=== PATIENT | male | born 1995 | race Caucasian/White ===

== ENCOUNTER 2021-07-01 11:48 | Emergency (ER) | payer OTHER, SELFPAY ==
--- NOTE | ~2021-07-01 | XR_ITS ---
EXAMINATION: XR CHEST CLINICAL INFORMATION: Cough COMPARISON: None TECHNIQUE: Frontal view of the chest was obtained. FINDINGS: The cardiac and mediastinal contours are normal. The lungs are clear. There is no pleural effusion or pneumothorax. There is mild curvature of the midthoracic spine to the right. Bony structures are otherwise unremarkable. XR/XR chest 1V IMPRESSION: No evidence for acute disease in the chest.
[2021-07-01 13:28] VITALS: BP 157/80; PULSE 101; RESP 18; TEMP 37.1; O2SAT 98; BMI 28.2
[2021-07-01 14:17] VITALS: BP 124/80; PULSE 94; RESP 18; TEMP 36.6; O2SAT 96
[2021-07-01 14:19] LABS: COVID-19 Test Negative (Negative); IDNOW Serial# 9DD0AD1C
--- NOTE | 2021-07-01 14:22 | ED.URI ---
HPI - URI/Sore Throat General Chief Complaint: Upper Respiratory Symptoms Stated Complaint: flu like symptoms Time Seen by Provider: 07/01/21 13:58 Source: patient Mode of arrival: ambulatory Limitations: no limitations History of Present Illness HPI Narrative: 25-year-old male with hx TBI, seizures presents to the ER with dry hacking cough, body aches, chest tightness and discomfort with coughing and shortness of breath. His symptoms started 2 days ago and worsened today. He is vaccinated for COVID-19 and has had no known sick contacts. He has no abdominal pain, nausea, vomiting, diarrhea. He is able to tolerate p.o.. He took Aleve for his headache and body aches today with improvement. MD elicited complaint: cough, sore throat and nasal congestion Onset (ago): day(s) (2) Consistency: constant Severity: moderate Able to tolerate fluids by mouth: Yes Exacerbating factors: exertion Relieving factors: NSAID and rest Associated symptoms: myalgias, headache, rhinorrhea, nasal congestion, cough, chest pain and shortness of breath Treatments prior to arrival: ibuprofen Related Data Allergies Allergy/AdvReac Type Severity Reaction Status Date / Time Penicillins Allergy Hives Verified 07/01/21 13:28 Review of Systems Review of Systems: Constitutional: No Fever, No Chills ENT/Mouth: No sore throat, + Rhinorrhea, No Swallowing Difficulty Cardiovascular: + Chest Pain, + SOB, No Orthopnea, No Edema Respiratory: + Cough, No Sputum, No Wheezing, + dyspnea Gastrointestinal: No Nausea, No Vomiting, No Diarrhea, No abdominal Pain Musculoskeletal: No joint pain, + Myalgias Skin: No Skin Lesions, No rash Neuro: No Weakness, No Numbness, No Dizziness, + Headache Psych: No Anxiety/Panic, No Depression Heme/Lymph: No Bruising, No Lymphadenopathy Endocrine: No Polyuria, No Polydipsia PMFSH Past Medical History Medical History Seizures SVT (supraventricular tachycardia) TBI (traumatic brain injury) Surgical History (Updated 07/01/21 @ 13:30 by Cherrie Solis RN) History of appendectomy Social History Social History Advance Directives: No Advance Directives Information Provided: No Physical Exam Vital Signs: Vital Signs: Last Vital Signs Temp 97.8 F 07/01/21 14:17 Pulse 94 07/01/21 14:17 Resp 18 07/01/21 14:17 BP 124/80 07/01/21 14:17 Pulse Ox 96 07/01/21 14:17 Body Mass Index 28.2 Appearance: Alert. Oriented X3. No acute distress. Eyes: Pupils equal, round and reactive to light. ENT: Pharynx normal. TM's normal. Clear nasal discharge Neck: Normal inspection. Neck supple. CVS: Normal heart rate and rhythm. Pulses normal. Respiratory: No respiratory distress. Breath sounds normal. Skin: Skin warm and dry. Normal skin color. Normal skin turgor. No rashes. Extremities: No lower extremity edema. Neuro: Oriented X 3. Grossly normal, nonfocal Course Course Course Narrative: 25-year-old male presents to the ER with cough, chest pain, shortness of breath, body aches. He is nontoxic appearing. His symptoms are most likely viral in nature. Will get COVID swab and chest x-ray. Reevaluation(s) Reevaluation #1: Chest x-ray is clear COVID swab is negative. He is stable for discharge home with supportive care and plan to follow-up with his doctor as needed. MDM - URI/Sore Throat Lab Data Labs: Lab Results 07/01/21 Range/Units 13:58 COVID-19 ([facility]) Negative (Negative) COVID-19 Clin Com See Note Critical Care Time Critical Care Time Critical Care Time: No Discharge Plan Discharge Clinical Impression: Viral infection Patient Disposition: Home, Self-Care Instructions: Viral Syndrome (ED) Additional Instructions: You were negative for COVID-19. Your chest x-ray and oxygen levels were normal. Rest. Drink plenty of fluids. Take over the counter cold/flu medications as needed for your symptoms. Take Tylenol and/or Motrin as needed for fevers and body aches. Follow up with your doctor this week. If your symptoms persist, recommend getting another COVID-19 test done. If you shortness of breath worsens, if you develop difficulty breathing or any other concerning symptom come back to the ER for further evaluation. Stand Alone Forms: Work/School Release
== END 2021-07-01 15:09 | disposition home or self-care (01) ==
PROVIDERS: Emergency Provider Emergency Medicine; PCP Internal Medicine
DX: B34.9 Viral infection, unspecified (principal); M79.10 Myalgia, unspecified site; R51.9 Headache, unspecified; R05.9 Cough, unspecified; R07.9 Chest pain, unspecified; R06.02 Shortness of breath; Z20.822 Contact with and (suspected) exposure to COVID-19
CPT/HCPCS: 36415; 71045; 87635; 99283; 99284

== ENCOUNTER 2021-07-08 15:09 | Emergency (ER) | payer OTHER, SELFPAY ==
--- NOTE | ~2021-07-08 | XR_ITS ---
EXAMINATION: XR CHEST CLINICAL INFORMATION: Cough COMPARISON: None TECHNIQUE: Frontal view of the chest was obtained. FINDINGS: No significant abnormality is noted involving the heart, lungs, mediastinum, bony thorax or soft tissues. XR/XR chest 1V IMPRESSION: Unremarkable examination.
[2021-07-08 15:24] VITALS: BP 131/94; PULSE 93; RESP 20; TEMP 36.9; O2SAT 96; BMI 27.6
[2021-07-08 16:09] LABS: COVID-19 Test Negative (Negative)
--- NOTE | 2021-07-08 17:53 | ED.URI ---
HPI - URI/Sore Throat General Chief Complaint: Upper Respiratory Symptoms Stated Complaint: Chest congestion/Difficulty breathing Time Seen by Provider: 07/08/21 17:43 History of Present Illness HPI Narrative: Patient complains of cough congestion for 2 weeks as well as yellowish sputum production no shortness of breath Related Data Previous Rx's Medication Instructions Recorded azithromycin 250 mg tablet See Rx Instructions .ROUTE 07/08/21 (Zithromax) .COMPLEX #6 tab Allergies Allergy/AdvReac Type Severity Reaction Status Date / Time Penicillins Allergy Hives Verified 07/01/21 13:28 sulfamethoxazole Allergy Unknown Verified 07/08/21 17:50 [From Bactrim] trimethoprim [From Bactrim] Allergy Unknown Verified 07/08/21 17:50 Review of Systems Review of Systems: Positive for cough and runny nose Negatives are no fever no chills no dizziness no weakness no fainting no feeling faint no chest pain no shortness of breath no stiff neck no nausea vomiting no abdominal pain no leg swelling no lower leg pain no skin rash Yes all other systems are reviewed and are negative PMFSH Past Medical History Source: nursing notes reviewed Medical History Seizures SVT (supraventricular tachycardia) TBI (traumatic brain injury) Surgical History (Updated 07/01/21 @ 13:30 by Cherrie Solis RN) History of appendectomy Social History Social History Advance Directives: No Advance Directives Information Provided: No Physical Exam Vital Signs: Vital Signs: Last Vital Signs Temp 98.5 F 07/08/21 15:24 Pulse 93 07/08/21 15:24 Resp 20 07/08/21 15:24 BP 131/94 H 07/08/21 15:24 Pulse Ox 96 07/08/21 15:24 BMI result Body Mass Index 27.6 General appearance is no acute distress comfortable The eyes are clear no redness or discharge Neck is supple Chest clear to auscultation bilateral Heart no murmur Abdomen soft nontender Extremities full range of motion x4 Skin no rash Course Course Course Narrative: COVID testing and chest x-ray were negative but as symptoms have been over 10 days and not improving he started antibiotics Otherwise well-appearing patient is discharged MDM - URI/Sore Throat Lab Data Labs: Lab Results 07/08/21 Range/Units 15:31 COVID-19 ([facility]) Negative (Negative) COVID-19 Clin Com See Note Discharge Plan Discharge Clinical Impression: Bronchitis Patient Disposition: Home, Self-Care Additional Instructions: X-ray and COVID test were negative Because symptoms have gone on for over 2 weeks we are treating for bronchitis with antibiotics Zithromax Return any time any worse condition or any concerns Prescriptions: New azithromycin [Zithromax] 250 mg tablet See Rx Instructions .ROUTE .COMPLEX Qty: 6 RF: 0 Stand Alone Forms: Work/School Release Interventions: ED Discharge Assessment Last Done: 07/08/21 19:08 Discharge Date/Time: 07/08/21 19:09
== END 2021-07-08 19:09 | disposition home or self-care (01) ==
PROVIDERS: Emergency Provider Emergency Medicine Emergency Medical Services; PCP Internal Medicine
DX: J40 Bronchitis, not specified as acute or chronic (principal); Z20.822 Contact with and (suspected) exposure to COVID-19
CPT/HCPCS: 36415; 71045; 87635; 99283

== ENCOUNTER 2021-08-28 15:43 | Emergency (ER) | payer OTHER, SELFPAY ==
[2021-08-28 16:32] VITALS: BP 140/83; PULSE 64; RESP 18; TEMP 36.8; O2SAT 97; BMI 25.7
--- NOTE | 2021-08-28 17:28 | ED_ITS ---
HPI - Psych General Chief Complaint: Psychiatric Symptoms Stated Complaint: psych eval. Source: patient Mode of arrival: ambulatory Limitations: no limitations History of Present Illness HPI Narrative: 25-year-old male presents for suicidal ideation and self mutilating. States that he is depressed, has been drinking alcohol but not to excess. Denies illicit drug use. Denies auditory visual hallucinations. MD complaint: suicidal ideation, feels depressed, anxiety and alcohol abuse Onset (ago): month(s) Duration: constant History of same: Yes Relieving factors: none Exacerbating factors: alcohol Context: recent alcohol abuse and significant life stressor Associated psychiatric symptoms: depression, suicidal ideation and other (Self injurous behavior) Associated symptoms: denies other symptoms Treatments prior to arrival: none If self harm: admits thoughts of self harm and self-inflicted trauma Related Data Previous Rx's Medication Instructions Recorded azithromycin 250 mg tablet See Rx Instructions .ROUTE 07/08/21 (Zithromax) .COMPLEX #6 tab Allergies Allergy/AdvReac Type Severity Reaction Status Date / Time Penicillins Allergy Hives Verified 07/01/21 13:28 sulfamethoxazole Allergy Unknown Verified 07/08/21 17:50 [From Bactrim] trimethoprim [From Allergy Unknown Verified 07/08/21 17:50 Bactrim] Review of Systems Verdana 4l Review of Systems: Verdana 4d Verdana 4d Constitutional: No Fever, No Chills ENT/Mouth: No Ear Pain, No Nasal Congestion, No sore throat Eyes: No Eye Pain, No Swelling, No Redness Cardiovascular: No Chest Pain, No SOB Respiratory: No Cough, No Sputum, No Dyspnea GastrointestinalGastrointestinal: No Nausea, No Vomiting, No Diarrhea, No Hematochezia, No Melena Genitourinary: No Dysuria, No Urinary Frequency, No Hematuria Musculoskeletal: No Myalgias Skin: No Skin Lesions, No rash Neuro: No Weakness, No Numbness, No Paresthesias, No Dizziness, No Headache Psych: positive Anxiety, positive Depression, positive SI, positive self-mutilation, positive alcohol abuse Heme/Lymph: No Lymphadenopathy Endocrine: No Polyuria, No Polydipsia Yes all other systems are reviewed and are negative PMFSH Past Medical History Attestation statement: The following information was validated with the patient. Source: old records reviewed Medical History Seizures SVT (supraventricular tachycardia) TBI (traumatic brain injury) Surgical History History of appendectomy Social History Social History Advance Directives: No Advance Directives Information Provided: No Healthcare Proxy: No Guardian: No Physical Exam Verdana 4l Vital Signs: Verdana 4d Verdana 4d Vital Signs: Verdana 4d Verdana 4Bd Last Vital Signs Verdana 4d Shoe Dresser New 4d Shoe Dresser New 4d Temp 98.5 F 08/28/21 18:00 Shoe Dresser New 4d Pulse 89 08/28/21 18:00 Shoe Dresser New 4d Resp 18 08/28/21 18:00 BP 134/84 08/28/21 18:00 Pulse Ox 97 08/28/21 16:32 BMI result Body Mass Index 25.7 Appearance: Alert. Oriented X3. No acute distress. Eyes: Pupils equal, round and reactive to light. EOMI. Sclera nonicteric. ENT: Pharynx normal. Moist mucous membranes. Neck: Normal inspection. Neck supple. Suction bruise to the left neck. CVS: Normal heart rate and rhythm. Pulses normal. Respiratory: No respiratory distress. Breath sounds normal. Abdomen: Soft and nontender. Skin: Superficial abrasion to the dorsal aspect of the right hand. Skin warm and dry. Normal skin color. Normal skin turgor. Extremities: No lower extremity edema. Gait well-balanced well coordinated. Neuro: No motor deficit. No sensory deficit. Cranial nerves 2-12 intact. Course Course Course Narrative: 25-year-old male presents for psychiatric evaluation. States to have suicidal ideation, and self-injurious behaviors. He did cut up his right hand, currently no signs of infection and healing without difficulty. Does have a suction bruise to the left neck. Does not report any other injuries. States to binge drink alcohol, last drink 2 days ago. Denies illicit drug use. Care team consult pending. 7:30 p.m. care team consult complete, plan of care to discharge home and have patient follow-up with outpatient therapy. Patient verbalized understanding of and agrees to plan of care to discharge home. Will refer to Dr. Roque for cyst on his right arm. MDM - Psych Differential Diagnosis Differential diagnosis: Likely suicidal ideation, depression and acute anxiety Medical Records Attestation: I reviewed the patient's medical records. Lab Data Attestation: I reviewed the patient's lab results. Labs: Lab Results 08/28/21 Range/Units 17:31 COVID-19 ([facility]) Negative (Negative) COVID-19 Clin Com See Note Discharge Plan Discharge Clinical Impression: Depression, Suicidal ideation Patient Disposition: Home, Self-Care Instructions: Depression (ED), Suicide Prevention (ED) Additional Instructions: Please follow-up with outpatient psychiatric therapy as directed. Thank you for choosing this emergency department for evaluation. Please follow-up with primary care physician as needed. Return to the emergency department for any new, concerning, or worsening symptoms. Prescriptions: No Action azithromycin [Zithromax] 250 mg tablet See Rx Instructions .ROUTE .COMPLEX Qty: 6 0RF Rx Instructions: For 250 mg dose pack: take 500 mg today (day 1), then 250 mg for 4 days (days 2-5) Referrals: [facility] [Provider Group] - 2 days Ariela Sullivan NP [Emergency Midlevel Provider] - 2 days Jcarlos Roque MD [Physician] - 2 days (Right arm cyst) Interventions: ED Discharge Assessment Last Done: 08/28/21 19:52 Discharge Date/Time: 08/28/21 20:02
[2021-08-28 17:50] LABS: COVID-19 Test Negative (Negative)
[2021-08-28 18:00] VITALS: BP 134/84; PULSE 89; RESP 18; TEMP 36.9
--- NOTE | 2021-08-28 19:29 | PC.NURSE ---
patient a&ox3, no c/o pain or discomfort, pt currently denying si/hi, vitals stable, care team down to speak with patient and stated that they spoke with the provider and patient will be discharged.
== END 2021-08-28 20:02 | disposition home or self-care (01) ==
PROVIDERS: Emergency Provider Internal Medicine
DX: F32.A Depression, unspecified (principal); R45.851 Suicidal ideations; Z20.822 Contact with and (suspected) exposure to COVID-19; F41.9 Anxiety disorder, unspecified; F10.10 Alcohol abuse, uncomplicated; Y90.9 Presence of alcohol in blood, level not specified; Z91.52 Personal history of nonsuicidal self-harm
CPT/HCPCS: 87635; 99284

== ENCOUNTER 2021-11-02 07:50 | Inpatient (IN) | payer OTHER, SELFPAY ==
--- NOTE | 2021-11-02 | ECG_ITS ---
Test Reason : PSYCH MEDS Blood Pressure : / mmHG Vent. Rate : 094 BPM Atrial Rate : 094 BPM P-R Int : 138 ms QRS Dur : 094 ms QT Int : 334 ms P-R-T Axes : 064 075 017 degrees QTc Int : 417 ms Normal sinus rhythm Normal ECG No previous ECGs available Referred By: Patsy Luz Electronically Signed By:MARCO ZAPIEN
[2021-11-02 07:57] VITALS: BP 140/78; PULSE 92; RESP 17; TEMP 37.3; O2SAT 96; BMI 25.7
--- NOTE | 2021-11-02 08:25 | PC.NURSE ---
Addendum entered by Rachele Giang RN 11/02/21 09:06: Aripiprazole - not zyprexa. Original Note: pt awake, alert. brought over to Pod and changed over into [facility]. Belongings were locked up. pt medication rec completed - he takes 75mg Amitriptyline at night and 10 mg Zyprexa in the AM. pt reports he was taking only 5mg but he had a zoom meeting with his dr yesterday where she increased his dose to 10 mg. pt reports thoughts of SI. his eye contact is poor, he reports delusions and unable to tell the difference between if he is hearing voices or if they are his own intrusive thoughts. pt reports hx of cutting self as a way of coping as well as tying nooses. he reports he has been diagnosed with schizophrenia since 17/16 y.o and recently he has been having a more difficult time coping with the sx. pt with new and son at home, reports he has been experiencing a lot of stress attempting to find help on his own.
[2021-11-02 09:14] LABS: MANUAL DIFF FLAG NO
--- NOTE | 2021-11-02 09:18 | ED.PSYCH ---
HPI - Psych General Chief Complaint: Psychiatric Symptoms Stated Complaint: crisis si Time Seen by Provider: 11/02/21 08:09 Source: patient Mode of arrival: ambulatory Limitations: no limitations History of Present Illness HPI Narrative: 26-year-old male with a past medical history of TBI/seizure disorder currently on amitriptyline being followed by Neurology, schizophrenia since he was 15 years old currently on Zyprexa presenting to the ED with complaints of increased anxiety/depression with SI thoughts no plan in place with auditory hallucinations telling him ?to harm himself?. Reports that he lives with his and his 6-year-old at home. He reports that he has been trying to get a prescriber for antidepressant although his PCP is not comfortable prescribing antidepressants therefore she increases his Zyprexa from 5 mg to 10 mg yesterday and told him that he should come to the emergency department for further evaluation treatment to see if we can help him find a therapist/psychiatrist prescribe him antidepressant medications or any other psychiatric medications. He reports that he stopped drinking approximately 5 weeks ago. He denies any drug usage. He reports that he does not smoke. He denies any actual plan in place. He denies any HI or visual hallucination. He denies any fevers, chills, dizziness, headaches, neck pain/stiffness, trouble swallowing or breathing, loss of taste or smell, sore throat, chest pain or shortness of breath, dyspnea on exertion, orthopnea, nausea/vomiting/diarrhea constipation, rashes, black or bloody stools, constipation, recent travel or sick contacts, paresthesias or any other symptoms complaints or concerns at this time. MD complaint: suicidal ideation, feels depressed and anxiety Onset (ago): day(s) Duration: constant and getting worse History of same: Yes Relieving factors: none Exacerbating factors: none Associated psychiatric symptoms: depression, suicidal ideation, racing thoughts and auditory hallucinations Associated symptoms: denies other symptoms Treatments prior to arrival: none Related Data Home Medications Medication Instructions Recorded Confirmed amitriptyline 75 mg tablet 1 tab PO DAILY 11/02/21 11/02/21 aripiprazole 5 mg tablet 1 tab PO DAILY 11/02/21 11/02/21 Previous Rx's Medication Instructions Recorded azithromycin 250 mg tablet See Rx Instructions .ROUTE 07/08/21 (Zithromax) .COMPLEX #6 tab Allergies Allergy/AdvReac Type Severity Reaction Status Date / Time Penicillins Allergy Hives Verified 07/01/21 13:28 sulfamethoxazole Allergy Unknown Verified 07/08/21 17:50 [From Bactrim] trimethoprim [From Bactrim] Allergy Unknown Verified 07/08/21 17:50 Review of Systems Review of Systems: Constitutional : No Fever, No Chills ENT/Mouth : No Ear Pain, No Nasal Congestion, No sore throat Eyes: No Eye Pain, No Swelling, No Redness Cardiovascular : No Chest Pain, No SOB Respiratory : No Cough, No Sputum, No Dyspnea Gastrointestinal : No ingestions, No Nausea, No Vomiting, No Diarrhea, No Hematochezia, No Melena Genitourinary : No Dysuria, No Urinary Frequency, No Hematuria Musculoskeletal : No Myalgias Skin : No Skin Lesions, No rash Neuro : No Weakness, No Numbness, No Paresthesias, No Dizziness, No Headache Psych : + Anxiety, + Depression, + SI, + thoughts of self injury, + auditory hallucinations, no visual hallucinations, No HI Heme/Lymph: No Lymphadenopathy Endocrine : No Polyuria, No Polydipsia Yes all other systems are reviewed and are negative [facility] Past Medical History Attestation statement: The following information was validated with the patient. Medical History Seizures SVT (supraventricular tachycardia) TBI (traumatic brain injury) Surgical History History of appendectomy Social History Social History Advance Directives: No Advance Directives Information Provided: Yes Healthcare Proxy: No Guardian: No Physical Exam Vital Signs: Vital Signs: Last Vital Signs Temp 98.2 F 11/02/21 16:01 Pulse 101 H 11/02/21 16:01 Resp 18 11/02/21 11:22 BP 135/85 11/02/21 16:01 Pulse Ox 98 11/02/21 16:01 BMI result Body Mass Index 25.7 vital signs have been reviewed as normal and appeared to be correct. Blood pressure 140/78. Heart rate normal. Respiration rate normal. Temperature normal. Oxygen saturation normal. Appearance: Alert. Oriented X3. No acute distress. Head: Normal external exam. Normocephalic. Atraumatic. Eyes: PERRLA. EOMI. Conjunctiva and sclera normal. Eyelids normal. ENT: EAC normal. TM's Normal. Pharynx normal. Uvula midline. Moist mucous membranes. No trismus noted. No drooling noted. No muffled voice noted. Neck: Normal inspection. Neck supple. FROM. No adenopathy. Thyroid Normal. No meningeal signs. No neck mass noted. CVS: Normal heart rate and rhythm. Heart sound normal. No murmurs noted. Pulses normal throughout. Respiratory: No respiratory distress. Painless inspiration. Breath sounds normal. No wheezes/rales/rhonchi noted. Chest nontender. No accessory muscle usage noted or decreased air movement noted. Abdomen: Soft and nontender. Bowel sounds normal in all 4 quadrants. No distention noted. No organomegaly noted. No visible injury noted. Back: No CVA tenderness. Full range of motion noted. Skin: Skin warm and dry. Normal skin color. Normal skin turgor. No rashes/lesions/lacerations noted. Extremities: No lower extremity edema. Extremities exhibit normal range of motion. Extremities nontender. Neuro: Oriented X 3. No motor deficit. No sensory deficit. Reflexes normal. CN's II-XII intact bilaterally? Psych: Appearance grossly normal, well-kept, mental status normal, speech and movement normal, speech clear, patient appears very sad and anxious along with depressed. Is cooperative. Normal thought process. Normal thought content. Normal good insight. Judgment good. Vascular: +2 radial pulses bilateral, +2 distal pedal pulses bilateral. No cyanosis noted to upper lower extremities. Normal capillary refill to bilateral upper and lower extremities fingernails and toenails. Course Course Course Narrative: 8:35am - 26-year-old male with a past medical history of TBI/seizure disorder currently on amitriptyline being followed by Neurology, schizophrenia since he was 15 years old currently on Zyprexa presenting to the ED with complaints of increased anxiety/depression with SI thoughts no plan in place with auditory hallucinations telling him ?to harm himself?. Reports that he lives with his and his 6-year-old at home. He reports that he has been trying to get a prescriber for antidepressant although his PCP is not comfortable prescribing antidepressants therefore she increases his Zyprexa from 5 mg to 10 mg yesterday and told him that he should come to the emergency department for further evaluation treatment to see if we can help him find a therapist/psychiatrist prescribe him antidepressant medications or any other psychiatric medications. He reports that he stopped drinking approximately 5 weeks ago. He denies any drug usage. He reports that he does not smoke. He denies any actual plan in place. He denies any HI or visual hallucination. Plan: Labs, EKG, UA, drugs of abuse screen, COVID swab and re-evaluate. Reevaluation(s) Reevaluation #1: - labs reviewed and all within normal limits. UA within normal limits no evidence of UTI. Patient negative for COVID. - therefore at this time patient is placed in Physician observation and is medically cleared because he needs to be evaluated by crisis for possible inpatient versus DC with outpatient therapy/psychiatry referral. Will continue to monitor at this time patient is alert and oriented x3. Not in any acute distress. No focal neuro deficits are noted. Lungs clear to auscultation CV RRR. Abdomen is soft and nontender. Normal steady gait. He denies any additional complaints or concerns at this time. Will continue to monitor. Time: 10:00 Reevaluation #2: - care team evaluated the patient and they are recommending inpatient voluntary bed search although they may place him on a Section 12 will continue to monitor. Patient understands agrees with this plan. Time: 11:26 Reevaluation #3: - patient being admitted to [facility] by Dr. Mendoza for an unspecific psychotic disorder. Patient understands agrees with this plan. Will continue to monitor until he is transferred upstairs Time: 16:37 [facility] - Psych Medical Records Attestation: I reviewed the patient's medical records. Lab Data Attestation: I reviewed the patient's lab results. Result diagrams: 11/02/21 09:09 11/02/21 09:09 Labs: Lab Results 11/02/21 11/02/21 11/02/21 Range/Units 09:09 09:09 09:09 WBC 5.0 (4.8-10.8) X10*3/uL RBC 4.80 (4.60-5.80) X10*6/uL Hgb 15.0 (14.0-18.0) g/dl Hct 43.9 (42.0-52.0) % MCV 91.5 (80.0-98.0) fL MCH 31.3 (27.0-33.0) pg MCHC 34.2 (31.0-36.0) g/dl RDW 11.9 (11.0-16.0) % Plt Count 260 (160-400) X10*3/uL MPV 9.1 L (9.4-12.4) fL Immature Gran % (Auto) 0.2 (0.0-0.4) % Neut % (Auto) 62.5 (45-73) % Lymph % (Auto) 25.0 (20-40) % [place] % (Auto) 8.9 (2-11) % Eos % (Auto) 2.6 (0-4) % Baso % (Auto) 0.8 (0-2) % Lymph # (Auto) 1.3 (1.2-4.9) X10*3/uL [place] # (Auto) 0.5 (0.1-1.2) X10*3/uL Eos # (Auto) 0.1 (0.0-0.4) X10*3/uL Baso # (Auto) 0.0 (0.0-0.2) X10*3/uL Abs Immat Gran (auto) 0.01 (0.00-0.03) X10*3/uL Absolute Neuts (auto) 3.1 (2.0-8.3) x10*3/uL Absolute Nucleated RBC 0.000 (0.0-0.012) X10*3/uL Nucleated RBC % (auto) 0.0 (0.0-0.2) /100WBC Sodium 142 (135-145) mmol/L Potassium 4.5 (3.3-5.1) mmol/L Chloride 105 (96-108) mmol/L Carbon Dioxide 30 H (22-29) mmol/L Anion Gap 12 (12-20) BUN 13 (9-16) mg/dL Creatinine 0.98 (0.5-1.4) mg/dL Estim Creat Clear Calc 130.4 Estimated GFR > 60 Random Glucose 107 (60-115) mg/dL Calcium 9.9 (8.4-10.2) mg/dL Total Bilirubin 0.3 (0.0-1.0) mg/dL Direct Bilirubin < 0.2 (0.0-0.5) mg/dL AST 26 (5-37) U/L ALT 62 H (0-40) U/L Alkaline Phosphatase 64 (39-117) U/L Total Protein 6.8 (6.5-8.0) g/dL Albumin 4.4 (3.5-5.0) g/dL Lipase 19 (8-78) U/L Urine Color Urine Appearance Urine pH (5.0-8.0) Ur Specific [place] (1.005-1.025) Urine Protein (NEG-TRACE) MG/DL Urine Glucose (UA) (NEG) MG/DL Urine Ketones (NEG) MG/DL Urine Blood (NEG) Urine Nitrite (NEG) Ur Leukocyte Esterase (NEG) Urine Opiates Screen (Not Detect) Urine Fentanyl Screen (Not Detect) Ur Barbiturates Screen (Not Detect) Ur Phencyclidine Scrn (Not Detect) Ur Amphetamines Screen (Not Detect) U Benzodiazepines Scrn (Not Detect) Urine Cocaine Screen (Not Detect) U Marijuana (THC) Screen (Not Detect) Ethyl Alcohol < 10 mg/dL COVID-19 (NITA) (Negative) COVID-19 Clin Com 11/02/21 11/02/21 11/02/21 Range/Units 09:15 09:18 09:18 WBC (4.8-10.8) X10*3/uL RBC (4.60-5.80) X10*6/uL Hgb (14.0-18.0) g/dl Hct (42.0-52.0) % MCV (80.0-98.0) fL MCH (27.0-33.0) pg MCHC (31.0-36.0) g/dl RDW (11.0-16.0) % Plt Count (160-400) X10*3/uL MPV (9.4-12.4) fL Immature Gran % (Auto) (0.0-0.4) % Neut % (Auto) (45-73) % Lymph % (Auto) (20-40) % [place] % (Auto) (2-11) % Eos % (Auto) (0-4) % Baso % (Auto) (0-2) % Lymph # (Auto) (1.2-4.9) X10*3/uL [place] # (Auto) (0.1-1.2) X10*3/uL Eos # (Auto) (0.0-0.4) X10*3/uL Baso # (Auto) (0.0-0.2) X10*3/uL Abs Immat Gran (auto) (0.00-0.03) X10*3/uL Absolute Neuts (auto) (2.0-8.3) x10*3/uL Absolute Nucleated RBC (0.0-0.012) X10*3/uL Nucleated RBC % (auto) (0.0-0.2) /100WBC Sodium (135-145) mmol/L Potassium (3.3-5.1) mmol/L Chloride (96-108) mmol/L Carbon Dioxide (22-29) mmol/L Anion Gap (12-20) BUN (9-16) mg/dL Creatinine (0.5-1.4) mg/dL Estim Creat Clear Calc Estimated GFR Random Glucose (60-115) mg/dL Calcium (8.4-10.2) mg/dL Total Bilirubin (0.0-1.0) mg/dL Direct Bilirubin (0.0-0.5) mg/dL AST (5-37) U/L ALT (0-40) U/L Alkaline Phosphatase (39-117) U/L Total Protein (6.5-8.0) g/dL Albumin (3.5-5.0) g/dL Lipase (8-78) U/L Urine Color YELLOW Urine Appearance CLEAR Urine pH 7.5 (5.0-8.0) Ur Specific [place] 1.015 (1.005-1.025) Urine Protein NEG (NEG-TRACE) MG/DL Urine Glucose (UA) NEG (NEG) MG/DL Urine Ketones NEG (NEG) MG/DL Urine Blood NEG (NEG) Urine Nitrite NEG (NEG) Ur Leukocyte Esterase NEG (NEG) Urine Opiates Screen Not Detected (Not Detect) Urine Fentanyl Screen Not Detected (Not Detect) Ur Barbiturates Screen Not Detected (Not Detect) Ur Phencyclidine Scrn Not Detected (Not Detect) Ur Amphetamines Screen Not Detected (Not Detect) U Benzodiazepines Scrn Not Detected (Not Detect) Urine Cocaine Screen Not Detected (Not Detect) U Marijuana (THC) Screen Not Detected (Not Detect) Ethyl Alcohol mg/dL COVID-19 (NITA) Negative (Negative) COVID-19 Clin Com See Note Discharge Plan Discharge Clinical Impression: Psychotic disorder Patient Disposition: Admitted As Inpatient
[2021-11-02 09:19] LABS: Basophils Percent Auto 0.8 % (0-2); Eosinophils Absolute Auto 0.1 X10*3/uL (0.0-0.4); Eosinophils Percent Auto 2.6 % (0-4); Hematocrit 43.9 % (42.0-52.0); Imm Gran Abs Auto 0.01 X10*3/uL (0.00-0.03); Imm Gran Pct Auto 0.2 % (0.0-0.4); Lymphocytes Absolute Auto 1.3 X10*3/uL (1.2-4.9); Mean Corpuscular HGB Conc 34.2 g/dl (31.0-36.0); Mean Corpuscular Hemoglobin 31.3 pg (27.0-33.0); Mean Corpuscular Volume 91.5 fL (80.0-98.0); Mean Platelet Volume 9.1 fL (9.4-12.4); Monocytes Absolute Auto 0.5 X10*3/uL (0.1-1.2); Monocytes Percent Auto 8.9 % (2-11); Neutrophils Absolute Auto 3.1 x10*3/uL (2.0-8.3); Neutrophils Percent Auto 62.5 % (45-73); Platelet Count 260 X10*3/uL (160-400); Red Cell Distribution Width 11.9 % (11.0-16.0)
[2021-11-02 09:30] LABS: Appearance Urine CLEAR; Color Urine YELLOW; Glucose Urine UA NEG (NEG); Leukocyte Esterase Urine NEG (NEG); Nitrite Urine NEG (NEG); PH 7.5 (5.0-8.0); Specific Gravity - Urine 1.015 (1.005-1.025); Urine Blood NEG (NEG); Urine Ketones NEG (NEG); Urine Protein NEG (NEG-TRACE)
[2021-11-02 09:34] LABS: Anion Gap 12 (12-20); Blood Urea Nitrogen 13 mg/dL (9-16); Calcium 9.9 mg/dL (8.4-10.2); Carbon Dioxide 30 mmol/L (22-29); Chloride 105 mmol/L (96-108); Creatinine Clr Calc Pharmacy 130.4; Estimated Glomerular Filt Rate > 60; Glucose Random 107 mg/dL (60-115); Potassium 4.5 mmol/L (3.3-5.1); Sodium 142 mmol/L (135-145)
[2021-11-02 09:43] LABS: COVID-19 Test Negative (Negative); IDNOW Serial# 16C4AD1C
[2021-11-02 10:21] LABS: Alanine Aminotransferase 62 U/L (0-40); Albumin Level 4.4 g/dL (3.5-5.0); Alkaline Phosphatase 64 U/L (39-117); Aspartate Amino Transferase 26 U/L (5-37); Bilirubin Direct < 0.2 mg/dL (0.0-0.5); Bilirubin Total 0.3 mg/dL (0.0-1.0); Lipase 19 U/L (8-78); Total Protein 6.8 g/dL (6.5-8.0)
[2021-11-02 10:35] LABS: Ethanol < 10 mg/dL
[2021-11-02 10:39] LABS: Amphetamine Screen Urine Not Detected (Not Detect); Barbiturates, Urine Not Detected (Not Detect); Benzodiazepines Screen Urine Not Detected (Not Detect); Cannabinoid Screen Urine Not Detected (Not Detect); Cocaine Screen Urine Not Detected (Not Detect); Fentanyl, urine Not Detected (Not Detect); Opiate Screen Urine Not Detected (Not Detect); Phencyclidine Screen Urine Not Detected (Not Detect)
[2021-11-02] MEDS: OLANZapine 5 MG TABLET PO (11:05)
[2021-11-02 11:22] VITALS: BP 145/90; PULSE 106; RESP 18; TEMP 37.1; O2SAT 99
--- NOTE | 2021-11-02 15:45 | PC.NURSE ---
pt to go to [facility]
[2021-11-02 16:01] VITALS: BP 135/85; PULSE 101; TEMP 36.8; O2SAT 98
--- NOTE | 2021-11-02 16:22 | PC.NURSE ---
nurse to nurse given to Rachele on [facility]
[2021-11-02 18:10] VITALS: BP 150/99; PULSE 92; RESP 18; TEMP 36.8; O2SAT 99
[2021-11-02 19:45] VITALS: BMI 26.1
[2021-11-02 20:30] VITALS: BP 162/89; PULSE 87; RESP 18; TEMP 36.7; O2SAT 96
[2021-11-02] MEDS: Simethicone 80 MG TAB.CHEW PO (21:02)
[2021-11-02] MEDS: Amitriptyline HCl 25 MG TABLET 75 MG PO (21:23)
--- NOTE | 2021-11-02 22:06 | PC.ADMIT ---
26y/o cisgender male; referred by the CARE Team, admitted from [facility]. Legal status: Conditional Voluntary. Admitting Diagnosis: Suicidal Ideation. Past Medical History: TBI from childhood that resulted in chronic headaches; SVT. Toxicology Screen negative for all substances. Patient calm and cooperative, engaged in Admission Assessment; dressed in hospital attire, disheveled, poor eye contact; depressed, flat, blunted affect. Patient self-presented at the ER in the morning d/t worsening psychotic symptoms effecting daily functioning. Patient reports one previous psychiatric admission 10 years ago, and most recently has been struggling to find Outpatient Psychiatric Providers as his symptoms worsen. Patient reports having baseline of delusions and paranoia, thinking people are out to get me... or people are poisoning my food ; per patient, the perceptive distortions have worsened and are now impacting ADL as he is missing more work and eating less d/t paranoia, and having thoughts of self-harm... but I wouldn't do that to my family. Patient denies any suicidal plan although endorses passive suicidal thoughts that brought him into the hospital, reports not having these thoughts at time of Admission Assessment. Patient lives with his , 6 y/o son, and 2 roommates; and works fulltime. Patient expresses concern to be able to return to work by Thursday, I have missed too much work...I need to provide for my family. Patient reported he has been using [facility] for psychiatric medication for about a month and met with provider yesterday, But provider doesn't have resources for my condition, they have me diagnosed with schizophrenia. Med Reconciliation completed with pharmacy. Allergy list updated. BOAZ signed. Patient placed on 15 min safety checks.
--- NOTE | 2021-11-02 22:33 | PC.NURSE ---
Med Rec completed with [facility]. Per patient report and verification from [facility], Aripiprazole added to Allergy list and On-call Covering Psychiatrist alerted.
[2021-11-03 07:07] LABS: Alanine Aminotransferase 56 U/L (0-40); Albumin Level 4.5 g/dL (3.5-5.0); Alkaline Phosphatase 62 U/L (39-117); Anion Gap 11 (12-20); Aspartate Amino Transferase 23 U/L (5-37); Bilirubin Total 0.5 mg/dL (0.0-1.0); Blood Urea Nitrogen 12 mg/dL (9-16); Calcium 10.1 mg/dL (8.4-10.2); Carbon Dioxide 32 mmol/L (22-29); Chloride 104 mmol/L (96-108); Cholesterol 206 mg/dL; Creatinine Clr Calc Pharmacy 118.3; Estimated Glomerular Filt Rate > 60; Glucose Fasting 97 mg/dL (60-99); HDL Cholesterol 40 mg/dL; LDL Cholesterol Calculated 137 mg/dl; Potassium 4.7 mmol/L (3.3-5.1); Sodium 142 mmol/L (135-145); Triglycerides 147 mg/dL
[2021-11-03 07:27] LABS: Free T4 (Free Thyroxine) 1.28 ng/dL (0.71-1.85); Thyroid Stimulating Hormone 1.19 uIU/mL (0.32-4.0)
[2021-11-03 07:45] LABS: Estimated Average Glucose 97 mg/dL
[2021-11-03 09:00] VITALS: BP 140/96; PULSE 100; RESP 18; TEMP 36.7; O2SAT 98
[2021-11-03] MEDS: OLANZapine 10 MG TABLET PO (10:07)
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
[2021-11-03] MEDS: Amitriptyline HCl 25 MG TABLET 75 MG PO (20:50)
[2021-11-03 21:00] VITALS: BP 148/87; PULSE 98; RESP 18; TEMP 36.8; O2SAT 97
[2021-11-04 08:00] VITALS: BP 154/82; PULSE 99; RESP 14; TEMP 36.3; O2SAT 96
[2021-11-04] MEDS: OLANZapine 10 MG TABLET PO (09:02)
[2021-11-04] MEDS: hydrOXYzine HCL 50 MG TABLET PO (09:03)
[2021-11-04 10:13] LABS: Folate 13.4 ng/mL (> or = 4.0); Vitamin B12 419 pg/mL (200-900)
--- NOTE | 2021-11-04 14:18 | P.PNPSI_ITS ---
Subjective Subjective Date of Service: 11/04/21 Reason For Visit: SI Interim History: pt playing monopoly with peers in milieu. calm, cooperative. reports hydroxyzine was helpful. denies AH currently. discusses how he misses his , dog, and chid and would like to go home soon. mood pretty decent. feeling better on the unit, having met some people and gotten to know them a lit tle bit. per staff, 3-day matures . missing son and . asking for referrals for outpt care. isolative. poor sleep. anxiety so-so. guarded, med-compliant. asking for early D/C. Mental Status Exam Mental Status Exam Narrative: appropriately dressed and groomed. stevenson, tattoos. no PMA/PMR. cooperative. speech nml in rate, amount, loudness, tone, latency. thoughts linear and logical. affect constricted, normo-intense, non-labile. mood pretty decent. denies AH. no SI/HI/VH reported. Diagnostics Vital Signs (24Hr): Vital Signs - 24 hr 11/03/21 21:00 11/04/21 08:00 Temperature 98.2 F 97.4 F Pulse Rate 98 99 Respiratory Rate 18 14 Blood Pressure 148/87 H 154/82 H Pulse Oximetry 97 96 BMI result Body Mass Index 26.1 Labs Results: 11/02/21 09:09 11/03/21 06:45 Labs: Laboratory Results - last 48 hr 11/03/21 11/03/21 11/03/21 06:45 06:45 06:45 Sodium 142 Potassium 4.7 Chloride 104 Carbon Dioxide 32 H Anion Gap 11 L BUN 12 Creatinine 1.08 Estim Creat Clear Calc 118.3 Estimated GFR > 60 Fasting Glucose 97 Estimat Average Glucose 97 Hemoglobin A1c % 5.0 Calcium 10.1 Total Bilirubin 0.5 AST 23 ALT 56 H Alkaline Phosphatase 62 Total Protein 7.0 Albumin 4.5 Triglycerides 147 Cholesterol 206 LDL Cholesterol, Calc 137 HDL Cholesterol 40 Vitamin B12 419 Folate 13.4 TSH 1.19 Free T4 1.28 Medications Medications Current Medications Acetaminophen (Acetaminophen 325 Mg Tablet) 650 mg PO Q6H PRN PRN Reason: Headache/Pain Mild Scale (1-3) Al Hydroxide/Mg Hydroxide (Magnesium Hydrox/Alum Hydrox 30 Ml Oral.Susp) 30 ml PO Q6H PRN PRN Reason: Heartburn/Nausea Amitriptyline HCl (Amitriptyline Hcl 25 Mg Tablet) 75 mg PO BEDTIME BRITTNY Last Admin: 11/03/21 20:50 Dose: 75 mg Documented by: Hydroxyzine HCl (Hydroxyzine Hcl 25 Mg Tablet) 25 mg PO BEDTIME PRN PRN Reason: Anxiety Hydroxyzine HCl (Hydroxyzine Hcl 50 Mg Tablet) 50 mg PO Q4H PRN PRN Reason: Anxiety Last Admin: 11/04/21 09:03 Dose: 50 mg Documented by: Magnesium Hydroxide (Milk Of Magnesia 30 Ml Oral.Susp) 30 ml PO DAILY PRN PRN Reason: Constipation Olanzapine (Olanzapine 10 Mg Tablet) 10 mg PO DAILY BRITTNY Last Admin: 11/04/21 09:02 Dose: 10 mg Documented by: Simethicone (Simethicone 80 Mg Tab.Chew) 80 mg PO QIDWMHS PRN PRN Reason: flatulence Last Admin: 11/02/21 21:02 Dose: 80 mg Documented by: Trazodone HCl (Trazodone Hcl 50 Mg Tablet) 50 mg PO BEDTIME PRN PRN Reason: Insomnia Allergies Allergies Allergy/AdvReac Type Severity Reaction Status Date / Time aripiprazole Allergy Unknown Verified 11/02/21 19:56 Penicillins Allergy Hives Verified 07/01/21 13:28 sulfamethoxazole Allergy Unknown Verified 07/08/21 17:50 [From Bactrim] trimethoprim [From Bactrim] Allergy Unknown Verified 07/08/21 17:50 Assessment & Plan Assessment & Plan (1) Schizophrenia, paranoid type: Status: Acute Code(s): F20.0 - Paranoid schizophrenia Plan continue zyprexa at recently increased dose of 10 mg daily. continue elavil 75 mg at HS. observe for stable and improved Sx. discharge planning. I spent __20____ minutes with the patient and/or on the patient floor today, greater than?50% of which was spent counseling/coordinating care. Reason for contiued inpatient stay Substantial Risk for: harm to self, inability to function and rapid decompensation
[2021-11-04] MEDS: Acetaminophen 325 MG TABLET 650 MG PO (20:17)
[2021-11-04] MEDS: Amitriptyline HCl 25 MG TABLET 75 MG PO (20:17)
[2021-11-04 20:25] VITALS: BP 156/82; PULSE 101; RESP 18; TEMP 36.7; O2SAT 96
[2021-11-05] MEDS: hydrOXYzine HCL 50 MG TABLET PO (05:43)
[2021-11-05 08:14] VITALS: BP 138/85; PULSE 102; RESP 17; TEMP 36.7; O2SAT 99
[2021-11-05] MEDS: OLANZapine 10 MG TABLET PO (09:17)
--- NOTE | 2021-11-05 13:46 | HO.PSYCHPN ---
Subjective Subjective Date of Service: 11/05/21 Reason For Visit: SI Interim History: pt calm and cooperative. slept 8-5. hydroxyzine helped with sleep. denies AH. denies SI/HI. planning for discharge tomorrow. aftercare being arranged. no complaints or requests. per staff, wants discharge. 3-day up tomorrow. anx/dep 0/10. wants to see his and son. discharge tomorrow. Mental Status Exam Mental Status Exam Narrative: appropriately dressed and groomed. stevenson, tattoos. no PMA/PMR. cooperative. speech nml in rate, amount, loudness, tone, latency. thoughts linear and logical. affect constricted, normo-intense, non-labile. mood euthymic. denies AH/SI/HI. no VH reported. Diagnostics Vital Signs (24Hr): Vital Signs - 24 hr 11/04/21 20:25 11/05/21 08:14 Temperature 98.1 F 98.1 F Pulse Rate 101 H 102 H Respiratory Rate 18 17 Blood Pressure 156/82 H 138/85 Pulse Oximetry 96 99 BMI result Body Mass Index 26.1 Labs Results: 11/02/21 09:09 11/03/21 06:45 Labs: Laboratory Results - last 48 hr 11/03/21 06:45 Vitamin B12 419 Folate 13.4 Medications Medications Current Medications Acetaminophen (Acetaminophen 325 Mg Tablet) 650 mg PO Q6H PRN PRN Reason: Headache/Pain Mild Scale (1-3) Last Admin: 11/04/21 20:17 Dose: 650 mg Documented by: Al Hydroxide/Mg Hydroxide (Magnesium Hydrox/Alum Hydrox 30 Ml Oral.Susp) 30 ml PO Q6H PRN PRN Reason: Heartburn/Nausea Amitriptyline HCl (Amitriptyline Hcl 25 Mg Tablet) 75 mg PO BEDTIME BRITTNY Last Admin: 11/04/21 20:17 Dose: 75 mg Documented by: Hydroxyzine HCl (Hydroxyzine Hcl 25 Mg Tablet) 25 mg PO BEDTIME PRN PRN Reason: Anxiety Hydroxyzine HCl (Hydroxyzine Hcl 50 Mg Tablet) 50 mg PO Q4H PRN PRN Reason: Anxiety Last Admin: 11/05/21 05:43 Dose: 50 mg Documented by: Magnesium Hydroxide (Milk Of Magnesia 30 Ml Oral.Susp) 30 ml PO DAILY PRN PRN Reason: Constipation Olanzapine (Olanzapine 10 Mg Tablet) 10 mg PO DAILY BRITTNY Last Admin: 11/05/21 09:17 Dose: 10 mg Documented by: Simethicone (Simethicone 80 Mg Tab.Chew) 80 mg PO QIDWMHS PRN PRN Reason: flatulence Last Admin: 11/02/21 21:02 Dose: 80 mg Documented by: Trazodone HCl (Trazodone Hcl 50 Mg Tablet) 50 mg PO BEDTIME PRN PRN Reason: Insomnia Allergies Allergies Allergy/AdvReac Type Severity Reaction Status Date / Time aripiprazole Allergy Unknown Verified 11/02/21 19:56 Penicillins Allergy Hives Verified 07/01/21 13:28 sulfamethoxazole Allergy Unknown Verified 07/08/21 17:50 [From Bactrim] trimethoprim [From Bactrim] Allergy Unknown Verified 07/08/21 17:50 Assessment & Plan Assessment & Plan (1) Schizophrenia, paranoid type: Status: Acute Code(s): F20.0 - Paranoid schizophrenia Plan continue zyprexa at recently increased dose of 10 mg daily. continue elavil 75 mg at HS. discharge tomorrow. I spent ___25___ minutes with the patient and/or on the patient floor today, greater than?50% of which was spent counseling/coordinating care. Reason for contiued inpatient stay Substantial Risk for: harm to self, inability to function and rapid decompensation
[2021-11-05] MEDS: Amitriptyline HCl 25 MG TABLET 75 MG PO (20:51)
[2021-11-05] MEDS: Acetaminophen 325 MG TABLET 650 MG PO (21:41)
[2021-11-05 21:45] VITALS: BP 140/92; PULSE 102; RESP 18; TEMP 36.9; O2SAT 97
[2021-11-06] MEDS: hydrOXYzine HCL 50 MG TABLET PO (04:38)
[2021-11-06 06:00] VITALS: BP 146/97; PULSE 115; RESP 16; TEMP 36.6; O2SAT 98
[2021-11-06] MEDS: OLANZapine 10 MG TABLET PO (09:15)
--- NOTE | 2021-11-06 10:38 | PC.NURSE ---
Uli is alert, fully oriented, pleasant and cooperative with discharge process. He denies ideation, plan or intent to harm self or others. He reports good sleep, good appetite and focus is good. Seamus denies current perceptual disturbance. He is future oriented to returning to work and connecting with outpatient providers at scheduled appointments. He deneis physlcal complaint.
--- NOTE | 2021-11-06 10:42 | HO.PSYCHPN ---
Subjective Subjective Date of Service: 11/06/21 Reason For Visit: SI Subjective Notes: Conditional Voluntary and 3 Day Interim History: The patient denies current paranoia or hallucinations. States he is future oriented feels stable feels like he is able to return to work feels safe for discharge feels that higher dose olanzapine has been helpful Mental Status Exam Mental Status Exam Narrative: appropriately dressed and groomed. stevenson, tattoos. no PMA/PMR. cooperative. speech nml in rate, amount, loudness, tone, latency. thoughts linear and logical. affect constricted, normo-intense, non-labile. mood euthymic. denies AH/SI/HI. no VH reported. Diagnostics Vital Signs (24Hr): Vital Signs - 24 hr 11/05/21 21:45 11/06/21 06:00 Temperature 98.4 F 97.8 F Pulse Rate 102 H 115 H Respiratory Rate 18 16 Blood Pressure 140/92 H 146/97 H Pulse Oximetry 97 98 BMI result Body Mass Index 26.1 Labs Results: 11/02/21 09:09 11/03/21 06:45 Medications Medications Current Medications Acetaminophen (Acetaminophen 325 Mg Tablet) 650 mg PO Q6H PRN PRN Reason: Headache/Pain Mild Scale (1-3) Last Admin: 11/05/21 21:41 Dose: 650 mg Documented by: Al Hydroxide/Mg Hydroxide (Magnesium Hydrox/Alum Hydrox 30 Ml Oral.Susp) 30 ml PO Q6H PRN PRN Reason: Heartburn/Nausea Amitriptyline HCl (Amitriptyline Hcl 25 Mg Tablet) 75 mg PO BEDTIME BRITTNY Last Admin: 11/05/21 20:51 Dose: 75 mg Documented by: Hydroxyzine HCl (Hydroxyzine Hcl 25 Mg Tablet) 25 mg PO BEDTIME PRN PRN Reason: Anxiety Hydroxyzine HCl (Hydroxyzine Hcl 50 Mg Tablet) 50 mg PO Q4H PRN PRN Reason: Anxiety Last Admin: 11/06/21 04:38 Dose: 50 mg Documented by: Magnesium Hydroxide (Milk Of Magnesia 30 Ml Oral.Susp) 30 ml PO DAILY PRN PRN Reason: Constipation Olanzapine (Olanzapine 10 Mg Tablet) 10 mg PO DAILY BRITTNY Last Admin: 11/06/21 09:15 Dose: 10 mg Documented by: Simethicone (Simethicone 80 Mg Tab.Chew) 80 mg PO QIDWMHS PRN PRN Reason: flatulence Last Admin: 11/02/21 21:02 Dose: 80 mg Documented by: Trazodone HCl (Trazodone Hcl 50 Mg Tablet) 50 mg PO BEDTIME PRN PRN Reason: Insomnia Allergies Allergies Allergy/AdvReac Type Severity Reaction Status Date / Time aripiprazole Allergy Unknown Verified 11/02/21 19:56 Penicillins Allergy Hives Verified 07/01/21 13:28 sulfamethoxazole Allergy Unknown Verified 07/08/21 17:50 [From Bactrim] trimethoprim [From Bactrim] Allergy Unknown Verified 07/08/21 17:50 Assessment & Plan Assessment & Plan (1) Schizophrenia, paranoid type: Status: Acute Code(s): F20.0 - Paranoid schizophrenia Plan continue zyprexa at recently increased dose of 10 mg daily. continue elavil 75 mg at HS. Patient appears stable no reason for commitment continue discharge per Dr. Mendoza plan for today I spent minutes with the patient and/or on the patient floor today, greater than?50% of which was spent counseling/coordinating care. Reason for contiued inpatient stay Substantial Risk for: stable for discharge
--- NOTE | 2021-11-06 11:01 | PC.NURSE ---
NO boaz for PCP therefore discharge packet not sent. Patient was asked and educated at time of discharge and declined to sign BOAZ.
--- NOTE | 2022-02-04 16:09 | P.DS_ITS ---
DS: Providers Provider Date of Service: 11/06/21 Date of admission: 11/02/21 17:25 Primary care physician: Unknown Physician DS: Diagnosis Discharge Diagnosis (1) Schizophrenia, paranoid type: Status: Acute DS: Medications Discharge Medications Home Medications: Home Medications Medication Instructions Recorded Confirmed amitriptyline 75 mg tablet 1 tab PO DAILY 11/02/21 11/02/21 olanzapine 10 mg tablet 1 tab PO BEDTIME 11/02/21 11/02/21 Mental Status Exam Mental Status Exam Narrative: appropriately dressed and groomed. stevenson, tattoos. no PMA/PMR. cooperative. speech nml in rate, amount, loudness, tone, latency. thoughts linear and logical. affect constricted, normo-intense, non-labile. mood euthymic. denies AH/SI/HI. no VH reported. 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 h/o TBI at 2 yo - cement block fell on his head.? he has AH and paranoia at baseline but they have recently become unmanageable.? his outpt provider increased his dose of olanzapine from 5 mg daily to 10 mg daily about a day prior to admission.? no precipitant for exacerbation identified.? has been having paranoia that people are trying to kill him by poisoning him and that his is having an affair.? experiencing CAH to kill himself.? leaving work early due to paranoia, driving home via numerous different routes to throw anyone who might be following him off.? he has had the higher dose of olanzapine for a couple days now and is feeling better, now no SI and AH have improved.? would like to continue on present regimen. Past Psychiatric History: h/o 1 prior psych hosp, at 15 yo. h/o one SA, at 15 yo, via asphyxiation with rope/cord. h/o cutting as a teen.? for attention. AH started at 17-16 yo. TBI at 2 yo. Medical Evaluation Reviewed: Yes [facility] Medical History? Seizures SVT (supraventricular tachycardia) TBI (traumatic brain injury) Surgical History? History of appendectomy Family History: parents - alcohol Social History: for 7 years, has a 6 yo son. ? he lives with his , son, and two roommates who pay rent.? has one younger brother. Substance History: alcohol - h/o regular use but stopped completely about 1 month ago when starting new medication. denies use of other substances, including tobacco and cannabis. 11/04: pt playing monopoly with peers in milieu.? calm, cooperative.? reports hydroxyzine was helpful.? denies AH currently.? discusses how he misses his , dog, and chid and would like to go home soon.? mood pretty decent. ? feeling better on the unit, having met some people and gotten to know them a little bit.? per staff, 3-day matures .? missing son and .? asking for referrals for outpt care.? isolative.? poor sleep.? anxiety so-so. ? guarded, med-compliant.? asking for early D/C. 11/05: pt calm and cooperative.? slept 8-5.? hydroxyzine helped with sleep.? denies AH.? denies SI/HI.? planning for discharge tomorrow.? aftercare being arranged.? no complaints or requests.? per staff, wants discharge.? 3-day up tomorrow.? anx/dep 0/10.? wants to see his and son.? discharge tomorrow. 11/06: The patient denies current paranoia or hallucinations.? States he is future oriented feels stable feels like he is able to return to work feels safe for discharge feels that higher dose olanzapine has been helpful Precis: continued zyprexa at recently increased dose of 10 mg daily. continued elavil 75 mg at HS. Patient appeared stable no reason for commitment discharged to self care 11/06. Time Spent with Patient Time attestation: Total time spent providing and/or coordinating discharge services: Discharge Plan Discharge Patient Disposition: Home, Self-Care Discharge Diagnosis: chronic paranoid schizophrenia acute exacerbation migraine Referrals: Romi Smith (Therapy) [Other] - 11/12/21 11:00 am (IN OFFICE APPOINTMENT) Coni Shaw (Psychiatry) [Other] - 12/06/21 10:00 am (TELEHEALTH APPOINTMENT -Please check your email the day of the appointment for the zoom link. If you do not receive it, please call the number listed above. ) Coni Shaw (Psychiatry) [Other] - 01/03/22 10:00 am (TELEHEALTH APPOINTMENT -Please check your email the day of the appointment for the zoom link. If you do not receive it, please call the number listed above. ) [facility] [Physician] - 1 Week Discharge Medications: Continued amitriptyline 75 mg tablet 1 tab PO DAILY olanzapine 10 mg tablet 1 tab PO BEDTIME Discharge Orders: Discharge Order (Routine); Ordered 11/06/21 Ordered By: Eris Flaherty Activity on Discharge: As tolerated Stand Alone Forms: Patient Portal Discharge page, Community Support Activity Restrictions/Additional Instructions: may return to work Care Plan Goals: reduce paranoid thinking no si take meds as prescibed Health Concerns: pyschotic disorder migraines TBI Plan of Treatment: therapy medication Assessment: pt states back to baseline feels ok to RTW Discharge Date/Time: 11/06/21 10:52
== END 2021-11-06 10:52 | disposition home or self-care (01) | DRG 885 ==
LOC: HO.ED 16:36 → HO.PADLT16 17:34
PROVIDERS: Physician Assistant Medical; Admitting Provider Psychiatry & Neurology Psychiatry; Emergency Provider Emergency Medicine; Visit Provider Psychiatry & Neurology Psychiatry
DX: F20.0 Paranoid schizophrenia (principal); R45.851 Suicidal ideations; Z20.822 Contact with and (suspected) exposure to COVID-19; Z87.820 Personal history of traumatic brain injury; Z87.891 Personal history of nicotine dependence; Z79.899 Other long term (current) drug therapy
CPT/HCPCS: 36415; 80048; 80053; 80061; 80076; 80307; 81003; 82077; 82607; 82746; 83036; 83690; 84439; 84443; 85025; 87635; 93005; 99285

== ENCOUNTER 2023-08-02 15:47 | Emergency (ER) | payer OTHER, SELFPAY ==
[2023-08-02 17:33] VITALS: BP 136/77; PULSE 111; RESP 16; TEMP 37.1; O2SAT 96; BMI 1030.0
--- NOTE | 2023-08-02 17:34 | ED.GENADULT ---
HPI - General Adult General Chief complaint: Upper Respiratory Symptoms Stated complaint: sob,fever x5 days states o2 sat low Related Data Home Medications Medication Instructions Recorded Confirmed amitriptyline 75 mg tablet 1 tab PO DAILY 11/02/21 11/02/21 olanzapine 10 mg tablet 1 tab PO BEDTIME 11/02/21 11/02/21 Previous Rx's Medication Instructions Recorded ondansetron 4 mg disintegrating 4 mg PO Q8H 3 days #9 tabs 08/02/23 tablet Allergies Allergy/AdvReac Type Severity Reaction Status Date / Time aripiprazole Allergy Unknown Verified 08/02/23 17:32 Penicillins Allergy Hives Verified 08/02/23 17:32 sulfamethoxazole Allergy Unknown Verified 08/02/23 17:32 [From Bactrim] trimethoprim [From Bactrim] Allergy Unknown Verified 08/02/23 17:32 [facility] Past Medical History Medical History TBI (traumatic brain injury) Seizures SVT (supraventricular tachycardia) Surgical History History of appendectomy Social History Social History Household Members: Spouse, Children and Other Household Members Other:: 2 roommates Housing: House Do you presently have visiting nurse or other home services: No Alcohol intake: current Alcohol intake frequency: holidays/special occasions only Patient Tobacco Use Status: Former Tobacco user Tobacco use type: Cigarette Years Smoked: 8 Smoked in Last 30 Days: No e-Cigarette/Vaping Use: Former Use Second Hand Smoke Exposure: No Use of substances other than those prescribed or required for medical reasons: No Advance Directives: No Advance Directives Information Provided: No service: No Sexual orientation: Straight/Heterosexual Physical Exam ED Vital Signs: Vital Signs - 24 hr 08/02/23 17:33 Temperature 98.8 F Pulse Rate 111 H Respiratory Rate 16 Blood Pressure 136/77 Pulse Oximetry 96 Oxygen Delivery Method Room Air BMI result Body Mass Index 1030.0 Course Course Course Narrative: This is a rapid medical exam: Additional HPI, ROS, PE not included below will be deferred to primary provider. Patient is a 27-year-old male with history of schizophrenia presenting to the ED with complaint of fever since Thursday, fatigue. Also reports feeling confused, but is unable to elaborate as to how. Reports cough, body aches. and son sick with similar symptoms. Not hypoxic in triage, mildly tachycardic. Plan: VIRAL AND STREP SWABS Discharge Plan Discharge Clinical Impression: Diagnosis unknown Patient Disposition: Left W/O Completing Treatment Prescriptions: No Action amitriptyline 75 mg tablet 1 tab PO DAILY olanzapine 10 mg tablet 1 tab PO BEDTIME ondansetron 4 mg tablet,disintegrating 4 mg PO Q8H 3 Days Qty: 9 0RF Discharge Date/Time: 08/02/23 20:00
== END 2023-08-02 20:00 | disposition left against medical advice (07) ==
PROVIDERS: Emergency Provider Emergency Medicine
DX: R50.9 Fever, unspecified (principal); R06.02 Shortness of breath
CPT/HCPCS: 99281

== ENCOUNTER 2023-08-02 20:36 | Emergency (ER) | payer OTHER, SELFPAY ==
--- NOTE | ~2023-08-02 | XR_ITS ---
EXAMINATION: XR CHEST CLINICAL INFORMATION: Cough. COMPARISON: Chest radiograph 07/08/2021. TECHNIQUE: 2 views of the chest were obtained. FINDINGS: Normal appearance of the cardiomediastinal silhouette. No focal airspace opacities, pleural effusion or pneumothorax. No acute osseous findings. Visualized upper abdomen is within normal limits. XR/XR chest 2V IMPRESSION: No acute cardiopulmonary findings.
[2023-08-02 20:50] VITALS: BP 90/50; PULSE 90; O2SAT 94
--- NOTE | 2023-08-02 20:57 | ED_ITS ---
HPI - General Adult General Chief complaint: Fever Stated complaint: Flu like symptoms Time Seen by Provider: 08/02/23 20:56 Source: patient and EMS Mode of arrival: EMS Limitations: no limitations History of Present Illness HPI narrative: Patient is a 27 year old assigned male at with a history of schizophrenia presenting to the emergency department today with a cough. Patient states that he has had these symptoms for 3 days, after finishing his antibiotics for strep pharyngitis. Patient denies any dizziness, lightheadedness, abdominal pain, nausea, vomiting, fever, chills, blurry vision, double vision, loss of vision, chest pain, difficulty breathing, shortness of breath, back pain, night sweats, pain with urination, increased urinary frequency, increased urinary urgency, blood in his urine or stool, syncope or a near syncopal episode, recent trauma or falls, bowel incontinence, bladder incontinence, bowel retention, bladder retention, or any other complaints at this time. Onset (ago): day(s) (3) Severity: mild Relieving factors: none Exacerbating factors: none Associated symptoms: cough Treatments prior to arrival: none Related Data Home Medications Medication Instructions Recorded Confirmed amitriptyline 75 mg tablet 1 tab PO DAILY 11/02/21 11/02/21 olanzapine 10 mg tablet 1 tab PO BEDTIME 11/02/21 11/02/21 Previous Rx's Medication Instructions Recorded ondansetron 4 mg disintegrating 4 mg PO Q8H 3 days #9 tabs 08/02/23 tablet Allergies Allergy/AdvReac Type Severity Reaction Status Date / Time aripiprazole Allergy Unknown Verified 08/02/23 17:32 Penicillins Allergy Hives Verified 08/02/23 17:32 sulfamethoxazole Allergy Unknown Verified 08/02/23 17:32 [From Bactrim] trimethoprim [From Bactrim] Allergy Unknown Verified 08/02/23 17:32 Review of Systems Constitutional: Constitutional: Reports no additional constitutional complaints, Denies chills, Denies fever(s) and Denies night sweats Eyes: Eyes: Reports no additional eye complaints, Denies blurry vision, Denies change in vision, Denies diplopia, Denies eye discharge, Denies loss of vision and Denies eye pain ENT: Denies dizziness Cardiovascular: Cardiovascular: Reports no additional cardiovascular complaints, Denies chest pain, Denies lightheadedness, Denies Loss of Consciousness and Denies dyspnea Respiratory: Respiratory: Reports no additional respiratory complaints, Reports cough and Denies dyspnea Gastrointestinal: Gastrointestinal: Reports no additional gastrointestinal complaints, Denies abdominal pain, Denies melena, Denies hematochezia, Denies change in bowel habits and Denies change in stool character Genitourinary: Genitourinary: Reports no additional male genitourinary complaints, Denies hematuria, Denies oliguria, Denies difficulty urinating, Denies dysuria, Denies urinary frequency, Denies urinary hesitancy, Denies urinary incontinence and Denies urinary urgency Musculoskeletal: Musculoskeletal: Reports no additional musculoskeletal complaints, Denies numbness and Denies tingling Neurologic: Denies dizziness, Denies loss of vision, Denies numbness and Denies tingling Psychiatric: Psychiatric: Reports no additional psychiatric complaints Endocrine: Endocrine: Reports no additional endocrine complaints Hematologic/Lymphatic: Hematologic/Lymphatic: Reports no additional hematologic/lymphatic complaints Allergic/Immunologic: Allergic/Immunologic: Reports no additional allergic/immunologic complaints [facility] Past Medical History Attestation statement: The following information was validated with the patient. Source: old records reviewed and nursing notes reviewed Medical History TBI (traumatic brain injury) Seizures SVT (supraventricular tachycardia) Surgical History History of appendectomy Social History Social History Household Members: Spouse, Children and Other Household Members Other:: 2 roommates Housing: House Do you presently have visiting nurse or other home services: No Alcohol intake: current Alcohol intake frequency: holidays/special occasions only Patient Tobacco Use Status: Former Tobacco user Tobacco use type: Cigarette Years Smoked: 8 Smoked in Last 30 Days: No e-Cigarette/Vaping Use: Former Use Second Hand Smoke Exposure: No Use of substances other than those prescribed or required for medical reasons: No Advance Directives: No Advance Directives Information Provided: No service: No Sexual orientation: Straight/Heterosexual Physical Exam ED Vital Signs: Vital Signs - 24 hr 08/02/23 21:00 08/03/23 00:30 Temperature 98.5 F 98.7 F Pulse Rate 98 87 Respiratory Rate 16 16 Blood Pressure 140/68 H 127/73 Pulse Oximetry 93 95 Oxygen Delivery Method Room Air Room Air BMI result Body Mass Index 27.7 Const General: cooperative, no acute distress, alert and awake Nutritional Appearance: well nourished Orientation/consciousness: patient oriented x3 Limitations: no limitations HENMT Head: Yes normal to inspection and Yes atraumatic Ears: hearing grossly normal bilaterally and external ears normal General nose exam: Normal external nose present, no nasal discharge noted and no epistaxis Face and sinus: Yes normal facial exam, No abrasion and No laceration Mouth: Normal oral and palatal mucosa present, no drooling and no muffled voice Eyes General: appearance normal, both eyes and all related structures Periorbital: periorbital findings normal Eyelids: Yes eyelids normal Conjunctivae: conjunctivae normal Pupils: Equal, round and reactive pupils present EOM: EOMs intact bilaterally Neck Neck: Yes normal visual inspection, Yes full ROM and Yes no lymphadenopathy Chest Chest palpation & inspection: normal inspection of the chest Resp Effort & Inspection: normal respiratory effort and able to speak in complete sentences GI Inspection: Yes normal to inspection Neuro General: patient oriented x3 and moves all extremities Cranial nerves: Yes Equal, round and reactive pupils present Cognition (Neuro): normal cognition Motor exam (neuro): 5/5 motor strength present throughout Sensory Exam: Normal double simultaneous stimulation for sensation Coordination: [id number] test normal Extrem General: Yes normal to inspection, Yes full ROM and Yes capillary refill normal Psych Appearance: grossly normal Mental Status: mental status grossly normal Affect: normal affect Attitude: cooperative Thought process: Normal thought process present Thought content: Normal thought content present Insight: Good insight present (Psych) Medical Decision Making Medical Decision Making MDM Narrative: Patient is a 27 year old assigned male at with a history of schizophrenia presenting to the emergency department today with a cough and feeling generally unwell. Patient's physical exam was unremarkable. Patient's chest x-ray showed no acute process. Patient's influenza test was positive. Patient's COVID-19 and RSV tests were negative. I explained my physical exam findings as well as all test results to the patient. I answered all questions asked by the patient. I stressed the importance of the patient taking his medication as prescribed. I stressed the importance of the patient following up with his primary care provider. I stressed the importance of the patient returning to the emergency department immediately if his symptoms were to worsen or if he were to develop any dizziness, shortness of breath, difficulty breathing, chest pain, blurry vision, loss of vision, nausea, vomiting, abdominal pain, fever, chills, back pain, or any other complaints. Patient verbalized agreement and understanding with this treatment plan and discharge. Differential Diagnosis Differential Diagnoses: The differential diagnosis associated with the presentation includes Influenza RSV COVID-19 Admission/Observation Consideration of admission/observation: Escalation of care including admission/observation considered Patient would have been admitted to the hospital had his work up had any findings where hospital admission was appropriate and his clinical presentation warranted hospital admission. Lab Data [facility] Lab Attestation statement: I reviewed the patient's lab results. My interpretation of these results are in the [facility] Rationale portion of this note. Labs: Lab Results 08/02/23 08/02/23 Range/Units 21:48 22:10 Influenza Type A (PCR) POSITIVE A (Negative) Influenza Type B (PCR) NEGATIVE (Negative) RSV RNA Qual (PCR) NEGATIVE (Negative) SARS-CoV-2 RNA (RT-PCR) NEGATIVE (Negative) S. pyogenes GrpA SAMY Negative (Negative) Independent Interpretation I performed an independent interpretation of an: Plain X-Ray Interpretation: My interpretation is in agreement with the radiologist's impression of this imaging study. EXAMINATION: XR CHEST CLINICAL INFORMATION: Cough. COMPARISON: Chest radiograph 07/08/2021. TECHNIQUE: 2 views of the chest were obtained. FINDINGS: Normal appearance of the cardiomediastinal silhouette. No focal airspace opacities, pleural effusion or pneumothorax. No acute osseous findings. Visualized upper abdomen is within normal limits. XR/XR chest 2V IMPRESSION: No acute cardiopulmonary findings. Dictated By: Erica Hernandez Signed By: Electronically signed by Erica Hernandez 08/02/23 [id number] Radiology Impression Discussion of test interpretation with radiology: I have reviewed the radiologist's reading. Independent Historian Clinical information obtained from an independent historian. History obtained from or confirmed by: EMS (EMS provided additional history and confirmed the history provided by the patient.) Prescription Management I considered prescription management with: Antiviral (tamiflu was considered however, the patient is not a candidate at this time.) Discharge Plan Discharge Clinical Impression: Influenza Patient Disposition: Home, Self-Care Instructions: Influenza (DC) Additional Instructions: Follow up with your primary care provider. Return to the emergency department immediately if your symptoms worsen or if you develop any dizziness, shortness of breath, difficulty breathing, chest pain, blurry vision, loss of vision, nausea, vomiting, abdominal pain, fever, chills, back pain, or any other complaints. Prescriptions: New ondansetron 4 mg tablet,disintegrating 4 mg PO Q8H 3 Days Qty: 9 0RF No Action amitriptyline 75 mg tablet 1 tab PO DAILY olanzapine 10 mg tablet 1 tab PO BEDTIME Referrals: [facility] [Provider Group] (Call to establish and follow up with a primary care provider. If you already have a primary care provider, please follow up with them.) [facility], Martha [Provider Group] (Call to establish and follow up with a primary care provider. If you already have a primary care provider, please follow up with them.) [facility],Jose [Provider Group] (Call to establish and follow up with a primary care provider. If you already have a primary care provider, please follow up with them.) Interventions: ED Discharge Assessment Last Done: 08/03/23 00:31 Discharge Date/Time: 08/03/23 00:32 Print Language: Belarusian
[2023-08-02 21:00] VITALS: BP 140/68; PULSE 98; RESP 16; TEMP 36.9; O2SAT 93; BMI 27.7
[2023-08-02 22:30] LABS: Influenza A PCR POSITIVE (Negative); Influenza B PCR NEGATIVE (Negative); Resp Syncy Virus RNA Qual PCR NEGATIVE (Negative); SARS COV2 PCR INHOUSE NEGATIVE (Negative)
[2023-08-02 22:34] LABS: IDNOW Serial# 08D9AD1C; Strep A Nucleic Acid Negative (Negative)
[2023-08-03 00:30] VITALS: BP 127/73; PULSE 87; RESP 16; TEMP 37.1; O2SAT 95
== END 2023-08-03 00:32 | disposition home or self-care (01) ==
PROVIDERS: Physician Assistant Medical; Emergency Provider Emergency Medicine
DX: J11.1 Influenza due to unidentified influenza virus with other respiratory manifestations (principal); Z20.822 Contact with and (suspected) exposure to COVID-19; Z20.828 Contact with and (suspected) exposure to other viral communicable diseases
CPT/HCPCS: 0241U; 71046; 87651; 99283; 99284

== ENCOUNTER 2023-10-03 14:46 | Inpatient (IN) | payer OTHER, MEDICAID, SELFPAY ==
[2023-10-03 15:12] VITALS: BP 145/107; PULSE 111; RESP 18; TEMP 35.6; O2SAT 97
[2023-10-03 15:13] VITALS: BMI 28.4
--- NOTE | 2023-10-03 16:18 | P.CONHOSP_ITS ---
History of Present Illness Data of Consult Service Date: 10/03/23 Requesting physician: Martin Mendoza Primary Care Provider: Unknown Physician HPI Reason for consult: medical H&P 27-year-old male with history of SVT not currently on medication admitted to Psychiatry from [facility] ED with consult placed to hospitalist service for medical H and P. He has no complaints at this time, except for decreased appetite but is able to tolerate p.o.. No nausea or vomiting. While at [facility], EKG showed NSR, rate [address]/T-wave abnormality. Hematology studies unremarkable. Renal function and electrolyte levels normal. Ethyl alcohol level 75. Noted to have seizures in chart but patient denies history and not on seizure medications. Review of Systems Review of Systems: General: No fevers, malaise, unintentional weight loss HEENT: No blurred vision, diplopia. No sore throat, nasal congestion, rhinorrhea, sinus pain, ear pain Cardiovascular: No chest pain, palpitations, or leg edema Respiratory: No shortness of breath, wheezing, cough GI: +anorexia. No abdominal pain, nausea, vomiting, diarrhea, constipation, melena, hematochezia : No dysuria, hematuria, increased urinary frequency, decreased urinary output MSK: No myalgia, back pain Neuro: No headaches, weakness, paresthesias Skin: No rashes or lesions PMFSH Medical History TBI (traumatic brain injury) Seizures SVT (supraventricular tachycardia) Surgical History History of appendectomy Social History Household Members: Spouse, Children and Other Household Members Other:: 3 other roommates Housing: House Do you presently have visiting nurse or other home services: No Alcohol intake: current Alcohol intake frequency: holidays/special occasions only Patient Tobacco Use Status: Former Tobacco user Tobacco use type: Cigarette Years Smoked: 8 Smoked in Last 30 Days: No e-Cigarette/Vaping Use: Never Used Second Hand Smoke Exposure: No Use of substances other than those prescribed or required for medical reasons: Yes Substance Use Type: Marijuana Substance Use Frequency: Weekly Last Used Substance: Days (ago) Currently Displaying Signs/Symptoms of Drug Intoxication Withdrawal: No Any prior treatment program specific to substance use: No Have you been hit, kicked, punched, or otherwise hurt by someone within the past year? If so, by whom?: No Do you feel safe in your current relationship?: Yes Is there a partner from a previous relationship who is making you feel unsafe now?: No Are you made to feel afraid or neglected: No Advance Directives: No Advance Directives Information Provided: No Do you have thoughts of harming others: None Do you have a plan to hurt others: No Plan Recently lost weight without trying: No How much weight loss: Not applicable Eating poorly because of decreased appetite: Yes Nutrition screen score: 1 Nutrition Risks: No Nutritional Risk Poor oral hygiene: No service: No Sexual orientation: Straight/Heterosexual Meds Allergies Allergy/AdvReac Type Severity Reaction Status Date / Time aripiprazole Allergy Unknown Verified 08/02/23 17:32 Penicillins Allergy Hives Verified 08/02/23 17:32 sulfamethoxazole Allergy Unknown Verified 08/02/23 17:32 [From Bactrim] trimethoprim [From Bactrim] Allergy Unknown Verified 08/02/23 17:32 Active Medications: Current Medications Acetaminophen (Acetaminophen 325 Mg Tablet) 650 mg PO Q6H PRN PRN Reason: Headache/Pain Mild Scale (1-3) Al Hydroxide/Mg Hydroxide (Magnesium Hydrox/Alum Hydrox 30 Ml Oral.Susp) 30 ml PO Q6H PRN PRN Reason: Heartburn/Nausea Hydroxyzine HCl (Hydroxyzine Hcl 25 Mg Tablet) 25 mg PO Q6H PRN PRN Reason: Anxiety Magnesium Hydroxide (Milk Of Magnesia 30 Ml Oral.Susp) 30 ml PO DAILY PRN PRN Reason: Constipation Nicotine Polacrilex (Nicotine Polacrilex 2 Mg Gum) 4 mg BUCCAL Q2H PRN PRN Reason: Nicotine Cravings Trazodone HCl (Trazodone Hcl 50 Mg Tablet) 50 mg PO BEDTIME MRX1 PRN PRN Reason: Insomnia Home Medications Medication Instructions Recorded Confirmed Last Taken Type amitriptyline 75 mg tablet 1 tab PO DAILY 11/02/21 11/02/21 11/01/21 20:00 History olanzapine 10 mg tablet 1 tab PO BEDTIME 11/02/21 11/02/21 Unknown History Physical Exam Vital Signs and Narrative: Vital Signs: Last Vital Signs Temp 96.1 F L 03/02/24 15:12 Pulse 111 H 10/03/23 15:12 Resp 18 10/03/23 15:12 BP 145/107 H 10/03/23 15:12 Pulse Ox 97 10/03/23 15:12 O2 Del Method Room Air 10/03/23 15:12 BMI result Body Mass Index 28.4 Constitutional - Awake and Alert, No apparent distress Eyes - PERRLA, EOMI Cardiovascular - S1S2, RRR, No edema Respiratory - Normal lung expansion, Normal respiratory effort, No respiratory distress, CTA bilaterally Gastrointestinal - NT / ND; +BS; No rebound or guarding Extremities - no calf tenderness bilaterally, no swelling Musculoskeletal - Normal inspection, normal ROM Skin - Warm/Dry Neurological - Alert & oriented x3, CN II-XII in tact, 5/5 strength BUE and BLE Psychological - Appropriate affect Assessment and Plan (1) Routine medical exam: Status: Acute Plan 27-year-old male with history of SVT not currently on medication admitted to Psychiatry from [facility] ED with consult placed to hospitalist service for medical H and P. #MOod disorder -plan per psychiatry #Hx SVT -remote, 3 years ago without recurrence #Hx seizures -pt denies, not on medication -monitor Thank you for allowing me to participate in this consult. Signing off at this time. Please do not hesitate to call for further questions.
--- NOTE | 2023-10-03 16:31 | PC.ADMIT ---
Pt is a 27 year-old male admitted from [facility] ED after presenting with SI with plan to shoot himself, and has access to firearms. Is also having +CAH, worsening depression, and poor sleep. Pt reports drinking about a shot of vodka every other day, BAL in ED was 75, addiction consult entered per policy due to AUDIT-C score. Pt was cooperative with admission process, skin check completed, negative for contraband. Pt presents as depressed, flat, and guarded. Denies SI and CAH at this time, but says he will seek out staff if he is feeling unsafe. Pt denies any current medical problems, except for SVT about 3 years ago, which is now resolved. Pt signed CV, which has not been signed/accepted as of yet, and signed a 3 day notice. Is on 15 minute checks.
[2023-10-03 19:50] VITALS: BP 137/87; PULSE 108; RESP 14; TEMP 36.2; O2SAT 94
[2023-10-03] MEDS: risperiDONE 1 MG TABLET PO (20:30)
[2023-10-03] MEDS: Amitriptyline HCl 25 MG TABLET 75 MG PO (20:30)
[2023-10-03] MEDS: OLANZapine 7.5 MG TABLET 15 MG PO (20:30)
--- NOTE | 2023-10-04 02:22 | PC.NURSE ---
Uli is noted to have been visible in the day room throughout the evening. Minimal interactions with peers and staff. guarded, one word answers, depression and anxiety are 6/10. denies auditory/visual hallucinations suicidal/homicidal ideation
[2023-10-04 07:23] LABS: Estimated Average Glucose 100 mg/dL; Hemoglobin A1c % 5.1 % (<6.0)
[2023-10-04 07:39] LABS: Alanine Aminotransferase 64 U/L (0-40); Albumin Level 4.5 g/dL (3.5-5.0); Alkaline Phosphatase 66 U/L (39-117); Anion Gap 15 (12-20); Aspartate Amino Transferase 29 U/L (5-37); Bilirubin Total 0.6 mg/dL (0.0-1.0); Blood Urea Nitrogen 12 mg/dL (9-16); Calcium 9.7 mg/dL (8.4-10.2); Carbon Dioxide 30 mmol/L (22-29); Chloride 103 mmol/L (96-108); Cholesterol 214 mg/dL (<200); Creatinine Clr Calc Pharmacy 117.5; Estimated Glomerular Filt Rate > 60; Glucose Fasting 103 mg/dL (60-99); HDL Cholesterol 41 mg/dL (>40); LDL Cholesterol Calculated 142 mg/dL (<100); Potassium 4.6 mmol/L (3.3-5.1); Sodium 143 mmol/L (135-145); Total Protein 7.2 g/dL (6.5-8.0); Triglycerides 159 mg/dL (<150)
[2023-10-04 07:53] LABS: Free T4 (Free Thyroxine) 1.01 ng/dL (0.71-1.85); Thyroid Stimulating Hormone 1.84 uIU/mL (0.32-4.0)
[2023-10-04 08:05] LABS: Folate 8.8 ng/mL (> or = 4.0); Vitamin B12 342 pg/mL (200-900)
[2023-10-04 08:52] VITALS: BP 141/89; PULSE 98; RESP 16; TEMP 36.6; O2SAT 95
[2023-10-04] MEDS: Venlafaxine HCl ER 75 MG CAP.ER.24H PO (08:52)
[2023-10-04] MEDS: risperiDONE 1 MG TABLET PO ×2 (08:54→20:22)
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
[2023-10-04 20:05] VITALS: BP 134/91; PULSE 108; RESP 16; TEMP 36.8; O2SAT 97
[2023-10-04] MEDS: Amitriptyline HCl 25 MG TABLET 75 MG PO (20:20)
[2023-10-04] MEDS: OLANZapine 7.5 MG TABLET 15 MG PO (20:21)
[2023-10-05 07:45] VITALS: BP 132/86; PULSE 108; RESP 16; TEMP 36.4; O2SAT 96
[2023-10-05] MEDS: Venlafaxine HCl ER 37.5 MG CAP.ER.24H 112.5 MG PO (09:02)
[2023-10-05] MEDS: risperiDONE 1 MG TABLET PO ×2 (09:03→20:40)
[2023-10-05] MEDS: hydrOXYzine HCL 25 MG TABLET PO (10:46)
--- NOTE | 2023-10-05 14:28 | P.PNPSI_ITS ---
Subjective Subjective Date of Service: 10/05/23 Reason For Visit: Schizoaffective disorder Interim History: calm, cooperative. reports feeling a tad more anxious today than usual. not sure if it is the effexor dosing increase or something else. still planning to leave on 3-day notice on . per staff, 12/10 dep/anx. taking meds. not social. c/o roommate snoring. slept 8 hours. Mental Status Exam Mental Status Exam Narrative: appropriately dressed and groomed. stevenson, tattoos. no PMA/PMR. cooperative. speech nml in rate, amount, loudness, latency. decr tone. thoughts linear and logical. affect constricted, normo-intense, non-labile. mood pretty good. denies SI/HI/AVH. Diagnostics Vital Signs (24Hr): Vital Signs - 24 hr 10/04/23 20:05 10/05/23 07:45 Temperature 98.2 F 97.5 F Pulse Rate 108 H 108 H Respiratory Rate 16 16 Blood Pressure 134/91 H 132/86 Pulse Oximetry 97 96 Oxygen Delivery Method Room Air Room Air BMI result Body Mass Index 28.4 Labs 10/04/23 07:02 Labs: Laboratory Results - last 48 hr 10/04/23 07:02 Sodium 143 Potassium 4.6 Chloride 103 Carbon Dioxide 30 H Anion Gap 15 BUN 12 Creatinine 1.14 Estim Creat Clear Calc 117.5 Estimated GFR > 60 Fasting Glucose 103 H Estimat Average Glucose 100 Hemoglobin A1c % 5.1 Calcium 9.7 Total Bilirubin 0.6 AST 29 ALT 64 H Alkaline Phosphatase 66 Total Protein 7.2 Albumin 4.5 Triglycerides 159 H Cholesterol 214 H LDL Cholesterol, Calc 142 H HDL Cholesterol 41 Vitamin B12 342 Folate 8.8 TSH 1.84 Free T4 1.01 Medications Medications Current Medications Acetaminophen (Acetaminophen 325 Mg Tablet) 650 mg PO Q6H PRN PRN Reason: Headache/Pain Mild Scale (1-3) Al Hydroxide/Mg Hydroxide (Magnesium Hydrox/Alum Hydrox 30 Ml Oral.Susp) 30 ml PO Q6H PRN PRN Reason: Heartburn/Nausea Amitriptyline HCl (Amitriptyline Hcl 25 Mg Tablet) 75 mg PO BEDTIME BRITTNY Last Admin: 10/04/23 20:20 Dose: 75 mg Hydroxyzine HCl (Hydroxyzine Hcl 25 Mg Tablet) 25 mg PO Q6H PRN PRN Reason: Anxiety Last Admin: 10/05/23 10:46 Dose: 25 mg Magnesium Hydroxide (Milk Of Magnesia 30 Ml Oral.Susp) 30 ml PO DAILY PRN PRN Reason: Constipation Nicotine Polacrilex (Nicotine Polacrilex 2 Mg Gum) 4 mg BUCCAL Q2H PRN PRN Reason: Nicotine Cravings Olanzapine (Olanzapine 7.5 Mg Tablet) 15 mg PO BEDTIME [facility] Last Admin: 10/04/23 20:21 Dose: 15 mg Ondansetron HCl (Ondansetron Odt 4 Mg Tab.Rapdis) 4 mg TRANSLINGU Q8H PRN PRN Reason: Nausea and Vomiting Risperidone (Risperidone 1 Mg Tablet) 1 mg PO BID [facility] Last Admin: 10/05/23 09:03 Dose: 1 mg Trazodone HCl (Trazodone Hcl 50 Mg Tablet) 50 mg PO BEDTIME MRX1 PRN PRN Reason: Insomnia Venlafaxine HCl (Venlafaxine Hcl Er 37.5 Mg Cap.Er.24h) 112.5 mg PO DAILY [facility] Last Admin: 10/05/23 09:02 Dose: 112.5 mg Allergies Allergies Allergy/AdvReac Type Severity Reaction Status Date / Time aripiprazole Allergy Unknown Verified 08/02/23 17:32 Penicillins Allergy Hives Verified 08/02/23 17:32 sulfamethoxazole Allergy Unknown Verified 08/02/23 17:32 [From Bactrim] trimethoprim [From Bactrim] Allergy Unknown Verified 08/02/23 17:32 Assessment & Plan Assessment & Plan (1) Schizophrenia, paranoid type: Status: Acute Code(s): F20.0 - Paranoid schizophrenia Plan 3/3: continue zyprexa 15, risperidone 1 BID, elavil 75. increase effexor XR from 75 mg daily to 112.5 mg daily. 3/4: more anxious today. 3-day up weds. continue current mgmt. Reason for continued inpatient stay Substantial Risk for: harm to self, inability to function and rapid decompensation Time Spent With Patient Time: Total time managing care of this patient today __25__ minutes.
[2023-10-05 20:20] VITALS: BP 127/80; PULSE 105; RESP 18; TEMP 36.6; O2SAT 96
[2023-10-05] MEDS: Amitriptyline HCl 25 MG TABLET 75 MG PO (20:39)
[2023-10-05] MEDS: OLANZapine 7.5 MG TABLET 15 MG PO (20:41)
[2023-10-06 08:17] VITALS: BP 141/94; PULSE 113; RESP 16; TEMP 35.3; O2SAT 98
[2023-10-06] MEDS: risperiDONE 1 MG TABLET PO ×2 (08:26→21:02)
[2023-10-06] MEDS: Venlafaxine HCl ER 37.5 MG CAP.ER.24H 112.5 MG PO (08:27)
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
--- NOTE | 2023-10-06 12:32 | MHC.RECOVRN ---
AUDIT-C Brief Intervention Pt had positive screen for unhealthy alcohol use on admission, subsequently met with t/w to discuss alcohol use and recovery supports/options. Pt denies concern regarding alcohol use, however, is aware that drinking at unhealthy levels is known to increase risk of alcohol related health problems. Pt reports alcohol use, 1 or 2 drinks (beer or bourbon) every other night. Pt does not feel alcohol has impacted physical or mental health. Pt reports he can go significant periods of time without drinking, has never had difficulty reducing or abstaining. Denies experiencing withdrawal symptoms. Discussed risk reduction strategies including drinking below the recommended limit. Provided pt with written resources including information on inpatient and outpatient treatment, DIYA, harm reduction, and recovery coaching if pt feels he needs support with reducing or abstaining. Pt plans to review resources and reach out if needed. Pt provided with t/w contact information if questions or concerns arise. Denies other questions or concerns at this time.
[2023-10-06 20:16] VITALS: BP 125/84; PULSE 102; RESP 16; TEMP 35.8; O2SAT 95
[2023-10-06] MEDS: OLANZapine 7.5 MG TABLET 15 MG PO (21:01)
[2023-10-06] MEDS: Amitriptyline HCl 25 MG TABLET 75 MG PO (21:01)
[2023-10-07 07:39] VITALS: BP 134/81; PULSE 96; RESP 16; TEMP 36.6; O2SAT 97
[2023-10-07] MEDS: risperiDONE 1 MG TABLET PO (08:37)
[2023-10-07] MEDS: Venlafaxine HCl ER 37.5 MG CAP.ER.24H 112.5 MG PO (08:37)
== END 2023-10-07 10:27 | disposition home or self-care (01) | DRG 885 ==
PROVIDERS: Admitting Provider Psychiatry & Neurology Psychiatry; Visit Provider Psychiatry & Neurology Psychiatry
DX: F20.0 Paranoid schizophrenia (principal); R45.851 Suicidal ideations; F32.A Depression, unspecified; Z87.891 Personal history of nicotine dependence; Z79.899 Other long term (current) drug therapy
CPT/HCPCS: 36415; 80053; 80061; 82607; 82746; 83036; 84439; 84443

== ENCOUNTER → 2023-10-03 14:46 | Outpatient (BNV) | payer OTHER, MEDICAID, SELFPAY | PROVIDERS: Admitting Provider Psychiatry & Neurology Psychiatry; Visit Provider Physician Assistant | DX: Z02.2 Encounter for examination for admission to residential institution (principal) | CPT/HCPCS: 99429 ==

== ENCOUNTER → 2023-10-03 14:46 | Outpatient (BNV) | payer OTHER, MEDICAID, SELFPAY | PROVIDERS: Admitting Provider Psychiatry & Neurology Psychiatry; Visit Provider Psychiatry & Neurology Psychiatry | DX: F20.0 Paranoid schizophrenia (principal) | CPT/HCPCS: 90792; 99231; 99239 ==

== ENCOUNTER 2024-01-25 14:38 | Emergency (ER) | payer OTHER, SELFPAY ==
--- NOTE | ~2024-01-25 | CT_ITS ---
EXAMINATION: CT CERVICAL SPINE WITHOUT CONTRAST CLINICAL INFORMATION: Neck pain radiating to bilateral upper extremities. COMPARISON: None available. TECHNIQUE: Axial images obtained through the cervical spine. Coronal and sagittal reformatted images are performed at CT is This CT examination was performed using dose optimization techniques as appropriate, variously including the following: *Automated exposure control *Adjustment of mA and/or kV according to patient size (this includes techniques or standardized protocols for targeted exams where dose is matched to indication/reason for exam; i.e. extremities or head) *Use of iterative reconstruction technique DLP: 418 mGy-cm FINDINGS: Cervical vertebrae have normal height and alignment. No fracture or bone destruction. No prevertebral soft tissue swelling. Mild degenerative spondylosis of the cervical spine. Small vertebral endplate spurs present at C2-C3 through C6-C7. Facet joints are normal. Cervical disc heights are maintained. No focal disc protrusion or central canal stenosis. Neural foramina are open bilaterally. CT/CT cervical spine wo IV con IMPRESSION: No acute abnormality. Mild degenerative spondylosis of cervical spine. No focal disc protrusion or central canal stenosis. Neural foramina are open bilaterally. Fleischner guidelines were followed.
[2024-01-25 14:58] VITALS: BP 126/98; PULSE 93; RESP 18; TEMP 36.8; O2SAT 95; BMI 28.1
--- NOTE | 2024-01-25 14:58 | ED_ITS ---
HPI - Neck Pain/Injury General Chief Complaint: Neck Pain/Injury Stated Complaint: Neck inj pain rad down arms Time Seen by Provider: 01/25/24 17:03 Source: patient Mode of arrival: ambulatory Limitations: no limitations History of Present Illness ED Provider: Jazz Rivero PA-C HPI Narrative: Patient is a 28 year old assigned male at with a history of schizophrenia presenting to the emergency department today with left sided neck pain that is radiating into both of his upper arms. Patient states that since yesterday he has been having neck pain that radiates into his upper extremities. Patient denies any dizziness, lightheadedness, abdominal pain, nausea, vomiting, fever, chills, blurry vision, double vision, loss of vision, chest pain, difficulty breathing, shortness of breath, back pain, night sweats, pain with urination, increased urinary frequency, increased urinary urgency, blood in his urine or stool, syncope or a near syncopal episode, recent trauma or falls, bowel incontinence, bladder incontinence, or any other complaints at this time. MD complaint: neck pain Onset (ago): day(s) (1) Severity: mild Severity scale (1-10): 3 Relieving factors: none Exacerbating factors: none Associated symptoms: none Treatments prior to arrival: none Related Data Home Medications ?Medication ?Instructions ?Recorded ?Confirmed amitriptyline 75 mg tablet 75 mg PO QPM 10/03/23 10/03/23 olanzapine 15 mg tablet 15 mg PO BEDTIME hallucinations 10/03/23 10/03/23 ondansetron 4 mg disintegrating 4 mg PO Q8H 10/03/23 10/03/23 tablet risperidone 1 mg tablet 1 mg PO BID 10/03/23 10/03/23 Previous Rx's ?Medication ?Instructions ?Recorded hydroxyzine HCl 25 mg tablet 25 mg PO BID PRN Anxiety 30 days 10/06/23 #60 tabs venlafaxine 37.5 mg 37.5 mg PO DAILY 30 days #30 caps 10/06/23 capsule,extended release 24 hr venlafaxine 75 mg capsule,extended 75 mg PO DAILY 30 days #30 caps 10/06/23 release 24 hr cyclobenzaprine 5 mg tablet 5 mg PO TID PRN neck pain 7 days 01/25/24 #21 tabs naproxen 500 mg tablet 500 mg PO BID 7 days #14 tabs 01/25/24 prednisone 20 mg tablet 20 mg PO DAILY 7 days #7 tabs 01/25/24 Allergies Allergy/AdvReac Type Severity Reaction Status Date / Time aripiprazole Allergy Unknown Verified 01/25/24 15:00 Penicillins Allergy Hives Verified 01/25/24 15:00 sulfamethoxazole Allergy Unknown Verified 01/25/24 15:00 [From Bactrim] trimethoprim [From Bactrim] Allergy Unknown Verified 01/25/24 15:00 Review of Systems Constitutional: Constitutional: Reports no additional constitutional compl aints, Denies chills, Denies fever(s) and Denies night sweats Eyes: Eyes: Reports no additional eye complaints, Denies blurry vision, Denies change in vision, Denies diplopia, Denies eye discharge, Denies loss of vision and Denies eye pain ENT: Denies dizziness and Reports neck pain Cardiovascular: Cardiovascular: Reports no additional cardiovascular complaints, Denies chest pain, Denies lightheadedness, Denies Loss of Consciousness and Denies dyspnea Respiratory: Respiratory: Reports no additional respiratory complaints and Denies dyspnea Gastrointestinal: Gastrointestinal: Reports no additional gastrointestinal complaints, Denies abdominal pain, Denies melena, Denies hematochezia, Denies change in bowel habits and Denies change in stool character Genitourinary: Genitourinary: Reports no additional male genitourinary complaints, Denies hematuria, Denies oliguria, Denies difficulty urinating, Denies dysuria, Denies urinary frequency, Denies urinary hesitancy, Denies urinary incontinence and Denies urinary urgency Musculoskeletal: Musculoskeletal: Reports no additional musculoskeletal complaints, Reports neck pain, Denies numbness and Denies tingling Neurologic: Denies dizziness, Denies loss of vision, Denies numbness and Denies tingling Psychiatric: Psychiatric: Reports no additional psychiatric complaints Endocrine: Endocrine: Reports no additional endocrine complaints Hematologic/Lymphatic: Hematologic/Lymphatic: Reports no additional hematologic/lymphatic complaints Allergic/Immunologic: Allergic/Immunologic: Reports no additional allergic/immunologic complaints PMFSH Past Medical History Attestation statement: The following information was validated with the patient. Source: old records reviewed and nursing notes reviewed Medical History TBI (traumatic brain injury) Seizures SVT (supraventricular tachycardia) Surgical History History of appendectomy Social History Social History Household Members: Spouse, Children and Other Household Members Other:: 3 other roommates Housing: House Do you presently have visiting nurse or other home services: No Alcohol intake: current Alcohol intake frequency: holidays/special occasions only Patient Tobacco Use Status: Former Tobacco user Tobacco use type: Cigarette Years Smoked: 8 e-Cigarette/Vaping Use: Never Used Second Hand Smoke Exposure: No Substance Use Type: Marijuana Advance Directives: No Advance Directives Information Provided: No Do you have a plan to hurt others: No Plan service: No Sexual orientation: Straight/Heterosexual Physical Exam Vital Signs: Vital Signs: Last Vital Signs Temp 98.2 F 01/25/24 17:08 Pulse 93 01/25/24 17:08 Resp 18 01/25/24 17:08 BP 126/98 H 01/25/24 17:08 Pulse Ox 95 01/25/24 17:08 O2 Del Method Room Air 01/25/24 17:08 BMI result Body Mass Index 28.1 Const: General: cooperative, no acute distress, alert and awake Nutritional Appearance: well nourished Orientation/consciousness: patient oriented x3 Limitations: no limitations HEENT: Head: Yes normal to inspection and Yes atraumatic Ears: hearing grossly normal bilaterally and external ears normal General nose exam: Normal external nose present, no nasal discharge noted and no epistaxis Face and sinus: Yes normal facial exam, No abrasion and No laceration Mouth: Normal oral and palatal mucosa present, no drooling and no muffled voice Eyes: General: appearance normal, both eyes and all related structures Periorbital: periorbital findings normal Eyelids: Yes eyelids normal Conjunctivae: conjunctivae normal Pupils: Equal, round and reactive pupils present EOM: EOMs intact bilaterally Neck: Neck: Yes normal visual inspection, Yes full ROM and Yes no lymphadenopathy Chest: Chest palpation & inspection: normal inspection of the chest Resp: Effort & Inspection: normal respiratory effort and able to speak in complete sentences GI: Inspection: Yes normal to inspection Neuro: General: patient oriented x3 and moves all extremities Cranial nerves: Yes Equal, round and reactive pupils present Cognition (Neuro): normal cognition Motor exam (neuro): 5/5 motor strength present throughout Sensory Exam: Normal double simultaneous stimulation for sensation Coordination: [id number] test normal Extrem: General: Yes normal to inspection, Yes full ROM and Yes capillary refill normal Psych: Appearance: grossly normal Mental Status: mental status grossly normal Affect: normal affect Attitude: cooperative Thought process: Normal thought process present Thought content: Normal thought content present Insight: Good insight present (Psych) Course Course Course Narrative: This is a Rapid Medical Exam performed in triage by Jaida Montalvo PA-C. Full HPI, ROS and PE to be performed by primary ED provider. 28 year-old M w/no sig PMHx presenting to the ED c/o L sided neck pain w/radiating down b/l UE w/numbness. pain worse w/movement. denies trauma/injury PE: neck stiffness, no midline ttp. UE strength intact Plan: Cervical CT, pain control Medical Decision Making Medical Decision Making MDM Narrative: Patient is a 28 year old assigned male at with a history of schizophrenia presenting to the emergency department today with neck pain. Patient's physical exam was unremarkable. Patient's CT c-spine showed no acute process. I explained my physical exam findings as well as all test results to the patient. I answered all questions asked by the patient. I stressed the importance of the patient taking his medication as prescribed. I stressed the importance of the patient following up with his primary care provider. I stressed the importance of the patient returning to the emergency department immediately if his symptoms were to worsen or if he were to develop any dizziness, shortness of breath, difficulty breathing, chest pain, blurry vision, loss of vision, nausea, vomit ing, abdominal pain, fever, chills, back pain, or any other complaints. Patient verbalized agreement and understanding with this treatment plan and discharge. Differential Diagnosis Differential Diagnoses: The differential diagnosis associated with the presentation includes Neck pain Neck strain Neck sprain Cervical radiculopathy Admission/Observation Consideration of admission/observation: Escalation of care including admission/observation considered Patient would have been admitted to the hospital had his work up had any findings where hospital admission was appropriate and his clinical presentation warranted hospital admission. Independent Interpretation I performed an independent interpretation of an: CT Scan Interpretation: My interpretation is in agreement with the radiologist's impression of this imaging study. EXAMINATION: CT CERVICAL SPINE WITHOUT CONTRAST CLINICAL INFORMATION: Neck pain radiating to bilateral upper extremities. COMPARISON: None available. TECHNIQUE: Axial images obtained through the cervical spine. Coronal and sagittal reformatted images are performed at CT is This CT examination was performed using dose optimization techniques as appropriate, variously including the following: *Automated exposure control *Adjustment of mA and/or kV according to patient size (this includes techniques or standardized protocols for targeted exams where dose is matched to indication/reason for exam; i.e. extremities or head) *Use of iterative reconstruction technique DLP: 418 mGy-cm FINDINGS: Cervical vertebrae have normal height and alignment. No fracture or bone destruction. No prevertebral soft tissue swelling. Mild degenerative spondylosis of the cervical spine. Small vertebral endplate spurs present at C2-C3 through C6-C7. Facet joints are normal. Cervical disc heights are maintained. No focal disc protrusion or central canal stenosis. Neural foramina are open bilaterally. CT/CT cervical spine wo IV con IMPRESSION: No acute abnormality. Mild degenerative spondylosis of cervical spine. No focal disc protrusion or central canal stenosis. Neural foramina are open bilaterally. Fleischner guidelines were followed. Dictated By: Henry Miles MD Signed By: Electronically signed by Henry Miles MD 01/25/24 8150 Radiology Impression Discussion of test interpretation with radiology: I have reviewed the radiologist's reading. Prescription Management I considered prescription management with: Pain Medication (patient prescribed pain medication) Discharge Plan Discharge Clinical Impression: Cervical radiculopathy Patient Disposition: Home, Self-Care Instructions: Cervical Radiculopathy (ED) Additional Instructions: Follow up with your primary care provider. Return to the emergency department immediately if your symptoms worsen or if you develop any dizziness, shortness of breath, difficulty breathing, chest pain, blurry vision, loss of vision, nausea, vomiting, abdominal pain, fever, chills, back pain, or any other complaints. Prescriptions: New cyclobenzaprine 5 mg tablet 5 mg PO TID PRN (Reason: neck pain) 7 Days Qty: 21 0RF prednisone 20 mg tablet 20 mg PO DAILY 7 Days Qty: 7 0RF naproxen 500 mg tablet 500 mg PO BID 7 Days Qty: 14 0RF No Action amitriptyline 75 mg tablet 75 mg PO QPM olanzapine 15 mg tablet 15 mg PO BEDTIME ondansetron 4 mg tablet,disintegrating 4 mg PO Q8H risperidone 1 mg tablet 1 mg PO BID venlafaxine 37.5 mg Capsule,Extended Release 24hr 37.5 mg PO DAILY 30 Days Qty: 30 0RF Rx Instructions: take with 75 mg cap for a total daily dose of 112.5 mg hydroxyzine HCl 25 mg Tablet 25 mg PO BID PRN (Reason: Anxiety) 30 Days Qty: 60 0RF venlafaxine 75 mg capsule,extended release 24hr 75 mg PO DAILY 30 Days Qty: 30 0RF Referrals: [facility] Family Medicine [Provider Group] (Call to establish and follow up with a primary care provider. If you already have a primary care provider, please follow up with them.) [facility] Primary CareMartha [Provider Group] [facility] Primary CareJose [Provider Group] Stand Alone Forms: Work/School Release Interventions: ED Discharge Assessment Last Done: 01/25/24 17:08 Discharge Date/Time: 01/25/24 17:09 Print Language: Malay
[2024-01-25 17:08] VITALS: BP 126/98; PULSE 93; RESP 18; TEMP 36.8; O2SAT 95
== END 2024-01-25 17:09 | disposition home or self-care (01) ==
PROVIDERS: Emergency Provider Internal Medicine
DX: M54.12 Radiculopathy, cervical region (principal); Z79.899 Other long term (current) drug therapy; Z87.891 Personal history of nicotine dependence
CPT/HCPCS: 72125; 99282; 99284

== ENCOUNTER 2024-04-01 22:29 | Emergency (ER) | payer OTHER, SELFPAY | END 2024-04-01 22:30 | disposition left against medical advice (07) | PROVIDERS: Emergency Provider Emergency Medicine | DX: F20.0 Paranoid schizophrenia (principal); R45.851 Suicidal ideations; Z87.820 Personal history of traumatic brain injury; Z87.891 Personal history of nicotine dependence ==

== ENCOUNTER 2024-04-13 22:04 | Emergency (ER) | payer OTHER, SELFPAY ==
[2024-04-13 22:06] VITALS: BP 135/88; PULSE 123; RESP 20; TEMP 37.1; O2SAT 94; BMI 28.4
--- NOTE | 2024-04-13 22:21 | MHC.EDTECH ---
Patient brought into triage area,labs/urine obtained and sent to lab.
[2024-04-13 22:31] LABS: MANUAL DIFF FLAG NO
[2024-04-13 22:32] LABS: Basophils Absolute Auto 0.1 X10*3/uL (0.0-0.2); Basophils Percent Auto 0.8 % (0-2); Eosinophils Absolute Auto 0.2 X10*3/uL (0.0-0.4); Eosinophils Percent Auto 1.7 % (0-4); Hematocrit 42.2 % (42.0-52.0); Hemoglobin 15.2 g/dl (14.0-18.0); Imm Gran Abs Auto 0.03 X10*3/uL (0.00-0.03); Imm Gran Pct Auto 0.3 % (0.0-0.4); Lymphocytes Percent Auto 34.1 % (20-40); Mean Corpuscular Hemoglobin 31.6 pg (27.0-33.0); Mean Corpuscular Volume 87.7 fL (80.0-98.0); Mean Platelet Volume 9.1 fL (9.4-12.4); Monocytes Absolute Auto 0.9 X10*3/uL (0.1-1.2); Monocytes Percent Auto 10.4 % (2-11); Neutrophils Absolute Auto 4.6 x10*3/uL (2.0-8.3); Neutrophils Percent Auto 52.7 % (45-73); Platelet Count 351 X10*3/uL (160-400); Red Blood Count 4.81 X10*6/uL (4.60-5.80); Red Cell Distribution Width 12.2 % (11.0-16.0); White Blood Count 8.7 X10*3/uL (4.8-10.8)
[2024-04-13 22:33] LABS: Appearance Urine Clear; Color Urine Yellow; Glucose Urine UA Negative (Negative); Leukocyte Esterase Urine Negative (Negative); Nitrite Urine Negative (Negative); Urine Blood Negative (Negative); Urine Ketones Trace mg/dL (Negative); Urine Protein Negative (Neg-Trace)
--- NOTE | 2024-04-13 22:33 | MHC.EDTECH ---
patient changed over on arrival to pod with security. patient belongings locked in LOCKER 3. Patient came in with home meds. Meds placed behind desk for RN to review. patient belongings list complete.
[2024-04-13 23:02] LABS: Amphetamine Screen Urine Not Detected (Not Detect); Barbiturates, Urine Not Detected (Not Detect); Benzodiazepines Screen Urine Not Detected (Not Detect); Buprenorphine Scr Not Detected (Not Detect); Cannabinoid Screen Urine Not Detected (Not Detect); Cocaine Screen Urine Not Detected (Not Detect); Fentanyl, urine Not Detected (Not Detect); Methadone Screen, Urine Not Detected (Not Detect); Opiate Screen Urine Not Detected (Not Detect); Oxycodone Screen Urine Not Detected (Not Detect); Phencyclidine Screen Urine Not Detected (Not Detect)
[2024-04-13 23:05] LABS: Alanine Aminotransferase 116 U/L (0-40); Albumin Level 4.6 g/dL (3.5-5.0); Alkaline Phosphatase 75 U/L (39-117); Anion Gap 17 (12-20); Aspartate Amino Transferase 50 U/L (5-37); Bilirubin Total 0.2 mg/dL (0.0-1.0); Blood Urea Nitrogen 13 mg/dL (9-16); Calcium 9.3 mg/dL (8.4-10.2); Carbon Dioxide 23 mmol/L (22-29); Chloride 108 mmol/L (96-108); Creatinine Clr Calc Pharmacy 130.2; Estimated Glomerular Filt Rate > 60; Ethanol 91 mg/dL; Glucose Random 116 mg/dL (60-115); Potassium 3.5 mmol/L (3.3-5.1); Sodium 144 mmol/L (135-145); Total Protein 7.3 g/dL (6.5-8.0)
--- NOTE | 2024-04-14 00:07 | ED_ITS ---
HPI - Psych General Chief Complaint: Psychiatric Symptoms Stated Complaint: SI Time Seen by Provider: 04/13/24 22:30 Source: patient Mode of arrival: ambulatory Limitations: no limitations History of Present Illness ED Provider: Dr. Charlene Mccullough HPI Narrative: Patient comes to the emergency room complaining of suicidal ideation, auditory hallucinations telling him to kill himself. Patient states that he has considered sledding his wrist or hanging himself. Patient known to have history of schizophrenia. According to the patient he is compliant with his medications. Patient states that his depression worsened about a week ago, patient states that he has difficulties at work and financial stressors. Related Data Home Medications ?Medication ?Instructions ?Recorded ?Confirmed amitriptyline 75 mg tablet 75 mg PO QPM 10/03/23 04/13/24 olanzapine 15 mg tablet 15 mg PO BEDTIME hallucinations 10/03/23 04/13/24 risperidone 1 mg tablet 1 mg PO BID 10/03/23 04/13/24 lamotrigine 150 mg tablet 150 mg PO DAILY depressive disorder 04/13/24 04/13/24 lorazepam 1 mg tablet 1 mg PO BID PRN anxiety 04/13/24 04/13/24 perphenazine 8 mg tablet 8 mg PO BID PRN anxiety 04/13/24 04/13/24 Previous Rx's ?Medication ?Instructions ?Recorded hydroxyzine HCl 25 mg tablet 25 mg PO BID PRN Anxiety 30 days 10/06/23 #60 tabs venlafaxine 75 mg capsule,extended 75 mg PO DAILY 30 days #30 caps 10/06/23 release 24 hr cyclobenzaprine 5 mg tablet 5 mg PO TID PRN neck pain 7 days 01/25/24 #21 tabs Allergies Allergy/AdvReac Type Severity Reaction Status Date / Time aripiprazole Allergy Unknown Verified 04/13/24 22:08 Penicillins Allergy Hives Verified 04/13/24 22:08 sulfamethoxazole Allergy Unknown Verified 04/13/24 22:08 [From Bactrim] trimethoprim [From Bactrim] Allergy Unknown Verified 04/13/24 22:08 Review of Systems 2 Review of Systems: Constitutional : No Weight loss, No Fever, No Chills, No Night Sweats, No Fatigue, No Malaise ENT/Mouth : No Hearing loss, No Ear Pain, No Nasal Congestion, No Sinus Pain, No Hoarseness, No sore throat, No Rhinorrhea, No Swallowing Difficulty Eyes: No Eye Pain, No Swelling, No Redness, No Foreign Body, No Discharge, No Vision Changes Cardiovascular : No Chest Pain, No SOB, No Dyspnea on Exertion, No Orthopnea, No Edema, No Palpitations Respiratory : No Cough, No Sputum, No Wheezing, No Smoke Exposure, No Dyspnea Gastrointestinal : No Nausea, No Vomiting, No Diarrhea, No Constipation, No abdominal Pain, No Hematochezia, No Melena Genitourinary : no irregular bleeding, No Dysuria, No Urinary Frequency, No Hematuria, No Urinary Incontinence, No Urgency, No Flank Pain, No Urinary Flow Changes, No Hesitancy Musculoskeletal : No joint pain, No Myalgias, No Joint Swelling Skin : No Skin Lesions, No rash Neuro : No Weakness, No Numbness, No Paresthesias, No Loss of Consciousness, No Dizziness, No Headache Psych : Complaining of anxiety, depression, hallucinations, no HI Heme/Lymph: No Bruising, No Bleeding,No Lymphadenopathy Endocrine : No Polyuria, No Polydipsia, No Temperature Intolerance [facility] Past Medical History Medical History Routine medical exam TBI (traumatic brain injury) Seizures SVT (supraventricular tachycardia) Surgical History History of appendectomy Social History Social History Household Members: Spouse, Children and Other Household Members Other:: 3 other roommates Housing: House Do you presently have visiting nurse or other home services: No Alcohol intake: current Alcohol intake frequency: 0-2 drinks per day Alcohol type: beer Patient Tobacco Use Status: Former Tobacco user Tobacco use type: Cigarette Years Smoked: 8 Smoked in Last 30 Days: No e-Cigarette/Vaping Use: Never Used Second Hand Smoke Exposure: No Use of substances other than those prescribed or required for medical reasons: No Substance Use Type: Marijuana Advance Directives: No Advance Directives Information Provided: No service: No Sexual orientation: Straight/Heterosexual Physical Exam 2 Vital Signs: Vital Signs: Last Vital Signs Temp 97.9 F 04/14/24 07:21 Pulse 99 04/14/24 07:21 Resp 16 04/14/24 07:21 BP 142/89 H 04/14/24 07:21 Pulse Ox 99 04/14/24 07:21 O2 Del Method Room Air 04/14/24 07:21 BMI result Body Mass Index 28.4 Const: Other: Appearance: Alert. Oriented X3. No acute distress. Eyes: Pupils equal, round and reactive to light. ENT: Pharynx normal. Neck: Normal inspection. Neck supple. No lymph nodes noted. No crepitus CVS: Normal heart rate and rhythm. Pulses normal. Normal S1 and S2 Respiratory: No respiratory distress. Breath sounds normal. No Wheezing. No rales Abdomen: Soft and nontender. No rigidity. No distention. Skin: Skin warm and dry. Normal skin color. Normal skin turgor. Extremities: No lower extremity edema. No Lacerations. No Rash Neuro: Oriented X 3. No motor deficit. No sensory deficit. Moving all extremities. No slurred speech. CN 2 through 12 grossly intact Psych: calm, cooperative, normal affect Course Course Course Narrative: Physician observation continued. VS stable, no acute events overnight, pending CARE team dispo, will continue to monitor. 04/14/24 740am Reevaluation(s) Reevaluation #1: observation care revealed that the patient does NOT meet psychiatric necessity for hospitalization. final disposition discussed with the patient. The patient completed observation care at 945am. Cleared by CARE and addiction medicine team 04/14/24 JOSE Medications Administered Generic Name Dose Route Start Last Admin Trade Name Freq PRN Reason Stop Dose Admin Lamotrigine 150 mg 04/14/24 09:00 04/14/24 07:59 Lamotrigine 100 Mg Tablet PO 150 mg DAILY BRITTNY Administration Olanzapine 15 mg 04/13/24 23:45 04/14/24 00:46 Olanzapine 7.5 Mg Tablet PO Not Given BEDTIME BRITTNY Risperidone 1 mg 04/13/24 23:45 04/14/24 08:03 Risperidone 1 Mg Tablet PO Not Given BID BRITTNY Venlafaxine HCl 75 mg 04/14/24 09:00 04/14/24 07:59 Venlafaxine Hcl Er 75 Mg Cap.Er.24h PO 75 mg DAILY BRITTNY Administration Medical Decision Making Medical Decision Making [facility] Narrative: My interpretation of labs: Normal hematology no specific abnormalities in chemistry, chronically elevated LFTs, urine negative for UTI, toxicology negative for drugs or abuse, alcohol 91 -patient is on a Section 12 -care team consult pending -physician observation started 00:01 a.m. Differential Diagnosis Differential Diagnoses: The differential diagnosis associated with the presentation includes (Anxiety, depression, schizophrenia) Admission/Observation Consideration of admission/observation: Escalation of care including admission/observation considered Lab Data 04/13/24 22:22 04/13/24 22:22 Labs: Lab Results 04/13/24 Range/Units 22:22 WBC 8.7 (4.8-10.8) X10*3/uL RBC 4.81 (4.60-5.80) X10*6/uL Hgb 15.2 (14.0-18.0) g/dl Hct 42.2 (42.0-52.0) % MCV 87.7 (80.0-98.0) fL MCH 31.6 (27.0-33.0) pg MCHC 36.0 (31.0-36.0) g/dl RDW 12.2 (11.0-16.0) % Plt Count 351 D (160-400) X10*3/uL MPV 9.1 L (9.4-12.4) fL Immature Gran % (Auto) 0.3 (0.0-0.4) % Neut % (Auto) 52.7 (45-73) % Lymph % (Auto) 34.1 (20-40) % [place] % (Auto) 10.4 (2-11) % Eos % (Auto) 1.7 (0-4) % Baso % (Auto) 0.8 (0-2) % Lymph # (Auto) 3.0 (1.2-4.9) X10*3/uL [place] # (Auto) 0.9 (0.1-1.2) X10*3/uL Eos # (Auto) 0.2 (0.0-0.4) X10*3/uL Baso # (Auto) 0.1 (0.0-0.2) X10*3/uL Abs Immat Gran (auto) 0.03 (0.00-0.03) X10*3/uL Absolute Neuts (auto) 4.6 (2.0-8.3) x10*3/uL Absolute Nucleated RBC 0.000 (0.0-0.012) X10*3/uL Nucleated RBC % (auto) 0.0 (0.0-0.2) /100WBC Sodium 144 (135-145) mmol/L Potassium 3.5 D (3.3-5.1) mmol/L Chloride 108 (96-108) mmol/L Carbon Dioxide 23 (22-29) mmol/L Anion Gap 17 (12-20) BUN 13 (9-16) mg/dL Creatinine 1.02 (0.5-1.4) mg/dL Estim Creat Clear Calc 130.2 Estimated GFR > 60 Random Glucose 116 H (60-115) mg/dL Calcium 9.3 (8.4-10.2) mg/dL Total Bilirubin 0.2 (0.0-1.0) mg/dL AST 50 H (5-37) U/L ALT 116 H (0-40) U/L Alkaline Phosphatase 75 (39-117) U/L Total Protein 7.3 (6.5-8.0) g/dL Albumin 4.6 (3.5-5.0) g/dL Urine Color Yellow Urine Appearance Clear Urine pH 6.0 (5.0-9.0) Ur Specific [place] 1.010 (1.005-1.025) Urine Protein Negative (Neg-Trace) mg/dL Urine Glucose (UA) Negative (Negative) mg/dL Urine Ketones Trace (Negative) mg/dL Urine Blood Negative (Negative) Urine Nitrite Negative (Negative) Ur Leukocyte Esterase Negative (Negative) Urine Opiates Screen Not Detected (Not Detect) Ur Buprenorphine Scrn Not Detected (Not Detect) ng/mL Ur Oxycodone Screen Not Detected (Not Detect) ng/mL Urine Methadone Screen Not Detected (Not Detect) ng/mL Urine Fentanyl Screen Not Detected (Not Detect) Ur Barbiturates Screen Not Detected (Not Detect) Ur Phencyclidine Scrn Not Detected (Not Detect) Ur Amphetamines Screen Not Detected (Not Detect) U Benzodiazepines Scrn Not Detected (Not Detect) Urine Cocaine Screen Not Detected (Not Detect) U Marijuana (THC) Screen Not Detected (Not Detect) Ethyl Alcohol 91 mg/dL Discharge Plan Discharge Clinical Impression: Chronic schizophrenia, Depression, Alcohol use disorder Patient Disposition: Home, Self-Care Instructions: Depression (ED), Abuse of Alcohol (ED) Additional Instructions: return for any worsening thoughts of harm to yourself or others follow up with resources from addiction medicine team Prescriptions: No Action amitriptyline 75 mg tablet 75 mg PO QPM olanzapine 15 mg tablet 15 mg PO BEDTIME risperidone 1 mg tablet 1 mg PO BID hydroxyzine HCl 25 mg Tablet 25 mg PO BID PRN (Reason: Anxiety) 30 Days Qty: 60 0RF venlafaxine 75 mg capsule,extended release 24hr 75 mg PO DAILY 30 Days Qty: 30 0RF cyclobenzaprine 5 mg tablet 5 mg PO TID PRN (Reason: neck pain) 7 Days Qty: 21 0RF lamotrigine 150 mg tablet 150 mg PO DAILY lorazepam 1 mg tablet 1 mg PO BID PRN (Reason: anxiety) perphenazine 8 mg tablet 8 mg PO BID PRN (Reason: anxiety) Interventions: Ware-Suicide Risk Severity Scale Last Done: 04/13/24 23:54 Print Language: Azeri
--- NOTE | 2024-04-14 07:10 | PC.NURSE ---
Assumed care of patient at 0645, patient appears to be in no apparent distress this am, talking on phone. Offers no complaints to this RN at this time. Continue plan of care for CARE team eval this am
[2024-04-14 07:21] VITALS: BP 142/89; PULSE 99; RESP 16; TEMP 36.6; O2SAT 99
[2024-04-14] MEDS: lamoTRIgine 100 MG TABLET 150 MG PO (07:59)
[2024-04-14] MEDS: Venlafaxine HCl ER 75 MG CAP.ER.24H PO (07:59)
--- NOTE | 2024-04-14 09:44 | MHC.RECOVRN ---
Met with pt in [facility] after cleared by CARE Team to discuss resources for alcohol use. Pt laying down, eyes closed, wakes to voice. Pt reports alcohol use, 2 24 ounce beers every other day x 1.5 weeks. Pt reports prior to that he had been drinking every day. Pt reports he has been trying to reduce the amount of alcohol because he feels like it is worsening his depression. Pt reports he has also switched from hard alcohol to beer. Pt reports he plans on continuing to reduce the amount he drinks, goal is once per week. Pt reports he does not have cravings for alcohol. Pt reports family hx AUD--father. Pt reports alcohol has not caused issues in his life in the past. Pt reports he lives with his and son, drinks occaisonally. Pt reports believes alcohol use is worsening depression as well. Discussed outpatient recovery resources and supports including [facility], IOP, recovery coaching, AA, harm reduction. Pt is not interested in referrals at this time, plans to reach out if support is needed. Pt provided with written resources as well as t/w contact information. Pt denies questions or concerns at this time.
[2024-04-14 10:24] VITALS: BP 139/88; PULSE 94; RESP 14; TEMP 36.6; O2SAT 99
== END 2024-04-14 10:28 | disposition home or self-care (01) ==
PROVIDERS: Emergency Provider Emergency Medicine
DX: F25.1 Schizoaffective disorder, depressive type (principal); R45.851 Suicidal ideations; F10.10 Alcohol abuse, uncomplicated; Y90.4 Blood alcohol level of 80-99 mg/100 ml; Z79.899 Other long term (current) drug therapy; Z87.891 Personal history of nicotine dependence; Z51.81 Encounter for therapeutic drug level monitoring
CPT/HCPCS: 36415; 80053; 80307; 81003; 85025; 99285; S9485

== ENCOUNTER 2024-08-24 18:09 | Inpatient (IN) | payer OTHER, SELFPAY ==
--- NOTE | ~2024-08-24 | XR_ITS ---
CLINICAL HISTORY: hypoxic, cough 2 weeks 2 view chest x-ray Comparison: CR/NM/SR - XR CHEST 2V - 08/02/23 22:37 EST Findings: Right lower lobe consolidation. Clear left lung. Cardiac and mediastinal contours are normal. Impression: Right lower lobe pneumonia suggested. Follow-up recommended to ensure resolution. This document has been electronically signed by: Juan Luis Leroy MD on 08/24/2024 19:48:48
--- NOTE | 2024-08-24 18:33 | ED_ITS ---
HPI - General Adult General Chief complaint: Upper Respiratory Symptoms Stated complaint: Chest Congestion Time Seen by Provider: 08/24/24 18:46 Related Data Home Medications ?Medication ?Instructions ?Recorded ?Confirmed amitriptyline 75 mg tablet 75 mg PO BEDTIME 10/03/23 08/24/24 olanzapine 15 mg tablet 15 mg PO BEDTIME hallucinations 10/03/23 08/24/24 lamotrigine 150 mg tablet 150 mg PO DAILY depressive disorder 04/13/24 08/24/24 perphenazine 8 mg tablet 8 mg PO BID PRN anxiety 04/13/24 08/24/24 hydroxyzine pamoate 50 mg capsule 50 mg PO TID PRN anxiety 08/24/24 08/24/24 Previous Rx's ?Medication ?Instructions ?Recorded venlafaxine 75 mg capsule,extended 75 mg PO DAILY 30 days #30 caps 10/06/23 release 24 hr azithromycin 500 mg tablet 500 mg PO DAILY 2 days #2 tabs 08/27/24 metoprolol tartrate 25 mg tablet 12.5 mg (1/2 x 25 mg) PO BID #30 08/27/24 tabs Allergies Allergy/AdvReac Type Severity Reaction Status Date / Time aripiprazole Allergy Unknown Verified 08/24/24 18:41 Penicillins Allergy Hives Verified 08/24/24 18:41 sulfamethoxazole Allergy Unknown Verified 08/24/24 18:41 [From Bactrim] trimethoprim [From Bactrim] Allergy Unknown Verified 08/24/24 18:41 [facility] Past Medical History Medical History (Updated 08/27/24 @ 13:37 by Bryce Ramos MD) Routine medical exam TBI (traumatic brain injury) Seizures SVT (supraventricular tachycardia) Surgical History History of appendectomy Social History Social History Household Members: Spouse, Family and Friend(s) Household Members Other:: 3 other roommates Housing: House Do you presently have visiting nurse or other home services: Yes Alcohol intake: current Alcohol intake frequency: 0-2 drinks per day Alcohol type: beer Patient Tobacco Use Status: Former Tobacco user Tobacco use type: Cigarette Years Smoked: 8 e-Cigarette/Vaping Use: Former Use Second Hand Smoke Exposure: No Substance Use Type: Marijuana service: No Sexual orientation: Straight/Heterosexual Physical Exam ED Vital Signs: BMI result Body Mass Index 27.5 Course Course Course Narrative: This is a rapid medical exam performed by Malinda Faust NP: Additional HPI, ROS, PE not included below will be deferred to primary provider. Patient is a 28-year-old male with history of paranoid schizophrenia presenting to the emergency department with complaint of cough and crackling in chest with chest pain for the past 2 weeks. Night sweats. check O2 at home and sats were in the lower 80's. O2 in triage 89%, HR 120s. Plan: viral serology, labs, CXR Medications Administered Discontinued Medications Generic Name Dose Route Start Last Admin Trade Name Freq PRN Reason Stop Dose Admin Amitriptyline HCl 75 mg 08/24/24 21:00 08/26/24 19:47 Amitriptyline Hcl 25 Mg Tablet PO 75 mg BEDTIME BRITTNY Administration Benzonatate 100 mg 08/24/24 20:55 08/25/24 20:52 Benzonatate 100 Mg Capsule PO 100 mg TID PRN Administration Cough Ceftriaxone Sodium 1 gm 08/24/24 18:54 08/24/24 19:20 Ceftriaxone Sodium 1 Gm Vial IVPUSH 08/24/24 18:55 1 gm ONCE ONE Administration Ceftriaxone Sodium 1 gm 08/25/24 19:00 08/26/24 19:41 Ceftriaxone Sodium 1 Gm Vial IVPUSH 1 gm Q24H BRITTNY Administration Enoxaparin Sodium 40 mg 08/24/24 21:00 08/26/24 21:36 Enoxaparin Sodium 40 Mg/0.4 Ml Syringe SUBCUT 40 mg Q24H BRITTNY Administration Guaifenesin/Codeine Phosphate 10 ml 08/26/24 09:19 08/27/24 04:05 Guaifen/Codeine Sf 200/20/10ml 10 Ml Liquid PO 10 ml Q4H PRN Administration Cough Azithromycin 500 mg/ Sodium 250 mls @ 125 mls/hr 08/24/24 18:54 08/24/24 21:45 Chloride IV 08/24/24 20:53 Infused ONCE ONE Infusion Sodium Chloride 2,916 mls @ 2,916 mls/hr 08/24/24 18:54 08/25/24 00:27 Ns 30 ml/kg infuse over 1 hr (2916 ml) 08/24/24 19:53 Infused IV Infusion .Q1H STA Azithromycin 500 mg/ Sodium 250 mls @ 125 mls/hr 08/25/24 19:00 08/26/24 21:56 Chloride IV Infused Q24H BRITTNY Infusion Lamotrigine 150 mg 08/25/24 09:00 08/27/24 08:24 Lamotrigine 25 Mg Tablet PO 150 mg DAILY BRITTNY Administration Metoprolol Tartrate 12.5 mg 08/26/24 14:30 08/27/24 08:25 Metoprolol Tartrate 12.5 Mg Halftab PO 12.5 mg BID BRITTNY Administration Protocol Olanzapine 15 mg 08/24/24 21:00 08/26/24 19:47 Olanzapine 7.5 Mg Tablet PO 15 mg BEDTIME BRITTNY Administration Perphenazine 8 mg 08/24/24 21:33 08/25/24 20:51 Perphenazine 8 Mg Tablet PO 8 mg BID PRN Administration anxiety Potassium Chloride 20 meq 08/25/24 17:17 08/25/24 18:35 Potassium Chloride Er 20 Meq Tab.Er.Prt PO 08/25/24 17:18 20 meq ONCE ONE Administration Sodium Chloride 3 ml 08/25/24 00:00 08/27/24 08:25 0.9 % Sodium Chloride Flush 3 Ml Syringe IVFLUSH 3 ml QSHIFT BRITTNY Administration Venlafaxine HCl 75 mg 08/25/24 09:00 08/27/24 08:24 Venlafaxine Hcl Er 75 Mg Cap.Er.24h PO 75 mg DAILY BRITTNY Administration Medical Decision Making Lab Data 08/27/24 06:24 08/27/24 06:24 Labs: Lab Results 08/24/24 08/24/24 08/24/24 Range/Units 18:54 19:05 19:19 WBC 10.1 (4.8-10.8) X10*3/uL RBC 4.63 (4.60-5.80) X10*6/uL Hgb 14.7 (14.0-18.0) g/dl Hct 41.1 L (42.0-52.0) % MCV 88.8 (80.0-98.0) fL MCH 31.7 (27.0-33.0) pg MCHC 35.8 (31.0-36.0) g/dl RDW 11.7 (11.0-16.0) % Plt Count 261 D (160-400) X10*3/uL MPV 9.3 L (9.4-12.4) fL Immature Gran % (Auto) 0.4 (0.0-0.4) % Neut % (Auto) 78.1 H (45-73) % Lymph % (Auto) 10.2 L (20-40) % [place] % (Auto) 10.4 (2-11) % Eos % (Auto) 0.5 (0-4) % Baso % (Auto) 0.4 (0-2) % Lymph # (Auto) 1.0 L (1.2-4.9) X10*3/uL [place] # (Auto) 1.1 (0.1-1.2) X10*3/uL Eos # (Auto) 0.1 (0.0-0.4) X10*3/uL Baso # (Auto) 0.0 (0.0-0.2) X10*3/uL Abs Immat Gran (auto) 0.04 H (0.00-0.03) X10*3/uL Absolute Neuts (auto) 7.8 (2.0-8.3) x10*3/uL Absolute Nucleated RBC 0.000 (0.0-0.012) X10*3/uL Nucleated RBC % (auto) 0.0 (0.0-0.2) /100WBC PT 11.9 (10.9-12.4) SEC INR 1.0 (0.9-1.1) APTT 31.2 (26.0-36.8) SEC Sodium 134 L (135-145) mmol/L Potassium 4.1 (3.3-5.1) mmol/L Chloride 104 (96-108) mmol/L Carbon Dioxide 19 L (22-29) mmol/L Anion Gap 15 (12-20) BUN 14 (9-16) mg/dL Creatinine 1.00 (0.5-1.4) mg/dL Estim Creat Clear Calc 125.5 Estimated GFR > 60 Random Glucose 116 H (60-115) mg/dL Lactic Acid 1.5 (0.5-2.0) mmol/L Calcium 9.1 (8.4-10.2) mg/dL Magnesium 2.2 (1.6-2.6) mg/dL Total Bilirubin 0.3 (0.0-1.0) mg/dL AST 46 H (5-37) U/L ALT 55 H (0-40) U/L Alkaline Phosphatase 73 (39-117) U/L Troponin I High Sens < 2.7 (<3.5-35.0) ng/L B-Natriuretic Peptide < 10 (<100) pg/mL Total Protein 7.8 (6.5-8.0) g/dL Albumin 4.1 (3.5-5.0) g/dL Influenza Type A (PCR) NEGATIVE (Negative) Influenza Type B (PCR) NEGATIVE (Negative) RSV RNA Qual (PCR) NEGATIVE (Negative) SARS-CoV-2 RNA (RT-PCR) NEGATIVE (Negative) Discharge Plan Discharge Clinical Impression: Pneumonia Patient Disposition: Admitted As Inpatient Interventions: Admission Worksheet (ED) Last Done: 08/25/24 12:03 Discharge Date/Time: 08/25/24 17:05
[2024-08-24 18:34] VITALS: BP 136/79; PULSE 119; RESP 18; TEMP 37.1; O2SAT 88; BMI 27.5
--- NOTE | 2024-08-24 18:47 | ECG_ITS ---
Test Reason : SOB Blood Pressure : */* mmHG Vent. Rate : 119 BPM Atrial Rate : * BPM P-R Int : * ms QRS Dur : 96 ms QT Int : 288 ms P-R-T Axes : * 67 4 degrees QTcB Int : 405 ms Accelerated Junctional rhythm Abnormal ECG When compared with ECG of 02-Nov-2021 08:45, Junctional rhythm has replaced Sinus rhythm Referred By: Alton Bella Electronically Signed By: CHELO HOGAN MD
[2024-08-24 18:58] VITALS: BP 135/85; PULSE 126; RESP 26; TEMP 38.2; O2SAT 94
[2024-08-24 19:00] LABS: MANUAL DIFF FLAG NO
[2024-08-24] MEDS: SODIUM CHLORIDE 2916 ML IV (19:02)
--- NOTE | 2024-08-24 19:02 | PC.NURSE ---
patient presented to the ED thru triage, patient satting 88% on room air, presented into ED 9 sob/tripoding. IV access obtained in the left wrist, #20, labs and cultures obtained. patient breath sounds clear bilat, has non productive cough. patient temp 100.7, in sinus tach 120s. patient desat on 2l to 88%, placed on 4lNC.
[2024-08-24 19:10] LABS: Basophils Percent Auto 0.4 % (0-2); Eosinophils Absolute Auto 0.1 X10*3/uL (0.0-0.4); Eosinophils Percent Auto 0.5 % (0-4); Hematocrit 41.1 % (42.0-52.0); Hemoglobin 14.7 g/dl (14.0-18.0); Imm Gran Abs Auto 0.04 X10*3/uL (0.00-0.03); Imm Gran Pct Auto 0.4 % (0.0-0.4); Lymphocytes Percent Auto 10.2 % (20-40); Mean Corpuscular HGB Conc 35.8 g/dl (31.0-36.0); Mean Corpuscular Hemoglobin 31.7 pg (27.0-33.0); Mean Corpuscular Volume 88.8 fL (80.0-98.0); Mean Platelet Volume 9.3 fL (9.4-12.4); Monocytes Absolute Auto 1.1 X10*3/uL (0.1-1.2); Monocytes Percent Auto 10.4 % (2-11); Neutrophils Absolute Auto 7.8 x10*3/uL (2.0-8.3); Neutrophils Percent Auto 78.1 % (45-73); Platelet Count 261 X10*3/uL (160-400); Red Blood Count 4.63 X10*6/uL (4.60-5.80); Red Cell Distribution Width 11.7 % (11.0-16.0); White Blood Count 10.1 X10*3/uL (4.8-10.8)
--- NOTE | 2024-08-24 19:10 | ED_ITS ---
HPI - General Adult General Chief complaint: Upper Respiratory Symptoms Stated complaint: Chest Congestion Time Seen by Provider: 08/24/24 18:46 Source: patient Mode of arrival: ambulatory Limitations: no limitations History of Present Illness ED Provider: Alton Bella HPI narrative: 28-year-old male with past medical history of pneumonia as a child presents to ED for chest discomfort, coughing, and shortness of breath for a week. Patient states his roommate was sick possible noravirus or pneumonia, but now he is having symptoms. Related Data Home Medications ?Medication ?Instructions ?Recorded ?Confirmed amitriptyline 75 mg tablet 75 mg PO BEDTIME 10/03/23 08/24/24 olanzapine 15 mg tablet 15 mg PO BEDTIME hallucinations 10/03/23 08/24/24 lamotrigine 150 mg tablet 150 mg PO DAILY depressive disorder 04/13/24 08/24/24 perphenazine 8 mg tablet 8 mg PO BID PRN anxiety 04/13/24 08/24/24 hydroxyzine pamoate 50 mg capsule 50 mg PO TID PRN anxiety 08/24/24 08/24/24 Previous Rx's ?Medication ?Instructions ?Recorded venlafaxine 75 mg capsule,extended 75 mg PO DAILY 30 days #30 caps 10/06/23 release 24 hr Allergies Allergy/AdvReac Type Severity Reaction Status Date / Time aripiprazole Allergy Unknown Verified 08/24/24 18:41 Penicillins Allergy Hives Verified 08/24/24 18:41 sulfamethoxazole Allergy Unknown Verified 08/24/24 18:41 [From Bactrim] trimethoprim [From Bactrim] Allergy Unknown Verified 08/24/24 18:41 Review of Systems 2 Review of Systems: Coughing, shortness of breath, Yes all other systems are reviewed and are negative PMFSH Past Medical History Medical History Routine medical exam TBI (traumatic brain injury) Seizures SVT (supraventricular tachycardia) Surgical History History of appendectomy Social History Social History Household Members: Spouse, Children and Other Household Members Other:: 3 other roommates Housing: House Do you presently have visiting nurse or other home services: No Alcohol intake: current Alcohol intake frequency: 0-2 drinks per day Alcohol type: beer Patient Tobacco Use Status: Former Tobacco user Tobacco use type: Cigarette Years Smoked: 8 Smoked in Last 30 Days: No e-Cigarette/Vaping Use: Never Used Second Hand Smoke Exposure: No Use of substances other than those prescribed or required for medical reasons: No Substance Use Type: Marijuana Advance Directives: No Advance Directives Information Provided: No Do you have a plan to hurt others: No Plan service: No Sexual orientation: Straight/Heterosexual Physical Exam ED Vital Signs: Vital Signs - 24 hr 08/24/24 18:34 08/24/24 18:58 08/24/24 19:38 Temperature 98.7 F 100.7 F H Pulse Rate 119 H 126 H Respiratory Rate 18 26 H Blood Pressure 136/79 135/85 Pulse Oximetry 88 L 94 94 Oxygen Delivery Method Room Air Nasal Cannula Nasal Cannula Oxygen Flow Rate 4 08/24/24 20:12 08/24/24 20:42 Temperature Pulse Rate 106 H 103 H Respiratory Rate 24 H 24 H Blood Pressure 133/80 136/78 Pulse Oximetry 95 95 Oxygen Delivery Method Nasal Cannula Nasal Cannula Oxygen Flow Rate 5 5 BMI result Body Mass Index 27.5 Const General: cooperative, healthy appearing, comfortable, no acute distress, well developed, alert, awake and Physically active Orientation/consciousness: patient oriented x3 [facility] Head: Yes normal to inspection, Yes No palpable skull fracture present, Yes normocephalic and Yes atraumatic Eyes General: appearance normal, both eyes and all related structures Neck Neck: Yes normal visual inspection, Yes full ROM, Yes no lymphadenopathy, Yes no meningeal signs, Yes trachea midline, Yes supple, No anterior neck swelling and No tender Chest Chest palpation & inspection: normal inspection of the chest and normal palpation of entire chest wall Resp Effort & Inspection: normal respiratory effort and able to speak in complete sentences Auscultation: clear to auscultation bilaterally Cardio Jugular venous distension: no JVD Heart sounds: S1 normal heart sound present and S2 normal heart sound present GI Inspection: Yes normal to inspection Palpation (GI): Soft to palpation, not firm, nontender, no guarding and not rigid General: Yes no CVA tenderness Back/Spine/Pelvis Back: no CVA tenderness and No back tenderness Skin General skin exam: no rashes or lesions noted, elasticity normal and turgor normal Neuro General: patient oriented x3, gait normal, tone normal, moves all extremities, Normal light touch and pain sensation, no meningeal signs, no focal motor deficits, CN's II-XI intact bilaterally and normal sensation to monofilament Extrem Other: Bilateral lower extremity negative for swelling, pitting edema, or calf tenderness. General: Yes normal to inspection, Yes full ROM and Yes capillary refill normal Psych Appearance: grossly normal, well kempt and not disheveled Medications Administered Generic Name Dose Route Start Last Admin Trade Name Freq PRN Reason Stop Dose Admin Amitriptyline HCl 75 mg 08/24/24 21:00 08/24/24 23:10 Amitriptyline Hcl 25 Mg Tablet PO 75 mg BEDTIME BRITTNY Administration Enoxaparin Sodium 40 mg 08/24/24 21:00 08/24/24 23:10 Enoxaparin Sodium 40 Mg/0.4 Ml Syringe SUBCUT 40 mg Q24H BRITTNY Administration Olanzapine 15 mg 08/24/24 21:00 08/24/24 23:09 Olanzapine 7.5 Mg Tablet PO 15 mg BEDTIME BRITTNY Administration Sodium Chloride 3 ml 08/25/24 00:00 08/25/24 00:00 0.9 % Sodium Chloride Flush 3 Ml Syringe IVFLUSH Not Given QSHIFT BRITTNY Discontinued Medications Generic Name Dose Route Start Last Admin Trade Name Freq PRN Reason Stop Dose Admin Ceftriaxone Sodium 1 gm 08/24/24 18:54 08/24/24 19:20 Ceftriaxone Sodium 1 Gm Vial IVPUSH 08/24/24 18:55 1 gm ONCE ONE Administration Azithromycin 500 mg/ Sodium 250 mls @ 125 mls/hr 08/24/24 18:54 08/24/24 21:45 Chloride IV 08/24/24 20:53 Infused ONCE ONE Infusion Sodium Chloride 2,916 mls @ 2,916 mls/hr 08/24/24 18:54 08/25/24 00:27 Ns 30 ml/kg infuse over 1 hr (2916 ml) 08/24/24 19:53 Infused IV Infusion .Q1H STA Medical Decision Making Medical Decision Making [facility] Narrative: 28-year-old male presents to ED for coughing shortness of breath. Patient is febrile tachy mild tachypneic. Patient on 4 L 94%. Sepsis called. Antibiotics given. Fluids given. Chest x-ray SARs strep labs pending. 2:11am: Patient admitted for pneumonia hypoxia. Hospitalist made aware of case. Differential Diagnosis Differential Diagnoses: The differential diagnosis associated with the presentation includes (Pneumonia, COVID a, influenza,) Admission/Observation Consideration of admission/observation: Escalation of care including admission/observation considered Consult Healthcare Provider Management of the patient was discussed with: Hospitalist (Dr. Forde) Lab Data MDM Lab Attestation statement: I reviewed the patient's lab results. 08/24/24 18:54 08/24/24 18:54 Labs: Lab Results 08/24/24 08/24/24 08/24/24 Range/Units 18:54 19:05 19:19 WBC 10.1 (4.8-10.8) X10*3/uL RBC 4.63 (4.60-5.80) X10*6/uL Hgb 14.7 (14.0-18.0) g/dl Hct 41.1 L (42.0-52.0) % MCV 88.8 (80.0-98.0) fL MCH 31.7 (27.0-33.0) pg MCHC 35.8 (31.0-36.0) g/dl RDW 11.7 (11.0-16.0) % Plt Count 261 D (160-400) X10*3/uL MPV 9.3 L (9.4-12.4) fL Immature Gran % (Auto) 0.4 (0.0-0.4) % Neut % (Auto) 78.1 H (45-73) % Lymph % (Auto) 10.2 L (20-40) % [place] % (Auto) 10.4 (2-11) % Eos % (Auto) 0.5 (0-4) % Baso % (Auto) 0.4 (0-2) % Lymph # (Auto) 1.0 L (1.2-4.9) X10*3/uL [place] # (Auto) 1.1 (0.1-1.2) X10*3/uL Eos # (Auto) 0.1 (0.0-0.4) X10*3/uL Baso # (Auto) 0.0 (0.0-0.2) X10*3/uL Abs Immat Gran (auto) 0.04 H (0.00-0.03) X10*3/uL Absolute Neuts (auto) 7.8 (2.0-8.3) x10*3/uL Absolute Nucleated RBC 0.000 (0.0-0.012) X10*3/uL Nucleated RBC % (auto) 0.0 (0.0-0.2) /100WBC PT 11.9 (10.9-12.4) SEC INR 1.0 (0.9-1.1) APTT 31.2 (26.0-36.8) SEC Sodium 134 L (135-145) mmol/L Potassium 4.1 (3.3-5.1) mmol/L Chloride 104 (96-108) mmol/L Carbon Dioxide 19 L (22-29) mmol/L Anion Gap 15 (12-20) BUN 14 (9-16) mg/dL Creatinine 1.00 (0.5-1.4) mg/dL Estim Creat Clear Calc 125.5 Estimated GFR > 60 Random Glucose 116 H (60-115) mg/dL Lactic Acid 1.5 (0.5-2.0) mmol/L Calcium 9.1 (8.4-10.2) mg/dL Magnesium 2.2 (1.6-2.6) mg/dL Total Bilirubin 0.3 (0.0-1.0) mg/dL AST 46 H (5-37) U/L ALT 55 H (0-40) U/L Alkaline Phosphatase 73 (39-117) U/L Troponin I High Sens < 2.7 (<3.5-35.0) ng/L B-Natriuretic Peptide < 10 (<100) pg/mL Total Protein 7.8 (6.5-8.0) g/dL Albumin 4.1 (3.5-5.0) g/dL Influenza Type A (PCR) NEGATIVE (Negative) Influenza Type B (PCR) NEGATIVE (Negative) RSV RNA Qual (PCR) NEGATIVE (Negative) SARS-CoV-2 RNA (RT-PCR) NEGATIVE (Negative) Independent Interpretation I performed an independent interpretation of an: EKG (Negative STEmI) Radiology Impression Discussion of test interpretation with radiology: I have reviewed the radiologist's reading. Independent Historian Clinical information obtained from an independent historian. History obtained from or confirmed by: Other (patient) Critical Care Time Critical Care Time Critical Care Time: Yes Total Critical Care Time: 60 Attestation: Pneumonia hypoxia. Patient is placed on 4 L oxygen. Antibiotics ordered. Sepsis called. Patient received fluids Discharge Plan Discharge Clinical Impression: Pneumonia Patient Disposition: Admitted As Inpatient
[2024-08-24 19:18] LABS: Lactic Acid 1.5 mmol/L (0.5-2.0)
[2024-08-24 19:20] LABS: Alanine Aminotransferase 55 U/L (0-40); Albumin Level 4.1 g/dL (3.5-5.0); Alkaline Phosphatase 73 U/L (39-117); Anion Gap 15 (12-20); Aspartate Amino Transferase 46 U/L (5-37); Bilirubin Total 0.3 mg/dL (0.0-1.0); Blood Urea Nitrogen 14 mg/dL (9-16); Calcium 9.1 mg/dL (8.4-10.2); Carbon Dioxide 19 mmol/L (22-29); Chloride 104 mmol/L (96-108); Creatinine Clr Calc Pharmacy 125.5; Estimated Glomerular Filt Rate > 60; Glucose Random 116 mg/dL (60-115); Potassium 4.1 mmol/L (3.3-5.1); Sodium 134 mmol/L (135-145); Total Protein 7.8 g/dL (6.5-8.0)
[2024-08-24] MEDS: cefTRIAXone sodium 1 GM VIAL IVPUSH (19:20)
[2024-08-24 19:21] LABS: B Type Natriuretic Peptide < 10 pg/mL (<100)
[2024-08-24] MEDS: Azithromycin 500 MG in 0.9 % Sodium Chloride 250 ML 125 MG IV (19:35)
[2024-08-24 19:37] LABS: Troponin-I High Sensitivity < 2.7 ng/L (<3.5-35.0)
[2024-08-24 19:38] VITALS: O2SAT 94
[2024-08-24 19:46] LABS: Prothrombin Time 11.9 SEC (10.9-12.4)
[2024-08-24 19:48] LABS: Partial Thromboplastin Time 31.2 SEC (26.0-36.8)
[2024-08-24 19:57] LABS: Influenza A PCR NEGATIVE (Negative); Influenza B PCR NEGATIVE (Negative); Resp Syncy Virus RNA Qual PCR NEGATIVE (Negative); SARS COV2 PCR INHOUSE NEGATIVE (Negative)
[2024-08-24 20:12] VITALS: BP 133/80; PULSE 106; RESP 24; O2SAT 95
[2024-08-24 20:42] VITALS: BP 136/78; PULSE 103; RESP 24; O2SAT 95
--- NOTE | 2024-08-24 21:01 | P.HPHOSP_ITS ---
History of Present Illness Date of Service: 08/24/24 Attending physician on admission: Ramos Fields Chief Complaint: cough, MCCONNELL Patient is a 28-year-old male with a past medical history significant for SVT, TBI, seizure disorder as a teenager (had not had a seiure in many years), schizophrenia and alcohol abuse, who presented to the ED due to chest discomfort, dyspnea on exertion and cough for the past few days. He reports malaise, nausea and decreased appetite. His cough is not productive and he does not have any other symptoms including headache, runny nose, congestion, fever or chills. No abdominal pain, urinary symptoms including dysuria, frequency or urgency. He reports being around many sick roommates recently. Review of Systems 2 Constitutional: Constitutional: Denies body ache(s), Denies chills, Reports fatigue, Denies fever(s) and Reports headache(s) (mild with cough) Eyes: Eyes: Denies change in vision and Denies photophobia ENT: Reports headache(s) (mild with cough), Denies nasal congestion, Denies nasal discharge and Denies sore throat Cardiovascular: Cardiovascular: Reports chest pain (discomfort, worse with cough), Denies rapid heart rate, Denies lightheadedness, Reports dyspnea and Reports dyspnea on exertion Respiratory: Respiratory: Reports chest congestion, Reports cough, Reports pain with cough, Reports dyspnea, Reports dyspnea on exertion and Denies wheezing Gastrointestinal: Gastrointestinal: Denies diarrhea, Reports nausea and Denies vomiting Genitourinary: Genitourinary: Denies dysuria, Denies urinary frequency and Denies urinary urgency Musculoskeletal: Musculoskeletal: Denies myalgias and Denies muscle cramps Integumentary/Breasts: Skin/Breast: Denies rash Neurologic: Denies confusion and Reports headache(s) (mild with cough) Psychiatric: Psychiatric: Denies confusion Endocrine: Endocrine: Reports fatigue Hematologic/Lymphatic: Hematologic/Lymphatic: Denies easy bleeding and Denies easy bruising Allergic/Immunologic: Allergic/Immunologic: Denies wheezing PMFSH Medical History Routine medical exam TBI (traumatic brain injury) Seizures SVT (supraventricular tachycardia) Functional capacity: independent ambulation Surgical History History of appendectomy Social History Household Members: Spouse, Children and Other Household Members Other:: 3 other roommates Housing: House Do you presently have visiting nurse or other home services: No Alcohol intake: current Alcohol intake frequency: 0-2 drinks per day Alcohol type: beer Patient Tobacco Use Status: Former Tobacco user Tobacco use type: Cigarette Years Smoked: 8 Smoked in Last 30 Days: No e-Cigarette/Vaping Use: Never Used Second Hand Smoke Exposure: No Use of substances other than those prescribed or required for medical reasons: No Substance Use Type: Marijuana Advance Directives: No Advance Directives Information Provided: No Do you have a plan to hurt others: No Plan service: No Sexual orientation: Straight/Heterosexual Narrative: No smoking or drug use. History of heavy alcohol, reports no alcohol in the past 2 weeks. Meds Allergies Allergy/AdvReac Type Severity Reaction Status Date / Time aripiprazole Allergy Unknown Verified 08/24/24 18:41 Penicillins Allergy Hives Verified 08/24/24 18:41 sulfamethoxazole Allergy Unknown Verified 08/24/24 18:41 [From Bactrim] trimethoprim [From Bactrim] Allergy Unknown Verified 08/24/24 18:41 Active Medications: Current Medications Acetaminophen (Acetaminophen 325 Mg Tablet) 650 mg PO Q6H PRN PRN Reason: Pain, Mild 1-3,fever,headache Amitriptyline HCl (Amitriptyline Hcl 25 Mg Tablet) 75 mg PO BEDTIME BRITTNY Benzonatate (Benzonatate 100 Mg Capsule) 100 mg PO TID PRN PRN Reason: Cough Calcium Carbonate (Calcium Carbonate 750 Mg Tab.Chew) 750 mg PO Q4H PRN PRN Reason: Heartburn Enoxaparin Sodium (Enoxaparin Sodium 40 Mg/0.4 Ml Syringe) 40 mg SUBCUT Q24H BRITTNY Magnesium Hydroxide (Milk Of Magnesia 30 Ml Oral.Susp) 30 ml PO DAILY PRN PRN Reason: Constipation Melatonin (Melatonin 3 Mg Tablet) 6 mg PO BEDTIME PRN PRN Reason: Insomnia Olanzapine (Olanzapine 7.5 Mg Tablet) 15 mg PO BEDTIME BRITTNY Ondansetron HCl (Ondansetron Hcl 4 Mg/2 Ml Vial) 4 mg IVPUSH Q8H PRN PRN Reason: Nausea and Vomiting Sodium Chloride (0.9 % Sodium Chloride Flush 3 Ml Syringe) 3 ml IVFLUSH QSHIFT [facility] Home Medications ?Medication ?Instructions ?Recorded ?Confirmed ?Last Taken ?Type amitriptyline 75 mg tablet 75 mg PO QPM 10/03/23 04/13/24 Unknown History olanzapine 15 mg tablet 15 mg PO BEDTIME hallucinations 10/03/23 04/13/24 Unknown History lamotrigine 150 mg tablet 150 mg PO DAILY depressive disorder 04/13/24 04/13/24 Unknown History perphenazine 8 mg tablet 8 mg PO BID PRN anxiety 04/13/24 04/13/24 Unknown History Physical Exam 2 Vital Signs and Narrative: Vital Signs: Last Vital Signs Temp 100.7 F H 08/24/24 18:58 Pulse 103 H 08/24/24 20:42 Resp 24 H 08/24/24 20:42 BP 136/78 08/24/24 20:42 Pulse Ox 95 08/24/24 20:42 O2 Del Method Nasal Cannula 08/24/24 20:42 O2 Flow Rate 5 08/24/24 20:42 Oxygen Flow Rate 4 08/24/24 19:38 BMI result Body Mass Index 27.5 General: AOx3, no acute distress Resp: CTA bilaterally. no wheezing or rhonchi CVS: Tachy, regular rhythm, no murmur GI: +BS, NT, no distention Skin: Warm, dry Neuro: Cranial nerves II-XII grossly intact bilaterally. Motor grossly intact bilaterally Extremities: No lower extremity edema Psych: Appropriate affect Const: General: No confusion Orientation/consciousness: No confusion Eyes: Direct Ophthalmoscopy: No photophobia Neuro: General: No confusion Results Labs 08/24/24 18:54 08/24/24 18:54 Labs: Laboratory Results - last 24 hr 08/24/24 08/24/24 08/24/24 18:54 19:05 19:19 MCV 88.8 MCH 31.7 MCHC 35.8 RDW 11.7 Plt Count 261 D MPV 9.3 L Immature Gran % (Auto) 0.4 Neut % (Auto) 78.1 H Lymph % (Auto) 10.2 L [place] % (Auto) 10.4 Eos % (Auto) 0.5 Baso % (Auto) 0.4 Lymph # (Auto) 1.0 L [place] # (Auto) 1.1 Eos # (Auto) 0.1 Baso # (Auto) 0.0 Abs Immat Gran (auto) 0.04 H Absolute Neuts (auto) 7.8 Absolute Nucleated RBC 0.000 Nucleated RBC % (auto) 0.0 PT 11.9 INR 1.0 APTT 31.2 Anion Gap 15 Estim Creat Clear Calc 125.5 Estimated GFR > 60 Random Glucose 116 H Lactic Acid 1.5 Calcium 9.1 Total Bilirubin 0.3 AST 46 H ALT 55 H Alkaline Phosphatase 73 Troponin I High Sens < 2.7 B-Natriuretic Peptide < 10 Total Protein 7.8 Albumin 4.1 Influenza Type A (PCR) NEGATIVE Influenza Type B (PCR) NEGATIVE RSV RNA Qual (PCR) NEGATIVE SARS-CoV-2 RNA (RT-PCR) NEGATIVE Assessment and Plan (1) Sepsis: Status: Acute (2) Acute respiratory failure: Status: Acute (3) Pneumonia: Status: Acute (4) Elevated LFTs: Status: Acute Plan Patient is a 28-year-old male with a past medical history significant for SVT, TBI, seizure disorder as a teenager (had not had a seiure in many years), schizophrenia and alcohol abuse, who presented to the ED due to chest discomfort, dyspnea on exertion and cough for the past few days. Sepsis with acute respiratory failure secondary to pneumonia - WBC 10.1, tachycardic and tachypneic, low-grade fever of 100.7, lactic acid normal, blood cultures x2 pending, not severe sepsis - chest x-ray with right lower lobe pneumonia - new oxygen requirement, 88% on room air, improved to 95% with 5 L via NC - COVID/flu/RSV negative - check D-dimer - started on azithromycin and ceftriaxone in ED, continue - given fluid bolus secondary to sepsis - Tessalon as needed for cough - monitor CBC and BMP Elevated LFTs, chronically elevated - history of heavy alcohol use - follow-up outpatient hx SVT - no home medication - tachycardic (pulse up to 126) but could be worse with sepsis - EKG with accelerated junctional rhythm - check Mag level - monitor with tele History seizure disorder - no home meds, no seizure in many years Schizophrenia - continue home meds History alcohol abuse - patient reports no alcohol in the past 2 weeks - due to hx of seizure d/o monitor CIWA scores while here Full code VTE prophylaxis: Lovenox Patient with sepsis with acute respiratory failure secondary to pneumonia, requiring admission for at least 2 midnights stay for IV antibiotics. Quality Stroke Does the patient have a stroke diagnosis?: No VTE Prior VTE?: No VTE Risk Level:: Medical - moderate - high VTE Device Contraindication: Treatment Not Indicated VTE Drug Contraindication: N/A - Med Ordered
--- NOTE | 2024-08-24 21:10 | PHA.MEDREC ---
Addendum entered by Roseline Monsivais RPh 08/24/24 21:31: Med rec was reviewed by [facility]. Original Note: Pharmacy Consult ? Medication Reconciliation Pharmacy has completed the medication reconciliation. Spoke to patient to confirm med list. Patient states he no longer takes Beztropine 1 mg, Cyclobenzaprine 5 mg, Diclofenac sodium 75 mg, Lorazapam 1 mg, and Risperidone 1 mg. Patient states he last took his medication today in the morning.
[2024-08-24 21:15] LABS: Magnesium 2.2 mg/dL (1.6-2.6)
[2024-08-24 21:42] LABS: D Dimer High Sensitivity < 150 NG/ML
--- NOTE | 2024-08-24 22:18 | PC.NURSE ---
fluids still running at this time
[2024-08-24 22:58] VITALS: BP 135/80; PULSE 102; RESP 24; TEMP 37; O2SAT 95
--- NOTE | 2024-08-24 23:00 | PC.NURSE ---
second bag infused, final 916mls infusing at this time.
[2024-08-24] MEDS: OLANZapine 7.5 MG TABLET 15 MG PO (23:09)
[2024-08-24] MEDS: Enoxaparin Sodium 40 MG/0.4 ML SYRINGE SUBCUT (23:10)
[2024-08-24] MEDS: Amitriptyline HCl 25 MG TABLET 75 MG PO (23:10)
[2024-08-25] VITALS (9 sets, daily range): BP systolic 119–142; BP diastolic 75–91; PULSE 87–100; RESP 16–24; TEMP 36.5–37.1; O2SAT 92–96
--- NOTE | 2024-08-25 | ECG_ITS ---
Test Reason : ABNORMAL EKG Blood Pressure : */* mmHG Vent. Rate : 86 BPM Atrial Rate : 86 BPM P-R Int : 136 ms QRS Dur : 96 ms QT Int : 354 ms P-R-T Axes : 46 61 8 degrees QTcB Int : 423 ms Normal sinus rhythm Normal ECG When compared with ECG of 24-Aug-2024 18:57, Sinus rhythm has replaced Junctional rhythm Referred By: Yoni Martin Electronically Signed By: CHELO HOGAN MD
[2024-08-25 05:37] LABS: MANUAL DIFF FLAG NO
[2024-08-25 05:39] LABS: Basophils Percent Auto 0.4 % (0-2); Eosinophils Percent Auto 0.4 % (0-4); Hematocrit 37.2 % (42.0-52.0); Imm Gran Abs Auto 0.02 X10*3/uL (0.00-0.03); Imm Gran Pct Auto 0.3 % (0.0-0.4); Lymphocytes Absolute Auto 1.2 X10*3/uL (1.2-4.9); Lymphocytes Percent Auto 17.5 % (20-40); Mean Corpuscular HGB Conc 34.9 g/dl (31.0-36.0); Mean Corpuscular Hemoglobin 31.7 pg (27.0-33.0); Mean Corpuscular Volume 90.7 fL (80.0-98.0); Mean Platelet Volume 9.4 fL (9.4-12.4); Monocytes Absolute Auto 0.6 X10*3/uL (0.1-1.2); Monocytes Percent Auto 9.6 % (2-11); Neutrophils Absolute Auto 4.8 x10*3/uL (2.0-8.3); Neutrophils Percent Auto 71.8 % (45-73); Platelet Count 233 X10*3/uL (160-400); Red Cell Distribution Width 11.9 % (11.0-16.0); White Blood Count 6.7 X10*3/uL (4.8-10.8)
[2024-08-25 05:54] LABS: Anion Gap 11 (12-20); Blood Urea Nitrogen 8 mg/dL (9-16); Calcium 7.9 mg/dL (8.4-10.2); Carbon Dioxide 24 mmol/L (22-29); Chloride 109 mmol/L (96-108); Creatinine Clr Calc Pharmacy 144.3; Estimated Glomerular Filt Rate > 60; Glucose Random 99 mg/dL (60-115); Potassium 3.6 mmol/L (3.3-5.1); Sodium 140 mmol/L (135-145)
[2024-08-25] MEDS: lamoTRIgine 25 MG TABLET 150 MG PO (09:20)
[2024-08-25] MEDS: 0.9 % Sodium Chloride Flush 3 ML SYRINGE IVFLUSH ×3 (09:20→20:52)
[2024-08-25] MEDS: Venlafaxine HCl ER 75 MG CAP.ER.24H PO (09:20)
--- NOTE | 2024-08-25 09:28 | PC.NURSE ---
hackig coarse cough. reports fatigue. has been sleeping most of the am. NSR on monitor/ unlabored resp in bed.
--- NOTE | 2024-08-25 14:58 | MHC.CM.PN ---
DISEASE CASE MANAGER MET WITH PT AT BEDSIDE PT STATES HE LIVES AT HOME WITH FAMILY PT STATES HE RECEIVES NO SERVICS PT DOES NOT USE DME PT WILL FILL OUT HCP NAMING , WALTER PRECIADO [phone] PROXY PCP- [facility] DCP- HOME NO SERVICES VIA PRIVATE TRANSPORT
[2024-08-25 15:49] LABS: Adenovirus PCR Not Detected (Not Detect.); Bordetella parapertussis PCR Not Detected (Not Detect.); Bordetella pertussis PCR Not Detected (Not Detect.); Chlamydia pneumoniae PCR Not Detected (Not Detect.); Coronavirus 229E PCR Not Detected (Not Detect.); Coronavirus HKU1 PCR Not Detected (Not Detect.); Coronavirus NL63 PCR Not Detected (Not Detect.); Coronavirus OC43 PCR Not Detected (Not Detect.); Human metapneumovirus PCR Not Detected (Not Detect.); Influenza A PCR Not Detected (Not Detect.); Influenza B PCR Not Detected (Not Detect.); Mycoplasma pneumoniae PCR Detected (Not Detect.); Parainfluenza 1 PCR Not Detected (Not Detect.); Parainfluenza 2 PCR Not Detected (Not Detect.); Parainfluenza 3 PCR Not Detected (Not Detect.); Parainfluenza 4 PCR Not Detected (Not Detect.); RSV PCR Not Detected (Not Detect.); Rhino/Enterovirus PCR Not Detected (Not Detect.)
[2024-08-25 16:14] LABS: SARS-CoV-2 PCR Not Detected (Not Detect.)
--- NOTE | 2024-08-25 17:11 | HO.PM.IMPN ---
Subjective Subjective Date of Service: 08/25/24 Interval History: acute respiratory failure secondary to pneumonia Review of Systems sob seems improving but still has shortness of breath with minimal exertion. No fever Physical Exam Vital Signs: Vital Signs: Last Vital Signs Temp 98.7 F 08/25/24 16:36 Pulse 90 08/25/24 16:36 Resp 16 08/25/24 16:36 BP 136/80 08/25/24 16:36 Pulse Ox 94 08/25/24 16:36 O2 Del Method Room Air 08/25/24 16:36 O2 Flow Rate 2 08/25/24 13:58 Oxygen Flow Rate 4 08/24/24 19:38 BMI result Body Mass Index 27.5 Appearance: Alert.? Oriented X3.? cvs: [id number], [id number] , no murmur res: air entry diminshed right>left abd: no rebound or guarding ,nt, bs present. ext pulses present , no cyanosis . neuro: axo3 , nonfocal. Objective Data Active Medications Acetaminophen (Acetaminophen 325 Mg Tablet) 650 mg PO Q6H PRN PRN Reason: Pain, Mild 1-3,fever,headache Amitriptyline HCl (Amitriptyline Hcl 25 Mg Tablet) 75 mg PO BEDTIME [facility] Last Admin: 08/24/24 23:10 Dose: 75 mg Documented By: DANNY Benzonatate (Benzonatate 100 Mg Capsule) 100 mg PO TID PRN PRN Reason: Cough Calcium Carbonate (Calcium Carbonate 750 Mg Tab.Chew) 750 mg PO Q4H PRN PRN Reason: Heartburn Ceftriaxone Sodium (Ceftriaxone Sodium 1 Gm Vial) 1 gm IVPUSH Q24H [facility] Enoxaparin Sodium (Enoxaparin Sodium 40 Mg/0.4 Ml Syringe) 40 mg SUBCUT Q24H [facility] Last Admin: 08/24/24 23:10 Dose: 40 mg Documented By: MONTEIR Hydroxyzine HCl (Hydroxyzine Hcl 50 Mg Tablet) 50 mg PO TID PRN PRN Reason: anxiety Azithromycin 500 mg/ Sodium (Chloride) 250 mls @ 125 mls/hr IV Q24H [facility] Lamotrigine (Lamotrigine 25 Mg Tablet) 150 mg PO DAILY [facility] Last Admin: 08/25/24 09:20 Dose: 150 mg Documented By: DORM Magnesium Hydroxide (Milk Of Magnesia 30 Ml Oral.Susp) 30 ml PO DAILY PRN PRN Reason: Constipation Melatonin (Melatonin 3 Mg Tablet) 6 mg PO BEDTIME PRN PRN Reason: Insomnia Olanzapine (Olanzapine 7.5 Mg Tablet) 15 mg PO BEDTIME [facility] Last Admin: 08/24/24 23:09 Dose: 15 mg Documented By: DANNY Ondansetron HCl (Ondansetron Hcl 4 Mg/2 Ml Vial) 4 mg IVPUSH Q8H PRN PRN Reason: Nausea and Vomiting Perphenazine (Perphenazine 8 Mg Tablet) 8 mg PO BID PRN PRN Reason: anxiety Sodium Chloride (0.9 % Sodium Chloride Flush 3 Ml Syringe) 3 ml IVFLUSH QSHIFT [facility] Last Admin: 08/25/24 09:20 Dose: 3 ml Documented By: CASSANDRA Venlafaxine HCl (Venlafaxine Hcl Er 75 Mg Cap.Er.24h) 75 mg PO DAILY [facility] Last Admin: 08/25/24 09:20 Dose: 75 mg Documented By: CASSANDRA Labs 08/25/24 04:57 08/25/24 04:57 Labs: Laboratory Results - last 24 hr 08/24/24 08/24/24 08/24/24 18:54 19:05 19:19 MCV 88.8 MCH 31.7 MCHC 35.8 RDW 11.7 Plt Count 261 D MPV 9.3 L Immature Gran % (Auto) 0.4 Neut % (Auto) 78.1 H Lymph % (Auto) 10.2 L [place] % (Auto) 10.4 Eos % (Auto) 0.5 Baso % (Auto) 0.4 Lymph # (Auto) 1.0 L [place] # (Auto) 1.1 Eos # (Auto) 0.1 Baso # (Auto) 0.0 Abs Immat Gran (auto) 0.04 H Absolute Neuts (auto) 7.8 Absolute Nucleated RBC 0.000 Nucleated RBC % (auto) 0.0 PT 11.9 INR 1.0 APTT 31.2 D-Dimer High Sensitivty Anion Gap 15 Estim Creat Clear Calc 125.5 Estimated GFR > 60 Random Glucose 116 H Lactic Acid 1.5 Calcium 9.1 Magnesium 2.2 Total Bilirubin 0.3 AST 46 H ALT 55 H Alkaline Phosphatase 73 Troponin I High Sens < 2.7 B-Natriuretic Peptide < 10 Total Protein 7.8 Albumin 4.1 Respiratory Panel Pool Adenovirus (Rapid PCR) B.pert (TEM-PCR) B.parapertussis DNA PCR C. pneumoniae DNA (PCR) Coronavirus OC43 (PCR) Coronavirus HKU1 (PCR) Coronavirus 229E (PCR) Coronavirus NL63 (PCR) Human Metapneumovir PCR Influenza A (RT-PCR) Influenza Type A (PCR) NEGATIVE Influenza B (RT-PCR) Influenza Type B (PCR) NEGATIVE M. pneumoniae (PCR) Parainfluenza 1 (PCR) Parainfluenza 2 (PCR) Parainfluenza 3 (PCR) Parainfluenza 4 (PCR) RSV (PCR) RSV RNA Qual (PCR) NEGATIVE Entero/Rhino (PCR) SARS-CoV-2 RNA (RT-PCR) NEGATIVE 08/24/24 08/25/24 08/25/24 21:17 04:57 08:43 MCV 90.7 MCH 31.7 MCHC 34.9 RDW 11.9 Plt Count 233 MPV 9.4 Immature Gran % (Auto) 0.3 Neut % (Auto) 71.8 Lymph % (Auto) 17.5 L [place] % (Auto) 9.6 Eos % (Auto) 0.4 Baso % (Auto) 0.4 Lymph # (Auto) 1.2 [place] # (Auto) 0.6 Eos # (Auto) 0.0 Baso # (Auto) 0.0 Abs Immat Gran (auto) 0.02 Absolute Neuts (auto) 4.8 Absolute Nucleated RBC 0.000 Nucleated RBC % (auto) 0.0 PT INR APTT D-Dimer High Sensitivty < 150 Anion Gap 11 L Estim Creat Clear Calc 144.3 Estimated GFR > 60 Random Glucose 99 Lactic Acid Calcium 7.9 L D Magnesium Total Bilirubin AST ALT Alkaline Phosphatase Troponin I High Sens B-Natriuretic Peptide Total Protein Albumin Respiratory Panel Pool See Note Adenovirus (Rapid PCR) Not Detected B.pert (TEM-PCR) Not Detected B.parapertussis DNA PCR Not Detected C. pneumoniae DNA (PCR) Not Detected Coronavirus OC43 (PCR) Not Detected Coronavirus HKU1 (PCR) Not Detected Coronavirus 229E (PCR) Not Detected Coronavirus NL63 (PCR) Not Detected Human Metapneumovir PCR Not Detected Influenza A (RT-PCR) Not Detected Influenza Type A (PCR) Influenza B (RT-PCR) Not Detected Influenza Type B (PCR) M. pneumoniae (PCR) Detected A Parainfluenza 1 (PCR) Not Detected Parainfluenza 2 (PCR) Not Detected Parainfluenza 3 (PCR) Not Detected Parainfluenza 4 (PCR) Not Detected RSV (PCR) Not Detected RSV RNA Qual (PCR) Entero/Rhino (PCR) Not Detected SARS-CoV-2 RNA (RT-PCR) Not Detected Assessment and Plan (1) Pneumonia: Status: Acute (2) Elevated LFTs: Status: Acute Assessment and Plan: 28-year-old male with a past medical history significant for SVT, TBI, seizure disorder as a teenager (had not had a seiure in many years), schizophrenia and alcohol abuse, who presented to the ED due to chest discomfort, dyspnea on exertion and cough for the past few days. Sepsis with acute respiratory failure secondary to pneumonia tachycardic and tachypneic and low-grade fever improving lactic acid normal, blood cultures x2 pending, not severe sepsis chest x-ray with right lower lobe pneumonia - COVID/flu/RSV negative and D-dimer negative Continue antibiotics ceftriaxone/azithromycin, cough medication, oxygen wean Elevated LFTs, chronically elevated - history of heavy alcohol use - follow-up outpatient hx SVT - no home medication - tachycardic (pulse up to 126) but could be worse with sepsis - EKG with accelerated junctional rhythm Potassium and magnesium seems to be fine, repeated EKG-patient is back in NSR. Continue to monitor. History seizure disorder - no home meds, no seizure in many years Schizophrenia - continue home meds History alcohol abuse - patient reports no alcohol in the past 2 weeks - due to hx of seizure d/o monitor CIWA scores while here Full code VTE prophylaxis: Lovenox Patient with sepsis with acute respiratory failure secondary to pneumonia: for IV antibiotic,oxygen weaning ,repiratory status is not optimal yet. Quality Stroke Does the patient have a stroke diagnosis?: No VTE Prior VTE?: No VTE Risk Level:: Medical - moderate - high VTE Device Contraindication: Treatment Not Indicated VTE Drug Contraindication: N/A - Med Ordered
[2024-08-25] MEDS: Potassium Chloride ER 20 MEQ TAB.ER.PRT PO (18:35)
[2024-08-25] MEDS: Azithromycin 500 MG in 0.9 % Sodium Chloride 250 ML 125 MG IV (20:46)
[2024-08-25] MEDS: cefTRIAXone sodium 1 GM VIAL IVPUSH (20:46)
[2024-08-25] MEDS: Amitriptyline HCl 25 MG TABLET 75 MG PO (20:50)
[2024-08-25] MEDS: OLANZapine 7.5 MG TABLET 15 MG PO (20:50)
[2024-08-25] MEDS: Perphenazine 8 MG TABLET PO (20:51)
[2024-08-25] MEDS: Benzonatate 100 MG CAPSULE PO (20:52)
[2024-08-25] MEDS: Enoxaparin Sodium 40 MG/0.4 ML SYRINGE SUBCUT (20:52)
[2024-08-26 04:00] VITALS: BP 145/82; PULSE 88; RESP 18; TEMP 36.2; O2SAT 95
[2024-08-26 06:34] LABS: MANUAL DIFF FLAG NO
[2024-08-26 06:47] LABS: Basophils Percent Auto 0.6 % (0-2); Eosinophils Absolute Auto 0.2 X10*3/uL (0.0-0.4); Eosinophils Percent Auto 3.2 % (0-4); Hematocrit 39.3 % (42.0-52.0); Hemoglobin 13.5 g/dl (14.0-18.0); Imm Gran Abs Auto 0.02 X10*3/uL (0.00-0.03); Imm Gran Pct Auto 0.4 % (0.0-0.4); Lymphocytes Absolute Auto 1.2 X10*3/uL (1.2-4.9); Lymphocytes Percent Auto 24.3 % (20-40); Mean Corpuscular HGB Conc 34.4 g/dl (31.0-36.0); Mean Corpuscular Hemoglobin 31.5 pg (27.0-33.0); Mean Corpuscular Volume 91.8 fL (80.0-98.0); Mean Platelet Volume 9.4 fL (9.4-12.4); Monocytes Absolute Auto 0.6 X10*3/uL (0.1-1.2); Monocytes Percent Auto 12.1 % (2-11); Neutrophils Percent Auto 59.4 % (45-73); Platelet Count 269 X10*3/uL (160-400); Red Blood Count 4.28 X10*6/uL (4.60-5.80)
[2024-08-26 07:09] LABS: Anion Gap 13 (12-20); Blood Urea Nitrogen 8 mg/dL (9-16); Calcium 8.9 mg/dL (8.4-10.2); Carbon Dioxide 27 mmol/L (22-29); Chloride 106 mmol/L (96-108); Creatinine Clr Calc Pharmacy 149.5; Estimated Glomerular Filt Rate > 60; Glucose Random 93 mg/dL (60-115); Magnesium 2.5 mg/dL (1.6-2.6); Potassium 4.1 mmol/L (3.3-5.1); Sodium 142 mmol/L (135-145)
[2024-08-26 07:22] LABS: Thyroid Stimulating Hormone 0.71 uIU/mL (0.32-4.0)
[2024-08-26 08:09] VITALS: BP 135/84; PULSE 78; RESP 18; TEMP 36.4; O2SAT 95
[2024-08-26] MEDS: Venlafaxine HCl ER 75 MG CAP.ER.24H PO (09:13)
[2024-08-26] MEDS: lamoTRIgine 25 MG TABLET 150 MG PO (09:13)
[2024-08-26] MEDS: 0.9 % Sodium Chloride Flush 3 ML SYRINGE IVFLUSH ×2 (09:13→19:41)
--- NOTE | 2024-08-26 10:44 | MHC.CM.PN ---
PT NOT YET MEDICALLY CLEARED FOR DC. DCP: HOME NO SERVICES VIA PRIVATE TRANSPORT
[2024-08-26] MEDS: guaiFEN/Codeine SF 200/20/10ML 10 ML LIQUID PO (11:35)
[2024-08-26 12:25] VITALS: BP 129/75; PULSE 80; RESP 18; TEMP 36.1; O2SAT 93
--- NOTE | 2024-08-26 14:36 | HO.PM.IMPN ---
Subjective Subjective Date of Service: 08/26/24 Interval History: pneumonia ,hypoxia Review of Systems sob/hypoxia with ambulation( desats in 86% range) aggressive cough Physical Exam Vital Signs: Vital Signs: Last Vital Signs Temp 97.0 F 08/26/24 12:25 Pulse 80 08/26/24 12:25 Resp 18 08/26/24 12:25 BP 129/75 08/26/24 12:25 Pulse Ox 93 08/26/24 12:25 O2 Del Method Nasal Cannula 08/26/24 12:25 O2 Flow Rate 1 08/26/24 12:25 Oxygen Flow Rate 4 08/24/24 19:38 BMI result Body Mass Index 27.5 Appearance: Alert.? Oriented X3.?sob with minimum excersion cvs: [id number], [id number] , no murmur res: air entry diminshe d abd: no rebound or guarding ,nt, bs present. ext pulses present , no cyanosis. neuro: axo3 , nonfocal. Objective Data Active Medications Acetaminophen (Acetaminophen 325 Mg Tablet) 650 mg PO Q6H PRN PRN Reason: Pain, Mild 1-3,fever,headache Amitriptyline HCl (Amitriptyline Hcl 25 Mg Tablet) 75 mg PO BEDTIME COUNTS INCLUDE 234 BEDS AT THE [facility] Last Admin: 08/25/24 20:50 Dose: 75 mg Documented By: DESMOND Benzonatate (Benzonatate 100 Mg Capsule) 100 mg PO TID PRN PRN Reason: Cough Last Admin: 08/25/24 20:52 Dose: 100 mg Documented By: DESMOND Calcium Carbonate (Calcium Carbonate 750 Mg Tab.Chew) 750 mg PO Q4H PRN PRN Reason: Heartburn Ceftriaxone Sodium (Ceftriaxone Sodium 1 Gm Vial) 1 gm IVPUSH Q24H [facility]S [facility]CLUDE 234 BEDS AT THE [facility] Last Admin: 08/25/24 20:46 Dose: 1 gm Documented By: DESMOND Enoxaparin Sodium (Enoxaparin Sodium 40 Mg/0.4 Ml Syringe) 40 mg SUBCUT Q24H COUNTS INCLUDE 234 BEDS AT THE [facility] Last Admin: 08/25/24 20:52 Dose: 40 mg Documented By: DESMOND Guaifenesin/Codeine Phosphate (Guaifen/Codeine Sf 200/20/10ml 10 Ml Liquid) 10 ml PO Q4H PRN PRN Reason: Cough Last Admin: 08/26/24 11:35 Dose: 10 ml Documented By: TERENCE Hydroxyzine HCl (Hydroxyzine Hcl 50 Mg Tablet) 50 mg PO TID PRN PRN Reason: anxiety Azithromycin 500 mg/ Sodium (Chloride) 250 mls @ 125 mls/hr IV Q24H COUNTS INCLUDE 234 BEDS AT THE [facility] Last Infusion: 08/25/24 22:50 Dose: Infused Documented By: DESMOND Lamotrigine (Lamotrigine 25 Mg Tablet) 150 mg PO DAILY [facility]S INCLUDE 234 BEDS AT THE [facility] Last Admin: 08/26/24 09:13 Dose: 150 mg Documented By: TERENCE Magnesium Hydroxide (Milk Of Magnesia 30 Ml Oral.Susp) 30 ml PO DAILY PRN PRN Reason: Constipation Melatonin (Melatonin 3 Mg Tablet) 6 mg PO BEDTIME PRN PRN Reason: Insomnia Metoprolol Tartrate (Metoprolol Tartrate 12.5 Mg Halftab) 12.5 mg PO BID COUNTS INCLUDE 234 BEDS AT THE [facility]; Protocol Olanzapine (Olanzapine 7.5 Mg Tablet) 15 mg PO BEDTIME COUNTS INCLUDE 234 BEDS AT THE [facility] Last Admin: 08/25/24 20:50 Dose: 15 mg Documented By: DESMOND Ondansetron HCl (Ondansetron Hcl 4 Mg/2 Ml Vial) 4 mg IVPUSH Q8H PRN PRN Reason: Nausea and Vomiting Perphenazine (Perphenazine 8 Mg Tablet) 8 mg PO BID PRN PRN Reason: anxiety Last Admin: 08/25/24 20:51 Dose: 8 mg Documented By: DESMOND Sodium Chloride (0.9 % Sodium Chloride Flush 3 Ml Syringe) 3 ml IVFLUSH QSHIFT COUNTS INCLUDE 234 BEDS AT THE [facility] Last Admin: 08/26/24 09:13 Dose: 3 ml Documented By: TERENCE Venlafaxine HCl (Venlafaxine Hcl Er 75 Mg Cap.Er.24h) 75 mg PO DAILY COUNTS INCLUDE 234 BEDS AT THE [facility] Last Admin: 08/26/24 09:13 Dose: 75 mg Documented By: TERENCE Labs 08/26/24 05:58 08/26/24 05:58 Labs: Laboratory Results - last 24 hr 08/25/24 08/26/24 08/26/24 08:43 05:58 05:58 MCV 91.8 MCH 31.5 MCHC 34.4 RDW 12.0 Plt Count 269 MPV 9.4 Immature Gran % (Auto) 0.4 Neut % (Auto) 59.4 Lymph % (Auto) 24.3 [place] % (Auto) 12.1 H Eos % (Auto) 3.2 Baso % (Auto) 0.6 Lymph # (Auto) 1.2 [place] # (Auto) 0.6 Eos # (Auto) 0.2 Baso # (Auto) 0.0 Abs Immat Gran (auto) 0.02 Absolute Neuts (auto) 3.0 Absolute Nucleated RBC 0.000 Nucleated RBC % (auto) 0.0 Anion Gap Cancelled 13 Estim Creat Clear Calc Cancelled Estimated GFR Random Glucose Calcium Magnesium TSH Respiratory Panel Pool See Note Adenovirus (Rapid PCR) Not Detected B.pert (TEM-PCR) Not Detected B.parapertussis DNA PCR Not Detected C. pneumoniae DNA (PCR) Not Detected Coronavirus OC43 (PCR) Not Detected Coronavirus HKU1 (PCR) Not Detected Coronavirus 229E (PCR) Not Detected Coronavirus NL63 (PCR) Not Detected Human Metapneumovir PCR Not Detected Influenza A (RT-PCR) Not Detected Influenza B (RT-PCR) Not Detected M. pneumoniae (PCR) Detected A Parainfluenza 1 (PCR) Not Detected Parainfluenza 2 (PCR) Not Detected Parainfluenza 3 (PCR) Not Detected Parainfluenza 4 (PCR) Not Detected RSV (PCR) Not Detected Entero/Rhino (PCR) Not Detected SARS-CoV-2 RNA (RT-PCR) Not Detected 08/26/24 08/26/24 08/26/24 05:58 05:58 05:58 MCV MCH MCHC RDW Plt Count MPV Immature Gran % (Auto) Neut % (Auto) Lymph % (Auto) [place] % (Auto) Eos % (Auto) Baso % (Auto) Lymph # (Auto) [place] # (Auto) Eos # (Auto) Baso # (Auto) Abs Immat Gran (auto) Absolute Neuts (auto) Absolute Nucleated RBC Nucleated RBC % (auto) Anion Gap Estim Creat Clear Calc 149.5 Estimated GFR Cancelled > 60 Random Glucose Cancelled 93 Calcium Cancelled Magnesium TSH Respiratory Panel Pool Adenovirus (Rapid PCR) B.pert (TEM-PCR) B.parapertussis DNA PCR C. pneumoniae DNA (PCR) Coronavirus OC43 (PCR) Coronavirus HKU1 (PCR) Coronavirus 229E (PCR) Coronavirus NL63 (PCR) Human Metapneumovir PCR Influenza A (RT-PCR) Influenza B (RT-PCR) M. pneumoniae (PCR) Parainfluenza 1 (PCR) Parainfluenza 2 (PCR) Parainfluenza 3 (PCR) Parainfluenza 4 (PCR) RSV (PCR) Entero/Rhino (PCR) SARS-CoV-2 RNA (RT-PCR) 08/26/24 05:58 MCV MCH MCHC RDW Plt Count MPV Immature Gran % (Auto) Neut % (Auto) Lymph % (Auto) [place] % (Auto) Eos % (Auto) Baso % (Auto) Lymph # (Auto) [place] # (Auto) Eos # (Auto) Baso # (Auto) Abs Immat Gran (auto) Absolute Neuts (auto) Absolute Nucleated RBC Nucleated RBC % (auto) Anion Gap Estim Creat Clear Calc Estimated GFR Random Glucose Calcium 8.9 D Magnesium 2.5 TSH 0.71 Respiratory Panel Pool Adenovirus (Rapid PCR) B.pert (TEM-PCR) B.parapertussis DNA PCR C. pneumoniae DNA (PCR) Coronavirus OC43 (PCR) Coronavirus HKU1 (PCR) Coronavirus 229E (PCR) Coronavirus NL63 (PCR) Human Metapneumovir PCR Influenza A (RT-PCR) Influenza B (RT-PCR) M. pneumoniae (PCR) Parainfluenza 1 (PCR) Parainfluenza 2 (PCR) Parainfluenza 3 (PCR) Parainfluenza 4 (PCR) RSV (PCR) Entero/Rhino (PCR) SARS-CoV-2 RNA (RT-PCR) Microbiology Microbiology Results: Microbiology 08/24/24 18:54 Blood Culture - Preliminary Blood - Venous No growth after 24 hours. 08/24/24 18:54 Blood Culture - Preliminary Blood - Venous No growth after 24 hours. Assessment and Plan (1) Pneumonia: Status: Acute (2) Elevated LFTs: Status: Acute Assessment and Plan: 28-year-old male with a past medical history significant for SVT, TBI, seizure disorder as a teenager (had not had a seiure in many years), schizophrenia and alcohol abuse, who presented to the ED due to chest discomfort, dyspnea on exertion and cough for the past few days. Sepsis with acute respiratory failure secondary to pneumonia tachycardic and tachypneic and low-grade fever improving lactic acid normal, blood cultures x2 pending, not severe sepsis chest x-ray with right lower lobe pneumonia - COVID/flu/RSV negative and D-dimer negative Continue antibiotics ceftriaxone/azithromycin, cough medication, oxygen wean Elevated LFTs, chronically elevated - history of heavy alcohol use - follow-up outpatient hx SVT - no home medication - tachycardic (pulse up to 126) but could be worse with sepsis - EKG with accelerated junctional rhythm Potassium and magnesium seems to be fine, repeated EKG-patient is back in NSR. tele seems fine d/w cardiology dr sood -will add small dose metoprolol. History seizure disorder - no home meds, no seizure in many years Schizophrenia - continue home meds History alcohol abuse - patient reports no alcohol in the past 2 weeks - due to hx of seizure d/o monitor CIWA scores while here Full code VTE prophylaxis: Lovenox Patient with sepsis with acute respiratory failure secondary to pneumonia: for IV antibiotic,oxygen weaning ,repiratory status is not optimal yet. Quality Stroke Does the patient have a stroke diagnosis?: No VTE Prior VTE?: No VTE Risk Level:: Medical - moderate - high VTE Device Contraindication: Treatment Not Indicated VTE Drug Contraindication: N/A - Med Ordered
[2024-08-26 15:24] VITALS: BP 132/78; PULSE 81; RESP 21; TEMP 37.1; O2SAT 93
[2024-08-26] MEDS: Metoprolol Tartrate 12.5 MG HALFTAB PO ×2 (15:47→19:47)
[2024-08-26 19:20] VITALS: BP 130/75; PULSE 86; RESP 21; TEMP 37.1; O2SAT 91
[2024-08-26 19:39] VITALS: BP 130/81; PULSE 86; RESP 21; TEMP 37.1; O2SAT 91
[2024-08-26] MEDS: cefTRIAXone sodium 1 GM VIAL IVPUSH (19:41)
[2024-08-26] MEDS: Azithromycin 500 MG in 0.9 % Sodium Chloride 250 ML 125 MG IV (19:46)
[2024-08-26] MEDS: OLANZapine 7.5 MG TABLET 15 MG PO (19:47)
[2024-08-26] MEDS: Amitriptyline HCl 25 MG TABLET 75 MG PO (19:47)
[2024-08-26] MEDS: Enoxaparin Sodium 40 MG/0.4 ML SYRINGE SUBCUT (21:36)
[2024-08-27] VITALS: BP 144/87; PULSE 68; RESP 16; TEMP 36; O2SAT 96
[2024-08-27 03:56] VITALS: BP 138/87; PULSE 95; RESP 16; TEMP 36; O2SAT 94
[2024-08-27] MEDS: guaiFEN/Codeine SF 200/20/10ML 10 ML LIQUID PO (04:05)
[2024-08-27 06:38] LABS: MANUAL DIFF FLAG NO
[2024-08-27 06:56] LABS: Basophils Percent Auto 0.7 % (0-2); Eosinophils Absolute Auto 0.2 X10*3/uL (0.0-0.4); Eosinophils Percent Auto 4.7 % (0-4); Hematocrit 42.1 % (42.0-52.0); Hemoglobin 14.2 g/dl (14.0-18.0); Imm Gran Abs Auto 0.03 X10*3/uL (0.00-0.03); Imm Gran Pct Auto 0.7 % (0.0-0.4); Lymphocytes Absolute Auto 1.2 X10*3/uL (1.2-4.9); Lymphocytes Percent Auto 27.2 % (20-40); Mean Corpuscular HGB Conc 33.7 g/dl (31.0-36.0); Mean Corpuscular Hemoglobin 30.5 pg (27.0-33.0); Mean Corpuscular Volume 90.5 fL (80.0-98.0); Mean Platelet Volume 9.6 fL (9.4-12.4); Monocytes Absolute Auto 0.5 X10*3/uL (0.1-1.2); Monocytes Percent Auto 10.9 % (2-11); Neutrophils Absolute Auto 2.5 x10*3/uL (2.0-8.3); Neutrophils Percent Auto 55.8 % (45-73); Platelet Count 256 X10*3/uL (160-400); Red Blood Count 4.65 X10*6/uL (4.60-5.80); Red Cell Distribution Width 11.9 % (11.0-16.0); White Blood Count 4.5 X10*3/uL (4.8-10.8)
[2024-08-27 07:04] LABS: Anion Gap 11 (12-20); Blood Urea Nitrogen 12 mg/dL (9-16); Calcium 8.7 mg/dL (8.4-10.2); Carbon Dioxide 26 mmol/L (22-29); Chloride 108 mmol/L (96-108); Creatinine Clr Calc Pharmacy 151.3; Estimated Glomerular Filt Rate > 60; Glucose Random 95 mg/dL (60-115); Potassium 4.4 mmol/L (3.3-5.1); Sodium 141 mmol/L (135-145)
[2024-08-27 08:18] VITALS: BP 140/87; PULSE 88; RESP 18; TEMP 36.6; O2SAT 94
[2024-08-27] MEDS: Venlafaxine HCl ER 75 MG CAP.ER.24H PO (08:24)
[2024-08-27] MEDS: lamoTRIgine 25 MG TABLET 150 MG PO (08:24)
[2024-08-27] MEDS: 0.9 % Sodium Chloride Flush 3 ML SYRINGE IVFLUSH (08:25)
[2024-08-27] MEDS: Metoprolol Tartrate 12.5 MG HALFTAB PO (08:25)
[2024-08-27 09:34] LABS: Procalcitonin 0.06 ng/mL
[2024-08-27 11:45] VITALS: BP 145/76; PULSE 82; RESP 18; TEMP 36.7; O2SAT 94
--- NOTE | 2024-08-27 13:32 | PM.DS ---
DS: Providers Provider Date of Service: 08/27/24 Date of admission: 08/24/24 20:55 Date of discharge: 08/27/24 Primary care physician: Unknown Physician DS: Diagnosis Discharge Diagnosis (1) Sepsis: Status: Acute (2) Pneumonia: Status: Acute (3) Acute respiratory failure with hypoxia: Status: Acute (4) SVT (supraventricular tachycardia): Status: Acute (5) Mycoplasma pneumonia: Status: Acute DS: Summary Hospital Course Hospital Course: From the history and physical by the admitting hospitalist, BRANDON Bonilla, 08/24/24: Patient is a 28-year-old male with a past medical history significant for SVT, TBI, seizure disorder as a teenager (had not had a seiure in many years), schizophrenia and alcohol abuse, who presented to the ED due to chest discomfort, dyspnea on exertion and cough for the past few days. He reports malaise, nausea and decreased appetite. His cough is not productive and he does not have any other symptoms including headache, runny nose, congestion, fever or chills. No abdominal pain, urinary symptoms including dysuria, frequency or urgency. He reports being around many sick roommates recently. He was admitted to the medical-surgical unit and treated with ceftriaxone and azithromycin. Lactic acid was normal and SIRS physiology resolved. He was weaned off of oxygen. Blood cultures negative. Respiratory pathogen panel positive for Mycoplasma pneumoniae by PCR. He was discharged on azithomycin. Given tachycardia and history of SVT, he was started on low-dose metoprolol tartrate after discussion with Cardiology. He should follow up with his primary care provider in 1-2 weeks and repeat CXR in 4-6 weeks. Time Attestation Discharge Coordination Time (in mins): 35 Quality: Safe Use of Opioids Does Pt have an Active Cancer Diagnosis on the Problem List?: No Quality: Stroke Does the patient have a stroke diagnosis?: No Physical Exam Vital Signs: Vital Signs: Last Vital Signs Temp 98.0 F 08/27/24 11:45 Pulse 82 08/27/24 11:45 Resp 18 08/27/24 11:45 BP 145/76 H 08/27/24 11:45 Pulse Ox 94 08/27/24 11:45 O2 Del Method Room Air 08/27/24 11:45 O2 Flow Rate 1 08/27/24 08:18 Oxygen Flow Rate 4 08/24/24 19:38 BMI result Body Mass Index 27.5 Gen: in no acute distress HEENT: sclera anicteric, moist mucus membranes Neck: supple Lungs: wet crackles at R base on inspiration Heart: regular rate and rhythm, no murmurs Abd: soft, non-tender, non-distended Ext: no edema Skin: warm/well-perfused Neuro: alert and oriented x3, no focal findings Psych: appropriate affect DS: Data Data Completed and Pending Completed studies during hospitalization [Text1]: Laboratory Results WBC 4.5 X10*3/uL (4.8-10.8) L 08/27/24 06:24 RBC 4.65 X10*6/uL (4.60-5.80) 08/27/24 06:24 Hgb 14.2 g/dl (14.0-18.0) 08/27/24 06:24 Hct 42.1 % (42.0-52.0) 08/27/24 06:24 MCV 90.5 fL (80.0-98.0) 08/27/24 06:24 MCH 30.5 pg (27.0-33.0) 08/27/24 06:24 MCHC 33.7 g/dl (31.0-36.0) 08/27/24 06:24 RDW 11.9 % (11.0-16.0) 08/27/24 06:24 Plt Count 256 X10*3/uL (160-400) 08/27/24 06:24 MPV 9.6 fL (9.4-12.4) 08/27/24 06:24 Immature Gran % (Auto) 0.7 % (0.0-0.4) H 08/27/24 06:24 Neut % (Auto) 55.8 % (45-73) 08/27/24 06:24 Lymph % (Auto) 27.2 % (20-40) 08/27/24 06:24 [place] % (Auto) 10.9 % (2-11) 08/27/24 06:24 Eos % (Auto) 4.7 % (0-4) H 08/27/24 06:24 Baso % (Auto) 0.7 % (0-2) 08/27/24 06:24 Lymph # (Auto) 1.2 X10*3/uL (1.2-4.9) 08/27/24 06:24 [place] # (Auto) 0.5 X10*3/uL (0.1-1.2) 08/27/24 06:24 Eos # (Auto) 0.2 X10*3/uL (0.0-0.4) 08/27/24 06:24 Baso # (Auto) 0.0 X10*3/uL (0.0-0.2) 08/27/24 06:24 Abs Immat Gran (auto) 0.03 X10*3/uL (0.00-0.03) 08/27/24 06:24 Absolute Neuts (auto) 2.5 x10*3/uL (2.0-8.3) 08/27/24 06:24 Absolute Nucleated RBC 0.000 X10*3/uL (0.0-0.012) 08/27/24 06:24 Nucleated RBC % (auto) 0.0 /100WBC (0.0-0.2) 08/27/24 06:24 PT 11.9 SEC (10.9-12.4) 08/24/24 19:19 INR 1.0 (0.9-1.1) 08/24/24 19:19 APTT 31.2 SEC (26.0-36.8) 08/24/24 19:19 D-Dimer High Sensitivty < 150 NG/ML 08/24/24 21:17 Sodium 141 mmol/L (135-145) 08/27/24 06:24 Potassium 4.4 mmol/L (3.3-5.1) 08/27/24 06:24 Chloride 108 mmol/L (96-108) 08/27/24 06:24 Carbon Dioxide 26 mmol/L (22-29) 08/27/24 06:24 Anion Gap 11 (12-20) L 08/27/24 06:24 BUN 12 mg/dL (9-16) 08/27/24 06:24 Creatinine 0.83 mg/dL (0.5-1.4) 08/27/24 06:24 Estim Creat Clear Calc 151.3 08/27/24 06:24 Estimated GFR > 60 08/27/24 06:24 Random Glucose 95 mg/dL (60-115) 08/27/24 06:24 Lactic Acid 1.5 mmol/L (0.5-2.0) 08/24/24 18:54 Calcium 8.7 mg/dL (8.4-10.2) 08/27/24 06:24 Magnesium 2.5 mg/dL (1.6-2.6) 08/26/24 05:58 Total Bilirubin 0.3 mg/dL (0.0-1.0) 08/24/24 18:54 AST 46 U/L (5-37) H 08/24/24 18:54 ALT 55 U/L (0-40) H 08/24/24 18:54 Alkaline Phosphatase 73 U/L (39-117) 08/24/24 18:54 Troponin I High Sens < 2.7 ng/L (<3.5-35.0) 08/24/24 18:54 B-Natriuretic Peptide < 10 pg/mL (<100) 08/24/24 18:54 Total Protein 7.8 g/dL (6.5-8.0) 08/24/24 18:54 Albumin 4.1 g/dL (3.5-5.0) 08/24/24 18:54 Procalcitonin 0.06 ng/mL 08/27/24 06:24 TSH 0.71 uIU/mL (0.32-4.0) 08/26/24 05:58 Respiratory Panel Pool See Note 08/25/24 08:43 Adenovirus (Rapid PCR) Not Detected (Not Detect.) 08/25/24 08:43 B.pert (TEM-PCR) Not Detected (Not Detect.) 08/25/24 08:43 B.parapertussis DNA PCR Not Detected (Not Detect.) 08/25/24 08:43 C. pneumoniae DNA (PCR) Not Detected (Not Detect.) 08/25/24 08:43 Coronavirus OC43 (PCR) Not Detected (Not Detect.) 08/25/24 08:43 Coronavirus HKU1 (PCR) Not Detected (Not Detect.) 08/25/24 08:43 Coronavirus 229E (PCR) Not Detected (Not Detect.) 08/25/24 08:43 Coronavirus NL63 (PCR) Not Detected (Not Detect.) 08/25/24 08:43 Human Metapneumovir PCR Not Detected (Not Detect.) 08/25/24 08:43 Influenza A (RT-PCR) Not Detected (Not Detect.) 08/25/24 08:43 Influenza Type A (PCR) NEGATIVE (Negative) 08/24/24 19:05 Influenza B (RT-PCR) Not Detected (Not Detect.) 08/25/24 08:43 Influenza Type B (PCR) NEGATIVE (Negative) 08/24/24 19:05 M. pneumoniae (PCR) Detected (Not Detect.) A 08/25/24 08:43 Parainfluenza 1 (PCR) Not Detected (Not Detect.) 08/25/24 08:43 Parainfluenza 2 (PCR) Not Detected (Not Detect.) 08/25/24 08:43 Parainfluenza 3 (PCR) Not Detected (Not Detect.) 08/25/24 08:43 Parainfluenza 4 (PCR) Not Detected (Not Detect.) 08/25/24 08:43 RSV (PCR) Not Detected (Not Detect.) 08/25/24 08:43 RSV RNA Qual (PCR) NEGATIVE (Negative) 08/24/24 19:05 Entero/Rhino (PCR) Not Detected (Not Detect.) 08/25/24 08:43 SARS-CoV-2 RNA (RT-PCR) Not Detected (Not Detect.) 08/25/24 08:43 CXR 08/24/24: Right lower lobe pneumonia suggested. Follow-up recommended to ensure resolution. Discharge Plan Discharge Anticipated Discharge Date/Time: 08/27/24 13:27 Patient Disposition: Home, Self-Care Discharge Diagnosis: sepsis and hypoxia due to pneumonia [mycoplasma] SVT Referrals: [facility] Martha Najera [Provider Group] - 1 Week Physician,Cori Kelly [Primary Care Provider] - 1 Week Discharge Medications: New metoprolol tartrate 25 mg tablet 12.5 mg PO BID Qty: 30 0RF azithromycin 500 mg tablet 500 mg PO DAILY 2 Days Qty: 2 0RF Continued hydroxyzine pamoate 50 mg capsule 50 mg PO TID PRN (Reason: anxiety) amitriptyline 75 mg tablet 75 mg PO BEDTIME olanzapine 15 mg tablet 15 mg PO BEDTIME venlafaxine 75 mg capsule,extended release 24hr 75 mg PO DAILY 30 Days Qty: 30 0RF lamotrigine 150 mg tablet 150 mg PO DAILY perphenazine 8 mg tablet 8 mg PO BID PRN (Reason: anxiety) Discharge Orders: Discharge Order (Routine); Ordered 08/27/24 Ordered By: Bryce Ramos Diet: Advance to usual diet Activity on Discharge: As tolerated Stand Alone Forms: Patient Portal Discharge page Print Language: Sammarinese Care Plan Goals: recovery from pneumonia Health Concerns: sepsis and hypoxia due to pneumonia [mycoplasma] SVT Plan of Treatment: take azithromycin 500 mg once daily for 2 more days take metoprolol succinate 12.5 mg twice daily Please follow up with your primary care doctor within 1 week. Return to the hospital if you experience recurrent or worsening symptoms. Ask for repeat chest X-ray in 4-6 weeks Assessment: See Discharge Summary.
--- NOTE | 2024-08-27 13:52 | MHC.CM.PN ---
PT TO DC HOME TODAY WITH NO SERVICES VIA PRIVATE TRANSPORT
== END 2024-08-27 14:01 | disposition home or self-care (01) | DRG 871 ==
LOC: HO.ED 19:08 → HO.EDOVER 21:01 → HO.S3 08-25 16:21
PROVIDERS: Internal Medicine; Physician Assistant; Registered Nurse Emergency; Admitting Provider Physician Assistant; Emergency Provider Emergency Medicine Emergency Medical Services; Visit Provider Family Medicine
DX: A41.9 Sepsis, unspecified organism (principal); J18.9 Pneumonia, unspecified organism; J96.01 Acute respiratory failure with hypoxia; B96.0 Mycoplasma pneumoniae [M. pneumoniae] as the cause of diseases classified elsewhere; R00.0 Tachycardia, unspecified; F20.9 Schizophrenia, unspecified; F10.10 Alcohol abuse, uncomplicated; Z87.891 Personal history of nicotine dependence; Z79.899 Other long term (current) drug therapy
CPT/HCPCS: 0241U; 36415; 71046; 80048; 80053; 83605; 83735; 83880; 84145; 84443; 84484; 85025; 85379; 85610; 85730; 87040; 87633; 93005; 99285; J0456; J0696; J1650

== ENCOUNTER → 2024-08-24 18:35 | Outpatient (BNV) | payer OTHER, SELFPAY | PROVIDERS: Emergency Provider Emergency Medicine Emergency Medical Services; Visit Provider Radiology Vascular & Interventional Radiology | DX: R05.9 Cough, unspecified (principal) | CPT/HCPCS: 71046 ==

== ENCOUNTER → 2024-08-24 18:47 | Outpatient (BNV) | payer OTHER, SELFPAY | PROVIDERS: Admitting Provider Physician Assistant; Emergency Provider Emergency Medicine Emergency Medical Services; Visit Provider Internal Medicine Cardiovascular Disease | DX: R94.31 Abnormal electrocardiogram [ECG] [EKG] (principal) | CPT/HCPCS: 93010 ==

== ENCOUNTER 2024-08-24 20:55 | Outpatient (BNV) | payer OTHER, SELFPAY | END 2024-08-25 08:26 | PROVIDERS: Admitting Provider Physician Assistant; Emergency Provider Emergency Medicine Emergency Medical Services; Visit Provider Internal Medicine Cardiovascular Disease | DX: R94.31 Abnormal electrocardiogram [ECG] [EKG] (principal) | CPT/HCPCS: 93010 ==

== ENCOUNTER → 2024-08-24 20:55 | Outpatient (BNV) | payer OTHER, SELFPAY | PROVIDERS: Admitting Provider Physician Assistant; Emergency Provider Emergency Medicine Emergency Medical Services; Visit Provider Internal Medicine | DX: A41.9 Sepsis, unspecified organism (principal); J96.00 Acute respiratory failure, unspecified whether with hypoxia or hypercapnia; J18.9 Pneumonia, unspecified organism; R79.89 Other specified abnormal findings of blood chemistry | CPT/HCPCS: 99223; 99231; 99232; 99239 ==

== ENCOUNTER 2024-09-05 17:34 | Inpatient (IN) | payer OTHER, SELFPAY ==
[2024-09-05 17:37] VITALS: BP 141/89; PULSE 107; RESP 16; TEMP 36.7; O2SAT 95; BMI 27.6
--- NOTE | 2024-09-05 17:37 | ED.GENADULT ---
HPI - General Adult General Chief complaint: Psychiatric Symptoms Stated complaint: SI/hallucinations Time Seen by Provider: 09/05/24 17:46 Source: patient Mode of arrival: ambulatory Limitations: no limitations History of Present Illness ED Provider: Camila Gilbert NP HPI narrative: Patient is a 28-year-old male with past medical history of paranoid schizophrenia, SVT, TBI, seizure disorder as a teenager (without seizure for many years), alcohol use disorder, recent mycoplasma pneumonia in August of 2024 admitted here for 3 days complicated by acute hypoxic respiratory failure/sepsis/SVT presents emergency department for evaluation of suicidal ideations endorsing a plan to drive his car off of the road. He denies homicidal ideations. Admits to having visual hallucinations but denies auditory hallucinations. Offers no physical complaints at this time Related Data Home Medications ?Medication ?Instructions ?Recorded ?Confirmed amitriptyline 75 mg tablet 75 mg PO BEDTIME 10/03/23 09/05/24 olanzapine 15 mg tablet 15 mg PO BEDTIME hallucinations 10/03/23 09/05/24 lamotrigine 150 mg tablet 150 mg PO DAILY depressive disorder 04/13/24 09/05/24 perphenazine 8 mg tablet 8 mg PO BID PRN anxiety 04/13/24 09/05/24 lorazepam 1 mg tablet 1 mg PO BID PRN anxiety 09/05/24 09/05/24 Previous Rx's ?Medication ?Instructions ?Recorded venlafaxine 75 mg capsule,extended 75 mg PO DAILY 30 days #30 caps 10/06/23 release 24 hr Allergies Allergy/AdvReac Type Severity Reaction Status Date / Time aripiprazole Allergy Unknown Verified 09/05/24 17:38 Penicillins Allergy Hives Verified 09/05/24 17:38 sulfamethoxazole Allergy Unknown Verified 09/05/24 17:38 [From Bactrim] trimethoprim [From Bactrim] Allergy Unknown Verified 09/05/24 17:38 Review of Systems Review of Systems: Yes all other systems are reviewed and are negative PMFSH Past Medical History Attestation statement: The following information was validated with the patient. Source: old records reviewed Medical History Elevated LFTs Routine medical exam TBI (traumatic brain injury) Seizures SVT (supraventricular tachycardia) Surgical History History of appendectomy Social History Social History Household Members: Spouse, Family and Friend(s) Household Members Other:: 3 other roommates Housing: House Do you presently have visiting nurse or other home services: Yes Alcohol intake: current Alcohol intake frequency: holidays/special occasions only Alcohol type: beer Patient Tobacco Use Status: Former Tobacco user Tobacco use type: Cigarette Years Smoked: 8 Smoked in Last 30 Days: No e-Cigarette/Vaping Use: Former Use Second Hand Smoke Exposure: No Use of substances other than those prescribed or required for medical reasons: No Substance Use Type: Marijuana Advance Directives: No Advance Directives Information Provided: No Do you have a plan to hurt others: No Plan service: No Sexual orientation: Straight/Heterosexual Physical Exam ED Vital Signs: Vital Signs - 24 hr 09/05/24 17:37 09/05/24 18:10 09/06/24 06:30 Temperature 98.1 F 98.1 F Pulse Rate 107 H 88 Respiratory Rate 16 14 16 Blood Pressure 141/89 H 126/88 Pulse Oximetry 95 95 Oxygen Delivery Method Room Air Room Air BMI result Body Mass Index 27.6 Appearance: Alert.?Oriented to person, place and time. No acute distress.?Normal affect. Eyes: Pupils equal, round and reactive to light.? ENT: Pharynx normal.?? Neck: Normal inspection.? Neck supple.?? CVS: Heart sounds normal. Tachycardia.? Pulses normal.?? Respiratory: No respiratory distress.? Lung sounds clear to auscultation bilaterally?? Abdomen: Soft and non-tender. Normoactive bowel sounds.? Skin: Skin warm and dry.? Normal skin color.? Extremities: No lower extremity edema.? No calf ttp? Neuro: Moves all extremities spontaneously. Sensation intact bilaterally. CN II-XII intact. No focal neuro deficits. Ambulates with normal steady gait. Course Course Course Narrative: RME performed by Jazz Rivero PA-C. Patient is a 28 year old assigned male at presenting to the emergency department with visual hallucinations and SI with a plan to drive his car off the road. Detailed physical exam and review of systems are deferred to the fuels engineer. Labs ordered. sheetmetal trades worker aware. Medications Administered Generic Name Dose Route Start Last Admin Trade Name Juanq PRN Reason Stop Dose Admin Amitriptyline HCl 75 mg 09/05/24 22:00 09/05/24 22:53 Amitriptyline Hcl 25 Mg Tablet PO 75 mg BEDTIME BRITTNY Administration Lamotrigine 150 mg 09/06/24 09:00 09/06/24 08:31 Lamotrigine 25 Mg Tablet PO 150 mg DAILY BRITTNY Administration Olanzapine 15 mg 09/05/24 22:00 09/05/24 22:54 Olanzapine 7.5 Mg Tablet PO 15 mg BEDTIME BRITTNY Administration Venlafaxine HCl 75 mg 09/06/24 09:00 09/06/24 08:32 Venlafaxine Hcl Er 75 Mg Cap.Er.24h PO 75 mg DAILY BRITTNY Administration Medical Decision Making Medical Decision Making [facility] Narrative: Patient is a 28-year-old male with past medical history of paranoid schizophrenia, SVT, TBI, seizure disorder as a teenager (without seizure for many years), alcohol use disorder, recent mycoplasma pneumonia in August of 2024 admitted here for 3 days complicated by acute hypoxic respiratory failure/sepsis/SVT presents emergency department for evaluation of suicidal ideations as per HPI. He is calm and cooperative at the time my evaluation. Offers no physical complaints, physical examination is overall benign, he is mildly tachycardic though this appears chronic baseline for him, despite recent initiation of metoprolol during his hospitalization. Plan to obtain serum labs for medical clearance and refer to care team for safe disposition planning Differential Diagnosis Differential Diagnoses: The differential diagnosis associated with the presentation includes (See narrative above and below for further detail) Admission/Observation Consideration of admission/observation: Escalation of care including admission/observation considered Patient is being observed in the Emergency Department for depression and suicidal ideation Observation time was started at 19:09 on 09/05/2024.?The patient is currently stable and non-toxic appearing. Observation is being initiated in the Emergency Department to allow time to help differentiate if the patient's depression and suicidal ideation is due to Substance Induced Mood Disorder and Anxiety versus Major Depressive Disorder, Bipolar Meg, Bipolar Depression, and Schizophrenia. The patient will receive frequent psychiatric assessments from the provider as well as from nursing staff. The patient will also be monitored for the need of PRN agitation medications such as Haldol, Ativan, and Benadryl. Consult Healthcare Provider Management of the patient was discussed with: Behavioral Health Provider (CARE team) Lab Data [facility] Lab Attestation statement: I reviewed the patient's lab results. CBC is without leukocytosis anemia thrombocytopenia. No significant electrolyte derangement. No CODEY. Mildly elevated AST/ALT 47/116 respectively and chronic in nature. Urinalysis without evidence of infection. Toxicology negative. Alcohol level nondetectable. 09/05/24 18:16 09/05/24 18:16 Labs: Lab Results 09/05/24 09/05/24 Range/Units 18:01 18:16 WBC 7.8 (4.8-10.8) X10*3/uL RBC 4.54 L (4.60-5.80) X10*6/uL Hgb 14.2 (14.0-18.0) g/dl Hct 40.1 L (42.0-52.0) % MCV 88.3 (80.0-98.0) fL MCH 31.3 (27.0-33.0) pg MCHC 35.4 (31.0-36.0) g/dl RDW 12.4 (11.0-16.0) % Plt Count 350 D (160-400) X10*3/uL MPV 8.8 L (9.4-12.4) fL Immature Gran % (Auto) 0.8 H (0.0-0.4) % Neut % (Auto) 67.9 (45-73) % Lymph % (Auto) 20.9 (20-40) % [place] % (Auto) 8.5 (2-11) % Eos % (Auto) 1.4 (0-4) % Baso % (Auto) 0.5 (0-2) % Lymph # (Auto) 1.6 (1.2-4.9) X10*3/uL [place] # (Auto) 0.7 (0.1-1.2) X10*3/uL Eos # (Auto) 0.1 (0.0-0.4) X10*3/uL Baso # (Auto) 0.0 (0.0-0.2) X10*3/uL Abs Immat Gran (auto) 0.06 H (0.00-0.03) X10*3/uL Absolute Neuts (auto) 5.3 (2.0-8.3) x10*3/uL Absolute Nucleated RBC 0.000 (0.0-0.012) X10*3/uL Nucleated RBC % (auto) 0.0 (0.0-0.2) /100WBC Sodium 141 (135-145) mmol/L Potassium 3.8 (3.3-5.1) mmol/L Chloride 110 H (96-108) mmol/L Carbon Dioxide 25 (22-29) mmol/L Anion Gap 10 L (12-20) BUN 10 (9-16) mg/dL Creatinine 0.88 (0.5-1.4) mg/dL Estim Creat Clear Calc 142.7 Estimated GFR > 60 Random Glucose 105 (60-115) mg/dL Calcium 9.0 (8.4-10.2) mg/dL Total Bilirubin 0.2 (0.0-1.0) mg/dL AST 47 H (5-37) U/L ALT 116 H (0-40) U/L Alkaline Phosphatase 65 (39-117) U/L Total Protein 6.8 (6.5-8.0) g/dL Albumin 4.1 (3.5-5.0) g/dL Urine Color Yellow Urine Appearance Clear Urine pH 7.0 (5.0-9.0) Ur Specific [place] 1.020 (1.005-1.025) Urine Protein Negative (Neg-Trace) mg/dL Urine Glucose (UA) Negative (Negative) mg/dL Urine Ketones Trace (Negative) mg/dL Urine Blood Negative (Negative) Urine Nitrite Negative (Negative) Ur Leukocyte Esterase Negative (Negative) Salicylates < 5.0 L (15-30) mg/dL Urine Opiates Screen Not Detected (Not Detect) Ur Buprenorphine Scrn Not Detected (Not Detect) ng/mL Ur Oxycodone Screen Not Detected (Not Detect) ng/mL Urine Methadone Screen Not Detected (Not Detect) ng/mL Urine Fentanyl Screen Not Detected (Not Detect) Acetaminophen < 3 (<30) mcg/mL Ur Barbiturates Screen Not Detected (Not Detect) Ur Phencyclidine Scrn Not Detected (Not Detect) Ur Amphetamines Screen Not Detected (Not Detect) U Benzodiazepines Scrn Not Detected (Not Detect) Urine Cocaine Screen Not Detected (Not Detect) U Marijuana (THC) Screen Not Detected (Not Detect) Ethyl Alcohol < 10 mg/dL External Record Review External record reviewed: Inpatient record and Outpatient record Chronic Conditions Patient?s care impacted by: Other (See narrative above) Discharge Plan Discharge Clinical Impression: Feeling suicidal Patient Disposition: Still a Patient Prescriptions: No Action lorazepam 1 mg tablet 1 mg PO BID PRN (Reason: anxiety) amitriptyline 75 mg tablet 75 mg PO BEDTIME olanzapine 15 mg tablet 15 mg PO BEDTIME venlafaxine 75 mg capsule,extended release 24hr 75 mg PO DAILY 30 Days Qty: 30 0RF lamotrigine 150 mg tablet 150 mg PO DAILY perphenazine 8 mg tablet 8 mg PO BID PRN (Reason: anxiety) Interventions: [place]-Suicide Risk Severity Scale Last Done: 09/05/24 18:10 Print Language: Danish
--- NOTE | 2024-09-05 18:03 | PC.NURSE ---
Patient comes in today from home reporting SI with a plan to either hang himself or drive his car off a bridge. Pt endorses past hx of an attempt to hang himself when he was a teenager. Patient reports that he has had a few life stressors recently including talking about past traumas with friends. Patient reports that he is starting to have auditory and visual hallucinations that have been going on for about 2 weeks. Pt requesting help and reports he wants to find new coping skills
[2024-09-05 18:07] LABS: Appearance Urine Clear; Color Urine Yellow; Glucose Urine UA Negative (Negative); Leukocyte Esterase Urine Negative (Negative); Nitrite Urine Negative (Negative); Urine Blood Negative (Negative); Urine Ketones Trace mg/dL (Negative); Urine Protein Negative (Neg-Trace)
[2024-09-05 18:10] VITALS: RESP 14
[2024-09-05 18:20] LABS: MANUAL DIFF FLAG NO
[2024-09-05 18:21] LABS: Basophils Percent Auto 0.5 % (0-2); Eosinophils Absolute Auto 0.1 X10*3/uL (0.0-0.4); Eosinophils Percent Auto 1.4 % (0-4); Hematocrit 40.1 % (42.0-52.0); Hemoglobin 14.2 g/dl (14.0-18.0); Imm Gran Abs Auto 0.06 X10*3/uL (0.00-0.03); Imm Gran Pct Auto 0.8 % (0.0-0.4); Lymphocytes Absolute Auto 1.6 X10*3/uL (1.2-4.9); Lymphocytes Percent Auto 20.9 % (20-40); Mean Corpuscular HGB Conc 35.4 g/dl (31.0-36.0); Mean Corpuscular Hemoglobin 31.3 pg (27.0-33.0); Mean Corpuscular Volume 88.3 fL (80.0-98.0); Mean Platelet Volume 8.8 fL (9.4-12.4); Monocytes Absolute Auto 0.7 X10*3/uL (0.1-1.2); Monocytes Percent Auto 8.5 % (2-11); Neutrophils Absolute Auto 5.3 x10*3/uL (2.0-8.3); Neutrophils Percent Auto 67.9 % (45-73); Platelet Count 350 X10*3/uL (160-400); Red Blood Count 4.54 X10*6/uL (4.60-5.80); Red Cell Distribution Width 12.4 % (11.0-16.0); White Blood Count 7.8 X10*3/uL (4.8-10.8)
--- OUTSIDE RECORDS SUMMARY | 2024-09-05 18:24 | XMS_ITS | Data Portability ---
Author Organization [facility] [place], [facility] Address [address] [place] [address] Care Team Providers Care Dynamite Cartridge Crimper Name Role Phone KODI CARLSON Referring Provider Unavailable KODI CARLSON Referring Provider [phone] PIERRE QUINTERO Primary Care Provider [facility] Primary Care Provider [facility] OTHER Assessment Encounter Date Assessment Date Assessment LastModified by Organization Details LastModified Time 06/24/2021 06/24/2021 IMPRESSION migraine, with headache historically modulated by stress. --Resolution of sleep problem, previously with melatonin 10 mg, now with working dayshift as opposed to second shift. --Anxiety and anxiety attacks a bit better with venlafaxine XR 37.5 mg, with historical paradoxical reaction to Klonopin, previously working with psychiatry. 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 Sumatriptan has scared him. He has now not tried naratriptan, the gentlest of triptans. He does not say he was scared, he says he forgot all about it. He does not disagree when I suggest he might be philosophically disinclined to take this type of medication. He is more clear that he is philosophically disinclined to take venlafaxine XR every day for anxiety. He says it helps sometimes when he takes 1 time doses when he is especially anxious. We discussed that the data on the medication suggests that it works better when it is taken every day. He says that he will think about taking it every day if his anxiety gets worse. More generally, he is happy with his current medication regimen and desires no changes. Previous issues suggesting caution with SSRI or even SNRI: I have previously written history that I obtained from him that he had hallucination to Klonopin and SSRI. When we went over this history, he remembers hallucination only to Klonopin as I was taking it too often he thinks, 3 times a day. He does not remember ever trying and SSRI and he does not recognize the names of any common SSRIs such as Prozac/fluoxetine, pyridoxine/Paxil or Zoloft/sertraline. We will watch venlafaxine XR very carefully, especially reconsider increase, for emergence of hallucination or other maladaptive symptoms. In reserve: New CGRP inhibitors. Lamotrigine has been recommended to him from the psychiatric context in the past but he has not tried it. Lamotrigine has data associated with benefit for headaches, although not as clear data as venlafaxine or amitriptyline. However, this might be a good next direction should venlafaxine XR be insufficient. Inderal/verapamil could be considered as well. could also be considered. 2017: We discussed yoga and greta chi. He said he will think about these things and is interested in these non-medication roots. He is also intrigued by acupuncture which helped a friends anxiety. PLAN Uli Rowan June 24, 2021 CONTINUE, for migraine prevention: Amitriptyline 75 mg nightly CONTINUE, For anxiety: Effexor XR (venlafaxine XR), 37.5 mg capsules, 1 capsule every morning For muscular part of headache: CONTINUE home exercises learned from physical therapy for the muscular part of your headaches Please continue to consider, as needed, using our [employer] website and/or signing up for [facility] [employer] e-mail portal. Followup in 11 months, or sooner as needed for neurological issues lucille Not available 06/24/2021 13:26:10 09/25/2021 09/25/2021 IMPRESSION migraine, with headache historically modulated by stress. --Resolution of sleep problem, previously with melatonin 10 mg, now with working dayshift as opposed to second shift. --Anxiety and anxiety attacks a bit better with venlafaxine XR 37.5 mg, with historical paradoxical reaction to Klonopin, previously working with psychiatry. 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 His mental health issues have worsened and he is trying to obtain inpatient help from psychiatry. He is trying to get referral for neuropsychology as he has not contacted Dr. Briceño for a long time. He wonders if I could help. I tell him that I will defer on this to primary care. He wonders whether head injury with frontal lobe fracture that his mother had mentioned could be a reason for his psychiatric issues. I tell him that I cannot say. The question would not be a pertinent one for the psychiatric healthcare providers that he is trying to work with. Whether or not his psychiatric diagnosis was triggered by this, the treatment would be the same. HEADACHE BREAKTHROUGH MIGRAINE TREATMENT Sumatriptan has scared him. He has continued to not try naratriptan, the gentlest of triptans. He does not say he was scared, he says he forgot all about it. He has not disagreed when I suggest he might be philosophically disinclined to take this type of medication. MIGRAINE PREVENTION He now has stated that he has reluctance because of possible side effects from venlafaxine XR? rapid heart rate. Previously he had been clear that he is philosophically disinclined to take venlafaxine XR every day for anxiety. He is clear today that he wishes no further change to his regimen for treatment for migraine. One reason is that he is anticipating treatment changes in the near future from psychiatry and he does not want changes from two different directions. I agree with this. Previous issues suggesting caution with SSRI or even SNRI: I have previously written history that I obtained from him that he had hallucination to Klonopin and SSRI. When we went over this history, he remembers hallucination only to Klonopin as I was taking it too often he thinks, 3 times a day. He does not remember ever trying and SSRI and he does not recognize the names of any common SSRIs such as Prozac/fluoxetine, pyridoxine/Paxil or Zoloft/sertraline. We will watch venlafaxine XR very carefully, especially reconsider increase, for emergence of hallucination or other maladaptive symptoms. In reserve: New CGRP inhibitors. Lamotrigine has been recommended to him from the psychiatric context in the past but he has not tried it. Lamotrigine has data associated with benefit for headaches, although not as clear data as venlafaxine or amitriptyline. However, this might be a good next direction should venlafaxine XR be insufficient. Inderal/verapamil could be considered as well. could also be considered. 2017: We discussed yoga and greta chi. He said he will think about these things and is interested in these non-medication roots. He is also intrigued by acupuncture which helped a friends anxiety. PLAN Uli Rowan September 25, 2021 CONTINUE, for migraine prevention: Amitriptyline 75 mg nightly For muscular part of headache: CONTINUE home exercises learned from physical therapy for the muscular part of your headaches Followup in 11 months, or sooner as needed for neurological issues lucille Not available 09/25/2021 12:54:04 09/08/2022 09/08/2022 IMPRESSION migraine, with headache historically modulated by stress. -propensity for headaches that likely are in large part posttraumatic status post childhood brain injury. --2018 resolution of sleep problem, previously with melatonin 10 mg, subsequently working dayshift as opposed to second shift. --Psychiatric comorbidity including depression and anxiety of longstanding, 2021 worsening leading to psychiatric hospitalization, mid 2021 working with a new psychiatrist at [facility] with additional diagnosis of schizoaffective disorder context symptoms of hearing voices,; -- September 08, 2022 only one mild headache per week over the last several months, with no change of migraine preventative amitriptyline 75 mg daily, with medication changes including settling on Zyprexa/fluoxetine combination for schizoaffective disorder, anxiety and depression. His mental health issues are under control and his headaches are only mild and once a week. He has no side effects to amitriptyline 75 mg nightly. We agreed to continue this as a migraine preventative. September 2021: He wonders whether head injury with frontal lobe fracture that his mother had mentioned could be a reason for his psychiatric issues. I tell him that I cannot say. The question would not be a pertinent one for the psychiatric healthcare providers that he is trying to work with. Whether or not his psychiatric diagnosis was triggered by this, the treatment would be the same. PLAN Uli Rowan September 08, 2022 CONTINUE, for migraine prevention: Amitriptyline 75 mg nightly For muscular part of headache: CONTINUE home exercises learned from physical therapy for the muscular part of your headaches Followup in 11 months, or sooner as needed for neurological issues mrossen Not available 09/08/2022 14:50:10 08/12/2023 08/12/2023 IMPRESSION migraine, with headache historically modulated by stress. -propensity for headaches that likely are in large part posttraumatic status post childhood brain injury. --2018 resolution of sleep problem, previously with melatonin 10 mg, subsequently working dayshift as opposed to second shift. --Psychiatric comorbidity initially including depression and anxiety of longstanding, 2021 worsening leading to mid 2021 psychiatric hospitalization with symptoms of hearing voices, and additional diagnosis of schizoaffective disorder, working with a new psychiatrist at [facility]. -- September 08, 2022 only one mild headache per week over the last several months, with no change of migraine preventative amitriptyline 75 mg daily, with medication changes including settling on Zyprexa/fluoxetine combination for schizoaffective disorder, anxiety and depression. His headaches are only mild and once a week. His mental health issues remain under control He has no side effects to amitriptyline 75 mg nightly. We agreed to continue this as a migraine preventative. He is satisfied with [id number] Advil 400 mg or naproxen 440 mg for the headache breakthrough once a week. We decide to stay away from prescription migraine breakthrough medication. September 2021: He wonders whether head injury with frontal lobe fracture that his mother had mentioned could be a reason for his psychiatric issues. I tell him that I cannot say. The question would not be a pertinent one for the psychiatric healthcare providers that he is trying to work with. Whether or not his psychiatric diagnosis was triggered by this, the treatment would be the same. PLAN Uli Rowan August 12, 2023 CONTINUE, for migraine prevention: Amitriptyline 75 mg nightly For muscular part of headache: CONTINUE home exercises learned from physical therapy for the muscular part of your headaches Followup in 11 months, or sooner as needed for neurological issues mrossen Not available 08/12/2023 15:59:05 Plan of Treatment Reminders Order Date Submit Date Provider Last Modified By Organization Details Last Modified Time Details Appointments FOLLOW UP EXT 2024 12:30P Jazmín Bertrand MD PhD Not available Not available Not available Lab None recorded. Referral None recorded. Procedures None recorded. Surgeries None recorded. Imaging None recorded. Medication Orders [facility]y [facility] 75 mg tablet [id number], [address], [place], [place], [id number], 09/25/2021 12:38:35 amitripty line 75 mg tablet [address] [facility] #[id number], [address], [place], [address], 09/08/2022 14:32:38 amitripty line 75 mg tablet 2023 024 lucille [facility] #[id number], [address], [place], [address], 08/12/2023 15:55:27 Patient TargetsNo targets recorded. Patient Instructions Encounter Date Encounter Id Patient Instructions Last Modified By Organization Details Last Modified Time 06/24/2021 [id number] PREVIOUS MEDICAT ION Melatonin helped sleep when he was on second shift, stopped when he went to May 2018 Klonopin 3 times a day associated with hallucinations with pediatric neurology in remote past. lucille Not available 06/24/2021 13:07:46 09/25/2021 [id number] PREVIOUS MEDICAT ION Melatonin helped sleep when he was on second shift, stopped when he went to May 2018 Klonopin 3 times a day associated with hallucinations with pediatric neurology in remote past. lucille Not available 09/25/2021 12:25:52 09/08/2022 [id number] PREVIOUS MEDICAT ION -- early 2021 Anxiety and anxiety attacks a bit better with venlafaxine XR 37.5 mg, Then discontinued December 2021 with eventual Zyprexa/fluoxetine for schizoaffective disorder depression and anxiety discussed September 2022 follow-up Melatonin helped sleep when he was on second shift, stopped when he went to May 2018 Klonopin 3 times a day associated with hallucinations with pediatric neurology in remote past. September 2021 discussions: HEADACHE BREAKTHROUGH MIGRAINE TREATMENT Sumatriptan has scared him. He has continued to not try naratriptan, the gentlest of triptans. He does not say he was scared of naratriptan, he says he forgot all about it. He has not disagreed when I suggest he might be philosophically disinclined to take this type of medication. MIGRAINE PREVENTION He now has stated that he has reluctance because of possible side effects from venlafaxine XR? rapid heart rate. Previously he had been clear that he is philosophically disinclined to take venlafaxine XR every day for anxiety. He is clear today that he wishes no further change to his regimen for treatment for migraine. One reason is that he is anticipating treatment changes in the near future from psychiatry and he does not want changes from two different directions. I agree with this. Previous issues suggesting caution with SSRI or even SNRI: I have previously written history that I obtained from him that he had hallucination to Klonopin and SSRI. When we went over this history, he remembers hallucination only to Klonopin as I was taking it too often he thinks, 3 times a day. He does not remember ever trying and SSRI and he does not recognize the names of any common SSRIs such as Prozac/fluoxetine, pyridoxine/Paxil or Zoloft/sertraline. We will watch venlafaxine XR very carefully, especially reconsider increase, for emergence of hallucination or other maladaptive symptoms. In reserve: New CGRP inhibitors. Lamotrigine has been recommended to him from the psychiatric context in the past but he has not tried it. Lamotrigine has data associated with benefit for headaches, although not as clear data as venlafaxine or amitriptyline. However, this might be a good next direction should venlafaxine XR be insufficient. Inderal/verapamil could be considered as well. could also be considered. 2017: We discussed yoga and greta chi. He said he will think about these things and is interested in these non-medication roots. He is also intrigued by acupuncture which helped a friends anxiety. Chronic condition with exacerbation; prescription medication management lucille Not available 09/08/2022 14:50:29 08/12/2023 [id number] PREVIOUS MEDICAT ION -- early 2021 Anxiety and anxiety attacks a bit better with venlafaxine XR 37.5 mg, Then discontinued December 2021 with eventual Zyprexa/fluoxetine for schizoaffective disorder depression and anxiety discussed September 2022 follow-up Melatonin helped sleep when he was on second shift, stopped when he went to [facility], May 2018 Klonopin 3 times a day associated with hallucinations with pediatric neurology in remote past. September 2021 discussions: HEADACHE BREAKTHROUGH MIGRAINE TREATMENT Sumatriptan has scared him. He has continued to not try naratriptan, the gentlest of triptans. He does not say he was scared of naratriptan, he says he forgot all about it. He has not disagreed when I suggest he might be philosophically disinclined to take this type of medication. MIGRAINE PREVENTION He now has stated that he has reluctance because of possible side effects from venlafaxine XR? rapid heart rate. Previously he had been clear that he is philosophically disinclined to take venlafaxine XR every day for anxiety. He is clear today that he wishes no further change to his regimen for treatment for migraine. One reason is that he is anticipating treatment changes in the near future from psychiatry and he does not want changes from two different directions. I agree with this. Previous issues suggesting caution with SSRI or even SNRI: I have previously written history that I obtained from him that he had hallucination to Klonopin and SSRI. When we went over this history, he remembers hallucination only to Klonopin as I was taking it too often he thinks, 3 times a day. He does not remember ever trying and SSRI and he does not recognize the names of any common SSRIs such as Prozac/fluoxetine, pyridoxine/Paxil or Zoloft/sertraline. We will watch venlafaxine XR very carefully, especially reconsider increase, for emergence of hallucination or other maladaptive symptoms. In reserve: New CGRP inhibitors. Lamotrigine has been recommended to him from the psychiatric context in the past but he has not tried it. Lamotrigine has data associated with benefit for headaches, although not as clear data as venlafaxine or amitriptyline. However, this might be a good next direction should venlafaxine XR be insufficient. Inderal/verapamil could be considered as well. could also be considered. 2017: We discussed yoga and greta chi. He said he will think about these things and is interested in these non-medication roots. He is also intrigued by acupuncture which helped a friends anxiety. Chronic condition with exacerbation; prescription medication management lucille Not available 08/12/2023 15:23:01 Reason for Referral None Reported. Procedures Surgical History Date Name Laterality Status Provider Name and Address Organization Details Recorded Time 08/12/2023 DATA REVIEW completed Jarrod Bertrand MD [address] [place], [place] [address], [phone], Formerly [facility] 08/12/2023 15:23:01 09/08/2022 DATA REVIEW completed Jarrod Bertrand MD [address] [place], [place] [address], [phone], Formerly [facility] 09/08/2022 14:19:34 09/25/2021 DATA REVIEW completed Jarrdo Bertrand MD [address] [place], [place] [address], [phone], [facility] 09/25/2021 12:25:51 06/24/2021 DATA REVIEW completed Jarrod Bertrand MD [address] [place], [place] [address], [phone], [facility]ly [facility] 06/24/2021 13:07:55 Imaging Results None recorded. Procedure Notes None recorded. Medical Equipment None Reported. Medications Name Sig Start Date Stop Date Status Note LastModified by Organization Details LastModified Time cyclobenzapr ine 10 mg tablet TAKE 1 TABLET BY MOUTH THREE TIMES DAILY FOR UP TO 5 DAYS NEEDED FOR MUSCLE SPASMS active Not Available Not Available No t Available venlafaxine ER 37.5 mg capsule,exte nded release 24 hr TAKE 1 CAPSULE BY MOUTH EVERY MORNING WITH 75MG TAB FOR TOTAL 112.5MG EVERY MORING active Not Available Not Available No t Available clonidine HCl 0.1 mg tablet TAKE 1 TABLET BY MOUTH TWICE A DAY NEEDED ANXIETY, ANGER [REPLACES GUANFACINE] active Not Available Not Available Not Available venlafaxine ER 75 mg capsule,exte nded release 24 hr TAKE 1 CAPSULE BY MOUTH EVERY MORNING FOR DEPRESSION active Not Available Not Available N ot Available azithromycin 250 mg tablet active Not Available Not Available Not Available amitriptylin e 75 mg tablet Take 1 tablet every day by oral route in the evening for 90 days. 2024 active Not Available Not Available Not Avai lable olanzapine 5 mg tablet TAKE 1 TABLET BY MOUTH ONCE A DAY DIRECTED TAKE ONE TABLET FOR BREAKTHROUG H EPISODES OF PSYCHOSIS active Not Available Not Available No t Available hydroxyzine pamoate 50 mg capsule TAKE 1 TO 2 CAPSULES BY MOUTH TWICE DAILY NEEDED active Not Available Not Available No t Available olanzapine 10 mg tablet TAKE 1 TABLET BY MOUTH EVERYDAY AT BEDTIME active Not Available Not Available No t Available olanzapine 2.5 mg tablet PLEASE SEE ATTACHED FOR DETAILED DIRECTIONS active Not Available Not Available N ot Available olanzapine 7.5 mg tablet TAKE 1 TABLET BY MOUTH AT BEDTIME active Not Available Not Available No t Available amoxicillin 500 mg tablet TAKE 1 TABLET BY MOUTH TWICE A DAY FOR 10 DAYS active Not Available Not Available No t Available lamotrigine 25 mg tablet TAKE 1 TABLET DAILY FOR 14 DAYS THEN INCREASE TO 2 TABS EVERY MORNING\ active Not Available Not Available No t Available benztropine 1 mg tablet TAKE 1 TABLET BY MOUTH EVERY DAY AT BEDTIME DIRECTED active Not Available Not Available No t Available guanfacine 1 mg tablet TAKE 1 TABLET BY MOUTH ONCE A DAY NEEDED FOR ANXIETY/ALEXANDER IC active Not Available Not Available No t Available sertraline 25 mg tablet TAKE 1 TABLET BY MOUTH EVERY DAY IN THE MORNING active Not Available Not Available No t Available olanzapine 15 mg tablet TAKE 1 TABLET BY MOUTH EVERY NIGHT FOR HALLUCINATI ONS, RACING THOUGHTS, INSOMNIA active Not Available Not Available No t Available levofloxacin 500 mg tablet TAKE 1 TABLET BY MOUTH EVERY DAY FOR 10 DAYS FOR INFECTION active Not Available Not Available No t Available ondansetron 4 mg disintegrati ng tablet DISSOLVE 1 TAB (4 MG) ORALLY EVERY 8 HOURS FOR 3 DAYS active Not Available Not Available No t Available fluoxetine 20 mg capsule TAKE 1 CAPSULE BY MOUTH EVERYN MORNING active Not Available Not Available No t Available sertraline 50 mg tablet TAKE 1 TABLET BY MOUTH EVERY DAY IN THE MORNING active Not Available Not Available No t Available risperidone 1 mg tablet TAKE 1 TAB BY MOUTH TWICE A DAY DIRECTED OR TAKE 1 & 1/2 TO 2 TABS EVERY MORNING INSTEAD FOR AVH active Not Available Not Available No t Available risperidone 0.5 mg tablet TAKE 1 TO 2 TABLETS BY MOUTH EVERY MORNING FOR ANGER, BAD THOUGHTS active Not Available Not Available No t Available aripiprazole 5 mg tablet TAKE 1 TABLET BY MOUTH DAILY active Not Available Not Available Not Available COVID-19 test specimen collection TEST DIRECTED TODAY active Not Available Not Available No t Available Vitals None Recorded Social History None recorded. Functional Status None recorded. Mental Status None recorded. Family History Nothing Reported. Medical History No medical history recorded. Past Encounters Encounter ID Performer Location Encounter Start Date Encounter Closed Date Diagnosis/Indication Diagnosis SNOMED-CT Code Diagnosis ICD10 Code Diagnosis Note [id number] Jarrod Bertrand MD [facility] [address] [place] [address] [place] [phone] 06/24/2021 12:48:13 06/24/2021 13:35:20 [id number] Jarrod Bertrand MD [facility] [address] [place] [address] [place] [id number] 09/25/2021 11:51:12 09/25/2021 19:44:29 Migraine without aura [id number] G43.009 [id number] Jarrod Bertrand MD [facility] [address] [place] [address] [place] [id number] 09/08/2022 14:08:28 09/08/2022 17:09:23 Migraine without aura [id number] G43.009 [id number] Jarrod Bertrand MD [facility] [address] [place] [address] [place] [id number] 08/12/2023 15:16:35 08/12/2023 16:11:58 Migraine without aura [id number] G43.009 Health Concerns Section Related Observation LastModified by Organization Detai ls LastModified Time None Recorded Concern Status LastModified by Organization Details LastModified Time None Recorded Advance Directives Directive None Recorded Payers Encounter Date Sequence Insurance Name Policy Number Policy Whitmore Covered Member ID Whitmore Member ID Guarantor Name 06/24/2021 1 [facility] [id number] Uli R Rowan [id number] Uli R Rowan 09/25/2021 1 [facility] [id number] Uli R Rowan [id number] Uli R Rowan 09/08/2022 1 [facility] [facility] [id number] Uli R Rowan [id number] Uli R Rowan 08/12/2023 1 [facility] [id number] Uli R Rowan [id number] Lui R Rowan Notes Date Note Type Note Provider Name and Address Organization Details Recorded Time 06/24/2021 text/html Follow up of pineda lucero. There has also been whole body shaking and shutdown that has been diagnosed as pseudoseizure by [facility] neurology in approximately 5404-2913. 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 He has previously been under the care of neuropsychologist Dr. Kate Briceño. He is not accompanied by his mother. Since July 24, 2020 neurology follow-up encounter, At some point, daily for about a week. It did nothing so he stopped the medication. He continues on amitriptyline 75 mg nightly for migraine prevention. Meanwhile, and headache has worsened from perhaps once a week to 2-3 times [address] headaches continue to last about 2 hours going away with ibuprofen or Excedrin if they are stronger. Longer headaches can last up to 2 days? this was every 2 or 3 weeks. He does not say how often that is happening now. .Presenting symptomatology was reviewed from initial consultation May 20, 2013: He has had headaches ever since he can remember in his childhood--his mother says since soon after his head injury with frontal lobe fracture at age 4-5 years of age. His headaches worsened significantly in high school and have been daily or at least every other day since. Headaches, on days that he is having headaches, last from seconds to hours. They involve dull, burning, sometimes cold pain, most prominent on the top and back of his head. There is sensitivity to light, sound, frequent dizziness and blurry vision, and occasional nausea with his headaches. He has been on amitriptyline for many years under the care of the pediatric neurology, Dr. Nunes. This has helped his headaches partially but significantly-they still occur daily, but headache is sometimes more mild and shorter. He reduced the dose from 75 mg nightly to 50 mg nightly at the advice of a psychiatrist recently. Headaches worsened. He also began experiencing cramping/spasm in his muscles and intermittent burning in his hands and feet when he reduced the amitriptyline dose. He has been on Fioricet for his headaches. This has not helped sufficiently. He has not taken it recently. Klonopin was tried for his anxiety. This gave him hallucination and unpleasant dreams and he stopped that medication. He is not currently on any medication for his anxiety.He has intermittent episodes of my mind shutting down and his arms and legs shaking. These tend to occur with intense headache, and/or with anxiety, and/or after he eats. 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 He thinks these happen maybe twice a month. His mother thinks that they might happen more frequently. His mother notes that when events starts, he gets pale, his eyes dilated, and he falls to the ground--at which point he is still alert and able to speak and communicate. He then starts thrashing (she shows a windmill movement of her arms and movements of the legs). He does not speak or respond during this portion. He remembers this portion, however. Jarrod Bertrand MD [address] [place] [address] [place], [id number], Formerly [facility] 09/25/2021 12:27:03 09/25/2021 text/html Follow up of pineda lucero. There has also been whole body shaking and shutdown that has been diagnosed as pseudoseizure by [facility] neurology in approximately 3265-1487. 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 He has previously been under the care of neuropsychologist Dr. Kate Briceño. He is not accompanied by his mother.Since June 24, 2021 neurology follow-up encounter, his headaches are occurring about three times a week.. He continues on amitriptyline 75 mg every evening. He explains one of the reasons why he stopped venlafaxine XR leading up to July 24, 2020: He has history of SVT and there is a side effect of rapid heart rate and he does not want to take this risk. He again has not tried the naratriptan. He continues using [id number] analgesics for some of his headaches. Interim history is reviewed from the 2020 when he finally stopped venlafaxine XRSince July 24, 2020 neurology follow-up encounter, he tried taking venlafaxine XR every day again, daily for about a week. It did nothing so he stopped the medication. He continues on amitriptyline 75 mg nightly for migraine prevention. Meanwhile, and headache has worsened from perhaps once a week to 2-3 times [address] week[address] headaches continue to last about 2 hours going away with ibuprofen or Excedrin if they are stronger. Longer headaches can last up to 2 days? this was every 2 or 3 weeks. He does not say how often that is happening now.He has had occasional jerking in his neck and also some jerking of one of the other arm. 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 His mother has had a stroke. She cannot do much of anything. He, his brother and his father keep trying to help out. He also does not have a PCP and is in the process of looking for 1. He is also trying to get a psychiatrist.No one else has changed any medications. Interim history is reviewed from July 22, 2020 when he had at first continued venlafaxine XR but then stopped taking it every day:Since April 26, 2019 most recent neurology follow-up encounter, one year and 3 months ago, his headaches have been ? about the same, about once a week, generally lasting 2 hours if it goes away with Aleve or if it is stronger with Excedrin. Sometimes it doesn? t go away and then it? s there for the rest of the day. This happens every 2-3 weeks. He has never tried the naratriptan prescribed April 2019, similar to what happened with the sumatriptan the year before that. He continues taking the venlafaxine X 37.5 mg although again he has stopped taking it every day. He continues to have anxiety but he tries to control it with means other than medication. Now he takes it about once a week when he is especially anxious. Whenever he takes it he takes it in the morning. He reports no new or changed medications. He reports no new medical diagnoses. Interim history is reviewed from April 26, 2019 when he first started venlafaxine XR:Since October 06, 2018 neurology office visit, he has tried venlafaxine XR 37.5 mg every morning. He has no side effects. It helps anxiety ? a bit.? He has stayed on it for a while, then gone off when his mood is better, then more recently gone back on it for anxiety reasons. He has noticed no change in his headache pattern with venlafaxine XR. Headaches , however, have been ? pretty good.? He has been getting about 1 headache a week. It generally last 2 hours if it goes away with Aleve or if it is stronger, a migraine, with Excedrin. Sometimes it doesn? t go away and then it stays around all day. He thought about trying sumatriptan but decided against it when he read all the side effects. 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 We did not talk about sleep which became good when he switched to dayshift allowing normal sleep pattern (he generally sleeps 10 PM-7 AM). Presenting symptomatology was reviewed from initial consultation May 20, 2013: He has had headaches ever since he can remember in his childhood--his mother says since soon after his head injury with frontal lobe fracture at age 4-5 years of age. His headaches worsened significantly in high school and have been daily or at least every other day since. Headaches, on days that he is having headaches, last from seconds to hours. They involve dull, burning, sometimes cold pain, most prominent on the top and back of his head. There is sensitivity to light, sound, frequent dizziness and blurry vision, and occasional nausea with his headaches. He has been on amitriptyline for many years under the care of the pediatric neurology, Dr. Nunes. This has helped his headaches partially but significantly-they still occur daily, but headache is sometimes more mild and shorter. He reduced the dose from 75 mg nightly to 50 mg nightly at the advice of a psychiatrist recently. Headaches worsened. He also began experiencing cramping/spasm in his muscles and intermittent burning in his hands and feet when he reduced the amitriptyline dose. He has been on Fioricet for his headaches. This has not helped sufficiently. He has not taken it recently. Klonopin was tried for his anxiety. This gave him hallucination and unpleasant dreams and he stopped that medication. He is not currently on any medication for his anxiety.He has intermittent episodes of my mind shutting down and his arms and legs shaking. These tend to occur with intense headache, and/or with anxiety, and/or after he eats. 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 He thinks these happen maybe twice a month. His mother thinks that they might happen more frequently. His mother notes that when events starts, he gets pale, his eyes dilated, and he falls to the ground--at which point he is still alert and able to speak and communicate. He then starts thrashing (she shows a windmill movement of her arms and movements of the legs). He does not speak or respond during this portion. He remembers this portion, however. Jarrod Bertrand MD [address] [place] [address] [place], [id number], [facility] 09/25/2021 12:54:32 09/08/2022 text/html Follow up of pineda lucero. There has also been whole body shaking and shutdown that has been diagnosed as pseudoseizure by [facility] neurology in approximately 4113-5181. 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 He has previously been under the care of neuropsychologist Dr. Kate Briceño. He is not accompanied by his mother. Since September 25, 2021 neurology follow-up encounter, just under 1 year ago, his headaches have improved from three headaches per week to just one mild headache every week. This has been the situation for many months. Early in 2021 his psychiatric symptoms worsened and he was admitted to [facility] inpatient psychiatric unit. He was very anxious there and so was referred to [facility] where psychiatry made a diagnosis of schizoaffective disorder. He reports symptoms of hearing voices associated with that disorder as well as anxiety and depression. His psychiatric symptoms have been much better with Zyprexa and Prozac. Zyprexa has helped so that his hearing voices is much better and his anxiety is much better. Zoloft was tried for his depression but was not working so that fluoxetine was started in early August 2022 which helps much more.I wondered to him whether his improvement with headaches occurred with any time correlation to his improvement of his psychiatric symptoms. Although he cannot say for sure, his best guess is that this is true. ? September 25, 2021 follow-up history: Since June 24, 2021 neurology follow-up encounter, his headaches are occurring about three times a week.. He continues on amitriptyline 75 mg every evening. He explains one of the reasons why he stopped venlafaxine XR leading up to July 24, 2020: He has history of SVT and there is a side effect of rapid heart rate and he does not want to take this risk. He again has not tried the naratriptan. He continues using hajp-pcg-yhmjnsb analgesics for some of his headaches. ? history is reviewed from the 2020 when he finally stopped venlafaxine XRSince July 24, 2020 neurology follow-up encounter, he tried taking venlafaxine XR every day again, daily for about a week. It did nothing so he stopped the medication. He continues on amitriptyline 75 mg nightly for migraine prevention. Meanwhile, and headache has worsened from perhaps once a week to 2-3 times per week[address] headaches continue to last about 2 hours going away with ibuprofen or Excedrin if they are stronger. Longer headaches can last up to 2 days? this was every 2 or 3 weeks. He does not say how often that is happening now.He has had occasional jerking in his neck and also some jerking of one of the other arm. 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 His mother has had a stroke. She cannot do much of anything. He, his brother and his father keep trying to help out. He also does not have a PCP and is in the process of looking for 1. He is also trying to get a psychiatrist.No one else has changed any medications. ? Interim history is reviewed from July 22, 2020 when he had at first continued venlafaxine XR but then stopped taking it every day:Since April 26, 2019 most recent neurology follow-up encounter, one year and 3 months ago, his headaches have been ? about the same, about once a week, generally lasting 2 hours if it goes away with Aleve or if it is stronger with Excedrin. Sometimes it doesn? t go away and then it? s there for the rest of the day. This happens every 2-3 weeks. He has never tried the naratriptan prescribed April 2019, similar to what happened with the sumatriptan the year before that. He continues taking the venlafaxine X 37.5 mg although again he has stopped taking it every day. He continues to have anxiety but he tries to control it with means other than medication. Now he takes it about once a week when he is especially anxious. Whenever he takes it he takes it in the morning. He reports no new or changed medications. He reports no new medical diagnoses. ? Interim history is reviewed from April 26, 2019 when he first started venlafaxine XR:Since October 06, 2018 neurology office visit, he has tried venlafaxine XR 37.5 mg every morning. He has no side effects. It helps anxiety ? a bit.? He has stayed on it for a while, then gone off when his mood is better, then more recently gone back on it for anxiety reasons. He has noticed no change in his headache pattern with venlafaxine XR. Headaches , however, have been ? pretty good.? He has been getting about 1 headache a week. It generally last 2 hours if it goes away with Aleve or if it is stronger, a migraine, with Excedrin. Sometimes it doesn? t go away and then it stays around all day. He thought about trying sumatriptan but decided against it when he read all the side effects. 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 We did not talk about sleep which became good when he switched to dayshift allowing normal sleep pattern (he generally sleeps 10 PM-7 AM). Presenting symptomatology was reviewed from initial consultation May 20, 2013: He has had headaches ever since he can remember in his childhood--his mother says since soon after his head injury with frontal lobe fracture at age 4-5 years of age. His headaches worsened significantly in high school and have been daily or at least every other day since. Headaches, on days that he is having headaches, last from seconds to hours. They involve dull, burning, sometimes cold pain, most prominent on the top and back of his head. There is sensitivity to light, sound, frequent dizziness and blurry vision, and occasional nausea with his headaches. He has been on amitriptyline for many years under the care of the pediatric neurology, Dr. Nunes. This has helped his headaches partially but significantly-they still occur daily, but headache is sometimes more mild and shorter. He reduced the dose from 75 mg nightly to 50 mg nightly at the advice of a psychiatrist recently. Headaches worsened. He also began experiencing cramping/spasm in his muscles and intermittent burning in his hands and feet when he reduced the amitriptyline dose. He has been on Fioricet for his headaches. This has not helped sufficiently. He has not taken it recently. Klonopin was tried for his anxiety. This gave him hallucination and unpleasant dreams and he stopped that medication. He is not currently on any medication for his anxiety.He has intermittent episodes of my mind shutting down and his arms and legs shaking. These tend to occur with intense headache, and/or with anxiety, and/or after he eats. 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 He thinks these happen maybe twice a month. His mother thinks that they might happen more frequently. His mother notes that when events starts, he gets pale, his eyes dilated, and he falls to the ground--at which point he is still alert and able to speak and communicate. He then starts thrashing (she shows a windmill movement of her arms and movements of the legs). He does not speak or respond during this portion. He remembers this portion, however. Jarrod Bertrand MD [address] [place] [address], [id number], [facility] 09/08/2022 14:50:43 08/12/2023 text/html Follow up of pineda lucero. There has also been whole body shaking and shutdown that has been diagnosed as pseudoseizure by [facility] neurology in approximately [id number]. 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 He has previously been under the care of neuropsychologist Dr. Kate Briceño. He is not accompanied by his mother. ? August 12, 2023Since September 08, 2022 neurology follow-up encounter, his headaches have remained at just one mild headache every week. The headaches improved from three headaches per week and 2021, roughly in correlation? per his memory? with worsening psychiatric symptoms, hospitalization and diagnosis of schizoaffective disorder. Over the past 11 months, his psychiatric medications have changed. He is now on olanzapine 15 mg daily, Risperdal 1 mg daily and venlafaxine ER 75 mg daily. His psychiatric symptoms have been well-controlled in recent times and he has not had a subsequent psychiatric hospitalization. He continues to take his amitriptyline 75 mg nightly for his migraine prevention treatment, without side effects. His psychiatrist is aware of the amitriptyline. We discussed that this is important: If psychiatry should want to increase the venlafaxine ER, there could be interaction between the two medications. He understands. He takes naproxen 440 mg [id number] or ibuprofen 4 mg [id number] for his weekly mild headache breakthrough and this works sufficiently for him. Other than psychiatry medication changes, there have been no other medication changes over the past 11 months. There have been no new or changing medical issues. ? September 08, 2022Since September 25, 2021 neurology follow-up encounter, just under 1 year ago, his headaches have improved from three headaches per week to just one mild headache every week. This has been the situation for many months. Early in 2021 his psychiatric symptoms worsened and he was admitted to [facility] inpatient psychiatric unit. He was very anxious there and so was referred to [facility] where psychiatry made a diagnosis of schizoaffective disorder. He reports symptoms of hearing voices associated with that disorder as well as anxiety and depression. His psychiatric symptoms have been much better with Zyprexa and Prozac. Zyprexa has helped so that his hearing voices is much better and his anxiety is much better. Zoloft was tried for his depression but was not working so that fluoxetine was started in early August 2022 which helps much more.I wondered to him whether his improvement with headaches occurred with any time correlation to his improvement of his psychiatric symptoms. Although he cannot say for sure, his best guess is that this is true. ? September 25, 2021 follow-up history: Since June 24, 2021 neurology follow-up encounter, his headaches are occurring about three times a week.. He continues on amitriptyline 75 mg every evening. He explains one of the reasons why he stopped venlafaxine XR leading up to July 24, 2020: He has history of SVT and there is a side effect of rapid heart rate and he does not want to take this risk. He again has not tried the naratriptan. He continues using [id number] analgesics for some of his headaches. ? history is reviewed from the 2020 when he finally stopped venlafaxine XRSince July 24, 2020 neurology follow-up encounter, he tried taking venlafaxine XR every day again, daily for about a week. It did nothing so he stopped the medication. He continues on amitriptyline 75 mg nightly for migraine prevention. Meanwhile, and headache has worsened from perhaps once a week to 2-3 times [address] week[address] headaches continue to last about 2 hours going away with ibuprofen or Excedrin if they are stronger. Longer headaches can last up to 2 days? this was every 2 or 3 weeks. He does not say how often that is happening now.He has had occasional jerking in his neck and also some jerking of one of the other arm. 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 His mother has had a stroke. She cannot do much of anything. He, his brother and his father keep trying to help out. He also does not have a PCP and is in the process of looking for 1. He is also trying to get a psychiatrist.No one else has changed any medications. ? Interim history is reviewed from July 22, 2020 when he had at first continued venlafaxine XR but then stopped taking it every day:Since April 26, 2019 most recent neurology follow-up encounter, one year and 3 months ago, his headaches have been ? about the same, about once a week, generally lasting 2 hours if it goes away with Aleve or if it is stronger with Excedrin. Sometimes it doesn? t go away and then it? s there for the rest of the day. This happens every 2-3 weeks. He has never tried the naratriptan prescribed April 2019, similar to what happened with the sumatriptan the year before that. He continues taking the venlafaxine X 37.5 mg although again he has stopped taking it every day. He continues to have anxiety but he tries to control it with means other than medication. Now he takes it about once a week when he is especially anxious. Whenever he takes it he takes it in the morning. He reports no new or changed medications. He reports no new medical diagnoses. ? Interim history is reviewed from April 26, 2019 when he first started venlafaxine XR:Since October 06, 2018 neurology office visit, he has tried venlafaxine XR 37.5 mg every morning. He has no side effects. It helps anxiety ? a bit.? He has stayed on it for a while, then gone off when his mood is better, then more recently gone back on it for anxiety reasons. He has noticed no change in his headache pattern with venlafaxine XR. Headaches , however, have been ? pretty good.? He has been getting about 1 headache a week. It generally last 2 hours if it goes away with Aleve or if it is stronger, a migraine, with Excedrin. Sometimes it doesn? t go away and then it stays around all day. He thought about trying sumatriptan but decided against it when he read all the side effects. 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 We did not talk about sleep which became good when he switched to dayshift allowing normal sleep pattern (he generally sleeps 10 PM-7 AM). Presenting symptomatology was reviewed from initial consultation May 20, 2013: He has had headaches ever since he can remember in his childhood--his mother says since soon after his head injury with frontal lobe fracture at age 4-5 years of age. His headaches worsened significantly in high school and have been daily or at least every other day since. Headaches, on days that he is having headaches, last from seconds to hours. They involve dull, burning, sometimes cold pain, most prominent on the top and back of his head. There is sensitivity to light, sound, frequent dizziness and blurry vision, and occasional nausea with his headaches. He has been on amitriptyline for many years under the care of the pediatric neurology, Dr. Nunes. This has helped his headaches partially but significantly-they still occur daily, but headache is sometimes more mild and shorter. He reduced the dose from 75 mg nightly to 50 mg nightly at the advice of a psychiatrist recently. Headaches worsened. He also began experiencing cramping/spasm in his muscles and intermittent burning in his hands and feet when he reduced the amitriptyline dose. He has been on Fioricet for his headaches. This has not helped sufficiently. He has not taken it recently. Klonopin was tried for his anxiety. This gave him hallucination and unpleasant dreams and he stopped that medication. He is not currently on any medication for his anxiety.He has intermittent episodes of my mind shutting down and his arms and legs shaking. These tend to occur with intense headache, and/or with anxiety, and/or after he eats. 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 He thinks these happen maybe twice a month. His mother thinks that they might happen more frequently. His mother notes that when events starts, he gets pale, his eyes dilated, and he falls to the ground--at which point he is still alert and able to speak and communicate. He then starts thrashing (she shows a windmill movement of her arms and movements of the legs). He does not speak or respond during this portion. He remembers this portion, however. Jarrod Bertrand MD [address] [place] [address] [place], [phone], Formerly [facility] 08/12/2023 15:59:31
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
[2024-09-05 18:25] LABS: Amphetamine Screen Urine Not Detected (Not Detect); Barbiturates, Urine Not Detected (Not Detect); Benzodiazepines Screen Urine Not Detected (Not Detect); Buprenorphine Scr Not Detected (Not Detect); Cannabinoid Screen Urine Not Detected (Not Detect); Cocaine Screen Urine Not Detected (Not Detect); Fentanyl, urine Not Detected (Not Detect); Methadone Screen, Urine Not Detected (Not Detect); Opiate Screen Urine Not Detected (Not Detect); Oxycodone Screen Urine Not Detected (Not Detect); Phencyclidine Screen Urine Not Detected (Not Detect)
[2024-09-05 18:40] LABS: Acetaminophen LAB < 3 mcg/mL (<30); Salicylate < 5.0 mg/dL (15-30)
[2024-09-05 18:41] LABS: Alanine Aminotransferase 116 U/L (0-40); Albumin Level 4.1 g/dL (3.5-5.0); Alkaline Phosphatase 65 U/L (39-117); Anion Gap 10 (12-20); Aspartate Amino Transferase 47 U/L (5-37); Bilirubin Total 0.2 mg/dL (0.0-1.0); Blood Urea Nitrogen 10 mg/dL (9-16); Carbon Dioxide 25 mmol/L (22-29); Chloride 110 mmol/L (96-108); Creatinine Clr Calc Pharmacy 142.7; Estimated Glomerular Filt Rate > 60; Ethanol < 10 mg/dL; Glucose Random 105 mg/dL (60-115); Potassium 3.8 mmol/L (3.3-5.1); Sodium 141 mmol/L (135-145); Total Protein 6.8 g/dL (6.5-8.0)
[2024-09-05] MEDS: Amitriptyline HCl 25 MG TABLET 75 MG PO (22:53)
[2024-09-05] MEDS: OLANZapine 7.5 MG TABLET 15 MG PO (22:54)
--- NOTE | 2024-09-06 | ECG_ITS ---
Test Reason : CHECK PROLONGED QTC Blood Pressure : */* mmHG Vent. Rate : 93 BPM Atrial Rate : 93 BPM P-R Int : 138 ms QRS Dur : 92 ms QT Int : 334 ms P-R-T Axes : 61 76 27 degrees QTcB Int : 415 ms Normal sinus rhythm Incomplete right bundle branch block Borderline ECG When compared with ECG of 25-Aug-2024 08:26, No significant change was found Referred By: Yesika Barber Electronically Signed By: Kumar Brenner
[2024-09-06 06:30] VITALS: BP 126/88; PULSE 88; RESP 16; TEMP 36.7; O2SAT 95
--- NOTE | 2024-09-06 07:53 | PC.NURSE ---
Assumed care of patient at 0645, patient appears to be in no apparent distress this am, calm and cooperative, laying in bed, offers no complaints to this RN. Continue plan of care for inpatient bedsearch
[2024-09-06] MEDS: lamoTRIgine 25 MG TABLET 150 MG PO (08:31)
[2024-09-06] MEDS: Venlafaxine HCl ER 75 MG CAP.ER.24H PO (08:32)
[2024-09-06 12:45] VITALS: BP 128/88; PULSE 109; RESP 18; O2SAT 94
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
[2024-09-06 13:24] LABS: Alanine Aminotransferase 131 U/L (0-40); Albumin Level 4.5 g/dL (3.5-5.0); Alkaline Phosphatase 73 U/L (39-117); Anion Gap 15 (12-20); Aspartate Amino Transferase 49 U/L (5-37); Bilirubin Total 0.3 mg/dL (0.0-1.0); Blood Urea Nitrogen 9 mg/dL (9-16); Calcium 9.5 mg/dL (8.4-10.2); Carbon Dioxide 28 mmol/L (22-29); Chloride 105 mmol/L (96-108); Creatinine Clr Calc Pharmacy 111.1; Estimated Glomerular Filt Rate > 60; Glucose Random 98 mg/dL (60-115); Potassium 4.4 mmol/L (3.3-5.1); Sodium 144 mmol/L (135-145); Total Protein 7.9 g/dL (6.5-8.0)
[2024-09-06 16:04] VITALS: BMI 26.8
--- NOTE | 2024-09-06 17:26 | PC.ADMIT ---
Nursing Admission note: 28 year old male DX: Unspecified Depressive disorder. Referred for treatment by CARE team. Signed conditional voluntary for admission. Patient's brought him to ED secondary to reported suicidal ideation to drive car off a bridge. Patient also reported CAH that are telling him he is no good and useless, tell him to harm himself. Patient signed conditional voluntary for admission. Patient engaged easily, presented with good eye contact. Blunted affect. Dressed in hospital attire, attending to ADL's. Patient reports depressed mood with on going suicidal ideation. Reports thoughts to hang himself, or cut self. Denies intent at this time, feels safe on unit. States he will be able to notify staff if feeling he will act on ideations. Feels hopeless. Speech is soft, normal rate. States he has multiple stressors currently, loss of job, loss of cat, relational issues. Thoughts are linear and organized, continues to report +AH, +VH. States voices tell me to hurt myself, useless, no good . Reports VH are of faces, tobar moving. Patient reports poor sleep, difficulty falling and maintaining sleep. Nightmares. Denies appetite disturbances. Medical history includes SVT, History of TBI (1 y/o). Seizure disorder as teen, no recent seizures reported. Recent hospitalization for mycoplasma pneumonia, complicated by acute hypoxic respiratory failure/sepsis. TOX screen negative. Reports last use of alcohol 2 weeks ago. Non smoker. Declined flu shot. Oriented to unit, placed on unit safety checks. See nursing assessment for furtehr details/crisis evaluation for complete details.
--- NOTE | 2024-09-06 19:37 | PC.NURSE ---
Patient submitted 3 day notice up 09/09/24.
[2024-09-06 20:00] VITALS: BP 139/75; PULSE 90; TEMP 37.2; O2SAT 94
[2024-09-06] MEDS: Amitriptyline HCl 25 MG TABLET 75 MG PO (20:52)
[2024-09-06 20:53] VITALS: BP 139/75
[2024-09-06] MEDS: Prazosin HCL 1 MG CAPSULE PO (20:53)
[2024-09-06] MEDS: OLANZapine 7.5 MG TABLET 15 MG PO (20:54)
[2024-09-07 07:39] VITALS: BP 123/84; PULSE 93; RESP 16; TEMP 36.5; O2SAT 96
[2024-09-07 09:14] LABS: Cholesterol 229 mg/dL (<200); HDL Cholesterol 34 mg/dL (>40); LDL Cholesterol Calculated 150 mg/dL (<100); Triglycerides 229 mg/dL (<150)
[2024-09-07] MEDS: lamoTRIgine 25 MG TABLET 150 MG PO ×2 (09:21→09:22)
[2024-09-07] MEDS: Venlafaxine HCl ER 75 MG CAP.ER.24H PO (09:22)
--- NOTE | 2024-09-07 12:59 | P.PNPSI_ITS ---
Subjective Subjective Date of Service: 09/07/24 Reason For Visit: crisis Subjective Notes: Conditional Voluntary Interim History: Pt reports difficulty sleeping. However, per nursing, pt slept about 8 hrs. Pt reports he did not let nursing know he had difficulty sleeping. He reports he is not hearing voices today, that he hears mostly mumbling. He reports he had a new arrangement with his to try polyamorous relationship but he feels his went to far with it, I felt I was in the back seat. He reports he is working with his on new agreement. He denies SI/HI. He reports he has been working with therapist for over a year. He reports his understanding of his dx is schizoaffective disorder bipolar type- however, he does not seem to have classic signs of negative symptoms (socially withdrawn, constricted affect, abulia, poverty of thought or speech disturbances). He also does not appear internally preoccupied. There no signs of delusional content. Interestingly, his last admission was also in response to problems with interpersonal dynamic with his . No behavioral concerns. He denies side effects with current medications- including constipation, dry mouth, difficulty urinating (given that he is on amitriptyline and olanzapine). Review of Systems Review of Systems Yes all other systems are reviewed and are negative Mental Status Exam Mental Status Exam Narrative: Appearance: wearing casual clothing, good hygiene, in NAD Behavior: cooperative Psychomotor: no agitation or retardation noted Speech: clear, normal rate/rhythm/volume, spontaneous TP: linear TC: feeling better, working on relationship with . Mood: better Affect: congruent, bright, non labile, full range SI: none HI: none Perceptual disturbances: he does not appear internally preoccupied, despite report of CAH. He does report today is only whispers. Delusions: none Insight/judgment: poor x 2 Memory/cog: alert, oriented x 4. grossly intact to conversational testing. Diagnostics Vital Signs (24Hr): Vital Signs - 24 hr 09/06/24 20:00 09/06/24 20:53 09/07/24 07:39 Temperature 98.9 F 97.7 F Pulse Rate 90 93 Respiratory Rate 16 Blood Pressure 139/75 139/75 123/84 Pulse Oximetry 94 96 Oxygen Delivery Method Room Air Room Air BMI result Body Mass Index 26.8 Labs 09/05/24 18:16 09/06/24 13:04 Labs: Laboratory Results - last 48 hr 09/05/24 09/05/24 09/06/24 18:01 18:16 13:04 WBC 7.8 RBC 4.54 L Hgb 14.2 Hct 40.1 L MCV 88.3 MCH 31.3 MCHC 35.4 RDW 12.4 Plt Count 350 D MPV 8.8 L Immature Gran % (Auto) 0.8 H Neut % (Auto) 67.9 Lymph % (Auto) 20.9 [place] % (Auto) 8.5 Eos % (Auto) 1.4 Baso % (Auto) 0.5 Lymph # (Auto) 1.6 [place] # (Auto) 0.7 Eos # (Auto) 0.1 Baso # (Auto) 0.0 Abs Immat Gran (auto) 0.06 H Absolute Neuts (auto) 5.3 Absolute Nucleated RBC 0.000 Nucleated RBC % (auto) 0.0 Sodium 141 144 Potassium 3.8 4.4 Chloride 110 H 105 Carbon Dioxide 25 28 Anion Gap 10 L 15 BUN 10 9 Creatinine 0.88 1.13 Estim Creat Clear Calc 142.7 111.1 Estimated GFR > 60 > 60 Random Glucose 105 98 Calcium 9.0 9.5 Total Bilirubin 0.2 0.3 AST 47 H 49 H ALT 116 H 131 H Alkaline Phosphatase 65 73 Total Protein 6.8 7.9 Albumin 4.1 4.5 Triglycerides Cholesterol LDL Cholesterol, Calc HDL Cholesterol Urine Color Yellow Urine Appearance Clear Urine pH 7.0 Ur Specific [place] 1.020 Urine Protein Negative Urine Glucose (UA) Negative Urine Ketones Trace Urine Blood Negative Urine Nitrite Negative Ur Leukocyte Esterase Negative Salicylates < 5.0 L Urine Opiates Screen Not Detected Ur Buprenorphine Scrn Not Detected Ur Oxycodone Screen Not Detected Urine Methadone Screen Not Detected Urine Fentanyl Screen Not Detected Acetaminophen < 3 Ur Barbiturates Screen Not Detected Ur Phencyclidine Scrn Not Detected Ur Amphetamines Screen Not Detected U Benzodiazepines Scrn Not Detected Urine Cocaine Screen Not Detected U Marijuana (THC) Screen Not Detected Ethyl Alcohol < 10 09/07/24 08:52 WBC RBC Hgb Hct MCV MCH MCHC RDW Plt Count MPV Immature Gran % (Auto) Neut % (Auto) Lymph % (Auto) [place] % (Auto) Eos % (Auto) Baso % (Auto) Lymph # (Auto) [place] # (Auto) Eos # (Auto) Baso # (Auto) Abs Immat Gran (auto) Absolute Neuts (auto) Absolute Nucleated RBC Nucleated RBC % (auto) Sodium Potassium Chloride Carbon Dioxide Anion Gap BUN Creatinine Estim Creat Clear Calc Estimated GFR Random Glucose Calcium Total Bilirubin AST ALT Alkaline Phosphatase Total Protein Albumin Triglycerides 229 H Cholesterol 229 H LDL Cholesterol, Calc 150 H HDL Cholesterol 34 L Urine Color Urine Appearance Urine pH Ur Specific [place] Urine Protein Urine Glucose (UA) Urine Ketones Urine Blood Urine Nitrite Ur Leukocyte Esterase Salicylates Urine Opiates Screen Ur Buprenorphine Scrn Ur Oxycodone Screen Urine Methadone Screen Urine Fentanyl Screen Acetaminophen Ur Barbiturates Screen Ur Phencyclidine Scrn Ur Amphetamines Screen U Benzodiazepines Scrn Urine Cocaine Screen U Marijuana (THC) Screen Ethyl Alcohol Medications Medications Current Medications Acetaminophen (Acetaminophen 325 Mg Tablet) 650 mg PO Q6H PRN PRN Reason: Headache/Pain Mild Scale (1-3) Al Hydroxide/Mg Hydroxide (Magnesium Hydrox/Alum Hydrox 30 Ml Oral.Susp) 30 ml PO Q6H PRN PRN Reason: Heartburn/Nausea Amitriptyline HCl (Amitriptyline Hcl 25 Mg Tablet) 75 mg PO BEDTIME [facility] Last Admin: 09/06/24 20:52 Dose: 75 mg Hydroxyzine HCl (Hydroxyzine Hcl 25 Mg Tablet) 25 mg PO Q6H PRN PRN Reason: Anxiety Lamotrigine (Lamotrigine 25 Mg Tablet) 150 mg PO DAILY [facility] Last Admin: 09/07/24 09:22 Dose: 150 mg Lorazepam (Lorazepam 1 Mg Tablet) 1 mg PO BID PRN PRN Reason: anxiety Magnesium Hydroxide (Milk Of Magnesia 30 Ml Oral.Susp) 30 ml PO DAILY PRN PRN Reason: Constipation Nicotine (Nicotine 21 Mg Patch.Td24) 21 mg TRANSDERMA DAILY [facility] Last Admin: 09/07/24 09:25 Dose: Not Given Nicotine Polacrilex (Nicotine Polacrilex 2 Mg Gum) 4 mg BUCCAL Q2H PRN PRN Reason: Nicotine Cravings Olanzapine (Olanzapine 5 Mg Tablet) 5 mg PO Q4H PRN PRN Reason: psychosis/agitation Olanzapine (Olanzapine 10 Mg Tablet) 20 mg PO BEDTIME [facility] Perphenazine (Perphenazine 8 Mg Tablet) 8 mg PO BID PRN PRN Reason: anxiety Prazosin HCl (Prazosin Hcl 1 Mg Capsule) 1 mg PO BEDTIME [facility]; Protocol Last Admin: 09/06/24 20:53 Dose: 1 mg Trazodone HCl (Trazodone Hcl 50 Mg Tablet) 50 mg PO BEDTIME MRX1 PRN PRN Reason: Insomnia Venlafaxine HCl (Venlafaxine Hcl Er 75 Mg Cap.Er.24h) 75 mg PO DAILY [facility] Last Admin: 09/07/24 09:22 Dose: 75 mg Allergies Allergies Allergy/AdvReac Type Severity Reaction Status Date / Time aripiprazole Allergy Unknown Verified 09/05/24 17:38 Penicillins Allergy Hives Verified 09/05/24 17:38 sulfamethoxazole Allergy Unknown Verified 09/05/24 17:38 [From Bactrim] trimethoprim [From Bactrim] Allergy Unknown Verified 09/05/24 17:38 Assessment & Plan Assessment & Plan (1) Schizophrenia, paranoid type: Status: Acute Code(s): F20.0 - Paranoid schizophrenia Assessment and Plan: no noticeable negative symptoms, no acute signs of psychosis, ? if dx is accurate (2) PTSD (post-traumatic stress disorder): Status: Acute Code(s): F43.10 - Post-traumatic stress disorder, unspecified Plan Patient is a 28-year-old male with history of schizophrenia, PTSD and alcohol use disorder who self presented to [facility] due to suicidal ideation with a plan to drive his car off a bridge or to hang himself secondary to command hallucinations and increased depression. Plan: 09/07/2024-->he does not seem to have classic signs of negative symptoms (socially withdrawn, constricted affect, abulia, poverty of thought or speech disturbances). He also does not appear internally preoccupied. There no signs of delusional content. I question accuracy of dx of schizoaffective or schizophrenia spectrum disorder. Interestingly, his last admission was also in response to problems with interpersonal dynamic with his . Consider exploring axis 2 traits as part of clinical presentation. We did discuss increasing olanzapine to 20mg po qhs- mostly as pt reports may help better for sleep and mood. Reason for continued inpatient stay Substantial Risk for: inability to function Time Spent With Patient Time: Total time managing care of this patient today ____ minutes.
[2024-09-07] MEDS: hydrOXYzine HCL 25 MG TABLET PO (19:27)
[2024-09-07 20:00] VITALS: BP 136/89; PULSE 95; RESP 16; TEMP 36.8; O2SAT 96
[2024-09-07] MEDS: Prazosin HCL 1 MG CAPSULE PO (20:26)
[2024-09-07] MEDS: OLANZapine 10 MG TABLET 20 MG PO (20:26)
[2024-09-07] MEDS: Amitriptyline HCl 25 MG TABLET 75 MG PO (20:26)
[2024-09-07] MEDS: traZODone HCL 50 MG TABLET PO (21:35)
[2024-09-08 07:00] VITALS: BMI 26.8
[2024-09-08 08:00] VITALS: BP 131/81; PULSE 89; RESP 14; TEMP 36.6; O2SAT 95
[2024-09-08] MEDS: lamoTRIgine 25 MG TABLET 150 MG PO (08:45)
[2024-09-08] MEDS: Venlafaxine HCl ER 75 MG CAP.ER.24H PO (08:47)
--- NOTE | 2024-09-08 09:35 | P.PNPSI_ITS ---
Subjective Subjective Date of Service: 09/08/24 Reason For Visit: crisis Subjective Notes: 3 Day Interim History: 3 day notice up on 09/09/24. Pt reports feeling better than when I came in ; pt stated, the voices went away . denies SI/HI/VH/AH. Pt plans on following up with his outpatient providers. Medication Compliance: Yes Side effects from medications: No Attending Groups: No Mental Status Exam Mental Status Exam Narrative: Pt is alert and oriented; behavior is cooperative and calm; dressed in casual attire; mood is described as good ; eye contact appropriate; Speech is normal rate, volume and not pressured; thought process is organized; Thought content is on tx; denies SI/HI/VH/AH. Diagnostics Vital Signs (24Hr): Vital Signs - 24 hr 09/07/24 20:00 09/08/24 08:00 Temperature 98.3 F 97.8 F Pulse Rate 95 89 Respiratory Rate 16 14 Blood Pressure 136/89 131/81 Pulse Oximetry 96 95 Oxygen Delivery Method Room Air Room Air BMI result Body Mass Index 26.8 Labs 09/05/24 18:16 09/06/24 13:04 Labs: Laboratory Results - last 48 hr 09/06/24 09/07/24 13:04 08:52 Sodium 144 Potassium 4.4 Chloride 105 Carbon Dioxide 28 Anion Gap 15 BUN 9 Creatinine 1.13 Estim Creat Clear Calc 111.1 Estimated GFR > 60 Random Glucose 98 Calcium 9.5 Total Bilirubin 0.3 AST 49 H ALT 131 H Alkaline Phosphatase 73 Total Protein 7.9 Albumin 4.5 Triglycerides 229 H Cholesterol 229 H LDL Cholesterol, Calc 150 H HDL Cholesterol 34 L Medications Medications Current Medications Acetaminophen (Acetaminophen 325 Mg Tablet) 650 mg PO Q6H PRN PRN Reason: Headache/Pain Mild Scale (1-3) Al Hydroxide/Mg Hydroxide (Magnesium Hydrox/Alum Hydrox 30 Ml Oral.Susp) 30 ml PO Q6H PRN PRN Reason: Heartburn/Nausea Amitriptyline HCl (Amitriptyline Hcl 25 Mg Tablet) 75 mg PO BEDTIME [facility] Last Admin: 09/07/24 20:26 Dose: 75 mg Hydroxyzine HCl (Hydroxyzine Hcl 25 Mg Tablet) 25 mg PO Q6H PRN PRN Reason: Anxiety Last Admin: 09/07/24 19:27 Dose: 25 mg Lamotrigine (Lamotrigine 25 Mg Tablet) 150 mg PO DAILY [facility] Last Admin: 09/08/24 08:45 Dose: 150 mg Lorazepam (Lorazepam 1 Mg Tablet) 1 mg PO BID PRN PRN Reason: anxiety Magnesium Hydroxide (Milk Of Magnesia 30 Ml Oral.Susp) 30 ml PO DAILY PRN PRN Reason: Constipation Nicotine (Nicotine 21 Mg Patch.Td24) 21 mg TRANSDERMA DAILY [facility] Last Admin: 09/08/24 08:48 Dose: Not Given Nicotine Polacrilex (Nicotine Polacrilex 2 Mg Gum) 4 mg BUCCAL Q2H PRN PRN Reason: Nicotine Cravings Olanzapine (Olanzapine 5 Mg Tablet) 5 mg PO Q4H PRN PRN Reason: psychosis/agitation Olanzapine (Olanzapine 10 Mg Tablet) 20 mg PO BEDTIME [facility] Last Admin: 09/07/24 20:26 Dose: 20 mg Perphenazine (Perphenazine 8 Mg Tablet) 8 mg PO BID PRN PRN Reason: anxiety Prazosin HCl (Prazosin Hcl 1 Mg Capsule) 1 mg PO BEDTIME [facility]; Protocol Last Admin: 09/07/24 20:26 Dose: 1 mg Trazodone HCl (Trazodone Hcl 50 Mg Tablet) 50 mg PO BEDTIME MRX1 PRN PRN Reason: Insomnia Last Admin: 09/07/24 21:35 Dose: 50 mg Venlafaxine HCl (Venlafaxine Hcl Er 75 Mg Cap.Er.24h) 75 mg PO DAILY [facility] Last Admin: 09/08/24 08:47 Dose: 75 mg Allergies Allergies Allergy/AdvReac Type Severity Reaction Status Date / Time aripiprazole Allergy Unknown Verified 09/05/24 17:38 Penicillins Allergy Hives Verified 09/05/24 17:38 sulfamethoxazole Allergy Unknown Verified 09/05/24 17:38 [From Bactrim] trimethoprim [From Bactrim] Allergy Unknown Verified 09/05/24 17:38 Assessment & Plan Assessment & Plan (1) Schizophrenia, paranoid type: Status: Acute Code(s): F20.0 - Paranoid schizophrenia Assessment and Plan: no noticeable negative symptoms, no acute signs of psychosis, ? if dx is accurate (2) PTSD (post-traumatic stress disorder): Status: Acute Code(s): F43.10 - Post-traumatic stress disorder, unspecified Plan Patient is a 28-year-old male with history of schizophrenia, PTSD and alcohol use disorder who self presented to [facility] due to suicidal ideation with a plan to drive his car off a bridge or to hang himself secondary to command hallucinations and increased depression. Plan: 09/07/2024-->he does not seem to have classic signs of negative symptoms (socially withdrawn, constricted affect, abulia, poverty of thought or speech disturbances). He also does not appear internally preoccupied. There no signs of delusional content. I question accuracy of dx of schizoaffective or schizophrenia spectrum disorder. Interestingly, his last admission was also in response to problems with interpersonal dynamic with his . Consider exploring axis 2 traits as part of clinical presentation. We did discuss increasing olanzapine to 20mg po qhs- mostly as pt reports may help better for sleep and mood. 09/08: 3 day notice up on 09/09/24. Pt reports feeling better than when I came in ; pt stated, the voices went away . denies SI/HI/VH/AH. Pt plans on following up with his outpatient providers. plan to discharge home tomorrow. Patient educated on: diagnosis and medication risk/benefits Reason for continued inpatient stay Substantial Risk for: stable for discharge Time Spent With Patient Time: Total time managing care of this patient today _20___ minutes.
[2024-09-08 20:00] VITALS: BP 120/82; PULSE 93; RESP 16; TEMP 36.6; O2SAT 96
[2024-09-08] MEDS: Amitriptyline HCl 25 MG TABLET 75 MG PO (20:18)
[2024-09-08] MEDS: Prazosin HCL 1 MG CAPSULE PO (20:19)
[2024-09-08] MEDS: OLANZapine 10 MG TABLET 20 MG PO (20:19)
[2024-09-08] MEDS: hydrOXYzine HCL 25 MG TABLET PO (20:24)
[2024-09-09 07:55] VITALS: BP 132/83; PULSE 85; RESP 14; TEMP 36.8; O2SAT 94
[2024-09-09] MEDS: lamoTRIgine 100 MG TABLET PO (09:15)
[2024-09-09] MEDS: Venlafaxine HCl ER 75 MG CAP.ER.24H PO (09:15)
[2024-09-09] MEDS: lamoTRIgine 25 MG TABLET 50 MG PO (09:16)
== END 2024-09-09 11:05 | disposition home or self-care (01) | DRG 750 ==
LOC: HO.ED 09-06 10:28 → HO.PADLT16 09-06 12:04
PROVIDERS: Physician Assistant Medical; Admitting Provider Registered Nurse; Emergency Provider Emergency Medicine Emergency Medical Services; Responsible Provider Registered Nurse; Visit Provider Psychiatry & Neurology Psychiatry
DX: F20.0 Paranoid schizophrenia (principal); R45.851 Suicidal ideations; F43.10 Post-traumatic stress disorder, unspecified; Z79.899 Other long term (current) drug therapy; Z87.891 Personal history of nicotine dependence
CPT/HCPCS: 36415; 80053; 80061; 80143; 80179; 80307; 81003; 85025; 93005; 99285; S9485

== ENCOUNTER → 2024-09-06 10:35 | Outpatient (BNV) | payer OTHER, SELFPAY | PROVIDERS: Admitting Provider Registered Nurse; Emergency Provider Emergency Medicine Emergency Medical Services; Visit Provider Internal Medicine Cardiovascular Disease | DX: I45.81 Long QT syndrome (principal) | CPT/HCPCS: 93010 ==

== ENCOUNTER → 2024-09-06 11:59 | Outpatient (BNV) | payer OTHER, SELFPAY | PROVIDERS: Admitting Provider Registered Nurse; Emergency Provider Emergency Medicine Emergency Medical Services; Responsible Provider Registered Nurse; Visit Provider Registered Nurse | DX: F20.0 Paranoid schizophrenia (principal); F43.11 Post-traumatic stress disorder, acute | CPT/HCPCS: 90792; 99231; 99232 ==

== ENCOUNTER → 2024-09-06 11:59 | Outpatient (BNV) | payer OTHER, SELFPAY | PROVIDERS: Admitting Provider Registered Nurse; Emergency Provider Emergency Medicine Emergency Medical Services; Responsible Provider Registered Nurse; Visit Provider Psychiatry & Neurology Psychiatry | DX: F20.0 Paranoid schizophrenia (principal); F43.11 Post-traumatic stress disorder, acute | CPT/HCPCS: 99238 ==

== ENCOUNTER 2024-09-13 13:09 | Inpatient (IN) | payer OTHER, SELFPAY ==
--- NOTE | 2024-09-13 | ECG_ITS ---
Test Reason : R/O PROLONGED QTC Blood Pressure : */* mmHG Vent. Rate : 87 BPM Atrial Rate : 87 BPM P-R Int : 142 ms QRS Dur : 100 ms QT Int : 352 ms P-R-T Axes : 61 82 11 degrees QTcB Int : 423 ms Normal sinus rhythm with Fusion complexes Incomplete right bundle branch block Borderline ECG When compared with ECG of 06-Sep-2024 10:35, No significant change was found Referred By: Syed Mead Electronically Signed By: CHELO HGOAN MD
--- NOTE | ~2024-09-13 | XR_ITS ---
EXAMINATION: XR ANKLE, RIGHT CLINICAL INFORMATION: pain COMPARISON: None available. TECHNIQUE: AP, lateral, and mortise views of the right ankle. FINDINGS: Suspect a tiny avulsion fracture arising from the lateral process of the talus, seen on the AP view only. Otherwise, no additional fractures identified. No dislocation or malalignment. Mortise is preserved. Talar dome is normal. Midfoot and hindfoot appear normal. Subtalar joints appear normal. There is lateral soft tissue swelling. XR/XR ankle RT min 3V IMPRESSION: Suspect a tiny avulsion fracture arising from the lateral process of the talus, seen on the AP view only. Electronically signed by: Luis Antonio Sesay MD 09/13/2024 04:17 PM ABDON
[2024-09-13 13:26] VITALS: BP 141/87; PULSE 102; RESP 18; TEMP 36.4; O2SAT 97; BMI 27.0
--- NOTE | 2024-09-13 13:27 | ED.GENADULT ---
HPI - General Adult General Chief complaint: Psychiatric Symptoms Stated complaint: SI Crisis Time Seen by Provider: 09/13/24 13:37 Source: patient Mode of arrival: ambulatory Limitations: no limitations History of Present Illness HPI narrative: This is a 28-year-old man with a past medical history of SVT, TBI, seizure disorder, schizophrenia, alcohol abuse, recent admission in August 22, 2024 acute respiratory failure with hypoxia secondary to mycoplasma pneumonia treated with azithromycin who presents for evaluation of suicidal ideation. Patient states that he was recently hospitalized and was doing well. He states that he finishes antibiotics as prescribed. He states that she got into an argument with his who told him that she wants to divorce. He states increasing depression as a result of this. He states also hearing voices that are telling him to hurt himself. He states having suicidal ideations with thoughts of cutting himself or jumping off a bridge. He states that he has never attempted suicide in the past. He states that he has previously self, but states nothing recently. He states no fevers, cough, chest pain or dyspnea. He states no headache, neck pain, back pain, abdominal pain, nausea or vomiting. He states no urinary symptoms or changes in bowel habits. He states that he did twist his right ankle going down a few steps few days prior to presentation. He states that he is having some pain in his right ankle is resolved. Related Data Home Medications ?Medication ?Instructions ?Recorded ?Confirmed amitriptyline 75 mg tablet 75 mg PO BEDTIME 10/03/23 09/13/24 lamotrigine 150 mg tablet 150 mg PO DAILY depressive disorder 04/13/24 09/13/24 lorazepam 1 mg tablet 1 mg PO BID PRN anxiety 09/05/24 09/13/24 hydroxyzine pamoate 50 mg capsule 50 mg PO TID PRN anxiety 09/13/24 09/13/24 metoprolol tartrate 25 mg tablet 25 mg PO BID 09/13/24 09/13/24 Previous Rx's ?Medication ?Instructions ?Recorded venlafaxine 75 mg capsule,extended 75 mg PO DAILY 30 days #30 caps 10/06/23 release 24 hr olanzapine 20 mg tablet 20 mg PO BEDTIME 30 days #30 tabs 09/08/24 Allergies Allergy/AdvReac Type Severity Reaction Status Date / Time aripiprazole Allergy Unknown Verified 09/13/24 13:26 Penicillins Allergy Hives Verified 09/13/24 13:26 sulfamethoxazole Allergy Unknown Verified 09/13/24 13:26 [From Bactrim] trimethoprim [From Bactrim] Allergy Unknown Verified 09/13/24 13:26 Review of Systems Review of Systems: ROS as per HPI [facility] Past Medical History Medical History (Updated 09/13/24 @ 16:30 by Syed Mead MD) Alcohol use disorder Elevated LFTs Routine medical exam TBI (traumatic brain injury) Seizures SVT (supraventricular tachycardia) Surgical History History of appendectomy Social History Social History Household Members: Family Household Members Other:: 2 Housing: House Do you presently have visiting nurse or other home services: No Alcohol intake: current Alcohol intake frequency: holidays/special occasions only Alcohol type: beer Patient Tobacco Use Status: Former Tobacco user Tobacco use type: Cigarette Cigarette Packs Per Day: 0 Cigarettes Per Day: 0 Years Smoked: 8 Smoked in Last 30 Days: No e-Cigarette/Vaping Use: Never Used Patient Interested in Nicotine Replacement: No Patient Given Instructions on How to Stop Smoking: No Second Hand Smoke Exposure: No Use of substances other than those prescribed or required for medical reasons: No Substance Use Type: Marijuana Currently Displaying Signs/Symptoms of Drug Intoxication Withdrawal: No Any prior treatment program specific to substance use: No Have you been hit, kicked, punched, or otherwise hurt by someone within the past year? If so, by whom?: No Do you feel safe in your current relationship?: Yes Is there a partner from a previous relationship who is making you feel unsafe now?: No Are you made to feel afraid or neglected: No Advance Directives: No Advance Directives Information Provided: Yes Do you have thoughts of harming others: None Do you have a plan to hurt others: No Plan Recently lost weight without trying: No Eating poorly because of decreased appetite: No Nutrition Risks: No Nutritional Risk Poor oral hygiene: No service: No Sexual orientation: Bisexual Physical Exam ED Vital Signs: Vital Signs - 24 hr 09/13/24 18:35 Respiratory Rate 14 BMI result Body Mass Index 27.0 Gen: NAD, AOx3 HEENT: NCAT, EOMI, normal conjunctiva CV: RRR 2+ bilateral radial and DP/PT pulses Pulm: CTAB, no increased work of breathing GI: Soft, NTND, no rebound, guarding or rigidity Neuro: Grossly non focal, sensation intact to light touch in bilateral lower extremities MSK: Bilateral upper and lower extremity compartments are soft with intact overlying skin, tenderness to palpation to the right lateral ankle with associated edema/ecchymosis Skin: Warm, dry, no abrasions or lacerations Course Course Course Narrative: RME: 28-year-old male presents to ED for suicidal statement and suicide or thoughts. Patient states his suicidal, about 2 to voice some. Labs care team consult placed. Patient brought back to [facility] Medications Administered Generic Name Dose Route Start Last Admin Trade Name Freq PRN Reason Stop Dose Admin Hydroxyzine HCl 50 mg 09/13/24 23:34 09/14/24 00:15 Hydroxyzine Hcl 50 Mg Tablet PO 50 mg TID PRN Administration anxiety Lamotrigine 150 mg 09/14/24 09:30 09/14/24 09:38 Lamotrigine 100 Mg Tablet PO 150 mg DAILY BRITT[facility] Administration Metoprolol Tartrate 25 mg 09/14/24 09:00 09/14/24 08:34 Metoprolol Tartrate 25 Mg Tablet PO 25 mg BID BRITTNY Administration Protocol Trazodone HCl 50 mg 09/13/24 23:34 09/14/24 00:15 Trazodone Hcl 50 Mg Tablet PO 50 mg BEDTIME MRX1 PRN Administration Insomnia Venlafaxine HCl 75 mg 09/14/24 09:00 09/14/24 08:34 Venlafaxine Hcl Er 75 Mg Cap.Er.24h PO 75 mg DAILY BRITTNY Administration Discontinued Medications Generic Name Dose Route Start Last Admin Trade Name Freq PRN Reason Stop Dose Admin Ibuprofen 600 mg 09/13/24 14:46 09/13/24 16:41 Ibuprofen 600 Mg Tablet PO 09/13/24 14:47 600 mg ONCE ONE Administration Nicotine 21 mg 09/14/24 09:00 09/14/24 08:36 Nicotine 21 Mg Patch.Td24 TRANSDERMA Not Given DAILY BRITTNY Medical Decision Making Medical Decision Making MDM Narrative: Differential diagnosis includes, but is not limited to anxiety, depression, suicide ideation. Care is transitioned to Dr. Kent at the end of my shift at 2100 with disposition pend psych eval. Admission/Observation Consideration of admission/observation: Escalation of care including admission/observation considered Consult Healthcare Provider Management of the patient was discussed with: Oncology Transplant Network Manager I discussed the patient's case and management with foreign law consultant Orthopedic surgery, Ariadne Givens, who recommends walking boot and weight-bearing as tolerated. Walking boot provided Lab Data MDM Lab Attestation statement: I reviewed the patient's lab results. Labs as below are benign and reassuring. 09/13/24 13:57 09/14/24 08:21 Labs: Lab Results 09/13/24 09/13/24 Range/Units 13:57 20:04 WBC 9.9 (4.8-10.8) X10*3/uL RBC 4.69 (4.60-5.80) X10*6/uL Hgb 14.7 (14.0-18.0) g/dl Hct 42.2 (42.0-52.0) % MCV 90.0 (80.0-98.0) fL MCH 31.3 (27.0-33.0) pg MCHC 34.8 (31.0-36.0) g/dl RDW 12.4 (11.0-16.0) % Plt Count 353 (160-400) X10*3/uL MPV 9.2 L (9.4-12.4) fL Immature Gran % (Auto) 0.3 (0.0-0.4) % Neut % (Auto) 83.6 H (45-73) % Lymph % (Auto) 8.4 L (20-40) % [place] % (Auto) 7.1 (2-11) % Eos % (Auto) 0.3 (0-4) % Baso % (Auto) 0.3 (0-2) % Lymph # (Auto) 0.8 L (1.2-4.9) X10*3/uL [place] # (Auto) 0.7 (0.1-1.2) X10*3/uL Eos # (Auto) 0.0 (0.0-0.4) X10*3/uL Baso # (Auto) 0.0 (0.0-0.2) X10*3/uL Abs Immat Gran (auto) 0.03 (0.00-0.03) X10*3/uL Absolute Neuts (auto) 8.3 (2.0-8.3) x10*3/uL Absolute Nucleated RBC 0.000 (0.0-0.012) X10*3/uL Nucleated RBC % (auto) 0.0 (0.0-0.2) /100WBC Sodium 142 (135-145) mmol/L Potassium 4.0 (3.3-5.1) mmol/L Chloride 109 H (96-108) mmol/L Carbon Dioxide 26 (22-29) mmol/L Anion Gap 11 L (12-20) BUN 10 (9-16) mg/dL Creatinine 0.93 (0.5-1.4) mg/dL Estim Creat Clear Calc 135.0 Estimated GFR > 60 Random Glucose 105 (60-115) mg/dL Calcium 9.2 (8.4-10.2) mg/dL Total Bilirubin 0.5 (0.0-1.0) mg/dL AST 42 H (5-37) U/L ALT 95 H (0-40) U/L Alkaline Phosphatase 78 (39-117) U/L Total Protein 7.4 (6.5-8.0) g/dL Albumin 4.5 (3.5-5.0) g/dL Urine Opiates Screen Not Detected (Not Detect) Ur Buprenorphine Scrn Not Detected (Not Detect) ng/mL Ur Oxycodone Screen Not Detected (Not Detect) ng/mL Urine Methadone Screen Not Detected (Not Detect) ng/mL Urine Fentanyl Screen Not Detected (Not Detect) Ur Barbiturates Screen Not Detected (Not Detect) Ur Phencyclidine Scrn Not Detected (Not Detect) Ur Amphetamines Screen Not Detected (Not Detect) U Benzodiazepines Scrn Not Detected (Not Detect) Urine Cocaine Screen Not Detected (Not Detect) U Marijuana (THC) Screen Not Detected (Not Detect) Ethyl Alcohol < 10 mg/dL Radiology Impression Discussion of test interpretation with radiology: I have reviewed the radiologist's reading. Radiologist Impression: XR/XR ankle RT min 3V IMPRESSION: Suspect a tiny avulsion fracture arising from the lateral process of the talus, seen on the AP view only. Electronically signed by: Luis Antonio Sesay MD 09/13/2024 04:17 PM [facility] Dictated By: Luis Antonio Sesay MD Signed By: <Electronically signed by Luis Antonio Sesay MD in OV> 09/13/24 [id number] Discharge Plan Discharge Clinical Impression: Suicidal ideation, Avulsion fracture of right talus Patient Disposition: Admitted As Inpatient Interventions: Admission Worksheet (ED) Last Done: 09/13/24 22:01 Discharge Date/Time: 09/13/24 23:51
[2024-09-13 14:03] LABS: MANUAL DIFF FLAG NO
[2024-09-13 14:04] LABS: Basophils Percent Auto 0.3 % (0-2); Eosinophils Percent Auto 0.3 % (0-4); Hematocrit 42.2 % (42.0-52.0); Hemoglobin 14.7 g/dl (14.0-18.0); Imm Gran Abs Auto 0.03 X10*3/uL (0.00-0.03); Imm Gran Pct Auto 0.3 % (0.0-0.4); Lymphocytes Absolute Auto 0.8 X10*3/uL (1.2-4.9); Lymphocytes Percent Auto 8.4 % (20-40); Mean Corpuscular HGB Conc 34.8 g/dl (31.0-36.0); Mean Corpuscular Hemoglobin 31.3 pg (27.0-33.0); Mean Platelet Volume 9.2 fL (9.4-12.4); Monocytes Absolute Auto 0.7 X10*3/uL (0.1-1.2); Monocytes Percent Auto 7.1 % (2-11); Neutrophils Absolute Auto 8.3 x10*3/uL (2.0-8.3); Neutrophils Percent Auto 83.6 % (45-73); Platelet Count 353 X10*3/uL (160-400); Red Blood Count 4.69 X10*6/uL (4.60-5.80); Red Cell Distribution Width 12.4 % (11.0-16.0); White Blood Count 9.9 X10*3/uL (4.8-10.8)
[2024-09-13 14:21] LABS: Alanine Aminotransferase 95 U/L (0-40); Albumin Level 4.5 g/dL (3.5-5.0); Alkaline Phosphatase 78 U/L (39-117); Anion Gap 11 (12-20); Aspartate Amino Transferase 42 U/L (5-37); Bilirubin Total 0.5 mg/dL (0.0-1.0); Blood Urea Nitrogen 10 mg/dL (9-16); Calcium 9.2 mg/dL (8.4-10.2); Carbon Dioxide 26 mmol/L (22-29); Chloride 109 mmol/L (96-108); Estimated Glomerular Filt Rate > 60; Ethanol < 10 mg/dL; Glucose Random 105 mg/dL (60-115); Sodium 142 mmol/L (135-145); Total Protein 7.4 g/dL (6.5-8.0)
--- OUTSIDE RECORDS SUMMARY | 2024-09-13 14:47 | XMS_ITS | Clinical Summary ---
Author Organization [facility] Address [address] [place] [address] Care Team Providers Care Reliability Technician Name Role Phone Joy Gracia MD Primary Care Provide r Allergies Active Allergy Reactions Criticality Noted Date Comments Sulfamethoxazole-Trimethoprim 2018 Clarithromycin Nausea And Vomiting 05/20/2019 GI upset Other 05/03/2019 Penicillins 03/28/2019 Medications Medication Sig Dispensed Refills Start Date End Date Status amitriptyline (ELAVIL) 75 MG tablet 2 03/15/2019 Act stevie lidocaine (LIDODERM) 5 % apply 1 patch topically once daily 0 02/04/2019 Active venlafaxine (EFFEXOR-XR) 37.5 MG 24 hr capsule TK 1 C PO QAM WF 11 04/18/2019 Activ e Active Problems Problem Noted Date Diagnosed Date Chronic midline low back pain without sciatica 1 09/11/2018 Lumbosacral pain 04/18/2019 Work related injury 04/18/2019 Family History Medical History Relation Name Comments Hyperlipidemia Father Relation Name Status Comments Father Social History Tobacco Use Types Packs/Day Years Used Date Smoking Tobacco: Unknown Smokeless Tobacco: Never Alcohol Use Standard Drinks/Week Comments Yes 0 (1 standard drink = 0.6 oz pur e alcohol) Sex and Gender Information Value Date Recorded Sex Assigned at Not on file Gender Identity Not on file Sexual Orientation Not on file Last Filed Vital Signs Vital Sign Reading Time Taken Comments Blood Pressure - - Pulse 88 07/11/2019 4:36 PM EST Temperature - - Respiratory Rate - - Oxygen Saturation 97% 07/11/2019 4:36 PM EST Inhaled Oxygen Concentration - - Weight 91.6 kg (202 lb) 07/11/2019 4:36 PM EST Height 182.9 cm (6') 07/11/2019 4:36 PM EST Body Mass Index 27.4 07/11/2019 4:36 PM EST Plan of Treatment Health Maintenance Due Date Last Done Comments Hepatitis B Vaccines (1 of 3 - 3-dose series) 1993 Hepatitis C Screening 1993 COVID-19 Vaccine (#1) 04/20/1994 Depression Screening 2005 BMI Counseling 10/19/2011 Preventative Health Evaluation 10/19/2011 DTap / Tdap / Td (1 - Tdap) 2012 Influenza Vaccine (#1) 2024 Pneumococcal Vaccine Aged Out No long er eligible based on patient's age to complete this topic RSV Ped < 20 months Aged Out No longe r eligible based on patient's age to complete this topic Care Teams Reliability Technician Relationship Specialty Start Date End Date Joy Gracia MD [address] [place] [phone] PCP - General Internal Medicine 03/30/19
--- OUTSIDE RECORDS SUMMARY | 2024-09-13 14:47 | XMS_ITS | Encounter Summary ---
Author Organization [facility] Address [address] [place] [address] Care Team Providers Care Advertising Designer Name Role Phone Michelle Gamez MD Primary Care Prov ider Reason for Visit * Reason Onset Date Comments Hospital Follow-up 09/07/2024 Encounter Details Date Type Department Care Team (Late st Contact Info) Description 09/07/2024 Telephone Adult Medicine [address] [phone] Michelle Gamez MD [address] [place] [phone] Hospital Follow-up Social History Tobacco Use Types Packs/Day Years Used Date Smoking Tobacco: Former Smokeless Tobacco: Never Comments:2 yrs Alcohol Use Standard Drinks/Week Comments Yes 0 (1 standard drink = 0.6 oz pur e alcohol) once weekly 2 -3 drinks Sex and Gender Information Value Date Recorded Sex Assigned at Not on file Legal Sex Male 7:00 AM EST Gender Identity Not on file Sexual Orientation Not on file documented as of this encounter Progress Notes * Marie Cruz RN - 09/07/2024 10:59 AM EST Scheduled follow up for 09/14 at 10:15 * Rhona Leonardo - 09/07/2024 10:44 AM EST Hospital/ER follow up appointment needed Hospital patient was treated at: [facility] Was this only an ER visit or was the patient admitted to the hospital? Admitted to the hospital/kept overnight Date of visit if ER visit only: n/a If patient was admitted what was the date of discharge? 09/06/24 - discharge on 09/09/24 Reason/diagnosis for visit or stay: ptsd and paranoid schizophrenia When was the patient told to follow up? 7-10 days Was visit or stay related to an injury? If yes, what was the date of injury (DOI)? No If yes, was the injury due to: Not 3rd green party related documented in this encounter Plan of Treatment Upcoming Encounters Date Type Department Care Team (Late st Contact Info) Description 09/14/2024 10:30 AM EST Office Visit Adult Medicine [address] [phone] Michelle Gamez MD [address] [place] [phone] documented as of this encounter Visit Diagnoses Not on filedocumented in this encounter Care Teams Advertising Designer Relationship Specialty Start Date End Date Michelle Gamez MD PCP - General Internal Medicine 03/03/22 documented as of this encounter
--- OUTSIDE RECORDS SUMMARY | 2024-09-13 14:47 | XMS_ITS | Clinical Summary ---
Author Organization [address] Address [address] [place] [phone] Phone Care Team Providers Care Canoe Inspector Final Name Role Phone Michelle Gamez MD Primary Care Prov ider Allergies Active Allergy Reactions Criticality Noted Date Comments Aripiprazole 10/16/2021 Clarithromycin Nausea And Vomiting 05/20/2019 GI upset Penicillins 05/03/2019 Sulfamethoxazole-Trimethoprim 2018 Trimethoprim 01/07/2023 Medications amitriptyline (ELAVIL) 75 mg tablet Take by mouth at bedtime. Active cyclobenzaprine (FLEXERIL) 5 mg tablet Take 1 tablet (5 mg total) by mouth 2 (two) times a day if needed for muscle spasms. 4 Active OLANZapine (ZyPREXA) 15 mg tablet Take 1 tablet (15 mg total) by mouth at bedtime. FOR MOOD, SLEEP Active venlafaxine (EFFEXOR) 75 mg tablet Take 1 tablet (75 mg total) by mouth 1 (one) time each day. Active lamoTRIgine (LaMICtal) 150 mg tablet TAKE 1 TABLET BY MOUTH ONCE A DAY MOOD STABILITY 4 Active LORazepam (ATIVAN) 1 mg tablet TAKE 1 TABLET BY MOUTH TWICE A DAY NEEDED ANXIETY, AGITATION 4 Active naproxen (NAPROSYN) 500 mg tablet Take 1 tablet (500 mg total) by mouth 2 (two) times a day. for 7 days 4 Active perphenazine 8 mg tablet TAKE 1 TABLET BY MOUTH TWICE A DAY NEEDED FOR INTRUSIVE THOUGHTS ANXIETY 4 Active hydrOXYzine pamoate (VISTARIL) 50 mg capsule TAKE 1 CAPSULE BY MOUTH THREE TIMES A DAY NEEDED FOR ANXIETY/ANGER 4 Active Active Problems Problem Noted Date Diagnosed [...] Encounters Date Type Department Care Team Description 09/07/2024 Telephone Adult Medicine [address] [phone] Michelle Hurtado MD Hospital Follow-up 06/24/2024 8:00 AM EST Office Visit Adult Medicine [address] [phone] Manuela Allred PA Adult general medical examination [...] TONSILLECTOMY ADENOIDECTOMY, BILATERAL MYRINGOTOMY AND TUBES PROCEDURE: NM TONSILLECTOMY & ADENOIDECTOMY <AGE 10 OTHER SURGICAL HISTORY Left PROCEDURE: NM ORCHIECTOMY PARTIAL; COMMENT: as a child for [...] on file Sexual Orientation Not on file Obstetrics History Last Filed [...] 06/24/2024 8:15 AM EST Plan of Treatment Upcoming Encounters Date Type Department Care Team (Late st Contact Info) Description 09/14/2024 10:30 AM EST Office Visit Adult Medicine [facility] [address] [place] [phone] Michelle Gamez MD [address] [place] [phone] Health Maintenance Due Date Last Done Comments Hepatitis A Vaccines (1 of 2 - Risk 2-dose series) 2012 Social Influencers of Health Screening 07/12/2022 DTaP,Tdap,and Td Vaccines (3 - Td or Tdap) 07/09/2023 01/07/2023, 09/16/2019 COVID-19 Vaccine (3 - 2023-2 5 season) 2024 04/13/2021, 03/23/2021 Depression Screening 10/19/2024 10/20/2023 Cholesterol Screening (Lipid Panel) 01/08/2028 01/07/2023 HIB Vaccines Aged Out No longer eligi [...] patient's age to complete this topic Meningococcal B Vacine Aged Out No lo nger eligible based on patient's age to complete [...] Screening (10/20/2023) Depression Screening Abstracted Historical Provider HEALTH MAINTENANCE Final Result * (ABNORMAL) Lipid panel (01/07/2023) LDL/HDL Ratio 6(A) 0 - 4 Triglycerides 195(A) 0 - 150 mg/dL Cholesterol 238(A) 0 - 200 mg/dL HDL 42 >=40 mg/dL LDL Cholesterol 157(A) 0 - 100 mg/dL Blood Venous blood specimen / Unknown Historical Provider LAB BLOOD ORDERABLES Svetlana l Result from Last 3 Months or Most Recently Relevant to Health Maintenance Insurance [facility] [id number] Care Teams Canoe Inspector Final Relationship Specialty Start Date End Date Michelle Gamez MD PCP - General Internal Medicine 03/03/22
--- OUTSIDE RECORDS SUMMARY | 2024-09-13 14:47 | XMS_ITS | Data Portability ---
Author Organization [facility], [facility] [facility] Address [address] [facility] [place] [address] Care Team Providers Care Hop Farm Worker Name Role Phone KODI CARLSON Referring Provider Unavailable KODI CARLSON Referring Provider PIERRE QUINTERO Primary Care Provider [facility] Primary Care Provider [facility] OTHER Assessment Encounter Date Assessment Date Assessment [...] continue to consider, as needed, using our [employer] website and/or signing up for [facility] e-mail portal. Followup in 11 months, or [...] of possible side effects from venlafaxine XR? r apid heart rate. Previously he had been clear [...] 2021 working with a new psychiatrist at [facility] with additional diagnosis of schizoaffective disorder context [...] disorder, working with a new psychiatrist at [facility]. -- September 08, 2022 only one mild [...] a migraine preventative. He is satisfied with [id number]-[id number] Advil 400 mg or naproxen 440 mg [...] or sooner as needed for neurological issues [email or web address] Not available 08/12/2023 15:59:05 Plan of Treatment Reminders Order Date Submit Date Provider Last Modified By Organization Details Last Modified Time Details Appointments FOLLOW UP EXT 2024 12:30P Jazmín Bertrand MD PhD Not available Not available Not available Lab None recorded. Referral None recorded. Procedures None recorded. Surgeries None recorded. Imaging None recorded. Medication Orders amitripty line 75 mg tablet 2021 022 [id number], [address] [facility], [place], [place], [id number], 09/25/2021 12:38:35 amitripty line 75 mg tablet 2022 023 [facility][id number], [address], [place], [address], 09/08/2022 14:32:38 amitripty line 75 mg tablet 2023 024 [facility] #[id number], [address], [place], [address], 08/12/2023 15:55:27 Patient TargetsNo targets recorded. Patient Instructions Encounter Date Encounter Id Patient Instructions Last Modified By Organization Details Last Modified Time 06/24/2021 [id number] PREVIOUS MEDICAT ION Melatonin helped sleep when he was on second shift, stopped when he went to May 2018 Klonopin 3 times a day associated with hallucinations with pediatric neurology in remote past. [email or web address] Not available 06/24/2021 13:07:46 09/25/2021 [id number] PREVIOUS MEDICAT ION Melatonin helped sleep when he was on second shift, stopped when he went to May 2018 Klonopin 3 times a day associated with hallucinations with pediatric neurology in remote past. [email or web address] Not available 09/25/2021 12:25:52 09/08/2022 [id number] PREVIOUS [...] of possible side effects from venlafaxine XR? r apid heart rate. Previously he had been clear [...] management lucille Not available 09/08/2022 14:50:29 08/12/2023 [id number] PREVIOUS MEDICAT ION -- early 2021 Anxiety and anxiety attacks a bit better with venlafaxine XR 37.5 mg, Then discontinued December 2021 with eventual Zyprexa/fluoxetine for schizoaffective disorder depression and anxiety discussed September 2022 follow-up Melatonin helped sleep when he was on second shift, stopped when he went to [facility], May 2018 Klonopin 3 times a day [...] of possible side effects from venlafaxine XR? r apid heart rate. Previously he had been clear [...] 08/12/2023 DATA REVIEW completed Jarrod Bertrand MD [address] [place] [address] [place], [phone], [facility] 08/12/2023 15:23:01 09/08/2022 DATA REVIEW completed Jarrod Bertrand MD [address] [place] [address], [place], [phone], [facility] 09/08/2022 14:19:34 09/25/2021 DATA REVIEW completed Jarrod Bertrand MD [address] [place] [address], Abdiaziz [place]O, [phone], [facility] 09/25/2021 12:25:51 06/24/2021 DATA REVIEW completed Jarrod Bertrand MD [address] [place] [address] [place], [phone], [facility] 06/24/2021 13:07:55 Imaging Results None recorded. Procedure [...] Code Diagnosis Note [id number] Jarrod Bertrand MD [facility] [address] [place] [address] [place] [phone] 06/24/2021 12:48:13 06/24/2021 13:35:20 [id number] Jarrod Bertrand MD [facility] [address] [place] [address] [place] [phone] 09/25/2021 11:51:12 09/25/2021 19:44:29 Migraine without aura [id number] G43.009 [id number] Jarrod Bertrand MD [facility] [address] [place] [address] [place] [phone] 09/08/2022 14:08:28 09/08/2022 17:09:23 Migraine without aura [id number] G43.009 [id number] Jarrod Bertrand MD [address] [place] [address] 08/12/2023 15:16:35 08/12/2023 16:11:58 Migraine without aura [id number] G43.009 Health Concerns Section Related Observation LastModified by Organization Detai ls LastModified Time None Recorded Concern Status LastModified by Organization Details LastModified Time None Recorded Advance Directives Directive None Recorded Payers Encounter Date Sequence Insurance Name Policy Number Policy Whitmore Covered Member ID Whitmore Member ID Guarantor Name 06/24/2021 1 [facility] [id number] Uli R Rowan [id number] Uli R Rowan 09/25/2021 1 [facility] [id number] Uli R Rowan [id number] Uli R Rowan 09/08/2022 1 [facility] [id number] Uli R Rowan [id number] Uli R Rowan 08/12/2023 1 [facility] [id number] Uli R Rowan [id number] Uli R Rowan Notes Date Note Type Note Provider Name and Address Organization Details Recorded Time 06/24/2021 text/html Follow up of pineda lucero. There has also been whole body shaking and shutdown that has been diagnosed as pseudoseizure by [facility] neurology in approximately [phone]. Past history includes head injury including skull [...] a week to 2-3 times per week. [place] headaches continue to last about 2 hours going away with ibuprofen or Excedrin if they are stronger. Longer headaches can last up to 2 days? t his was every 2 or 3 weeks. He [...] These have been diagnosed as pseudoseizure by [facility] neurology. He thinks these happen maybe [...] remembers this portion, however. Jarrod Bertrand MD [address] [place] [address] [place], [phone], [facility] 09/25/2021 12:27:03 09/25/2021 text/html Follow up of pineda lucero. There has also been whole body shaking and shutdown that has been diagnosed as pseudoseizure by [facility] neurology in approximately [phone]. Past history includes head injury including skull [...] not tried the naratriptan. He continues using ntiq-wfc-psjsfor analgesics for some of his headaches. Interim [...] a week to 2-3 times per week. [place] headaches continue to last about 2 hours going away with ibuprofen or Excedrin if they are stronger. Longer headaches can last up to 2 days? t his was every 2 or 3 weeks. He does not say how often that is happening now.He has had occasional jerking in his neck and also some jerking of one of the other arm. 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 a bout the same, about once a week, generally [...] XR. Headaches , however, have been ? p retty good.? 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 [...] These have been diagnosed as pseudoseizure by [facility] neurology. He thinks these happen maybe [...] remembers this portion, however. Jarrod Bertrand MD [address] [place] [address] [place], [phone], [facility] 09/25/2021 12:54:32 09/08/2022 text/html Follow up of pineda lucero. There has also been whole body shaking and shutdown that has been diagnosed as pseudoseizure by [facility] neurology in approximately [phone]. Past history includes head injury including skull [...] symptoms worsened and he was admitted to [facility] inpatient psychiatric unit. He was very anxious there and so was referred to [facility] where psychiatry made a diagnosis of schizoaffective [...] not tried the naratriptan. He continues using mlys-nza-lmlrcox analgesics for some of his headaches. ? [...] a week to 2-3 times per week. [place] headaches continue to last about 2 hours going away with ibuprofen or Excedrin if they are stronger. Longer headaches can last up to 2 days? t his was every 2 or 3 weeks. He does not say how often that is happening now.He has had occasional jerking in his neck and also some jerking of one of the other arm. 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 a bout the same, about once a week, generally [...] medications. He reports no new medical diagnoses. ?Interim history is reviewed from April 26, 2019 [...] XR. Headaches , however, have been ? p retty good.? 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 [...] These have been diagnosed as pseudoseizure by [facility] neurology. He thinks these happen maybe [...] remembers this portion, however. Jarrod Bertrand MD [address] [place], [place] [address], [phone], [place] [facility] 09/08/2022 14:50:43 08/12/2023 text/html Follow up of pineda lucero. There has also been whole body shaking and shutdown that has been diagnosed as pseudoseizure by [facility] neurology in approximately [phone]. Past history includes head injury including skull [...] per week and 2021, roughly in correlation? p er his memory? w ith worsening psychiatric symptoms, hospitalization and diagnosis of [...] He understands. He takes naproxen 440 mg vzsp-nry-fdientk or ibuprofen 4 mg dwbc-ton-nfmkiwy for his weekly mild headache breakthrough and this works sufficiently for him. Other than psychiatry medication changes, there have been no other medication changes over the past 11 months. There have been no new or changing medical issues. ?September 08, 2022Since September 25, 2021 neurology follow-up encounter, just under 1 year ago, his headaches have improved from three headaches per week to just one mild headache every week. This has been the situation for many months. Early in 2021 his psychiatric symptoms worsened and he was admitted to [facility] inpatient psychiatric unit. He was very anxious there and so was referred to [facility] where psychiatry made a diagnosis of schizoaffective [...] not tried the naratriptan. He continues using msvw-qzd-ptndsch analgesics for some of his headaches. ? [...] a week to 2-3 times per week. [place] headaches continue to last about 2 hours going away with ibuprofen or Excedrin if they are stronger. Longer headaches can last up to 2 days? t his was every 2 or 3 weeks. He does not say how often that is happening now.He has had occasional jerking in his neck and also some jerking of one of the other arm. 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 a bout the same, about once a week, generally [...] medications. He reports no new medical diagnoses. ?Interim history is reviewed from April 26, 2019 [...] XR. Headaches , however, have been ? p retty good.? 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 [...] These have been diagnosed as pseudoseizure by [facility] neurology. He thinks these happen maybe [...] remembers this portion, however. Jarrod Bertrand MD [address] [place] [address] [place], [phone], [place] [facility] 08/12/2023 15:59:31
[2024-09-13] MEDS: Ibuprofen 600 MG TABLET PO (16:41)
[2024-09-13 18:35] VITALS: RESP 14
[2024-09-13 20:19] LABS: Amphetamine Screen Urine Not Detected (Not Detect); Barbiturates, Urine Not Detected (Not Detect); Benzodiazepines Screen Urine Not Detected (Not Detect); Buprenorphine Scr Not Detected (Not Detect); Cannabinoid Screen Urine Not Detected (Not Detect); Cocaine Screen Urine Not Detected (Not Detect); Fentanyl, urine Not Detected (Not Detect); Methadone Screen, Urine Not Detected (Not Detect); Opiate Screen Urine Not Detected (Not Detect); Oxycodone Screen Urine Not Detected (Not Detect); Phencyclidine Screen Urine Not Detected (Not Detect)
[2024-09-14] MEDS: hydrOXYzine HCL 50 MG TABLET PO (00:15)
[2024-09-14] MEDS: traZODone HCL 50 MG TABLET PO (00:15)
--- NOTE | 2024-09-14 04:03 | PC.ADMIT ---
Pt is a 28yo male admitted from the [facility], [facility] on a CV for treatment of unspecified depressive disorder. Pt self presented to [facility] secondary to experiencing SI with a plan to jump off a bridge or slit his wrists. Pt reports an increase in depression and endorses CAH which tells him to harm himself. Pt reports seeing shadows and faces on the wall. Pt reports that his asked him for divorce and got a restraining order on him. He is now feeling suicidal with a plan. He states I don't know why she did that, I didn't even put my hands on her . Pt was recently d/c from [facility], M3 on Thursday09/09/2024. On unit admission, Pt was A&O X4, calm and pleasant on approach but feels tired and wants to sleep. Pt denies HI but endorses SI with no plan. He declined to sign/fill release of information forms, statement of understand and any paper works. He states I will do it tomorrow morning, I want to go to bed now . Treatment plans and safety tools initiated but yet to be signed. Safety check and v/s done.
[2024-09-14 07:38] VITALS: BP 157/89; PULSE 86; RESP 14; TEMP 36.5; O2SAT 95
[2024-09-14] MEDS: Venlafaxine HCl ER 75 MG CAP.ER.24H PO (08:34)
[2024-09-14] MEDS: Metoprolol Tartrate 25 MG TABLET PO ×2 (08:34→20:58)
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
[2024-09-14 09:04] LABS: Alanine Aminotransferase 91 U/L (0-40); Albumin Level 4.7 g/dL (3.5-5.0); Alkaline Phosphatase 85 U/L (39-117); Anion Gap 12 (12-20); Aspartate Amino Transferase 37 U/L (5-37); Bilirubin Total 0.6 mg/dL (0.0-1.0); Blood Urea Nitrogen 11 mg/dL (9-16); Calcium 9.5 mg/dL (8.4-10.2); Carbon Dioxide 25 mmol/L (22-29); Chloride 109 mmol/L (96-108); Cholesterol 203 mg/dL (<200); Creatinine Clr Calc Pharmacy 123.1; Estimated Glomerular Filt Rate > 60; Glucose Random 111 mg/dL (60-115); HDL Cholesterol 36 mg/dL (>40); LDL Cholesterol Calculated 133 mg/dL (<100); Potassium 3.8 mmol/L (3.3-5.1); Sodium 142 mmol/L (135-145); Total Protein 7.9 g/dL (6.5-8.0); Triglycerides 171 mg/dL (<150)
[2024-09-14] MEDS: lamoTRIgine 100 MG TABLET 150 MG PO (09:38)
[2024-09-14 20:58] VITALS: BP 146/79; PULSE 88
[2024-09-14] MEDS: OLANZapine 10 MG TABLET 20 MG PO (20:58)
[2024-09-14] MEDS: Amitriptyline HCl 50 MG TABLET 100 MG PO (20:58)
[2024-09-14] MEDS: Acetaminophen 325 MG TABLET 650 MG PO (21:01)
[2024-09-14 21:10] VITALS: BP 146/79; PULSE 86; RESP 18; TEMP 36.9; O2SAT 94
[2024-09-15 07:39] VITALS: BP 134/78; PULSE 90; RESP 16; TEMP 36.8; O2SAT 96
[2024-09-15 10:20] VITALS: BP 136/67; PULSE 77
[2024-09-15] MEDS: lamoTRIgine 100 MG TABLET 150 MG PO (10:20)
[2024-09-15] MEDS: Metoprolol Tartrate 25 MG TABLET PO ×2 (10:20→20:31)
[2024-09-15] MEDS: Venlafaxine HCl ER 75 MG CAP.ER.24H PO (10:20)
[2024-09-15] MEDS: Ibuprofen 600 MG TABLET PO ×2 (10:27→20:34)
[2024-09-15] MEDS: Acetaminophen 325 MG TABLET 650 MG PO ×2 (10:28→20:34)
--- NOTE | 2024-09-15 14:33 | P.PNPSI_ITS ---
Subjective Subjective Date of Service: 09/15/24 Reason For Visit: Crisis Interim History: calm, cooperative. 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 slept a little better last night. reflect on psychosocial determinants of his presentation and mood state, agre to continue current medications for time being. per staff, anx/dep. taking meds. poor sleep 2/2 anxiety. +SI. racing thoughts. +AH, wants air cast. Mental Status Exam Mental Status Exam Narrative: Appearance: wearing casual clothing, good hygiene, in NAD Behavior: cooperative Psychomotor: no agitation or retardation noted Speech: clear, normal rate/rhythm/volume, spontaneous TP: linear TC: no delusions or paranoia Mood: not assessed Affect: congruent, constricted, non labile SI: none expressed HI: none expressed Perceptual disturbances: no AVH expressed Delusions: none Insight/judgment: poor x 2 Memory/cog: alert, oriented x 4. grossly intact to conversational testing. Diagnostics Vital Signs (24Hr): Vital Signs - 24 hr 09/14/24 20:58 09/14/24 21:10 09/15/24 07:39 Temperature 98.5 F 98.2 F Pulse Rate 88 86 90 Respiratory Rate 18 16 Blood Pressure 146/79 H 146/79 H 134/78 Pulse Oximetry 94 96 Oxygen Delivery Method Room Air Room Air 09/15/24 10:20 Temperature Pulse Rate 77 Respiratory Rate Blood Pressure 136/67 Pulse Oximetry Oxygen Delivery Method BMI result Body Mass Index 27.0 Labs 09/13/24 13:57 09/14/24 08:21 Labs: Laboratory Results - last 48 hr 09/13/24 09/14/24 20:04 08:21 Sodium 142 Potassium 3.8 Chloride 109 H Carbon Dioxide 25 Anion Gap 12 BUN 11 Creatinine 1.02 Estim Creat Clear Calc 123.1 Estimated GFR > 60 Random Glucose 111 Calcium 9.5 Total Bilirubin 0.6 AST 37 ALT 91 H Alkaline Phosphatase 85 Total Protein 7.9 Albumin 4.7 Triglycerides 171 H Cholesterol 203 H LDL Cholesterol, Calc 133 H HDL Cholesterol 36 L Urine Opiates Screen Not Detected Ur Buprenorphine Scrn Not Detected Ur Oxycodone Screen Not Detected Urine Methadone Screen Not Detected Urine Fentanyl Screen Not Detected Ur Barbiturates Screen Not Detected Ur Phencyclidine Scrn Not Detected Ur Amphetamines Screen Not Detected U Benzodiazepines Scrn Not Detected Urine Cocaine Screen Not Detected U Marijuana (THC) Screen Not Detected Imaging Radiology Impressions: ITS Impressions Ankle X-Ray 09/13/24 14:46 IMPRESSION: Suspect a tiny avulsion fracture arising from the lateral process of the talus, seen on the AP view only. Electronically signed by: Luis Antonio Sesay MD 09/13/2024 04:17 PM [facility] Medications Medications Current Medications Acetaminophen (Acetaminophen 325 Mg Tablet) 650 mg PO Q6H PRN PRN Reason: Headache/Pain, Scale 1-10 Last Admin: 09/15/24 10:28 Dose: 650 mg Al Hydroxide/Mg Hydroxide (Magnesium Hydrox/Alum Hydrox 30 Ml Oral.Susp) 30 ml PO Q6H PRN PRN Reason: Heartburn/Nausea Amitriptyline HCl (Amitriptyline Hcl 50 Mg Tablet) 100 mg PO BEDTIME BRITTNY Last Admin: 09/14/24 20:58 Dose: 100 mg Hydroxyzine HCl (Hydroxyzine Hcl 50 Mg Tablet) 50 mg PO TID PRN PRN Reason: anxiety Last Admin: 09/14/24 00:15 Dose: 50 mg Ibuprofen (Ibuprofen 600 Mg Tablet) 600 mg PO Q6H PRN PRN Reason: Pain, Mild (Pain Scale 1-3) Last Admin: 09/15/24 10:27 Dose: 600 mg Lamotrigine (Lamotrigine 100 Mg Tablet) 150 mg PO DAILY BRITTNY Last Admin: 09/15/24 10:20 Dose: 150 mg Lorazepam (Lorazepam 1 Mg Tablet) 1 mg PO BID PRN PRN Reason: anxiety Magnesium Hydroxide (Milk Of Magnesia 30 Ml Oral.Susp) 30 ml PO DAILY PRN PRN Reason: Constipation Metoprolol Tartrate (Metoprolol Tartrate 25 Mg Tablet) 25 mg PO BID BRITTNY; Protocol Last Admin: 09/15/24 10:20 Dose: 25 mg Olanzapine (Olanzapine 10 Mg Tablet) 20 mg PO BEDTIME BRITTNY Last Admin: 09/14/24 20:58 Dose: 20 mg Trazodone HCl (Trazodone Hcl 50 Mg Tablet) 50 mg PO BEDTIME MRX1 PRN PRN Reason: Insomnia Last Admin: 09/14/24 00:15 Dose: 50 mg Venlafaxine HCl (Venlafaxine Hcl Er 75 Mg Cap.Er.24h) 75 mg PO DAILY BRITTNY Last Admin: 09/15/24 10:20 Dose: 75 mg Allergies Allergies Allergy/AdvReac Type Severity Reaction Status Date / Time aripiprazole Allergy Unknown Verified 09/13/24 13:26 Penicillins Allergy Hives Verified 09/13/24 13:26 sulfamethoxazole Allergy Unknown Verified 09/13/24 13:26 [From Bactrim] trimethoprim [From Bactrim] Allergy Unknown Verified 09/13/24 13:26 Assessment & Plan Assessment & Plan (1) Suicidal ideation: Status: Acute Code(s): R45.851 - Suicidal ideations (2) PTSD (post-traumatic stress disorder): Status: Acute Code(s): F43.10 - Post-traumatic stress disorder, unspecified (3) Adjustment disorder with mixed disturbance of emotions and conduct: Status: Acute Code(s): F43.25 - Adjustment disorder with mixed disturbance of emotions and conduct Plan 09/14: continue home regimen aside from increasing elavil to 100 mg QHS per pt request. stabilize inpatient. dispo planning. 09/15: slept better. planning to discharge next thursday morning around [address] restraining order hearing. continue current mgmt. Reason for continued inpatient stay Substantial Risk for: harm to self, inability to function and rapid decompensation Time Spent With Patient Time: Total time managing care of this patient today __25__ minutes.
[2024-09-15] MEDS: hydrOXYzine HCL 50 MG TABLET PO (17:06)
[2024-09-15 20:00] VITALS: BP 133/75; PULSE 94; RESP 18; TEMP 36.8; O2SAT 98
[2024-09-15] MEDS: LORazepam 1 MG TABLET PO (20:30)
[2024-09-15] MEDS: Amitriptyline HCl 50 MG TABLET 100 MG PO (20:30)
[2024-09-15] MEDS: OLANZapine 10 MG TABLET 20 MG PO (20:31)
[2024-09-16 07:20] VITALS: BP 133/85; PULSE 84; RESP 12; TEMP 36.7; O2SAT 95
[2024-09-16 08:32] VITALS: BP 133/85; PULSE 84
[2024-09-16] MEDS: Venlafaxine HCl ER 75 MG CAP.ER.24H PO (08:32)
[2024-09-16] MEDS: lamoTRIgine 100 MG TABLET 150 MG PO (08:32)
[2024-09-16] MEDS: Metoprolol Tartrate 25 MG TABLET PO ×2 (08:32→20:22)
--- NOTE | 2024-09-16 13:11 | HO.PSYCHPN ---
Subjective Subjective Date of Service: 09/16/24 Reason For Visit: Crisis Interim History: calm, cooperative. appears dour. asking for naproxen instead of ibuprofen or tylenol for foot pain. states he is tired. planning to discharge next thursday so he can make it to his restraining order hearing. per staff, depressed. slept 8 hours. no notable events or behaviors. Mental Status Exam Mental Status Exam Narrative: Appearance: wearing casual clothing, good hygiene, in NAD Behavior: cooperative Psychomotor: no agitation or retardation noted Speech: clear, normal rate/rhythm/volume, spontaneous TP: linear TC: no delusions or paranoia Mood: tired Affect: congruent, constricted, non labile SI: none expressed HI: none expressed Perceptual disturbances: no AVH expressed Delusions: none Insight/judgment: poor x 2 Memory/cog: alert, oriented x 4. grossly intact to conversational testing. Diagnostics Vital Signs (24Hr): Vital Signs - 24 hr 09/15/24 20:00 09/16/24 07:20 09/16/24 08:32 Temperature 98.3 F 98.1 F Pulse Rate 94 84 84 Respiratory Rate 18 12 Blood Pressure 133/75 133/85 133/85 Pulse Oximetry 98 95 Oxygen Delivery Method Room Air Room Air BMI result Body Mass Index 27.0 Labs 09/13/24 13:57 09/14/24 08:21 Imaging Radiology Impressions: ITS Impressions Ankle X-Ray 09/13/24 14:46 IMPRESSION: Suspect a tiny avulsion fracture arising from the lateral process of the talus, seen on the AP view only. Electronically signed by: Luis Antonio Sesay MD 09/13/2024 04:17 PM [facility] [place] Medications Current Medications Acetaminophen (Acetaminophen 325 Mg Tablet) 650 mg PO Q6H PRN PRN Reason: Headache/Pain, Scale 1-10 Last Admin: 09/15/24 20:34 Dose: 650 mg Al Hydroxide/Mg Hydroxide (Magnesium Hydrox/Alum Hydrox 30 Ml Oral.Susp) 30 ml PO Q6H PRN PRN Reason: Heartburn/Nausea Amitriptyline HCl (Amitriptyline Hcl 50 Mg Tablet) 100 mg PO BEDTIME BRITTNY Last Admin: 09/15/24 20:30 Dose: 100 mg Hydroxyzine HCl (Hydroxyzine Hcl 50 Mg Tablet) 50 mg PO TID PRN PRN Reason: anxiety Last Admin: 09/15/24 17:06 Dose: 50 mg Lamotrigine (Lamotrigine 100 Mg Tablet) 150 mg PO DAILY [facility] Last Admin: 09/16/24 08:32 Dose: 150 mg Lorazepam (Lorazepam 1 Mg Tablet) 1 mg PO BID PRN PRN Reason: anxiety Last Admin: 09/15/24 20:30 Dose: 1 mg Magnesium Hydroxide (Milk Of Magnesia 30 Ml Oral.Susp) 30 ml PO DAILY PRN PRN Reason: Constipation Metoprolol Tartrate (Metoprolol Tartrate 25 Mg Tablet) 25 mg PO BID [facility]; Protocol Last Admin: 09/16/24 08:32 Dose: 25 mg Naproxen (Naproxen 500 Mg Tablet) 500 mg PO BID PRN PRN Reason: foot pain Olanzapine (Olanzapine 10 Mg Tablet) 20 mg PO BEDTIME BRITTNY Last Admin: 09/15/24 20:31 Dose: 20 mg Trazodone HCl (Trazodone Hcl 50 Mg Tablet) 50 mg PO BEDTIME MRX1 PRN PRN Reason: Insomnia Last Admin: 09/14/24 00:15 Dose: 50 mg Venlafaxine HCl (Venlafaxine Hcl Er 75 Mg Cap.Er.24h) 75 mg PO DAILY [facility] Last Admin: 09/16/24 08:32 Dose: 75 mg Allergies Allergies Allergy/AdvReac Type Severity Reaction Status Date / Time aripiprazole Allergy Unknown Verified 09/13/24 13:26 Penicillins Allergy Hives Verified 09/13/24 13:26 sulfamethoxazole Allergy Unknown Verified 09/13/24 13:26 [From Bactrim] trimethoprim [From Bactrim] Allergy Unknown Verified 09/13/24 13:26 Assessment & Plan Assessment & Plan (1) Suicidal ideation: Status: Acute Code(s): R45.851 - Suicidal ideations (2) PTSD (post-traumatic stress disorder): Status: Acute Code(s): F43.10 - Post-traumatic stress disorder, unspecified (3) Adjustment disorder with mixed disturbance of emotions and conduct: Status: Acute Code(s): F43.25 - Adjustment disorder with mixed disturbance of emotions and conduct Plan 09/14: continue home regimen aside from increasing elavil to 100 mg QHS per pt request. stabilize inpatient. dispo planning. 2/13: slept better. planning to discharge next thursday around [address] restraining order hearing. continue current mgmt. 09/16: slept well last night. discharge early thursday to attend court. has his car at [facility], no need for transportation. continue current mgmt. Reason for continued inpatient stay Substantial Risk for: harm to self, inability to function and rapid decompensation Time Spent With Patient Time: Total time managing care of this patient today __25__ minutes.
[2024-09-16] MEDS: NaPROXEN 500 MG TABLET PO (18:50)
[2024-09-16 20:00] VITALS: BP 125/83; PULSE 86; RESP 14; TEMP 37.9; O2SAT 95
[2024-09-16] MEDS: Acetaminophen 325 MG TABLET 650 MG PO (20:21)
[2024-09-16] MEDS: LORazepam 1 MG TABLET PO (20:21)
[2024-09-16] MEDS: Amitriptyline HCl 50 MG TABLET 100 MG PO (20:21)
[2024-09-16] MEDS: OLANZapine 10 MG TABLET 20 MG PO (20:22)
[2024-09-17 07:49] VITALS: BP 136/81; PULSE 85; RESP 16; TEMP 36.7; O2SAT 96
[2024-09-17] MEDS: Venlafaxine HCl ER 75 MG CAP.ER.24H PO (08:30)
[2024-09-17] MEDS: lamoTRIgine 100 MG TABLET 150 MG PO (08:30)
[2024-09-17] MEDS: Metoprolol Tartrate 25 MG TABLET PO ×2 (08:30→21:09)
--- NOTE | 2024-09-17 09:02 | HO.PSYCHPN ---
Subjective Subjective Date of Service: 09/17/24 Reason For Visit: Crisis Subjective Notes: Conditional Voluntary Interim History: Patient was seen and discussed in rounds today. Records and plans were reviewed. He has been stable, withdrawn and mostly in his room. Discharge is being planned for next Thursday. He is med compliant. Eating and sleeping adequately. No SI. No changes were made today Review of Systems Review of Systems Foot pain Yes all other systems are reviewed and are negative Mental Status Exam Mental Status Exam Narrative: In today's visit he is alert, oriented and pleasant. Normal speech. Little eye contact. Affect is blunted. No overt signs of psychosis. No delusions. Cognitively is intact. No SI/HI. Could not assess mobility. Judgment is intact Diagnostics Vital Signs (24Hr): Vital Signs - 24 hr 09/16/24 20:00 09/17/24 07:49 Temperature 100.3 F 98.1 F Pulse Rate 86 85 Respiratory Rate 14 16 Blood Pressure 125/83 136/81 Pulse Oximetry 95 96 Oxygen Delivery Method Room Air Room Air BMI result Body Mass Index 27.0 Labs 09/13/24 13:57 09/14/24 08:21 Imaging Radiology Impressions: ITS Impressions Ankle X-Ray 09/13/24 14:46 IMPRESSION: Suspect a tiny avulsion fracture arising from the lateral process of the talus, seen on the AP view only. Electronically signed by: Luis Antonio Sesay MD 09/13/2024 04:17 PM [facility] Medications Medications Current Medications Acetaminophen (Acetaminophen 325 Mg Tablet) 650 mg PO Q6H PRN PRN Reason: Headache/Pain, Scale 1-10 Last Admin: 09/16/24 20:21 Dose: 650 mg Al Hydroxide/Mg Hydroxide (Magnesium Hydrox/Alum Hydrox 30 Ml Oral.Susp) 30 ml PO Q6H PRN PRN Reason: Heartburn/Nausea Amitriptyline HCl (Amitriptyline Hcl 50 Mg Tablet) 100 mg PO BEDTIME [facility] Last Admin: 09/16/24 20:21 Dose: 100 mg Hydroxyzine HCl (Hydroxyzine Hcl 50 Mg Tablet) 50 mg PO TID PRN PRN Reason: anxiety Last Admin: 09/15/24 17:06 Dose: 50 mg Lamotrigine (Lamotrigine 100 Mg Tablet) 150 mg PO DAILY [facility] Last Admin: 09/17/24 08:30 Dose: 150 mg Lorazepam (Lorazepam 1 Mg Tablet) 1 mg PO BID PRN PRN Reason: anxiety Last Admin: 09/16/24 20:21 Dose: 1 mg Magnesium Hydroxide (Milk Of Magnesia 30 Ml Oral.Susp) 30 ml PO DAILY PRN PRN Reason: Constipation Metoprolol Tartrate (Metoprolol Tartrate 25 Mg Tablet) 25 mg PO BID BRITTNY; Protocol Last Admin: 09/17/24 08:30 Dose: 25 mg Naproxen (Naproxen 500 Mg Tablet) 500 mg PO BID PRN PRN Reason: foot pain Last Admin: 09/16/24 18:50 Dose: 500 mg Olanzapine (Olanzapine 10 Mg Tablet) 20 mg PO BEDTIME BRITTNY Last Admin: 09/16/24 20:22 Dose: 20 mg Trazodone HCl (Trazodone Hcl 50 Mg Tablet) 50 mg PO BEDTIME MRX1 PRN PRN Reason: Insomnia Last Admin: 09/14/24 00:15 Dose: 50 mg Venlafaxine HCl (Venlafaxine Hcl Er 75 Mg Cap.Er.24h) 75 mg PO DAILY BRITTNY Last Admin: 09/17/24 08:30 Dose: 75 mg Allergies Allergies Allergy/AdvReac Type Severity Reaction Status Date / Time aripiprazole Allergy Unknown Verified 09/13/24 13:26 Penicillins Allergy Hives Verified 09/13/24 13:26 sulfamethoxazole Allergy Unknown Verified 09/13/24 13:26 [From Bactrim] trimethoprim [From Bactrim] Allergy Unknown Verified 09/13/24 13:26 Assessment & Plan Assessment & Plan (1) Suicidal ideation: Status: Acute Code(s): R45.851 - Suicidal ideations (2) PTSD (post-traumatic stress disorder): Status: Acute Code(s): F43.10 - Post-traumatic stress disorder, unspecified (3) Adjustment disorder with mixed disturbance of emotions and conduct: Status: Acute Code(s): F43.25 - Adjustment disorder with mixed disturbance of emotions and conduct Plan 09/14: continue home regimen aside from increasing elavil to 100 mg QHS per pt request. stabilize inpatient. dispo planning. 09/15: slept better. planning to discharge next thursday morning around [address] restraining order hearing. continue current mgmt. 09/16: slept well last night. discharge early thursday morning to attend court. has his car at [facility] [place] [place], no need for transportation. continue current mgmt. 09/17: Continue current regimen and plans Reason for continued inpatient stay Substantial Risk for: med/psych decompensation Time Spent With Patient Time: Total time managing care of this patient today ____ minutes.
[2024-09-17] MEDS: NaPROXEN 500 MG TABLET PO ×2 (15:29→21:10)
[2024-09-17 19:45] VITALS: BP 130/75; PULSE 85; RESP 16; TEMP 36.4; O2SAT 93
[2024-09-17 21:09] VITALS: BP 130/75; PULSE 85
[2024-09-17] MEDS: Amitriptyline HCl 50 MG TABLET 100 MG PO (21:09)
[2024-09-17] MEDS: LORazepam 1 MG TABLET PO (21:09)
[2024-09-17] MEDS: OLANZapine 10 MG TABLET 20 MG PO (21:09)
[2024-09-18 08:00] VITALS: BP 132/75; PULSE 76; RESP 16; TEMP 36.3; O2SAT 96
[2024-09-18] MEDS: lamoTRIgine 100 MG TABLET 150 MG PO (08:44)
[2024-09-18] MEDS: Metoprolol Tartrate 25 MG TABLET PO ×2 (08:44→20:42)
[2024-09-18] MEDS: Venlafaxine HCl ER 75 MG CAP.ER.24H PO (08:44)
--- NOTE | 2024-09-18 09:37 | P.PNPSI_ITS ---
Subjective Subjective Date of Service: 09/18/24 Reason For Visit: Crisis Subjective Notes: Conditional Voluntary Interim History: Patient was seen and discussed in rounds today. Records and plans were reviewed. He has been stable, withdrawn and mostly in his room. He is looking forward to his upcoming discharge in 2 days. Continues to be somewhat still anxious and depressed. No SI. No complaints or side effects. No changes were made Review of Systems Review of Systems Yes all other systems are reviewed and are negative Mental Status Exam Mental Status Exam Narrative: In today's visit he is alert, oriented and pleasant. Normal speech. Little eye contact. Affect is blunted. No overt signs of psychosis. No delusions. Cognitively is intact. No SI/HI. Could not assess mobility. Judgment is intact Diagnostics Vital Signs (24Hr): Vital Signs - 24 hr 09/17/24 19:45 09/17/24 21:09 09/18/24 08:00 Temperature 97.5 F 97.4 F Pulse Rate 85 85 76 Respiratory Rate 16 16 Blood Pressure 130/75 130/75 132/75 Pulse Oximetry 93 96 Oxygen Delivery Method Room Air Room Air BMI result Body Mass Index 27.0 Labs 09/13/24 13:57 09/14/24 08:21 Imaging Radiology Impressions: ITS Impressions Ankle X-Ray 09/13/24 14:46 IMPRESSION: Suspect a tiny avulsion fracture arising from the lateral process of the talus, seen on the AP view only. Electronically signed by: Luis Antonio Sesay MD 09/13/2024 04:17 PM [facility] [place] Medications Current Medications Acetaminophen (Acetaminophen 325 Mg Tablet) 650 mg PO Q6H PRN PRN Reason: Headache/Pain, Scale 1-10 Last Admin: 09/16/24 20:21 Dose: 650 mg Al Hydroxide/Mg Hydroxide (Magnesium Hydrox/Alum Hydrox 30 Ml Oral.Susp) 30 ml PO Q6H PRN PRN Reason: Heartburn/Nausea Amitriptyline HCl (Amitriptyline Hcl 50 Mg Tablet) 100 mg PO BEDTIME BRITTNY Last Admin: 09/17/24 21:09 Dose: 100 mg Hydroxyzine HCl (Hydroxyzine Hcl 50 Mg Tablet) 50 mg PO TID PRN PRN Reason: anxiety Last Admin: 09/15/24 17:06 Dose: 50 mg Lamotrigine (Lamotrigine 100 Mg Tablet) 150 mg PO DAILY [facility] Last Admin: 09/18/24 08:44 Dose: 150 mg Lorazepam (Lorazepam 1 Mg Tablet) 1 mg PO BID PRN PRN Reason: anxiety Last Admin: 09/17/24 21:09 Dose: 1 mg Magnesium Hydroxide (Milk Of Magnesia 30 Ml Oral.Susp) 30 ml PO DAILY PRN PRN Reason: Constipation Metoprolol Tartrate (Metoprolol Tartrate 25 Mg Tablet) 25 mg PO BID [facility]; Protocol Last Admin: 09/18/24 08:44 Dose: 25 mg Naproxen (Naproxen 500 Mg Tablet) 500 mg PO BID PRN PRN Reason: foot pain Last Admin: 09/17/24 21:10 Dose: 500 mg Olanzapine (Olanzapine 10 Mg Tablet) 20 mg PO BEDTIME BRITTNY Last Admin: 09/17/24 21:09 Dose: 20 mg Trazodone HCl (Trazodone Hcl 50 Mg Tablet) 50 mg PO BEDTIME MRX1 PRN PRN Reason: Insomnia Last Admin: 09/14/24 00:15 Dose: 50 mg Venlafaxine HCl (Venlafaxine Hcl Er 75 Mg Cap.Er.24h) 75 mg PO DAILY [facility] Last Admin: 09/18/24 08:44 Dose: 75 mg Allergies Allergies Allergy/AdvReac Type Severity Reaction Status Date / Time aripiprazole Allergy Unknown Verified 09/13/24 13:26 Penicillins Allergy Hives Verified 09/13/24 13:26 sulfamethoxazole Allergy Unknown Verified 09/13/24 13:26 [From Bactrim] trimethoprim [From Bactrim] Allergy Unknown Verified 09/13/24 13:26 Assessment & Plan Assessment & Plan (1) Suicidal ideation: Status: Acute Code(s): R45.851 - Suicidal ideations (2) PTSD (post-traumatic stress disorder): Status: Acute Code(s): F43.10 - Post-traumatic stress disorder, unspecified (3) Adjustment disorder with mixed disturbance of emotions and conduct: Status: Acute Code(s): F43.25 - Adjustment disorder with mixed disturbance of emotions and conduct Plan 09/14: continue home regimen aside from increasing elavil to 100 mg QHS per pt request. stabilize inpatient. dispo planning. 09/15: slept better. planning to discharge next thursday morning around [address] restraining order hearing. continue current mgmt. 09/16: slept well last night. discharge early thursday morning to attend court. has his car at [facility], no need for transportation. continue current mgmt. 09/17: Continue current regimen and plans 09/18: Continue current regimen and plans. Reason for continued inpatient stay Substantial Risk for: med/psych decompensation Time Spent With Patient Time: Total time managing care of this patient today ____ minutes.
[2024-09-18 19:02] VITALS: BP 126/80; PULSE 90; RESP 17; TEMP 36.7; O2SAT 93
[2024-09-18 20:29] VITALS: BP 128/72; PULSE 87; RESP 18; TEMP 36.8; O2SAT 93
[2024-09-18] MEDS: OLANZapine 10 MG TABLET 20 MG PO (20:41)
[2024-09-18] MEDS: Amitriptyline HCl 50 MG TABLET 100 MG PO (20:41)
[2024-09-18] MEDS: LORazepam 1 MG TABLET PO (20:41)
[2024-09-18] MEDS: NaPROXEN 500 MG TABLET PO (20:41)
[2024-09-19] MEDS: Acetaminophen 325 MG TABLET 650 MG PO (01:10)
[2024-09-19 08:42] VITALS: BP 153/76; PULSE 74; RESP 17; TEMP 37.1; O2SAT 96
[2024-09-19] MEDS: lamoTRIgine 100 MG TABLET 150 MG PO (08:45)
[2024-09-19] MEDS: Metoprolol Tartrate 25 MG TABLET PO ×2 (08:45→21:35)
[2024-09-19] MEDS: Venlafaxine HCl ER 75 MG CAP.ER.24H PO (08:45)
--- NOTE | 2024-09-19 08:54 | HO.PSYCHPN ---
Subjective Subjective Date of Service: 09/19/24 Reason For Visit: Crisis Subjective Notes: Conditional Voluntary Interim History: Patient was seen and discussed in rounds today. Records and plans were reviewed. He continues to be moderately improved. No complaints or side effects. He is scheduled to be discharged tomorrow. Dr. Mendoza has not done his discharge summary/order and I texted him so he can do that from home or early tomorrow morning. No SI. No changes were made today Medication Compliance: Yes Attending Groups: Yes Review of Systems Acute medical concerns: No Review of Systems Review of Systems Yes all other systems are reviewed and are negative Mental Status Exam Mental Status Exam Narrative: In today's visit he is alert, oriented and pleasant. Normal speech. Little eye contact. Affect is blunted. No overt signs of psychosis. No delusions. Cognitively is intact. No SI/HI. Could not assess mobility. Judgment is intact Diagnostics Vital Signs (24Hr): Vital Signs - 24 hr 09/18/24 19:02 09/18/24 20:29 09/19/24 08:42 Temperature 98.0 F 98.2 F 98.7 F Pulse Rate 90 87 74 Respiratory Rate 17 18 17 Blood Pressure 126/80 128/72 153/76 H Pulse Oximetry 93 93 96 Oxygen Delivery Method Room Air Room Air Room Air BMI result Body Mass Index 27.0 Labs 09/13/24 13:57 09/14/24 08:21 Imaging Radiology Impressions: ITS Impressions Ankle X-Ray 09/13/24 14:46 IMPRESSION: Suspect a tiny avulsion fracture arising from the lateral process of the talus, seen on the AP view only. Electronically signed by: Luis Antonio Sesay MD 09/13/2024 04:17 PM [facility] Medications Medications Current Medications Acetaminophen (Acetaminophen 325 Mg Tablet) 650 mg PO Q6H PRN PRN Reason: Headache/Pain, Scale 1-10 Last Admin: 09/19/24 01:10 Dose: 650 mg Al Hydroxide/Mg Hydroxide (Magnesium Hydrox/Alum Hydrox 30 Ml Oral.Susp) 30 ml PO Q6H PRN PRN Reason: Heartburn/Nausea Amitriptyline HCl (Amitriptyline Hcl 50 Mg Tablet) 100 mg PO BEDTIME BRITTNY Last Admin: 09/18/24 20:41 Dose: 100 mg Hydroxyzine HCl (Hydroxyzine Hcl 50 Mg Tablet) 50 mg PO TID PRN PRN Reason: anxiety Last Admin: 09/15/24 17:06 Dose: 50 mg Lamotrigine (Lamotrigine 100 Mg Tablet) 150 mg PO DAILY [facility] Last Admin: 09/19/24 08:45 Dose: 150 mg Lorazepam (Lorazepam 1 Mg Tablet) 1 mg PO BID PRN PRN Reason: anxiety Last Admin: 09/18/24 20:41 Dose: 1 mg Magnesium Hydroxide (Milk Of Magnesia 30 Ml Oral.Susp) 30 ml PO DAILY PRN PRN Reason: Constipation Metoprolol Tartrate (Metoprolol Tartrate 25 Mg Tablet) 25 mg PO BID [facility]; Protocol Last Admin: 09/19/24 08:45 Dose: 25 mg Naproxen (Naproxen 500 Mg Tablet) 500 mg PO BID PRN PRN Reason: foot pain Last Admin: 09/18/24 20:41 Dose: 500 mg Olanzapine (Olanzapine 10 Mg Tablet) 20 mg PO BEDTIME BRITTNY Last Admin: 09/18/24 20:41 Dose: 20 mg Trazodone HCl (Trazodone Hcl 50 Mg Tablet) 50 mg PO BEDTIME MRX1 PRN PRN Reason: Insomnia Last Admin: 09/14/24 00:15 Dose: 50 mg Venlafaxine HCl (Venlafaxine Hcl Er 75 Mg Cap.Er.24h) 75 mg PO DAILY [facility] Last Admin: 09/19/24 08:45 Dose: 75 mg Allergies Allergies Allergy/AdvReac Type Severity Reaction Status Date / Time aripiprazole Allergy Unknown Verified 09/13/24 13:26 Penicillins Allergy Hives Verified 09/13/24 13:26 sulfamethoxazole Allergy Unknown Verified 09/13/24 13:26 [From Bactrim] trimethoprim [From Bactrim] Allergy Unknown Verified 09/13/24 13:26 Assessment & Plan Assessment & Plan (1) Suicidal ideation: Status: Acute Code(s): R45.851 - Suicidal ideations (2) PTSD (post-traumatic stress disorder): Status: Acute Code(s): F43.10 - Post-traumatic stress disorder, unspecified (3) Adjustment disorder with mixed disturbance of emotions and conduct: Status: Acute Code(s): F43.25 - Adjustment disorder with mixed disturbance of emotions and conduct Plan 09/14: continue home regimen aside from increasing elavil to 100 mg QHS per pt request. stabilize inpatient. dispo planning. 09/15: slept better. planning to discharge next thursday around [address] for restraining order hearing. continue current mgmt. 09/16: slept well last night. discharge early thursday to attend court. has his car at [facility], no need for transportation. continue current mgmt. 09/17: Continue current regimen and plans 09/18: Continue current regimen and plans. 09/19: Continue current regimen and plans. Planned discharge tomorrow Reason for continued inpatient stay Substantial Risk for: stable for discharge Time Spent With Patient Time: Total time managing care of this patient today ____ minutes.
[2024-09-19 19:47] VITALS: BP 123/79; PULSE 83; RESP 16; TEMP 36.8; O2SAT 93
[2024-09-19 21:35] VITALS: BP 142/94; PULSE 94
[2024-09-19] MEDS: OLANZapine 10 MG TABLET 20 MG PO (21:35)
[2024-09-19] MEDS: NaPROXEN 500 MG TABLET PO (21:35)
[2024-09-19] MEDS: LORazepam 1 MG TABLET PO (21:35)
[2024-09-19] MEDS: Amitriptyline HCl 50 MG TABLET 100 MG PO (21:35)
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
== END 2024-09-20 07:02 | disposition other institution (70) | DRG 755 ==
LOC: HO.ED 16:30 → HO.PADLT16 21:46
PROVIDERS: Physician Assistant; Admitting Provider Registered Nurse; Emergency Provider Emergency Medicine; Visit Provider Psychiatry & Neurology Psychiatry
DX: F43.25 Adjustment disorder with mixed disturbance of emotions and conduct (principal); R45.851 Suicidal ideations; F43.10 Post-traumatic stress disorder, unspecified; S92.154A Nondisplaced avulsion fracture (chip fracture) of right talus, initial encounter for closed fracture; X58.XXXA Exposure to other specified factors, initial encounter; Z87.820 Personal history of traumatic brain injury; Z59.819 Housing instability, housed unspecified; Z87.891 Personal history of nicotine dependence; Z79.899 Other long term (current) drug therapy
CPT/HCPCS: 36415; 73610; 80053; 80061; 80307; 85025; 93005; 99285; S9485

== ENCOUNTER → 2024-09-13 14:46 | Outpatient (BNV) | payer OTHER, SELFPAY | PROVIDERS: Emergency Provider Emergency Medicine; Visit Provider Radiology Diagnostic Radiology | DX: M25.571 Pain in right ankle and joints of right foot (principal) | CPT/HCPCS: 73610 ==

== ENCOUNTER → 2024-09-13 15:49 | Outpatient (BNV) | payer OTHER, SELFPAY | PROVIDERS: Admitting Provider Registered Nurse; Emergency Provider Emergency Medicine; Visit Provider Internal Medicine Cardiovascular Disease | DX: I45.10 Unspecified right bundle-branch block (principal) | CPT/HCPCS: 93010 ==

== ENCOUNTER → 2024-09-13 21:17 | Outpatient (BNV) | payer OTHER, SELFPAY | PROVIDERS: Admitting Provider Registered Nurse; Emergency Provider Emergency Medicine; Visit Provider Psychiatry & Neurology Psychiatry | DX: F43.25 Adjustment disorder with mixed disturbance of emotions and conduct (principal); R45.851 Suicidal ideations; F43.11 Post-traumatic stress disorder, acute | CPT/HCPCS: 90792 ==

== ENCOUNTER 2024-09-28 17:44 | Inpatient (IN) | payer OTHER, SELFPAY ==
[2024-09-28 17:54] VITALS: BP 154/87; PULSE 92; O2SAT 99
[2024-09-28 18:04] VITALS: BP 146/95; PULSE 89; RESP 18; TEMP 35.4; O2SAT 96; BMI 25.7
[2024-09-28 18:37] LABS: MANUAL DIFF FLAG NO
[2024-09-28 18:50] LABS: Basophils Absolute Auto 0.1 X10*3/uL (0.0-0.2); Basophils Percent Auto 0.6 % (0-2); Eosinophils Percent Auto 0.3 % (0-4); Hematocrit 45.8 % (42.0-52.0); Hemoglobin 16.1 g/dl (14.0-18.0); Imm Gran Abs Auto 0.03 X10*3/uL (0.00-0.03); Imm Gran Pct Auto 0.3 % (0.0-0.4); Lymphocytes Absolute Auto 1.3 X10*3/uL (1.2-4.9); Lymphocytes Percent Auto 12.4 % (20-40); Mean Corpuscular HGB Conc 35.2 g/dl (31.0-36.0); Mean Corpuscular Volume 88.2 fL (80.0-98.0); Mean Platelet Volume 9.1 fL (9.4-12.4); Monocytes Absolute Auto 0.6 X10*3/uL (0.1-1.2); Monocytes Percent Auto 5.7 % (2-11); Neutrophils Absolute Auto 8.7 x10*3/uL (2.0-8.3); Neutrophils Percent Auto 80.7 % (45-73); Platelet Count 306 X10*3/uL (160-400); Red Blood Count 5.19 X10*6/uL (4.60-5.80); Red Cell Distribution Width 12.1 % (11.0-16.0); White Blood Count 10.8 X10*3/uL (4.8-10.8)
[2024-09-28 18:50] LABS: Amphetamine Screen Urine Not Detected (Not Detect); Appearance Urine Cloudy; Barbiturates, Urine Not Detected (Not Detect); Benzodiazepines Screen Urine Not Detected (Not Detect); Buprenorphine Scr Not Detected (Not Detect); Cannabinoid Screen Urine Not Detected (Not Detect); Cocaine Screen Urine Not Detected (Not Detect); Color Urine Yellow; Fentanyl, urine Not Detected (Not Detect); Glucose Urine UA Negative (Negative); Leukocyte Esterase Urine Negative (Negative); Methadone Screen, Urine Not Detected (Not Detect); Nitrite Urine Negative (Negative); Opiate Screen Urine Not Detected (Not Detect); Oxycodone Screen Urine Not Detected (Not Detect); Phencyclidine Screen Urine Not Detected (Not Detect); Specific Gravity - Urine >= 1.030 (1.005-1.025); Urine Blood Negative (Negative); Urine Ketones Trace mg/dL (Negative); Urine Protein Trace mg/dL (Neg-Trace)
[2024-09-28 19:06] LABS: Anion Gap 13 (12-20); Blood Urea Nitrogen 15 mg/dL (9-16); Calcium 9.3 mg/dL (8.4-10.2); Carbon Dioxide 22 mmol/L (22-29); Chloride 111 mmol/L (96-108); Creatinine Clr Calc Pharmacy 139.5; Estimated Glomerular Filt Rate > 60; Ethanol < 10 mg/dL; Glucose Random 104 mg/dL (60-115); Potassium 3.7 mmol/L (3.3-5.1); Salicylate < 5.0 mg/dL (15-30); Sodium 142 mmol/L (135-145)
--- NOTE | 2024-09-28 19:12 | ED.PSYCH ---
HPI - Psych General Chief Complaint: Psychiatric Symptoms Stated Complaint: crisis, si w/ plan Time Seen by Provider: 09/28/24 17:52 Source: patient Limitations: no limitations History of Present Illness ED Provider: Maribel Mao PA-C HPI Narrative: 28-year-old male with a history of paranoid schizophrenia, PTSD, adjustment disorder, depression presents with SI. Patient states he has recently been from his , and he has become increasingly depressed. Patient was found at the [facility], he had a plan to jump off the bridge. He subsequently called 911 prior to physically attempting suicide. Related Data Previous Rx's ?Medication ?Instructions ?Recorded amitriptyline 50 mg tablet 100 mg (2 x 50 mg) PO BEDTIME #28 09/19/24 tabs hydroxyzine HCl 50 mg tablet 50 mg PO TID PRN anxiety #42 tabs 09/19/24 lamotrigine 100 mg tablet 150 mg (1.5 x 100 mg) PO DAILY #14 09/19/24 tabs lorazepam 1 mg tablet 1 mg PO BID PRN anxiety #14 tabs 09/19/24 metoprolol tartrate 25 mg tablet 25 mg PO BID #28 tabs 09/19/24 olanzapine 20 mg tablet 20 mg PO BEDTIME #14 tabs 09/19/24 trazodone 50 mg tablet 50 mg PO BEDTIME MRX1 PRN Insomnia 09/19/24 #28 tabs venlafaxine 75 mg capsule,extended 75 mg PO DAILY #14 caps 09/19/24 release 24 hr Allergies Allergy/AdvReac Type Severity Reaction Status Date / Time aripiprazole Allergy Unknown Verified 09/28/24 18:10 Penicillins Allergy Hives Verified 09/28/24 18:10 sulfamethoxazole Allergy Unknown Verified 09/28/24 18:10 [From Bactrim] trimethoprim [From Bactrim] Allergy Unknown Verified 09/28/24 18:10 Review of Systems Review of Systems: Yes all other systems are reviewed and are negative Constitutional: Constitutional: Denies fatigue and Denies fever(s) Cardiovascular: Cardiovascular: Denies chest pain and Denies dyspnea Respiratory: Respiratory: Denies dyspnea Gastrointestinal: Gastrointestinal: Denies abdominal pain, Denies nausea and Denies vomiting Endocrine: Endocrine: Denies fatigue PMFSH Past Medical History Attestation statement: The following information was validated with the patient. Medical History (Updated 09/28/24 @ 19:23 by BRANDON Hester) Feeling suicidal Alcohol use disorder Elevated LFTs Routine medical exam TBI (traumatic brain injury) Seizures SVT (supraventricular tachycardia) Surgical History History of appendectomy Social History Social History Household Members: Family Household Members Other:: 2 Housing: House Do you presently have visiting nurse or other home services: No Alcohol intake: current Alcohol intake frequency: holidays/special occasions only Alcohol type: beer Patient Tobacco Use Status: Former Tobacco user Tobacco use type: Cigarette Cigarette Packs Per Day: 0 Cigarettes Per Day: 0 Years Smoked: 8 Smoked in Last 30 Days: No e-Cigarette/Vaping Use: Never Used Second Hand Smoke Exposure: No Use of substances other than those prescribed or required for medical reasons: No Substance Use Type: Marijuana Advance Directives: Yes Advance Directives Information Provided: Yes Advance Directives on File: Yes Advance Directives Date on File: 08/29/24 Do you have a plan to hurt others: No Plan service: No Sexual orientation: Bisexual Physical Exam Vital Signs: Vital Signs: Last Vital Signs Temp 95.8 F L 09/28/24 18:04 Pulse 89 09/28/24 18:04 Resp 18 09/28/24 18:04 BP 146/95 H 09/28/24 18:04 Pulse Ox 96 09/28/24 18:04 O2 Del Method Room Air 09/28/24 18:04 BMI result Body Mass Index 25.7 Const: Other: Alert Orientation/consciousness: patient oriented x3 Resp: Effort & Inspection: normal respiratory effort Cardio: Other: Normal peripheral perfusion Skin: Other: Warm dry no rash Neuro: General: patient oriented x3, gait normal, no focal motor deficits and CN's II-XI intact bilaterally Psych: Other: Cooperative, flat affect Medical Decision Making Medical Decision Making MDM Narrative: 28-year-old male with a history of paranoid schizophrenia, PTSD, adjustment disorder, depression presents with SI. Patient states he has recently been from his , and he has become increasingly depressed. Patient was found at the [facility], he had a plan to jump off the bridge. He subsequently called 911 prior to physically attempting suicide. Problem: Psychiatric illness History: Per patient I have considered the following differential diagnoses: SI, HI, decompensated psychiatric illness, drug/alcohol intoxication Plan: Screening labs including drug screen and ethanol were obtained, the patient will be referred to the care team, he has high-risk with the his underlying psychiatric illness with new psychosocial stressors, I foresee him being a bed search. I have independently reviewed the following tests: Labs: No leukocytosis, not anemic, no electrolyte abnormality, drug screen negative, ethanol negative, viral panel negative Lab Data 09/28/24 18:31 09/28/24 18:31 Labs: Lab Results 09/28/24 09/28/24 Range/Units 18:12 18:31 WBC 10.8 (4.8-10.8) X10*3/uL RBC 5.19 (4.60-5.80) X10*6/uL Hgb 16.1 (14.0-18.0) g/dl Hct 45.8 (42.0-52.0) % MCV 88.2 (80.0-98.0) fL MCH 31.0 (27.0-33.0) pg MCHC 35.2 (31.0-36.0) g/dl RDW 12.1 (11.0-16.0) % Plt Count 306 (160-400) X10*3/uL MPV 9.1 L (9.4-12.4) fL Immature Gran % (Auto) 0.3 (0.0-0.4) % Neut % (Auto) 80.7 H (45-73) % Lymph % (Auto) 12.4 L (20-40) % [place] % (Auto) 5.7 (2-11) % Eos % (Auto) 0.3 (0-4) % Baso % (Auto) 0.6 (0-2) % Lymph # (Auto) 1.3 (1.2-4.9) X10*3/uL [place] # (Auto) 0.6 (0.1-1.2) X10*3/uL Eos # (Auto) 0.0 (0.0-0.4) X10*3/uL Baso # (Auto) 0.1 (0.0-0.2) X10*3/uL Abs Immat Gran (auto) 0.03 (0.00-0.03) X10*3/uL Absolute Neuts (auto) 8.7 H (2.0-8.3) x10*3/uL Absolute Nucleated RBC 0.000 (0.0-0.012) X10*3/uL Nucleated RBC % (auto) 0.0 (0.0-0.2) /100WBC Sodium 142 (135-145) mmol/L Potassium 3.7 (3.3-5.1) mmol/L Chloride 111 H (96-108) mmol/L Carbon Dioxide 22 (22-29) mmol/L Anion Gap 13 (12-20) BUN 15 (9-16) mg/dL Creatinine 0.90 (0.5-1.4) mg/dL Estim Creat Clear Calc 139.5 Estimated GFR > 60 Random Glucose 104 (60-115) mg/dL Calcium 9.3 (8.4-10.2) mg/dL Urine Color Yellow Urine Appearance Cloudy Urine pH 6.0 (5.0-9.0) Ur Specific [place] >= 1.030 H (1.005-1.025) Urine Protein Trace (Neg-Trace) mg/dL Urine Glucose (UA) Negative (Negative) mg/dL Urine Ketones Trace (Negative) mg/dL Urine Blood Negative (Negative) Urine Nitrite Negative (Negative) Ur Leukocyte Esterase Negative (Negative) Salicylates < 5.0 L (15-30) mg/dL Urine Opiates Screen Not Detected (Not Detect) Ur Buprenorphine Scrn Not Detected (Not Detect) ng/mL Ur Oxycodone Screen Not Detected (Not Detect) ng/mL Urine Methadone Screen Not Detected (Not Detect) ng/mL Urine Fentanyl Screen Not Detected (Not Detect) Ur Barbiturates Screen Not Detected (Not Detect) Ur Phencyclidine Scrn Not Detected (Not Detect) Ur Amphetamines Screen Not Detected (Not Detect) U Benzodiazepines Scrn Not Detected (Not Detect) Urine Cocaine Screen Not Detected (Not Detect) U Marijuana (THC) Screen Not Detected (Not Detect) Ethyl Alcohol < 10 mg/dL Discharge Plan Discharge Clinical Impression: Suicidal ideation Patient Disposition: Still a Patient Prescriptions: No Action venlafaxine 75 mg Capsule,Extended Release 24hr 75 mg PO DAILY Qty: 14 1RF trazodone 50 mg Tablet 50 mg PO BEDTIME MRX1 PRN (Reason: Insomnia) Qty: 28 1RF hydroxyzine HCl 50 mg Tablet 50 mg PO TID PRN (Reason: anxiety) Qty: 42 1RF amitriptyline 50 mg Tablet 100 mg PO BEDTIME Qty: 28 1RF lorazepam 1 mg Tablet 1 mg PO BID PRN (Reason: anxiety) Qty: 14 4RF lamotrigine 100 mg Tablet 150 mg PO DAILY Qty: 14 1RF metoprolol tartrate 25 mg Tablet 25 mg PO BID Qty: 28 1RF Protocol: Hold for SBP/HR < HOLD for SBP < : 90 HOLD for HR < : 60 olanzapine 20 mg tablet 20 mg PO BEDTIME Qty: 14 1RF Interventions: Hollister-Suicide Risk Severity Scale Last Done: 09/28/24 18:21 Print Language: Haitian
--- OUTSIDE RECORDS SUMMARY | 2024-09-28 20:02 | XMS_ITS | Data Portability ---
Author Organization Formerly [facility] [employer], [employer] Address [address] [place] [place] [address] Care Team Providers Care Procedure Tech Name Role Phone KODI CARLSON Referring Provider Unavailable KODI CARLSON Referring Provider PIERRE QUINTERO Primary Care Provider [facility] Primary Care Provider [phone] [facility] OTHER Assessment Encounter [...] continue to consider, as needed, using our [employer] website and/or signing up for [facility] e-mail portal. Followup in 11 months, or [...] 2021 working with a new psychiatrist at [facility] with additional diagnosis of schizoaffective disorder [...] disorder, working with a new psychiatrist at [facility]. -- September 08, 2022 only one [...] a migraine preventative. He is satisfied with [id number] Advil 400 mg or naproxen 440 mg [...] Medication Orders amitripty line 75 mg tablet 2023 024 lisa [facility]acy #[id number], [address], [place], [address], 08/12/2023 15:55:27 amitripty line 75 mg tablet 2022 023 [facility] #[id number], [address], [place], [address], 09/08/2022 14:32:38 amitripty line 75 mg tablet 2021 022 [id number], [address], [place], [place], [phone], 09/25/2021 12:38:35 Patient TargetsNo targets recorded. Patient Instructions Encounter [...] management lucille Not available 09/08/2022 14:50:29 08/12/2023 [id number] PREVIOUS MEDICAT ION -- early 2021 Anxiety and anxiety attacks a bit better with venlafaxine XR 37.5 mg, Then discontinued December 2021 with eventual Zyprexa/fluoxetine for schizoaffective disorder depression and anxiety discussed September 2022 follow-up Melatonin helped sleep when he was on second shift, stopped when he went to [facility], May 2018 Klonopin 3 times a [...] 08/12/2023 DATA REVIEW completed Jarrod Bertrand MD [address] [place] [address] [place], [phone], [facility] Neurology [facility] 08/12/2023 15:23:01 09/08/2022 DATA REVIEW completed Jarrod Bertrand MD [address] [place] [address], [place], [phone], [facility] ID [employer] [facility] 09/08/2022 14:19:34 09/25/2021 DATA REVIEW completed Jarrod Bertrand MD [address] [place] [address], Abdiaziz ALO, [phone], [facility] ID [employer] [facility] 09/25/2021 12:25:51 06/24/2021 DATA REVIEW completed Jarrod Bertrand MD [address] [place] [address] [place], [phone], [facility] ID [employer] [facility] 06/24/2021 13:07:55 Imaging Results None recorded. Procedure Notes None recorded. Medical Equipment None Reported. Medications Name Sig Start Date Stop Date Status Note LastModified by Organization Details LastModified Time cyclobenzapr ine 10 mg tablet TAKE 1 TABLET BY MOUTH THREE TIMES DAILY FOR UP TO 5 DAYS NEEDED FOR MUSCLE SPASMS active Not Available Not Available No t Available lamotrigine 150 mg tablet TAKE 1 TABLET BY MOUTH ONCE A DAY FOR MOOD STABILITY active Not Available Not Available No t [...] Not Available Not Available N ot Available trazodone 50 mg tablet TAKE 1 TABLET ORALLY AT BEDTIME, MAY REPEAT ONCE NEEDED FOR INSOMNIA active Not Available Not Available No t Available azithromycin 250 mg tablet active Not Available Not Available Not Available amitriptylin e 75 mg tablet TAKE 1 TABLET BY MOUTH EVERY DAY IN THE EVENING FOR 90 DAYS active Not Available Not Available No t Available prazosin 1 mg capsule TAKE 1 CAPSULE BY MOUTH AT BEDTIME active Not Available Not Available No t Available prednisone 20 mg tablet TAKE 1 TABLET BY MOUTH EVERY DAY FOR 7 DAYS active Not Available Not Available No t Available clonazepam 0.5 mg tablet TAKE 1 TABLET BY MOUTH TWICE A DAY NEEDED FOR SEVERE ANXIETY active Not Available Not Available No t Available olanzapine 5 mg tablet TAKE 1 TABLET BY MOUTH ONCE A DAY DIRECTED TAKE ONE TABLET FOR BREAKTHROUG H EPISODES OF PSYCHOSIS active Not Available Not Available No t Available hydroxyzine pamoate 50 mg capsule TAKE 1 CAPSULE BY MOUTH THREE TIMES A DAY NEEDED FOR ANXIETY/ANG ER active Not Available Not Available No t Available olanzapine 10 mg tablet TAKE 1 TABLET BY MOUTH EVERYDAY AT BEDTIME active Not Available Not Available No t Available hydroxyzine HCl 50 mg tablet TAKE 1 TABLET BY MOUTH 3 TIMES A DAY NEEDED FOR ANXIETY active Not Available Not Available Not Available olanzapine 2.5 mg tablet PLEASE SEE ATTACHED FOR DETAILED DIRECTIONS active Not Available Not Available N ot Available olanzapine 7.5 mg tablet TAKE 1 TABLET BY MOUTH AT BEDTIME active Not Available Not Available No t Available amitriptylin e 50 mg tablet TAKE 2 TABLETS BY MOUTH AT BEDTIME active Not Available Not Available No t Available amoxicillin 500 mg tablet TAKE 1 TABLET BY MOUTH TWICE A DAY FOR 10 DAYS active Not Available Not Available No t Available lamotrigine 25 mg tablet TAKE 1 TAB BY MOUTH EVERY MORNING X 14 DAYS THEN INCREASE TO 2 TABS EVERY MORNING FOR MOOD STABILITY active Not Available Not Available No t Available lorazepam 0.5 mg tablet PLEASE SEE ATTACHED FOR DETAILED DIRECTIONS active Not Available Not Available N ot Available benztropine 1 mg tablet TAKE 1 TABLET BY MOUTH TWICE A DAY WITH PERPHENAZIN E FOR MUSCLE TWITCHES AND SPASMS active Not Available Not Available N ot Available guanfacine 1 mg tablet TAKE 1 TABLET BY MOUTH ONCE A DAY NEEDED FOR ANXIETY/ALEXANDER IC active Not Available Not Available No t Available perphenazine 4 mg tablet TAKE 1/2-1 TABLET BY MOUTH TWICE A DAY DIRECTED IN THE AM AND PM FOR VOICES, INTRUSIVE THOUGHTS active Not Available Not Available No t Available sertraline 25 mg tablet TAKE 1 TABLET BY MOUTH EVERY DAY IN THE MORNING active Not Available Not Available No t Available diclofenac sodium 75 mg tablet,delay ed release TAKE 1 TABLET ORAL TWICE A DAY FOR 30 DAYS active Not Available Not Available Not Available hydroxyzine HCl 25 mg tablet TAKE 1 TABLET ORALLY 2 TIMES A DAY NEEDED FOR ANXIETY FOR 30 DAYS active Not Available Not Available Not Available olanzapine 15 mg tablet TAKE 1 TABLET BY MOUTH EVERY NIGHT FOR HALLUCINATI ONS, RACING THOUGHTS, INSOMNIA active Not Available Not Available No t Available lorazepam 1 mg tablet TAKE 1 TABLET BY MOUTH 2 TIMES A DAY NEEDED FOR ANXIETY active Not Available Not Available Not Available levofloxacin 500 mg tablet TAKE 1 TABLET BY MOUTH EVERY DAY FOR 10 DAYS FOR INFECTION active Not Available Not Available No t Available perphenazine 8 mg tablet TAKE 1 TABLET BY MOUTH TWICE A DAY NEEDED FOR INTRUSIVE THOUGHTS/AN XIETY active Not Available Not Available No t [...] Available Not Available No t Available olanzapine 20 mg tablet TAKE 1 TABLET BY MOUTH AT BEDTIME active Not Available Not Available No t Available lamotrigine 100 mg tablet TAKE 1&1/2 TABLETS BY MOUTH ONCE DAILY active Not Available Not Available No t Available risperidone 0.5 mg tablet TAKE 1 TO 2 TABLETS BY MOUTH EVERY MORNING FOR ANGER, BAD THOUGHTS active Not Available Not Available No t Available naproxen 500 mg tablet TAKE 1 TABLET BY MOUTH TWICE A DAY FOR 7 DAYS active Not Available Not Available No t Available azithromycin 500 mg tablet TAKE 1 TABLET BY MOUTH DAILY FOR 2 DAYS active Not Available Not Available N ot Available cyclobenzapr ine 5 mg tablet TAKE 1 TABLET BY MOUTH 2 TIMES DAILY NEEDED FOR MUSCLE SPASMS. active Not Available Not Available No t Available aripiprazole 5 mg tablet TAKE 1 TABLET BY MOUTH DAILY active Not Available Not Available Not Available metoprolol tartrate 25 mg tablet TAKE 1 TABLET BY MOUTH TWICE A DAY active Not Available Not Available No t Available COVID-19 test specimen collection TEST DIRECTED [...] Code Diagnosis Note [id number] Jarrod Bertrand MD [facility] [address] [place] [address] [place] [phone] 06/24/2021 12:48:13 06/24/2021 13:35:20 [id number] Jarrod Bertrand MD [facility] [address] [place] [address] [place] [phone] 09/25/2021 11:51:12 09/25/2021 19:44:29 Migraine without aura [id number] G43.009 [id number] Jarrod Bertrand MD [address] [place] [address] 09/08/2022 14:08:28 09/08/2022 17:09:23 Migraine without aura [id number] G43.009 [id number] Jarrod Bertrand MD [facility] [address] [place] [address] [place] [address] 08/12/2023 15:16:35 08/12/2023 16:11:58 Migraine without aura [id number] G43.009 Health Concerns Section Related Observation LastModified by Organization Detai ls LastModified Time None Recorded Concern Status LastModified by Organization Details LastModified Time None Recorded Advance Directives Directive None Recorded Payers Encounter Date Sequence Insurance Name Policy Number Policy Whitmore Covered Member ID Whitmore Member ID Guarantor Name 06/24/2021 1 [facility] [id number] Uli R Rowan [id number] Uli R Rowan 09/25/2021 1 [facility] [id number] Uli R Rowan [id number] Uli R Rowan 09/08/2022 1 [facility] [id number] Uli R Rowan [id number] Uli R Rowan 08/12/2023 1 [facility] [id number] Uli R Rowan [id number] Uli R Rowan Notes Date Note Type Note Provider Name and Address Organization Details Recorded Time 06/24/2021 text/html Follow up of pineda lucero. There has also been whole body shaking and shutdown that has been diagnosed as pseudoseizure by [facility] neurology in approximately [phone]. Past history includes head injury including skull [...] a week to 2-3 times per week. [place] headaches continue to last about 2 hours [...] These have been diagnosed as pseudoseizure by [facility] neurology. He thinks these happen maybe [...] remembers this portion, however. Jarrod Bertrand MD [address] [place] [address], [phone], [facility] 09/25/2021 12:27:03 09/25/2021 text/html Follow up of pineda lucero. There has also been whole body shaking and shutdown that has been diagnosed as pseudoseizure by [facility] neurology in approximately [phone]. Past history includes head injury including skull [...] not tried the naratriptan. He continues using rqss-cfp-frqjljl analgesics for some of his headaches. Interim [...] a week to 2-3 times per week. 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 He thinks these happen maybe [...] remembers this portion, however. Jarrod Bertrand MD [address] [place] [address] [place], [phone], [facility] 09/25/2021 12:54:32 09/08/2022 text/html Follow up of pineda lucero. There has also been whole body shaking and shutdown that has been diagnosed as pseudoseizure by [facility] neurology in approximately [phone]. Past history includes head injury including skull [...] symptoms worsened and he was admitted to [facility] inpatient psychiatric unit. He was very anxious there and so was referred to [facility] where psychiatry made a diagnosis of [...] not tried the naratriptan. He continues using qjpp-uid-xvtiljv analgesics for some of his headaches. ? [...] a week to 2-3 times per week. 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 He thinks these happen maybe [...] remembers this portion, however. Jarrod Bertrand MD [address] [place] [address] [place], [phone], [facility] 09/08/2022 14:50:43 08/12/2023 text/html Follow up of pineda lucero. There has also been whole body shaking and shutdown that has been diagnosed as pseudoseizure by [facility] neurology in approximately [phone]. Past history includes head injury including skull [...] He understands. He takes naproxen 440 mg mmdi-ijw-gijwlyb or ibuprofen 4 mg tnye-bqg-npthbon for his weekly mild headache breakthrough and [...] symptoms worsened and he was admitted to [facility] inpatient psychiatric unit. He was very anxious there and so was referred to [facility] where psychiatry made a diagnosis of [...] not tried the naratriptan. He continues using iuvz-nsf-ezozmgj analgesics for some of his headaches. ? [...] a week to 2-3 times per week. 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 He thinks these happen maybe [...] remembers this portion, however. Jarrod Bertrand MD [address] [place] [address] [place], [phone], [facility] 08/12/2023 15:59:31
--- OUTSIDE RECORDS SUMMARY | 2024-09-28 20:02 | XMS_ITS | Clinical Summary ---
Author Organization [facility] Address [address] [place] [address] Care Team Providers Care Assembler Engine Name Role Phone Joy Gracia MD Primary [...] age to complete this topic Care Teams Assembler Engine Relationship Specialty Start Date End Date Joy Gracia MD [address] [place] [phone] PCP - General Internal Medicine 03/30/19
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
--- OUTSIDE RECORDS SUMMARY | 2024-09-28 20:02 | XMS_ITS | Clinical Summary ---
Author Organization [address] Address [address] [place] [phone] Phone Care Team Providers Care Cleaning Custodian Name Role Phone Michelle Gamez MD Primary [...] Care Team Description 09/07/2024 Telephone Adult Medicine [address] [id number] Michelle Gamez MD Hospital Follow-up from Last 3 Months Immunizations Name Administration Dates Next Due Td Tetanus diptheria (Tdvax) 7yo and older 09/16 Tdap Tetanus diptheria acell ular pertussis (Boostrix; Adacel) 7yo and older 01/07/2023 Surgical History Surgery Date Site/Laterality Comments APPENDECTOMY PROCEDURE: HISTORICAL APPENDECTOMY TONSILLECTOMY ADENOIDECTOMY, BILATERAL MYRINGOTOMY AND TUBES PROCEDURE: ID TONSILLECTOMY & ADENOIDECTOMY <AGE 10 OTHER SURGICAL HISTORY Left PROCEDURE: ID ORCHIECTOMY PARTIAL; COMMENT: as a child for [...] Health Maintenance Results * Depression Screening (10/20/2023) [facility]ologist [facility] Depression Screening Abstracted us Historical Provider HEALTH MAINTENANCE Final Result * (ABNORMAL) Lipid panel (01/07/2023) Pathologist [facility] LDL/HDL Ratio 6(A) 0 - 4 Triglycerides 195(A) 0 - 150 mg/dL Cholesterol 238(A) 0 - 200 mg/dL HDL 42 >=40 mg/dL LDL Cholesterol 157(A) 0 - 100 mg/dL Blood Venous blood specimen / Unknown Historical Provider LAB BLOOD ORDERABLES Svetlana l Result from Last 3 Months or Most Recently Relevant to Health Maintenance Care Teams Cleaning Custodian Relationship Specialty Start Date End Date Michelle Gamez MD [address] [place] [phone] PCP - General Internal Medicine 03/03/22
[2024-09-28 20:09] VITALS: BP 130/88; PULSE 85
[2024-09-28] MEDS: Metoprolol Tartrate 25 MG TABLET PO (20:09)
[2024-09-28] MEDS: Amitriptyline HCl 50 MG TABLET 100 MG PO (20:09)
[2024-09-28] MEDS: OLANZapine 10 MG TABLET 20 MG PO (20:09)
[2024-09-28] MEDS: hydrOXYzine HCL 50 MG TABLET PO (20:09)
[2024-09-28 20:26] VITALS: BP 130/88; PULSE 85; RESP 16; TEMP 36.9; O2SAT 95
[2024-09-29 06:41] VITALS: BP 115/85; PULSE 85; RESP 17; TEMP 36.8; O2SAT 96
[2024-09-29 08:23] VITALS: BP 131/84; PULSE 91
[2024-09-29] MEDS: Metoprolol Tartrate 25 MG TABLET PO ×2 (08:23→20:58)
[2024-09-29 08:24] VITALS: BP 134/84; PULSE 91; RESP 14; TEMP 36.8; O2SAT 96
[2024-09-29] MEDS: lamoTRIgine 25 MG TABLET 150 MG PO (08:24)
[2024-09-29] MEDS: Venlafaxine HCl ER 75 MG CAP.ER.24H PO (08:24)
--- NOTE | 2024-09-29 08:30 | PC.NURSE ---
Patient ate breakfast and took meds. Patient elianas states he is a little suicidal depressed because he's going through divorce and she won't talk to him and he hasn't been able to see his child.
--- NOTE | 2024-09-29 10:33 | ECG_ITS ---
Test Reason : R/O PROLONGED QT Blood Pressure : */* mmHG Vent. Rate : 78 BPM Atrial Rate : 78 BPM P-R Int : 152 ms QRS Dur : 92 ms QT Int : 354 ms P-R-T Axes : 65 80 30 degrees QTcB Int : 403 ms Normal sinus rhythm Normal ECG When compared with ECG of 13-Sep-2024 15:49, No significant change was found Referred By: Maribel Mao Electronically Signed By: Kumar Brenner
--- NOTE | 2024-09-29 12:21 | PC.NURSE ---
report given to RN on M3 at this time.
[2024-09-29 12:56] VITALS: BMI 25.9
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
[2024-09-29 14:03] LABS: Alanine Aminotransferase 107 U/L (0-40); Albumin Level 4.8 g/dL (3.5-5.0); Alkaline Phosphatase 83 U/L (39-117); Anion Gap 12 (12-20); Aspartate Amino Transferase 44 U/L (5-37); Bilirubin Total 0.3 mg/dL (0.0-1.0); Blood Urea Nitrogen 16 mg/dL (9-16); Calcium 9.7 mg/dL (8.4-10.2); Carbon Dioxide 27 mmol/L (22-29); Chloride 107 mmol/L (96-108); Creatinine Clr Calc Pharmacy 116.2; Estimated Glomerular Filt Rate > 60; Glucose Random 112 mg/dL (60-115); Potassium 3.9 mmol/L (3.3-5.1); Sodium 142 mmol/L (135-145); Total Protein 8.1 g/dL (6.5-8.0)
--- NOTE | 2024-09-29 16:46 | PC.ADMIT ---
Nursing admission note: 28 year old male DX: Adjustment disorder with mixed disturbance of emotions and conduct, PTSD. Referred for admission by CARE team. Signed conditional voluntary for admission. Patient brought in by ambulance to [facility] following car pick up [place] [address], sitting in his car, with plan to jump off. Per crisis evaluation patient called 911. Patient states he does not know who called 911, he was intercepted by police . Reports he sent text to to say good bye. Patient engaged easily, presents with blunted affect, good eye contact. Calm and cooperative with admission assessment. A+O x4. Reports depressed mood with continued suicidal ideation, sadness breaking down . Generalized thoughts, I want the pain to stop,I want it to be over . Agrees to engage staff if feeling he will act on ideation. Reports feeling hopeless. Endorses anxiety. Dressed in hospital attire, fair attn to ADL. Reports avolition, anergia. Thoughts linear and organized, reports difficulty with concentration. Speech is normal in rate, tone, volume, prosody. Denies perceptual disturbances, no overt psychosis or expressed delusions. Reports periods of time when I get lost in my head . Reports decreased appetite although I force myself to eat . Reports difficulty maintaining sleep, I toss and turn . Multiple stressors including loss of job, break up of marriage, financial stress. Medical history includes TBI, SVT. Prior diagnosed with sleep apnea, does not use CPAP. History of seizures as youth. TOX screen negative. Reports history of alcohol use, last use approximately 90 days ago. Denies any current legal entanglements. Patient oriented to unit, placed on unit safety checks. See nursing assessment, crisis evaluation for further details.
[2024-09-29 20:50] VITALS: BP 131/82; PULSE 90; RESP 16; TEMP 36.9; O2SAT 95
[2024-09-29 20:58] VITALS: BP 131/82; PULSE 90
[2024-09-29] MEDS: Amitriptyline HCl 50 MG TABLET 100 MG PO (20:59)
[2024-09-29] MEDS: OLANZapine 10 MG TABLET 20 MG PO (20:59)
[2024-09-30 07:40] VITALS: BP 120/67; PULSE 82; RESP 20; TEMP 36.6; O2SAT 95
[2024-09-30] MEDS: Metoprolol Tartrate 25 MG TABLET PO ×2 (08:27→20:17)
[2024-09-30] MEDS: Venlafaxine HCl ER 75 MG CAP.ER.24H PO (08:27)
[2024-09-30] MEDS: lamoTRIgine 25 MG TABLET 150 MG PO (08:27)
[2024-09-30 08:38] LABS: Cholesterol 218 mg/dL (<200); HDL Cholesterol 34 mg/dL (>40); LDL Cholesterol Calculated 147 mg/dL (<100); Triglycerides 186 mg/dL (<150)
--- NOTE | 2024-09-30 09:07 | P.PNPSI_ITS ---
Subjective Subjective Date of Service: 09/30/24 Reason For Visit: Crisis Subjective Notes: Conditional Voluntary Interim History: Patient continues to report feeling depressed; pt stated, I'm trying to get through it . denies SI/HI/VH/AH. Per social work, pt has outpatient appointment scheduled on 10/02/24. Discussed with patient about possibly of discharging home Thursday with plans to follow up with courts to be able to see his son. Medication Compliance: Yes Side effects from medications: No Attending Groups: Yes Mental Status Exam Mental Status Exam Narrative: Pt is alert and oriented; behavior is cooperative and calm; dressed in casual attire; mood is described as depressed ; eye contact appropriate; Speech is normal rate, volume and not pressured; thought process is organized; Thought content is on tx; denies SI/HI/VH/AH. Diagnostics Vital Signs (24Hr): Vital Signs - 24 hr 09/29/24 20:50 09/29/24 20:58 09/30/24 07:40 Temperature 98.4 F 97.9 F Pulse Rate 90 90 82 Respiratory Rate 16 20 Blood Pressure 131/82 131/82 120/67 Pulse Oximetry 95 95 Oxygen Delivery Method Room Air Room Air BMI result Body Mass Index 25.9 Labs 09/28/24 18:31 09/29/24 12:54 Labs: Laboratory Results - last 48 hr 09/28/24 09/28/24 09/29/24 18:12 18:31 12:54 WBC 10.8 RBC 5.19 Hgb 16.1 Hct 45.8 MCV 88.2 MCH 31.0 MCHC 35.2 RDW 12.1 Plt Count 306 MPV 9.1 L Immature Gran % (Auto) 0.3 Neut % (Auto) 80.7 H Lymph % (Auto) 12.4 L [place] % (Auto) 5.7 Eos % (Auto) 0.3 Baso % (Auto) 0.6 Lymph # (Auto) 1.3 [place] # (Auto) 0.6 Eos # (Auto) 0.0 Baso # (Auto) 0.1 Abs Immat Gran (auto) 0.03 Absolute Neuts (auto) 8.7 H Absolute Nucleated RBC 0.000 Nucleated RBC % (auto) 0.0 Sodium 142 142 Potassium 3.7 3.9 Chloride 111 H 107 Carbon Dioxide 22 27 Anion Gap 13 12 BUN 15 16 Creatinine 0.90 1.08 Estim Creat Clear Calc 139.5 116.2 Estimated GFR > 60 > 60 Random Glucose 104 112 Calcium 9.3 9.7 Total Bilirubin 0.3 AST 44 H ALT 107 H Alkaline Phosphatase 83 Total Protein 8.1 H Albumin 4.8 Triglycerides Cholesterol LDL Cholesterol, Calc HDL Cholesterol Urine Color Yellow Urine Appearance Cloudy Urine pH 6.0 Ur Specific [place] >= 1.030 H Urine Protein Trace Urine Glucose (UA) Negative Urine Ketones Trace Urine Blood Negative Urine Nitrite Negative Ur Leukocyte Esterase Negative Salicylates < 5.0 L Urine Opiates Screen Not Detected Ur Buprenorphine Scrn Not Detected Ur Oxycodone Screen Not Detected Urine Methadone Screen Not Detected Urine Fentanyl Screen Not Detected Ur Barbiturates Screen Not Detected Ur Phencyclidine Scrn Not Detected Ur Amphetamines Screen Not Detected U Benzodiazepines Scrn Not Detected Urine Cocaine Screen Not Detected U Marijuana (THC) Screen Not Detected Ethyl Alcohol < 10 09/30/24 07:54 WBC RBC Hgb Hct MCV MCH MCHC RDW Plt Count MPV Immature Gran % (Auto) Neut % (Auto) Lymph % (Auto) [place] % (Auto) Eos % (Auto) Baso % (Auto) Lymph # (Auto) [place] # (Auto) Eos # (Auto) Baso # (Auto) Abs Immat Gran (auto) Absolute Neuts (auto) Absolute Nucleated RBC Nucleated RBC % (auto) Sodium Potassium Chloride Carbon Dioxide Anion Gap BUN Creatinine Estim Creat Clear Calc Estimated GFR Random Glucose Calcium Total Bilirubin AST ALT Alkaline Phosphatase Total Protein Albumin Triglycerides 186 H Cholesterol 218 H LDL Cholesterol, Calc 147 H HDL Cholesterol 34 L Urine Color Urine Appearance Urine pH Ur Specific [place] Urine Protein Urine Glucose (UA) Urine Ketones Urine Blood Urine Nitrite Ur Leukocyte Esterase Salicylates Urine Opiates Screen Ur Buprenorphine Scrn Ur Oxycodone Screen Urine Methadone Screen Urine Fentanyl Screen Ur Barbiturates Screen Ur Phencyclidine Scrn Ur Amphetamines Screen U Benzodiazepines Scrn Urine Cocaine Screen U Marijuana (THC) Screen Ethyl Alcohol Medications Medications Current Medications Acetaminophen (Acetaminophen 325 Mg Tablet) 650 mg PO Q6H PRN PRN Reason: Headache/Pain, Scale 1-10 Al Hydroxide/Mg Hydroxide (Magnesium Hydrox/Alum Hydrox 30 Ml Oral.Susp) 30 ml PO Q6H PRN PRN Reason: Heartburn/Nausea Amitriptyline HCl (Amitriptyline Hcl 50 Mg Tablet) 100 mg PO BEDTIME BRITTNY Last Admin: 09/29/24 20:59 Dose: 100 mg Hydroxyzine HCl (Hydroxyzine Hcl 50 Mg Tablet) 50 mg PO TID PRN PRN Reason: anxiety Last Admin: 09/28/24 20:09 Dose: 50 mg Lamotrigine (Lamotrigine 25 Mg Tablet) 150 mg PO DAILY [facility] Last Admin: 09/30/24 08:27 Dose: 150 mg Lorazepam (Lorazepam 1 Mg Tablet) 1 mg PO BID PRN PRN Reason: anxiety Magnesium Hydroxide (Milk Of Magnesia 30 Ml Oral.Susp) 30 ml PO DAILY PRN PRN Reason: Constipation Metoprolol Tartrate (Metoprolol Tartrate 25 Mg Tablet) 25 mg PO BID [facility]; Protocol Last Admin: 09/30/24 08:27 Dose: 25 mg Nicotine (Nicotine 21 Mg Patch.Td24) 21 mg TRANSDERMA DAILY [facility] Last Admin: 09/30/24 08:28 Dose: Not Given Nicotine Polacrilex (Nicotine Polacrilex 2 Mg Gum) 4 mg BUCCAL Q2H PRN PRN Reason: Nicotine Cravings Olanzapine (Olanzapine 10 Mg Tablet) 20 mg PO BEDTIME [facility] Last Admin: 09/29/24 20:59 Dose: 20 mg Trazodone HCl (Trazodone Hcl 50 Mg Tablet) 50 mg PO BEDTIME MRX1 PRN PRN Reason: Insomnia Venlafaxine HCl (Venlafaxine Hcl Er 75 Mg Cap.Er.24h) 75 mg PO DAILY [facility] Last Admin: 09/30/24 08:27 Dose: 75 mg Allergies Allergies Allergy/AdvReac Type Severity Reaction Status Date / Time aripiprazole Allergy Unknown Verified 09/28/24 18:10 Penicillins Allergy Hives Verified 09/28/24 18:10 sulfamethoxazole Allergy Unknown Verified 09/28/24 18:10 [From Bactrim] trimethoprim [From Bactrim] Allergy Unknown Verified 09/28/24 18:10 Assessment & Plan Assessment & Plan (1) Adjustment disorder with mixed disturbance of emotions and conduct: Status: Acute Code(s): F43.25 - Adjustment disorder with mixed disturbance of emotions and conduct (2) PTSD (post-traumatic stress disorder): Status: Acute Code(s): F43.10 - Post-traumatic stress disorder, unspecified Plan Patient is a 28-year-old male with history of Schizoaffective d/o, PTSD and alcohol use disorder who was brought in by ambulance after calling 911 due to suicidal ideation with a plan to [place] secondary to life stressors. Plan: CV 15 minute safety checks Continue home medication Encourage groups Obtain collateral Discharge planning 09/30: Patient continues to report feeling depressed; pt stated, I'm trying to get through it . denies SI/HI/VH/AH. Per social work, pt has outpatient appointment scheduled on 10/02/24. Discussed with patient about possibly of discharging home Thursday with plans to follow up with courts to be able to see his son. Continue current tx plan. Patient educated on: diagnosis, medication risk/benefits and therapeutic strategies Reason for continued inpatient stay Substantial Risk for: med/psych decompensation Time Spent With Patient Time: Total time managing care of this patient today _20___ minutes.
[2024-09-30] MEDS: hydrOXYzine HCL 50 MG TABLET PO (12:05)
[2024-09-30 19:50] VITALS: BP 135/75; PULSE 96; RESP 16; TEMP 36.7; O2SAT 95
[2024-09-30] MEDS: LORazepam 1 MG TABLET PO (20:17)
[2024-09-30] MEDS: OLANZapine 10 MG TABLET 20 MG PO (20:18)
[2024-09-30] MEDS: Amitriptyline HCl 50 MG TABLET 100 MG PO (20:18)
[2024-09-30] MEDS: traZODone HCL 50 MG TABLET PO (22:23)
[2024-10-01 07:10] VITALS: BP 126/81; PULSE 79; RESP 16; TEMP 36.8; O2SAT 96
--- NOTE | 2024-10-01 07:49 | HO.PSYCHPN ---
Subjective Subjective Date of Service: 10/01/24 Reason For Visit: Crisis Subjective Notes: Conditional Voluntary Interim History: The nursing staff reported that the patient flat withdrawn attended to a few groups but he had poor sleep last night. He had been visible but isolative. He ate 100% of his meals. Last night he got p.r.n. Ativan at night. On interview the patient denies new symptoms he reports depressive symptoms, mild improvement. Mental Status Exam Mental Status Exam Patient Appearance: Well Grooomed and Appropriate Patient Orientation: Person and Situation Level of Consciousness: Awake and Appropriate Patient Behavior: Guarded and Passive Mood Description: Withdrawn Affect Description: Constricted Patient Cognition Impaired: Yes Ability to Follow Directions: Good Speech Pattern: Clear Hallucinations: Auditory Delusions: Ideas of Reference Thought Process: Distracted and Evasive Thought Content: positive for Circumstantial Judgement: Fair Diagnostics Vital Signs (24Hr): Vital Signs - 24 hr 09/30/24 19:50 Temperature 98.1 F Pulse Rate 96 Respiratory Rate 16 Blood Pressure 135/75 Pulse Oximetry 95 Oxygen Delivery Method Room Air BMI result Body Mass Index 25.9 Labs 09/28/24 18:31 09/29/24 12:54 Labs: Laboratory Results - last 48 hr 09/29/24 09/30/24 12:54 07:54 Sodium 142 Potassium 3.9 Chloride 107 Carbon Dioxide 27 Anion Gap 12 BUN 16 Creatinine 1.08 Estim Creat Clear Calc 116.2 Estimated GFR > 60 Random Glucose 112 Calcium 9.7 Total Bilirubin 0.3 AST 44 H ALT 107 H Alkaline Phosphatase 83 Total Protein 8.1 H Albumin 4.8 Triglycerides 186 H Cholesterol 218 H LDL Cholesterol, Calc 147 H HDL Cholesterol 34 L Medications Medications Current Medications Acetaminophen (Acetaminophen 325 Mg Tablet) 650 mg PO Q6H PRN PRN Reason: Headache/Pain, Scale 1-10 Al Hydroxide/Mg Hydroxide (Magnesium Hydrox/Alum Hydrox 30 Ml Oral.Susp) 30 ml PO Q6H PRN PRN Reason: Heartburn/Nausea Amitriptyline HCl (Amitriptyline Hcl 50 Mg Tablet) 100 mg PO BEDTIME BRITTNY Last Admin: 09/30/24 20:18 Dose: 100 mg Hydroxyzine HCl (Hydroxyzine Hcl 50 Mg Tablet) 50 mg PO TID PRN PRN Reason: anxiety Last Admin: 09/30/24 12:05 Dose: 50 mg Lamotrigine (Lamotrigine 25 Mg Tablet) 150 mg PO DAILY [facility] Last Admin: 09/30/24 08:27 Dose: 150 mg Lorazepam (Lorazepam 1 Mg Tablet) 1 mg PO BID PRN PRN Reason: anxiety Last Admin: 09/30/24 20:17 Dose: 1 mg Magnesium Hydroxide (Milk Of Magnesia 30 Ml Oral.Susp) 30 ml PO DAILY PRN PRN Reason: Constipation Metoprolol Tartrate (Metoprolol Tartrate 25 Mg Tablet) 25 mg PO BID [facility]; Protocol Last Admin: 09/30/24 20:17 Dose: 25 mg Nicotine (Nicotine 21 Mg Patch.Td24) 21 mg TRANSDERMA DAILY [facility] Last Admin: 09/30/24 08:28 Dose: Not Given Nicotine Polacrilex (Nicotine Polacrilex 2 Mg Gum) 4 mg BUCCAL Q2H PRN PRN Reason: Nicotine Cravings Olanzapine (Olanzapine 10 Mg Tablet) 20 mg PO BEDTIME [facility] Last Admin: 09/30/24 20:18 Dose: 20 mg Trazodone HCl (Trazodone Hcl 50 Mg Tablet) 50 mg PO BEDTIME MRX1 PRN PRN Reason: Insomnia Last Admin: 09/30/24 22:23 Dose: 50 mg Venlafaxine HCl (Venlafaxine Hcl Er 75 Mg Cap.Er.24h) 75 mg PO DAILY [facility] Last Admin: 09/30/24 08:27 Dose: 75 mg Allergies Allergies Allergy/AdvReac Type Severity Reaction Status Date / Time aripiprazole Allergy Unknown Verified 09/28/24 18:10 Penicillins Allergy Hives Verified 09/28/24 18:10 sulfamethoxazole Allergy Unknown Verified 09/28/24 18:10 [From Bactrim] trimethoprim [From Bactrim] Allergy Unknown Verified 09/28/24 18:10 Assessment & Plan Assessment & Plan (1) Adjustment disorder with mixed disturbance of emotions and conduct: Status: Acute Code(s): F43.25 - Adjustment disorder with mixed disturbance of emotions and conduct (2) PTSD (post-traumatic stress disorder): Status: Acute Code(s): F43.10 - Post-traumatic stress disorder, unspecified Plan Patient is a 28-year-old male with history of Schizoaffective d/o, PTSD and alcohol use disorder who was brought in by ambulance after calling 911 due to suicidal ideation with a plan to [place] secondary to life stressors. Plan: CV 15 minute safety checks Continue home medication Encourage groups Obtain collateral Discharge planning 09/30: Patient continues to report feeling depressed; pt stated, I'm trying to get through it . denies SI/HI/VH/AH. Per social work, pt has outpatient appointment scheduled on 10/02/24. Discussed with patient about possibly of discharging home Thursday with plans to follow up with courts to be able to see his son. Continue current tx plan. 10/01 continue with same treatment Reason for continued inpatient stay Substantial Risk for: inability to function, rapid decompensation and med/psych decompensation Time Spent With Patient Time: Total time managing care of this patient today ____ minutes.
[2024-10-01 08:00] VITALS: BP 126/81; PULSE 79; RESP 16; TEMP 36.8; O2SAT 96
[2024-10-01] MEDS: lamoTRIgine 25 MG TABLET 150 MG PO (08:11)
[2024-10-01] MEDS: Metoprolol Tartrate 25 MG TABLET PO ×2 (08:11→20:32)
[2024-10-01] MEDS: Venlafaxine HCl ER 75 MG CAP.ER.24H PO (08:11)
[2024-10-01] MEDS: hydrOXYzine HCL 50 MG TABLET PO (15:38)
[2024-10-01 19:40] VITALS: BP 129/85; PULSE 97; RESP 16; TEMP 36.6; O2SAT 94
[2024-10-01] MEDS: Amitriptyline HCl 50 MG TABLET 100 MG PO (20:31)
[2024-10-01] MEDS: LORazepam 1 MG TABLET PO (20:31)
[2024-10-01] MEDS: traZODone HCL 50 MG TABLET PO (20:31)
[2024-10-01] MEDS: OLANZapine 10 MG TABLET 20 MG PO (20:32)
[2024-10-02 07:56] VITALS: BP 130/71; PULSE 83; RESP 14; TEMP 36.9; O2SAT 94
[2024-10-02] MEDS: Metoprolol Tartrate 25 MG TABLET PO ×2 (08:12→20:43)
[2024-10-02] MEDS: Venlafaxine HCl ER 75 MG CAP.ER.24H PO (08:12)
[2024-10-02] MEDS: lamoTRIgine 100 MG TABLET 150 MG PO (08:15)
--- NOTE | 2024-10-02 08:44 | HO.PSYCHPN ---
Subjective Subjective Date of Service: 10/02/24 Reason For Visit: Crisis Interim History: The nursing staff reported the patient had been depressed, withdrawn during the day. He attended to few groups and he had been medication compliant. He watch TV and slept 8 hours. He used p.r.n. at night. On interview the patient denies new symptoms reports depression. Mental Status Exam Mental Status Exam Patient Appearance: Appropriate Patient Orientation: Person and Situation Level of Consciousness: Awake and Appropriate Patient Behavior: Guarded and Passive Mood Description: Withdrawn Affect Description: Constricted Patient Cognition Impaired: Yes Ability to Follow Directions: Good Speech Pattern: Clear Hallucinations: None Delusions: Not Present Thought Process: Distracted and Slowed Thinking Thought Content: positive for Circumstantial Judgement: Fair Diagnostics Vital Signs (24Hr): Vital Signs - 24 hr 10/01/24 19:40 10/02/24 07:56 Temperature 97.8 F 98.4 F Pulse Rate 97 83 Respiratory Rate 16 14 Blood Pressure 129/85 130/71 Pulse Oximetry 94 94 Oxygen Delivery Method Room Air Room Air BMI result Body Mass Index 25.9 Labs 09/28/24 18:31 09/29/24 12:54 Medications Medications Current Medications Acetaminophen (Acetaminophen 325 Mg Tablet) 650 mg PO Q6H PRN PRN Reason: Headache/Pain, Scale 1-10 Al Hydroxide/Mg Hydroxide (Magnesium Hydrox/Alum Hydrox 30 Ml Oral.Susp) 30 ml PO Q6H PRN PRN Reason: Heartburn/Nausea Amitriptyline HCl (Amitriptyline Hcl 50 Mg Tablet) 100 mg PO BEDTIME [facility] Last Admin: 10/01/24 20:31 Dose: 100 mg Hydroxyzine HCl (Hydroxyzine Hcl 50 Mg Tablet) 50 mg PO TID PRN PRN Reason: anxiety Last Admin: 10/01/24 15:38 Dose: 50 mg Lamotrigine (Lamotrigine 100 Mg Tablet) 150 mg PO DAILY [facility] Last Admin: 10/02/24 08:15 Dose: 150 mg Lorazepam (Lorazepam 1 Mg Tablet) 1 mg PO BID PRN PRN Reason: anxiety Last Admin: 10/01/24 20:31 Dose: 1 mg Magnesium Hydroxide (Milk Of Magnesia 30 Ml Oral.Susp) 30 ml PO DAILY PRN PRN Reason: Constipation Metoprolol Tartrate (Metoprolol Tartrate 25 Mg Tablet) 25 mg PO BID [facility]; Protocol Last Admin: 10/02/24 08:12 Dose: 25 mg Nicotine (Nicotine 21 Mg Patch.Td24) 21 mg TRANSDERMA DAILY BRITTNY Last Admin: 10/02/24 08:12 Dose: Not Given Nicotine Polacrilex (Nicotine Polacrilex 2 Mg Gum) 4 mg BUCCAL Q2H PRN PRN Reason: Nicotine Cravings Olanzapine (Olanzapine 10 Mg Tablet) 20 mg PO BEDTIME BRITTNY Last Admin: 10/01/24 20:32 Dose: 20 mg Trazodone HCl (Trazodone Hcl 50 Mg Tablet) 50 mg PO BEDTIME MRX1 PRN PRN Reason: Insomnia Last Admin: 10/01/24 20:31 Dose: 50 mg Venlafaxine HCl (Venlafaxine Hcl Er 75 Mg Cap.Er.24h) 75 mg PO DAILY BRITTNY Last Admin: 10/02/24 08:12 Dose: 75 mg Allergies Allergies Allergy/AdvReac Type Severity Reaction Status Date / Time aripiprazole Allergy Unknown Verified 09/28/24 18:10 Penicillins Allergy Hives Verified 09/28/24 18:10 sulfamethoxazole Allergy Unknown Verified 09/28/24 18:10 [From Bactrim] trimethoprim [From Bactrim] Allergy Unknown Verified 09/28/24 18:10 Assessment & Plan Assessment & Plan (1) Adjustment disorder with mixed disturbance of emotions and conduct: Status: Acute Code(s): F43.25 - Adjustment disorder with mixed disturbance of emotions and conduct (2) PTSD (post-traumatic stress disorder): Status: Acute Code(s): F43.10 - Post-traumatic stress disorder, unspecified Plan Patient is a 28-year-old male with history of Schizoaffective d/o, PTSD and alcohol use disorder who was brought in by ambulance after calling 911 due to suicidal ideation with a plan to jump the [facility] secondary to life stressors. Plan: CV 15 minute safety checks Continue home medication Encourage groups Obtain collateral Discharge planning 09/30: Patient continues to report feeling depressed; pt stated, I'm trying to get through it . denies SI/HI/VH/AH. Per social work, pt has outpatient appointment scheduled on 10/02/24. Discussed with patient about possibly of discharging home Thursday with plans to follow up with courts to be able to see his son. Continue current tx plan. 10/01 continue with same treatment. 3/2 continue same treatment Reason for continued inpatient stay Substantial Risk for: inability to function, rapid decompensation and med/psych decompensation Time Spent With Patient Time: Total time managing care of this patient today _20___ minutes.
[2024-10-02 20:34] VITALS: BP 139/78; PULSE 86; RESP 16; TEMP 36.5; O2SAT 94
[2024-10-02] MEDS: LORazepam 1 MG TABLET PO (20:43)
[2024-10-02] MEDS: Amitriptyline HCl 50 MG TABLET 100 MG PO (20:43)
[2024-10-02] MEDS: traZODone HCL 50 MG TABLET PO (20:43)
[2024-10-02] MEDS: OLANZapine 10 MG TABLET 20 MG PO (20:43)
[2024-10-03 07:30] VITALS: BP 139/76; PULSE 88; RESP 14; TEMP 36.7; O2SAT 93
[2024-10-03] MEDS: lamoTRIgine 100 MG TABLET 150 MG PO (08:30)
[2024-10-03 08:31] VITALS: BP 139/76; PULSE 88
[2024-10-03] MEDS: Venlafaxine HCl ER 75 MG CAP.ER.24H PO (08:31)
[2024-10-03] MEDS: Metoprolol Tartrate 25 MG TABLET PO (08:31)
--- NOTE | 2024-10-03 10:23 | P.DS_ITS ---
DS: Providers Provider Date of Service: 10/03/24 Date of admission: 09/29/24 11:49 Date of discharge: 10/03/24 Primary care physician: Unknown Physician Admitting clinician: Dee Dee Loaiza Attending physician on admission: Eris Flaherty Attending physician on discharge: Eris Flaherty Discharging clinician: Dee Dee Loaiza DS: Diagnosis Discharge Diagnosis (1) Adjustment disorder with mixed disturbance of emotions and conduct: Status: Acute (2) PTSD (post-traumatic stress disorder): Status: Acute DS: Medications Discharge Medications Home Medications: Previous Rx's ?Medication ?Instructions ?Recorded amitriptyline 50 mg tablet 100 mg (2 x 50 mg) PO BEDTIME #28 09/19/24 tabs hydroxyzine HCl 50 mg tablet 50 mg PO TID PRN anxiety #42 tabs 09/19/24 lamotrigine 100 mg tablet 150 mg (1.5 x 100 mg) PO DAILY #14 09/19/24 tabs lorazepam 1 mg tablet 1 mg PO BID PRN anxiety #14 tabs 09/19/24 metoprolol tartrate 25 mg tablet 25 mg PO BID #28 tabs 09/19/24 olanzapine 20 mg tablet 20 mg PO BEDTIME #14 tabs 09/19/24 trazodone 50 mg tablet 50 mg PO BEDTIME MRX1 PRN Insomnia 09/19/24 #28 tabs venlafaxine 75 mg capsule,extended 75 mg PO DAILY #14 caps 09/19/24 release 24 hr Mental Status Exam Mental Status Exam Narrative: Pt is alert and oriented; behavior is cooperative and calm; dressed in casual attire; mood is described as good ; eye contact appropriate; Speech is normal rate, volume and not pressured; thought process is organized; Thought content is on tx; denies SI/HI/VH/AH. Data Data Completed and Pending Completed studies during hospitalization [Text1]: 09/28/24 09/28/24 09/29/24 18:12 18:31 12:54 WBC 10.8 RBC 5.19 Hgb 16.1 Hct 45.8 MCV 88.2 MCH 31.0 MCHC 35.2 RDW 12.1 Plt Count 306 MPV 9.1 L Immature Gran % (Auto) 0.3 Neut % (Auto) 80.7 H Lymph % (Auto) 12.4 L [place] % (Auto) 5.7 Eos % (Auto) 0.3 Baso % (Auto) 0.6 Lymph # (Auto) 1.3 [place] # (Auto) 0.6 Eos # (Auto) 0.0 Baso # (Auto) 0.1 Abs Immat Gran (auto) 0.03 Absolute Neuts (auto) 8.7 H Absolute Nucleated RBC 0.000 Nucleated RBC % (auto) 0.0 Sodium 142 142 Potassium 3.7 3.9 Chloride 111 H 107 Carbon Dioxide 22 27 Anion Gap 13 12 BUN 15 16 Creatinine 0.90 1.08 Estim Creat Clear Calc 139.5 116.2 Estimated GFR > 60 > 60 Random Glucose 104 112 Calcium 9.3 9.7 Total Bilirubin 0.3 AST 44 H ALT 107 H Alkaline Phosphatase 83 Total Protein 8.1 H Albumin 4.8 Triglycerides Cholesterol LDL Cholesterol, Calc HDL Cholesterol Urine Color Yellow Urine Appearance Cloudy Urine pH 6.0 Ur Specific [place] >= 1.030 H Urine Protein Trace Urine Glucose (UA) Negative Urine Ketones Trace Urine Blood Negative Urine Nitrite Negative Ur Leukocyte Esterase Negative Salicylates < 5.0 L Urine Opiates Screen Not Detected Ur Buprenorphine Scrn Not Detected Ur Oxycodone Screen Not Detected Urine Methadone Screen Not Detected Urine Fentanyl Screen Not Detected Ur Barbiturates Screen Not Detected Ur Phencyclidine Scrn Not Detected Ur Amphetamines Screen Not Detected U Benzodiazepines Scrn Not Detected Urine Cocaine Screen Not Detected U Marijuana (THC) Screen Not Detected Ethyl Alcohol < 10 09/30/24 07:54 WBC RBC Hgb Hct MCV MCH MCHC RDW Plt Count MPV Immature Gran % (Auto) Neut % (Auto) Lymph % (Auto) [place] % (Auto) Eos % (Auto) Baso % (Auto) Lymph # (Auto) [place] # (Auto) Eos # (Auto) Baso # (Auto) Abs Immat Gran (auto) Absolute Neuts (auto) Absolute Nucleated RBC Nucleated RBC % (auto) Sodium Potassium Chloride Carbon Dioxide Anion Gap BUN Creatinine Estim Creat Clear Calc Estimated GFR Random Glucose Calcium Total Bilirubin AST ALT Alkaline Phosphatase Total Protein Albumin Triglycerides 186 H Cholesterol 218 H LDL Cholesterol, Calc 147 H HDL Cholesterol 34 L Urine Color Urine Appearance Urine pH Ur Specific [place] Urine Protein Urine Glucose (UA) Urine Ketones Urine Blood Urine Nitrite Ur Leukocyte Esterase Salicylates Urine Opiates Screen Ur Buprenorphine Scrn Ur Oxycodone Screen Urine Methadone Screen Urine Fentanyl Screen Ur Barbiturates Screen Ur Phencyclidine Scrn Ur Amphetamines Screen U Benzodiazepines Scrn Urine Cocaine Screen U Marijuana (THC) Screen Ethyl Alcohol DS: Summary Hospital Course Hospital Course: Patient is a 28-year-old male with history of Schizoaffective d/o, PTSD and alcohol use disorder who was brought in by ambulance after calling 911 due to suicidal ideation with a plan to [place] [facility] secondary to life stressors. Per crisis report, patient came to ER after calling 911 due to experiencing suicidal ideation with a plan to [place] [facility] [address] in [place], [place]. He reports standing on the bridge before deciding to seek help. Patient reported worsening depression since being discharged from on 09/20/2024. Patient reports worsening depression over the past few months as he navigates his separation from his . He describes feeling alone and lonely . During admission assessment, patient presents alert and oriented x3. Calm and cooperative. Patient reports feeling depressed; patient stated, I was having suicidal thoughts and drove to the [place] and thought about jumping. I was thinking about my son and I stopped. I'm hoping to see him soon . Patient reports that his left home a week ago with her son and is currently in a polyamorous relationship. Patient reports that he texted his richard while on the bridge with the hopes that she would respond but states that it didn't work . Patient stated, I'm just grieving I guess. I don't know who to contact in the courts. I feel safe here and it's difficult being in my house . Patient reports that he has been spending more time with his parents and his brother. He reports being medication compliant. Denies SI/HI/VH/AH at this time. Plan: CV 15 minute safety checks Continue home medication Encourage groups Obtain collateral Discharge planning Patient continues to report feeling depressed; pt stated, I'm trying to get through it . denies SI/HI/VH/AH. Per social work, pt has outpatient appointment scheduled on 10/02/24. Discussed with patient about possibly of discharging home Thursday with plans to follow up with courts to be able to see his son. Continue current tx plan. Patient reports feeling better today; pt stated, I'm just trying to process everything. I'm going to go to the court house to see what I can do about seeing my son . He reports having a good weekend and sleeping well. denies SI/HI/VH/AH. Pt has an outpatient therapy appointment today; he plans on following up with his outpatient providers. Status at Discharge Cognitive/behavioral status at discharge: Patient has insight and demonstrates good judgment in terms of wanting to pursue treatment. Patient has a safety plan that includes presenting to the closest ER or calling 911 if feeling unsafe. Functional status at discharge: independent ambulation Overall status at discharge: patient is back to baseline Time Spent with Patient Time attestation: Total time managing care of this patient today _20___ minutes. Time spent: Less than 30 minutes Discharge Plan Discharge Anticipated Discharge Date/Time: 10/03/24 14:00 Patient Disposition: Home, Self-Care Discharge Diagnosis: Adjustment d/o, PTSD Referrals: Penelope Isidro (Therapy) [Other] - 10/03/24 4:00 pm (TELEHEALTH APPOINTMENT) Larissa Machado (Psychiatry) [Other] - 10/19/24 9:40 am (TELEHEALTH APPOINTMENT) Nisa helena. Martha Najera [Provider Group] - 1 Week (10-03-24 Your primary care physicians office has been notified of your discharge and will be contacting you directly with your follow up appt date and time.) Discharge Medications: Continued venlafaxine 75 mg Capsule,Extended Release 24hr 75 mg PO DAILY Qty: 14 1RF trazodone 50 mg Tablet 50 mg PO BEDTIME MRX1 PRN (Reason: Insomnia) Qty: 28 1RF hydroxyzine HCl 50 mg Tablet 50 mg PO TID PRN (Reason: anxiety) Qty: 42 1RF amitriptyline 50 mg Tablet 100 mg PO BEDTIME Qty: 28 1RF lorazepam 1 mg Tablet 1 mg PO BID PRN (Reason: anxiety) Qty: 14 4RF lamotrigine 100 mg Tablet 150 mg PO DAILY Qty: 14 1RF metoprolol tartrate 25 mg Tablet 25 mg PO BID Qty: 28 1RF Protocol: Hold for SBP/HR < HOLD for SBP < : 90 HOLD for HR < : 60 olanzapine 20 mg tablet 20 mg PO BEDTIME Qty: 14 1RF Discharge Orders: Discharge Order (Routine); Ordered 10/03/24 Ordered By: Dee Dee Khabir Diet: Regular diet Activity on Discharge: As tolerated Stand Alone Forms: Patient Portal Discharge page Print Language: Sinhala Care Plan Goals: Maintain mood and safe behaviors Take medications as prescribed Practice coping skills Continue with outpatient providers and reach out to them as needed Health Concerns: Mood stability and behaviors Plan of Treatment: Follow up with your PCP, psychiatric provider and other outpatient providers regarding above concerns Take medications as prescribed Assessment: Patient has insight and demonstrates good judgment in terms of wanting to pursue treatment. Patient has a safety plan that includes presenting to the closest ER or calling 911 if feeling unsafe.
== END 2024-10-03 13:50 | disposition home or self-care (01) | DRG 755 ==
LOC: HO.ED 19:23 → HO.PADLT16 09-29 12:19
PROVIDERS: Physician Assistant Medical; Admitting Provider Registered Nurse; Emergency Provider Internal Medicine; Responsible Provider Registered Nurse; Visit Provider Psychiatry & Neurology Psychiatry
DX: F43.25 Adjustment disorder with mixed disturbance of emotions and conduct (principal); R45.851 Suicidal ideations; F10.90 Alcohol use, unspecified, uncomplicated; Z87.891 Personal history of nicotine dependence; Z79.899 Other long term (current) drug therapy
CPT/HCPCS: 36415; 80048; 80053; 80061; 80179; 80307; 81003; 85025; 93005; 99285; S9485

== ENCOUNTER → 2024-09-29 10:33 | Outpatient (BNV) | payer OTHER, SELFPAY | PROVIDERS: Admitting Provider Registered Nurse; Emergency Provider Internal Medicine; Responsible Provider Registered Nurse; Visit Provider Internal Medicine Cardiovascular Disease | DX: Z13.6 Encounter for screening for cardiovascular disorders (principal) | CPT/HCPCS: 93010 ==

== ENCOUNTER → 2024-09-29 11:49 | Outpatient (BNV) | payer OTHER, SELFPAY | PROVIDERS: Admitting Provider Registered Nurse; Emergency Provider Internal Medicine; Responsible Provider Registered Nurse; Visit Provider Registered Nurse | DX: F43.25 Adjustment disorder with mixed disturbance of emotions and conduct (principal); F43.11 Post-traumatic stress disorder, acute | CPT/HCPCS: 90792; 99231; 99238 ==

== ENCOUNTER 2024-10-10 13:02 | Outpatient (AMB) | payer OTHER, SELFPAY ==
--- NOTE | 2024-10-10 13:07 | A.OFFVIS_ITS ---
Intake Visit Reasons: FC-Avulsion fracture of right talus, ankle Intake Note: Uli is a 28 year old male who presents today as a new patient for an evaluation of a right talus fracture, DOI 09/13/24. Patient states that he missed a step and his ankle went sideways. He was seen at [facility] where x-rays were taken and he was placed in a walking boot. Currently his pain presents activity such as stair use and heavy lifting. His pain is located at the lateral and medial aspect of ankle. No numbness or tingling. He d/c use of walking boot after a few day days due to discomfort in boot. Allergies aripiprazole Allergy (Verified 10/10/24 13:14) Unknown Penicillins Allergy (Verified 10/10/24 13:14) Hives sulfamethoxazole [From Bactrim] Allergy (Verified 10/10/24 13:14) Unknown trimethoprim [From Bactrim] Allergy (Verified 10/10/24 13:14) Unknown Medication List - Last Reconciled 10/10/24 by Ariadne Givens PA-C amitriptyline 100 mg (2 x 50 mg) PO BEDTIME hydroxyzine HCl 50 mg PO TID PRN lamotrigine 150 mg (1.5 x 100 mg) PO DAILY lorazepam 1 mg PO BID PRN olanzapine 20 mg PO BEDTIME trazodone 50 mg PO BEDTIME MRX1 PRN venlafaxine ER 75 mg PO DAILY HPI HPI FC-Avulsion fracture of right talus, ankle: Details: 28-year-old gentleman presents to the office today for an injury he sustained to his right ankle on 09/13/24. He said he was walking when he stepped wrong and he twisted the ankle and fell. He was seen in the emergency department where x- rays were obtained and he was placed in a boot weightbearing as tolerated and referred to our office for ortho eval. He states since he was seen in the emergency department he does have some improvement with his pain however if he steps or twist the ankle in a certain position he has discomfort. [facility] Medical History (Updated 10/10/24 @ 13:24 by Ariadne Givens PA-C) Feeling suicidal Alcohol use disorder Elevated LFTs Routine medical exam TBI (traumatic brain injury) Seizures SVT (supraventricular tachycardia) Surgical History History of appendectomy Social History (Updated 10/10/24 @ 13:08 by DE Stevens) Household Members: Other Household Members Other:: room mate Housing: House Do you presently have visiting nurse or other home services: No Alcohol intake: current Alcohol intake frequency: holidays/special occasions only Alcohol type: beer Patient Tobacco Use Status: Former Tobacco user Tobacco use type: Cigarette Cigarette Packs Per Day: 0 Cigarettes Per Day: 0 Years Smoked: 8 e-Cigarette/Vaping Use: Never Used Second Hand Smoke Exposure: No Substance Use Type: Marijuana Advance Directives Date on File: 08/29/24 service: No Current occupational status: unemployed Sexual orientation: Bisexual Review of Systems Const All systems reviewed & are unremarkable except as noted in HPI and below Physical Exam Const General: cooperative and no acute distress Orientation/consciousness: patient oriented x3 Resp Effort & Inspection: normal respiratory effort and able to speak in complete sentences Cardio Peripheral pulses: Peripheral pulses 2+ throughout Neuro General: patient oriented x3 Extrem Other: Right ankle normal to inspection with diffuse swelling over the lateral soft tissues with mild tenderness to palpation. No pain along the Achilles tendon. Mild discomfort over the medial soft tissues. No pain over the syndesmosis. He has full ankle range of motion. Mild discomfort with inversion against resistance. Neurovascularly intact. Results Reviewed Results Reviewed: XR ankle RT min 3V IMPRESSION: Suspect a tiny avulsion fracture arising from the lateral process of the talus, seen on the AP view only. Assessment & Plan Assessment & Plan (1) Right ankle sprain: Code(s): S93.401A - Sprain of unspecified ligament of right ankle, initial encounter Category: Medical Plan: We discussed options today which include a lace-up ankle brace which he was fit for today. He will use this when he is walking outside or in uncontrolled environments. I did place an order for physical therapy to work on range of motion gentle strengthening proprioceptive training. He can increase activities as tolerated and if symptoms persist or worsen he can contact our office otherwise follow up as needed. Orders: Orders PT Evaluation and Treatment Today Ariadne Givens PA-C S93.401A - Sprain of unspecified ligament of right ankle, initial encounter Medications: Discontinued metoprolol tartrate Discontinued Reason: Patient no longer taking 25 mg See Protocol PO BID 28 tabs 1RF Emma Hernandez, SAMIA Coding Level of Care Code New Pt Level 3 (55885) Complex EM visit Add On G2211 Diagnoses Right ankle sprain S93.401A
--- OUTSIDE RECORDS SUMMARY | 2024-10-10 14:36 | XMS_ITS | Clinical Summary ---
Author Organization [facility] Address [address] [place] [address] Care Team Providers Care Waste Water Operator Name Role Phone Joy Gracia MD Primary [...] age to complete this topic Care Teams Waste Water Operator Relationship Specialty Start Date End Date Joy Gracia MD [address] [place] [phone] PCP - General Internal Medicine 03/30/19
--- OUTSIDE RECORDS SUMMARY | 2024-10-10 14:36 | XMS_ITS | Clinical Summary ---
Author Organization [address] Address [address] [place] [phone] Phone Care Team Providers Care Collector Of Aquarium Specimens Name Role Phone Michelle Gamez MD Primary [...] Encounters Date Type Department Care Team Description 10/03/2024 Telephone Adult Medicine [address] [id number] Michelle Gamez MD Hospital Follow-up 09/07/2024 Telephone Adult Medicine [address] [phone] Michelle Gamez MD Hospital Follow-up from Last 3 Months Immunizations Name Administration Dates Next Due Td Tetanus diptheria (Tdvax) 7yo and older 09/16 Tdap Tetanus diptheria acell ular pertussis (Boostrix; Adacel) 7yo and older 01/07/2023 Surgical History Surgery Date Site/Laterality Comments APPENDECTOMY PROCEDURE: HISTORICAL APPENDECTOMY TONSILLECTOMY ADENOIDECTOMY, BILATERAL MYRINGOTOMY AND TUBES PROCEDURE: [place] TONSILLECTOMY & ADENOIDECTOMY <AGE 12 OTHER SURGICAL HISTORY Left PROCEDURE: [place] ORCHIECTOMY PARTIAL; COMMENT: as a child for [...] Care Team (Late st Contact Info) Description 10/13/2024 10:30 AM EDT Office Visit Adult Medicine [facility] [address] [place] [phone] Michelle Gamez MD [address] [place] [phone] Health Maintenance Due Date Last Done Comments Social Influencers of Health Screening 07/12/2022 COVID-19 [...] patient's age to complete this topic Hepatitis A Vaccines Aged Out No long er eligible based [...] Maintenance Results * Depression Screening (10/20/2023) Pathologist [facility] Depression Screening Abstracted Historical Provider HEALTH MAINTENANCE [...] Recently Relevant to Health Maintenance Care Teams Collector Of Aquarium Specimens Relationship Specialty Start Date End Date Michelle Gamez MD [address] [place] [id number] PCP - General Internal Medicine 03/03/22
--- OUTSIDE RECORDS SUMMARY | 2024-10-10 14:37 | XMS_ITS | Data Portability ---
Author Organization [facility] [employer], [place] Address [address] [facility] [place] [address] Care Team Providers Care Railway Yard Assistant Name Role Phone KODI CARLSON Referring Provider Unavailable KODI CARLSON Referring Provider PIERRE QUINTERO Primary Care Provider [facility] Primary Care Provider [facility] OTHER Assessment Encounter Date Assessment Date Assessment [...] continue to consider, as needed, using our [facility] website and/or signing up for [facility] e-mail portal. Followup in 11 months, or [...] 2021 working with a new psychiatrist at [facility] with additional diagnosis of schizoaffective disorder [...] disorder, working with a new psychiatrist at [facility]. -- September 08, 2022 only one [...] a migraine preventative. He is satisfied with [id number]-zoaptzb Advil 400 mg or naproxen 440 mg [...] line 75 mg tablet 2023 024 lisa [facility]/Pharmacy #[id number], [address] [facility], [place], [address], 08/12/2023 15:55:27 amitripty line 75 mg tablet 2022 023 [facility]/Pharmacy #[id number], [address] [facility], [place], [address], 09/08/2022 14:32:38 amitripty line 75 mg tablet 2021 022 [facility] #[id number], [address], [place], [place], [phone], 09/25/2021 12:38:35 Patient TargetsNo targets recorded. Patient [...] management lucille Not available 09/08/2022 14:50:29 08/12/2023 [id number] PREVIOUS MEDICAT ION -- early 2021 Anxiety and anxiety attacks a bit better with venlafaxine XR 37.5 mg, Then discontinued December 2021 with eventual Zyprexa/fluoxetine for schizoaffective disorder depression and anxiety discussed September 2022 follow-up Melatonin helped sleep when he was on second shift, stopped when he went to [facility], May 2018 Klonopin 3 times a [...] 08/12/2023 DATA REVIEW completed Jarrod Bertrand MD [address] [place] [address] [place], [phone], [facility] 08/12/2023 15:23:01 09/08/2022 DATA REVIEW completed Jarrod Bertrand MD [address] [place] [address], Abdiaziz [place], [phone], [facility] 09/08/2022 14:19:34 09/25/2021 DATA REVIEW completed Jarrod Bertrand MD [address] [place] [address], Abdiaziz ALO, [phone], [facility] 09/25/2021 12:25:51 06/24/2021 DATA REVIEW completed Jarrod Bertrand MD [address] [place] [address] [place], [phone], [facility] 06/24/2021 13:07:55 Imaging Results None [...] Code Diagnosis Note [id number] Jarrod Bertrand MD [facility] [address] [place] [address] [place] [address] 06/24/2021 12:48:13 06/24/2021 13:35:20 [id number] Jarrod Bertrand MD [facility] [address] [place] [address] [place] [address] 09/25/2021 11:51:12 09/25/2021 19:44:29 Migraine without aura [id number] G43.009 [id number] Jarrod Bertrand MD [address] [place] [address] 09/08/2022 14:08:28 09/08/2022 17:09:23 Migraine without aura [id number] G43.009 [id number] Jarrod Bertrand MD [facility] [address] [place] [address] [place] [address] 08/12/2023 15:16:35 08/12/2023 16:11:58 Migraine without aura [id number] G43.009 Health Concerns Section Related Observation LastModified by Organization Detai ls LastModified Time None Recorded Concern Status LastModified by Organization Details LastModified Time None Recorded Advance Directives Directive None Recorded Payers Encounter Date Sequence Insurance Name Policy Number Policy Whitmore Covered Member ID Whitmore Member ID Guarantor Name 06/24/[address] [facility] [id number] Uli R Rowan [id number] Uli R Rowan 09/25/[address] [facility] [id number] Uli R Rowan [id number] Uli R Rowan 09/08/[address] [facility] [id number] Uli R Rowan [id number] Uli R Rowan 08/12/[address] [facility] [id number] Uli R Rowan [id number] Uli R Rowan Notes Date Note Type Note Provider Name and Address Organization Details Recorded Time 06/24/2021 text/html Follow up of pineda lucero. There has also been whole body shaking and shutdown that has been diagnosed as pseudoseizure by [facility] in approximately 5436-7244. Past history includes head injury including skull [...] a week to 2-3 times per week. [place]sen headaches continue to last about 2 hours [...] These have been diagnosed as pseudoseizure by [facility]. He thinks these happen maybe [...] remembers this portion, however. Jarrod Bertrand MD [address] [place] [address], [phone], [facility] 09/25/2021 12:27:03 09/25/2021 text/html Follow up of pineda lucero. There has also been whole body shaking and shutdown that has been diagnosed as pseudoseizure by [facility] neurology in approximately 6972-8112. Past history includes head injury including skull [...] not tried the naratriptan. He continues using kism-vwh-bahxryt analgesics for some of his headaches. Interim [...] a week to 2-3 times per week. 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 He thinks these happen maybe [...] remembers this portion, however. Jarrod Bertrand MD [address] [place] [address] [place], [phone], [facility] 09/25/2021 12:54:32 09/08/2022 text/html Follow up of pineda lucero. There has also been whole body shaking and shutdown that has been diagnosed as pseudoseizure by [facility] neurolog[facility] in approximately 7713-3246. Past history includes head injury including skull [...] symptoms worsened and he was admitted to [facility] inpatient psychiatric unit. He was very anxious there and so was referred to [facility] where psychiatry made a diagnosis of [...] not tried the naratriptan. He continues using ktjh-cbd-ollpszj analgesics for some of his headaches. ? [...] a week to 2-3 times per week. 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 He thinks these happen maybe [...] remembers this portion, however. Jarrod Bertrand MD [address] [place] [address] [place], [phone], [facility] 09/08/2022 14:50:43 08/12/2023 text/html Follow up of pineda lucero. There has also been whole body shaking and shutdown that has been diagnosed as pseudoseizure by [facility] neurology in approximately 2098-0204. Past history includes head injury including skull [...] He understands. He takes naproxen 440 mg pdkq-muu-sbrfqoe or ibuprofen 4 mg pskd-jom-hakqkah for his weekly mild headache breakthrough and [...] symptoms worsened and he was admitted to [facility] inpatient psychiatric unit. He was very anxious there and so was referred to [facility] where psychiatry made a diagnosis of [...] not tried the naratriptan. He continues using dlvr-ukz-jypqdue analgesics for some of his headaches. ? [...] a week to 2-3 times per week. 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 He thinks these happen maybe [...] remembers this portion, however. Jarrod Bertrand MD [address] [place] [address] [place], [phone], [facility] 08/12/2023 15:59:31
--- OUTSIDE RECORDS SUMMARY | 2024-10-10 14:37 | XMS_ITS | Encounter Summary ---
Author Organization [facility] Address [address] [place] [address] Care Team Providers Care Line Installer Name Role Phone Michelle Gamez MD Primary Care Prov ider Reason for Visit * Reason Onset Date Comments Hospital Follow-up 10/03/2024 Encounter Details Date Type Department Care Team (Late st Contact Info) Description 10/03/2024 Telephone Adult Medicine [address] [phone] Michelle Gamez MD [address] [place] [id number] Hospital Follow-up Social History Tobacco Use Types [...] Progress Notes * Marie Cruz RN - 10/03/2024 2:01 PM EST Scheduled hosp f/u for 10/13 at 10:15 with PCP * Joelle Allan - 10/03/2024 9:22 AM EST Hospital/ER follow up appointment needed Hospital patient was treated at: [facility] Was this only an ER visit or was the patient admitted to the hospital? Admitted to the hospital/kept overnight Date of visit if ER visit only: If patient was admitted what was the date of discharge? 10/03/24 Reason/diagnosis for visit or stay: PTSD and adjustment diorder When was the patient told to follow up? 7-10 days Was visit or stay related to an injury? If yes, what was the date of injury (DOI)? No If yes, was the injury due to: Not 3rd constitution party related documented in this encounter Plan of Treatment Upcoming Encounters Date Type Department Care Team (Late st Contact Info) Description 10/13/2024 10:30 AM EDT Office Visit Adult Medicine [address] [phone] Michelle Gamez MD [address] [place] [address] documented as of this encounter Visit Diagnoses Not on filedocumented in this encounter Care Teams Line Installer Relationship Specialty Start Date End Date Michelle Gamez MD [address] [place] [address] PCP - General Internal Medicine 03/03/22 documented as of this encounter
== END 2024-10-10 13:31 | disposition home or self-care (01) ==
PROVIDERS: Visit Provider Physician Assistant
DX: S93.401A Sprain of unspecified ligament of right ankle, initial encounter (principal); S92.101A Unspecified fracture of right talus, initial encounter for closed fracture
CPT/HCPCS: 99203; G2211

== ENCOUNTER → 2024-10-10 13:02 | Outpatient (BNVA) | payer OTHER, SELFPAY | PROVIDERS: Visit Provider Physician Assistant | DX: S93.401A Sprain of unspecified ligament of right ankle, initial encounter (principal) | CPT/HCPCS: 99202 ==

== ENCOUNTER 2024-11-23 21:11 | Inpatient (IN) | payer OTHER, SELFPAY ==
--- NOTE | 2024-11-23 21:30 | MHC.CARE ---
Patient was evaluated by [facility] in the community and found appropriate for [facility]. He was voluntary for an admission so a section 12 will be filled out by the Care Team pending placement. Information will be passed to pod RN at this time and a copy of [facility] evaluation will be put in his chart.
[2024-11-23 21:42] VITALS: BP 122/84; BP 133/85; PULSE 98; PULSE 99; RESP 18; TEMP 36.9; O2SAT 95; BMI 26.1
[2024-11-23 22:05] LABS: MANUAL DIFF FLAG NO
[2024-11-23 22:07] LABS: Basophils Absolute Auto 0.1 X10*3/uL (0.0-0.2); Basophils Percent Auto 0.7 % (0-2); Eosinophils Absolute Auto 0.1 X10*3/uL (0.0-0.4); Eosinophils Percent Auto 1.7 % (0-4); Hematocrit 42.3 % (42.0-52.0); Hemoglobin 14.9 g/dl (14.0-18.0); Imm Gran Abs Auto 0.02 X10*3/uL (0.00-0.03); Imm Gran Pct Auto 0.3 % (0.0-0.4); Lymphocytes Absolute Auto 2.2 X10*3/uL (1.2-4.9); Lymphocytes Percent Auto 30.7 % (20-40); Mean Corpuscular HGB Conc 35.2 g/dl (31.0-36.0); Mean Corpuscular Hemoglobin 31.4 pg (27.0-33.0); Mean Corpuscular Volume 89.1 fL (80.0-98.0); Mean Platelet Volume 8.9 fL (9.4-12.4); Monocytes Absolute Auto 0.5 X10*3/uL (0.1-1.2); Monocytes Percent Auto 7.6 % (2-11); Neutrophils Absolute Auto 4.2 x10*3/uL (2.0-8.3); Platelet Count 305 X10*3/uL (160-400); Red Blood Count 4.75 X10*6/uL (4.60-5.80); Red Cell Distribution Width 12.1 % (11.0-16.0); White Blood Count 7.1 X10*3/uL (4.8-10.8)
[2024-11-23 22:17] LABS: Amphetamine Screen Urine Not Detected (Not Detect); Barbiturates, Urine Not Detected (Not Detect); Benzodiazepines Screen Urine Not Detected (Not Detect); Buprenorphine Scr Not Detected (Not Detect); Cannabinoid Screen Urine Not Detected (Not Detect); Cocaine Screen Urine Not Detected (Not Detect); Fentanyl, urine Not Detected (Not Detect); Methadone Screen, Urine Not Detected (Not Detect); Opiate Screen Urine Not Detected (Not Detect); Oxycodone Screen Urine Not Detected (Not Detect); Phencyclidine Screen Urine Not Detected (Not Detect)
--- NOTE | 2024-11-23 22:18 | PHA.MEDREC ---
Pharmacy Consult ? Medication Reconciliation Pharmacy has completed the medication reconciliation. Reviewed med rec done by nursing, matches claim history
[2024-11-23 22:20] LABS: Alanine Aminotransferase 85 U/L (0-40); Albumin Level 4.4 g/dL (3.5-5.0); Alkaline Phosphatase 71 U/L (39-117); Anion Gap 16 (12-20); Aspartate Amino Transferase 39 U/L (5-37); Bilirubin Total 0.2 mg/dL (0.0-1.0); Blood Urea Nitrogen 13 mg/dL (9-16); Calcium 9.1 mg/dL (8.4-10.2); Carbon Dioxide 22 mmol/L (22-29); Chloride 108 mmol/L (96-108); Creatinine Clr Calc Pharmacy 142.3; Estimated Glomerular Filt Rate > 60; Ethanol 67 mg/dL; Glucose Random 98 mg/dL (60-115); Potassium 3.9 mmol/L (3.3-5.1); Sodium 142 mmol/L (135-145)
[2024-11-23] MEDS: Amitriptyline HCl 50 MG TABLET 100 MG PO (22:41)
[2024-11-23] MEDS: OLANZapine 10 MG TABLET 20 MG PO (22:44)
[2024-11-23 22:58] LABS: Acetaminophen LAB < 3 mcg/mL (<30); Salicylate < 5.0 mg/dL (15-30)
--- OUTSIDE RECORDS SUMMARY | 2024-11-23 23:24 | XMS_ITS | Encounter Summary ---
Author Organization [facility] Address [address] [place] [address] Care Team Providers Care Mash Preparatory Operator Name Role Phone Michelle Figueroa MD Primary Care Prov ider Allen Fuentes MD Unavailable [phone] Encounter Details Date Type Department Care Team Description 08/12/2023 [employer] Acquis[employer] Attorney Report Medical Records [address] [place] [id number] Jarrod Bertrand MD Social History Tobacco Use Types Packs/Day Years Used Date Smoking Tobacco: Former Smokeless Tobacco: Never Alcohol Use Standard Drinks/Week Comments Yes 0 (1 standard drink = 0.6 oz pur e alcohol) 2-3 drinks/day. Sex Assigned at Date Recorded Not on file Job Start Date Occupation Industry Not on file Not on file Not on file documented as of this encounter Plan of Treatment Not on file documented as of this encounter Visit Diagnoses Not on filedocumented in this encounter Care Teams Mash Preparatory Operator Relationship Specialty Start Date End Date Michelle Figueroa MD [address] [place] [address] PCP - General Internal Medicine 03/03/22 Allen Fuentes MD [address] [place] [address] Specialist Cardiovascular Disease 01/14/23 documented as of this encounter
--- OUTSIDE RECORDS SUMMARY | 2024-11-23 23:24 | XMS_ITS | Encounter Summary ---
Author Organization [facility] Address [address] [place] [address] Care Team Providers Care Riding Silks Custodian Name Role Phone Community, Pcp Unavailable Unavailable Francesca Corley MD Primary Care Provider Unava ilable Pa Collins MD Primary Care Provider [phone] Michelle Figueroa MD Primary Care Prov ider Pa Collins MD Primary Care Provider [phone] Michelle Figueroa MD Primary Care Prov ider Allen Fuentes MD Unavailable [phone] Encounter Details Date Type Department Care Team Description 06/24/2021 Canteen Manager Report Medical Records [address] [place] [address] Jarrod Bertrand MD Social History Tobacco Use [...] on filedocumented in this encounter Care Teams Riding Silks Custodian Relationship Specialty Start Date End Date Francesca Corley MD PCP - General 10/18/19 07/07/21 Pa Collins MD [address] [place] [address] PCP - General Internal Medicine 07/08/21 02/09/22 Michelle Figueroa MD [address] [place] [address] PCP - General Internal Medicine 02/10/22 02/13/22 Pa Collins MD [address] [place] [address] PCP - General Internal Medicine 02/14/22 03/02/22 Michelle Figueroa MD [address] [place] [address] PCP - General Internal Medicine 03/03/22 [facility], Pcp 03/17/19 05/24/23 Allen Fuentes MD [address] [place] [address] [place] [address] Specialist Cardiovascular Disease 01/14/23 documented as of this encounter
--- OUTSIDE RECORDS SUMMARY | 2024-11-23 23:24 | XMS_ITS | Data Portability ---
Author Organization [facility] [employer] Address [address] [address] Care Team Providers Care Retail Asset Protection Specialist Name Role Phone SHAMAR MANZO Referring Provider [phone] KODI CARLSON Referring Provider [phone] PIERRE QUINTERO Primary Care Provider [facility] Primary Care Provider [facility] OTHER Assessment Encounter Date Assessment Date Assessment [...] continue to consider, as needed, using our [employer] website and/or signing up for [facility] e-mail portal. Followup in 11 months, or [...] 2021 working with a new psychiatrist at [facility] with additional diagnosis of schizoaffective disorder context [...] disorder, working with a new psychiatrist at [facility]. -- September 08, 2022 only one mild [...] a migraine preventative. He is satisfied with mgsm-anm-axyclot Advil 400 mg or naproxen 440 mg [...] treatment would be the same. PLAN Uli Harpal August 12, 2023 CONTINUE, for migraine prevention: Amitriptyline 75 mg nightly For muscular part of headache: CONTINUE home exercises learned from physical therapy for the muscular part of your headaches Followup in 11 months, or sooner as needed for neurological issues [email or web address] Not available 08/12/2023 15:59:05 10/31/2024 10/31/2024 IMPRESSION migraine, with headache historically modulated by [...] disorder, working with a new psychiatrist at [facility]. --October 31, 2024 continuing good benefit of amitriptyline for migraine prevention, however increase amitriptyline 75 -> 100 mg by psychiatry -- September 08, 2022 only one mild headache per week over the last several months, with no change of migraine preventative amitriptyline 75 mg daily, with medication changes including settling on Zyprexa/fluoxetine combination for schizoaffective disorder, anxiety and depression. >>>>>>>>>>>>October 31, 2024 Amitriptyline has been taken over by psychiatry with their recent increase, 75 mg -> 1/2 mg, to help depression. He does not need neurology management anymore as I am not managing any medications? a mitriptyline was the only medication that was prescribed. This makes sense to him. We decided he will follow-up as needed. However, he requests that I put in a temporary amitriptyline prescription at the higher dosage as amitriptyline medication management taper by psychiatry on the outpatient side is still pending for the next appointment. He had a psychiatry appointment after psychiatric hospital discharge but they forgot to take over the amitriptyline medication. I will put in amitriptyline 100 mg every evening but only with one refill and after that I will defer to psychiatry. >>>>>>>>>>>>Jessica y 2023 His headaches are only mild and once a week. His mental health issues remain under control He has no side effects to amitriptyline 75 mg nightly. We agreed to continue this as a migraine preventative. He is satisfied with vmmf-wri-jtozzjk Advil 400 mg or naproxen 440 mg for the headache breakthrough once a week. We decide to stay away from prescription migraine breakthrough medication. >>>>>>>>>>>>2021: He wonders whether head injury with frontal [...] would be the same. PLAN Uli Rowan October 31, 2024 Continue, for depression and migraine, amitriptyline 100 mg nightly. I will put in a prescription for 1 month with one refill, after which I will defer to psychiatry to continue management as detailed above. Continue ibuprofen 400 mg four breakthrough headaches 1-2 times per week CONTINUE home exercises learned from physical therapy for the muscular part of your headaches Follow-up with me as needed as detailed above. lucille Not available 10/31/2024 13:26:19 Plan of Treatment Reminders Order Date Submit Date Provider Last Modified By Organization Details Last Modified Time Details Appointments None recorded. Lab None recorded. Referral None recorded. Procedures None recorded. Surgeries None recorded. Imaging None recorded. Medication Orders amitriptyli ne 50 mg tablet 2024 025 [facility] #[id number], [address] [place], [address], 5 13:11:41 amitriptyli ne 75 mg tablet 2023 024 [facility] #[id number], [address] [place], [address], 4 15:55:27 amitriptyli ne 75 mg tablet 2022 023 [facility] #[id number], [address] [place], [address], 3 14:32:38 amitriptyli ne 75 mg tablet 2021 022 [id number], [address], [place], [id number], 2 12:38:35 Patient TargetsNo targets recorded. Patient Instructions [...] management lucille Not available 09/08/2022 14:50:29 08/12/2023 [id number] PREVIOUS MEDICAT ION -- early 2021 Anxiety and anxiety attacks a bit better with venlafaxine XR 37.5 mg, Then discontinued December 2021 with eventual Zyprexa/fluoxetine for schizoaffective disorder depression and anxiety discussed September 2022 follow-up Melatonin helped sleep when he was on second shift, stopped when he went to [facility], May 2018 Klonopin 3 times a day [...] Chronic condition with exacerbation; prescription medication management mrossen Not available 08/12/2023 15:23:01 10/31/2024 [id number] PREVIOUS MEDICAT ION -- early 2021 Anxiety and anxiety attacks a bit better with venlafaxine XR 37.5 mg, Then discontinued December 2021 with eventual Zyprexa/fluoxetine for schizoaffective disorder depression and anxiety discussed September 2022 follow-up Melatonin helped sleep when he was on second shift, stopped when he went to [facility], May 2018 Klonopin 3 times a day [...] Chronic condition with exacerbation; prescription medication management mrossen Not available 10/31/2024 13:05:46 Reason for Referral None Reported. Procedures Surgical History Date Name Laterality Status Provider Name and Address Organization Details Recorded Time 10/31/2024 DATA REVIEW completed Jarrod Bertrand MD [address] [place] [address] [place], [phone], [facility] 10/31/2024 13:05:45 08/12/2023 DATA REVIEW completed Jarrod Bertrand MD [address] [place] [address] [place], [phone], [facility] 08/12/2023 15:23:01 09/08/2022 DATA REVIEW completed Jarrod Bertrand MD [address] [place], [place] [address], [phone], [facility] 09/08/2022 14:19:34 09/25/2021 DATA REVIEW completed Jarrod Bertrand MD [address] [place] [address] [place], [phone], [facility] 09/25/2021 12:25:51 06/24/2021 DATA REVIEW completed Jarrod Bertrand MD [address] [place] [address] [place], [phone], [facility] 06/24/2021 13:07:55 Imaging Results None recorded. Procedure [...] e 50 mg tablet TAKE 2 TABLETS EVERY DAY BY ORAL ROUTE IN THE EVENING, FOR DEPRESSION & HEADACHE. active Not Available Not Available Not Available amoxicillin 500 mg tablet TAKE 1 [...] Code Diagnosis Note [id number] Jarrod Bertrand MD [facility] [address] [place] [address] [place] [address] 06/24/2021 12:48:13 06/24/2021 13:35:20 [id number] Jarrod Bertrand MD [facility] [address] [place] [address] [place] [address] 09/25/2021 11:51:12 09/25/2021 19:44:29 Migraine without aura [id number] G43.009 [id number] Jarrod Bertrand MD [facility] [address] [place] [address] [place] [address] 09/08/2022 14:08:28 09/08/2022 17:09:23 Migraine without aura [id number] G43.009 [id number] Jarrod Bertrand MD [facility] [address] [place] [address] [place] [address] 08/12/2023 15:16:35 08/12/2023 16:11:58 Migraine without aura [id number] G43.009 [id number] Jarrod Bertrand MD [facility] [address] [place] [address] [place] [address] 10/31/2024 12:24:12 10/31/2024 16:52:16 Migraine without aura [id number] G43.009 Health Concerns Section Related Observation LastModified by Organization Detai ls LastModified Time None Recorded Concern Status LastModified by Organization Details LastModified Time None Recorded Advance Directives Directive None Recorded Payers Encounter Date Sequence Insurance Name Policy Number Policy Whitmore Covered Member ID Whitmore Member ID Guarantor Name 06/24/2021 1 [facility] [id number] Uli R Rowan [id number] Uli R Rowan 09/25/2021 1 [facility] [id number] Uli R Rowan [id number] Uli R Rowan 09/08/2022 1 [facility] [id number] Uli R Rowan [id number] Uli R Rowan 08/12/2023 1 [facility] [id number] Uli R Rowan [id number] Uli R Rowan 10/31/2024 1 [facility] PUBLIC [employer] - DIRECT - ASSINIBOINE AND [place] TRIBES ZERO (HMO) [id number] Uli Monika Rowan [id number] Uli Rowan Notes Date Note Type Note Provider Name and Address Organization Details Recorded Time 06/24/2021 text/html Follow up of pineda lucero. There has also been whole body shaking and shutdown that has been diagnosed as pseudoseizure by [facility] neurology in approximately [phone]. Past history includes head injury including skull [...] a week to 2-3 times per week. [place] headaches continue to last about 2 hours [...] These have been diagnosed as pseudoseizure by [facility] neurology. He thinks these happen [...] remembers this portion, however. Jarrod Bertrand MD [address] [place] [address], [phone], [facility] 09/25/2021 12:27:03 09/25/2021 text/html Follow up of pineda lucero. There has also been whole body shaking and shutdown that has been diagnosed as pseudoseizure by [facility] neurology in approximately [phone]. Past history includes head injury including skull [...] not tried the naratriptan. He continues using jjjb-knw-slrmlgp analgesics for some of his headaches. Interim [...] a week to 2-3 times per week. 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 He thinks these happen [...] remembers this portion, however. Jarrod Bertrand MD [address] [place] [address] [place], [phone], [facility] 09/25/2021 12:54:32 09/08/2022 text/html Follow up of pineda lucero. There has also been whole body shaking and shutdown that has been diagnosed as pseudoseizure by [facility] neurology in approximately [phone]. Past history includes head injury including skull [...] symptoms worsened and he was admitted to [facility] inpatient psychiatric unit. He was very anxious there and so was referred to [facility] where psychiatry made a diagnosis of schizoaffective [...] not tried the naratriptan. He continues using bzoo-flq-jjzowkk analgesics for some of his headaches. ? [...] a week to 2-3 times per week. 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 He thinks these happen [...] remembers this portion, however. Jarrod Bertrand MD [address] [place] [address] [place], [phone], [facility] 09/08/2022 14:50:43 08/12/2023 text/html Follow up of pineda lucero. There has also been whole body shaking and shutdown that has been diagnosed as pseudoseizure by [facility] neurology in approximately [phone]. Past history includes head injury including skull [...] He understands. He takes naproxen 440 mg alse-bwu-vhybenn or ibuprofen 4 mg wjxc-jtp-fncjodn for his weekly mild headache breakthrough and [...] symptoms worsened and he was admitted to [facility] inpatient psychiatric unit. He was very anxious there and so was referred to [facility] where psychiatry made a diagnosis of schizoaffective [...] not tried the naratriptan. He continues using ouik-tqr-tefuiyk analgesics for some of his headaches. ? [...] a week to 2-3 times per week. 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 Nunse. 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 He thinks these happen [...] remembers this portion, however. Jarrod Bertrand MD [address] [place], [place] [address], [phone], [facility] 08/12/2023 15:59:31 10/31/2024 text/html Follow up of pineda lucero. There has also been whole body shaking and shutdown that has been diagnosed as pseudoseizure by [facility] neurology in approximately [phone]. 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 He has previously been under the care of neuropsychologist Dr. Kate Briceño. He is not accompanied by his mother. >>>>>>>>>>>>October 31, 2024Since August 12, 2023 Neurology follow-up encounter, his headaches have stayed about the same,? One or two headaches per week going away quickly with ibuprofen 400 mg. He remains on amitriptyline, without side effects, which continues to work for migraine prevention.However, amitriptyline has been increased from 75 mg every evening to 100 mg every evening by psychiatry during her recent psychiatric hospitalization. He feels this has helped his depression. Other psychiatric medications were also increased. His mood is better more generally.There has been no other new or changing medications or medical issues. ? August 12, 2023Since September 08, 2022 [...] He understands. He takes naproxen 440 mg kovu-kso-zucxjdn or ibuprofen 4 mg krsk-bvo-lditulx for his weekly mild headache breakthrough and [...] symptoms worsened and he was admitted to [facility] inpatient psychiatric unit. He was very anxious there and so was referred to [facility] where psychiatry made a diagnosis of schizoaffective [...] not tried the naratriptan. He continues using jowk-hfr-csaumld analgesics for some of his headaches. ? [...] a week to 2-3 times per week. 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 He thinks these happen [...] remembers this portion, however. Jarrod Bertrand MD [address] [place] [address] [place], [phone], [facility] 10/31/2024 13:26:33
--- OUTSIDE RECORDS SUMMARY | 2024-11-23 23:24 | XMS_ITS | Encounter Summary ---
Author Organization [facility] Address [address] [place] [address] Care Team Providers Care Roller Mill Tender Name Role Phone Community, Pcp Unavailable Unavailable Michelle Figueroa MD Primary Care Prov ider Allen Fuentes MD Unavailable [phone] Encounter Details Date Type Department Care Team Description 04/01/2023 SCAN Medical Records [address] [place] [address] [facility] Social History Tobacco Use Types Packs/Day Years Used Date Smoking Tobacco: Former Smokeless Tobacco: Never Alcohol Use Standard Drinks/Week Comments Yes 0 (1 standard drink = 0.6 oz pur e alcohol) 2-3 drinks/day. Sex Assigned at Date Recorded Not on file Job Start Date Occupation Industry Not on file Not on file Not on file COVID-19 Exposure Response Date Recorded In the last 10 days, have yo u been in contact with someone who was confirmed or suspected to have Coronavirus/COVID-19? No / Unsure 04/01/2023 2:15 PM EDT documented as of this encounter Plan of Treatment Not on file documented as of this encounter Visit Diagnoses Not on filedocumented in this encounter Care Teams Roller Mill Tender Relationship Specialty Start Date End Date Michelle Figueroa MD [address] [place] [address] PCP - General Internal Medicine 03/03/22 Community, Pcp 03/17/19 05/24/23 Allen Fuentes MD [address] [place] [address] [place] [address] Specialist Cardiovascular Disease 01/14/23 documented as of this encounter
--- OUTSIDE RECORDS SUMMARY | 2024-11-23 23:24 | XMS_ITS | Encounter Summary ---
Author Organization [facility] Address [address] [place] [address] Care Team Providers Care Polymerization Helper Name Role Phone Community, Pcp Unavailable Unavailable Michelle Figueroa MD Primary Care Prov ider Allen Fuentes MD Unavailable [phone] Encounter Details Date Type Department Care Team Description 04/01/2023 Release of Information Medical Records [address] [place] [address] [facility] Social History Tobacco Use Types Packs/Day Years [...] on filedocumented in this encounter Care Teams Polymerization Helper Relationship Specialty Start Date End Date Michelle Figueroa MD [address] [place] [address] PCP - General Internal Medicine 8/1/22 Community, Pcp 03/17/19 05/24/23 Allen Fuentes MD [address] [place] [address] [place] [address] Specialist Cardiovascular Disease 01/14/23 documented as of this encounter
--- OUTSIDE RECORDS SUMMARY | 2024-11-23 23:24 | XMS_ITS | Encounter Summary ---
Author Organization [facility] Address [address] [place] [address] Care Team Providers Care Teletypewriter Operator Name Role Phone Michelle Figueroa MD Primary Care Prov ider Allen Fuentes MD Unavailable [phone] Encounter Details Date Type Department Care Team Description 10/06/2023 Hospital Medical Records [address] [place] [address] [facility] Social History Tobacco Use Types Packs/Day Years [...] on filedocumented in this encounter Care Teams Teletypewriter Operator Relationship Specialty Start Date End Date Michelle Figueroa MD [address], [place] [phone] PCP - General Internal Medicine 03/03/22 Allen Fuentes MD [address] [place] [address] [place] [address] Specialist Cardiovascular Disease 01/14/23 documented as of this encounter
--- OUTSIDE RECORDS SUMMARY | 2024-11-23 23:24 | XMS_ITS | Clinical Summary ---
Author Organization [facility] Address [address] [place] [address] Care Team Providers Care Assignment Desk Editor Name Role Phone Joy Gracia MD Primary [...] age to complete this topic Care Teams Assignment Desk Editor Relationship Specialty Start Date End Date Joy Gracia MD [address] [place] [id number] PCP - General Internal Medicine 03/30/19
--- OUTSIDE RECORDS SUMMARY | 2024-11-23 23:24 | XMS_ITS | Clinical Summary ---
Author Organization [address] Address [address] [place] [phone] Phone Care Team Providers Care Director Video Name Role Phone Michelle Gamez MD Primary Care Prov ider Allergies Active Allergy Reactions Criticality Noted Date Comments Aripiprazole 10/16/2021 Clarithromycin Nausea And Vomiting 05/20/2019 GI upset Penicillins 05/03/2019 Sulfamethoxazole-Trimethoprim 2018 Trimethoprim 01/07/2023 Medications venlafaxine (EFFEXOR) 75 mg tablet Take 1 [...] a day. for 7 days 4 Active hydrOXYzine pamoate (VISTARIL) 50 mg capsule TAKE 1 CAPSULE BY MOUTH THREE TIMES A DAY NEEDED FOR ANXIETY/ANGER 4 Active amitriptyline (ELAVIL) 50 mg tablet Take 2 tablets (100 mg total) by mouth. at bedtime 5 Active OLANZapine (ZyPREXA) 20 mg tablet Take 1 tablet (20 mg total) by mouth. at bedtime. 5 Active traZODone (DESYREL) 50 mg tablet TAKE 1 TABLET ORALLY AT BEDTIME, MAY REPEAT ONCE NEEDED FOR INSOMNIA 5 Active Active Problems Problem Noted Date Diagnosed [...] symptoms of palpitations. Paroxysmal SVT (supraventricular tachycardia) (C ID/HCC V24) 09/16/2019 ADHD (attention deficit hyperactivity disorder) 05/20/2019 Overview (05/10/2024): Hx of Adderall use. Migraines 05/20/2019 Anxiety 05/03/2019 Depression 05/03/2019 Traumatic brain injury (CMS/HCC V24, CMS/HCC V28 ) 05/03/2019 Overview (05/10/2024): Checo myrick fell on his head at age 2, right frontal lobe injury. Chronic BH issues. Follows with Dr. Bertrand Encounters Date Type Department Care Team Description 10/13/2024 10:30 AM EDT Office Visit Adult Medicine [address] [phone] Michelle Gamez MD Hospital discharge follow-up (Primary Dx); Moderate episode of recurrent major depressive disorder (CMS/HCC V24, CMS/HCC V28) 10/03/2024 Telephone Adult Medicine [address] [phone] Michelle Gamez MD Hospital Follow-up 09/07/2024 Telephone Adult Medicine [address] [phone] Michelle Gamez MD Hospital Follow-up from Last 3 Months Immunizations Name Administration Dates Next Due Td Tetanus diptheria (Tdvax) 7yo and older 09/16 Tdap Tetanus diptheria acell ular pertussis (Boostrix; Adacel) 7yo and older 01/07/2023 Surgical History Surgery Date Site/Laterality Comments APPENDECTOMY PROCEDURE: HISTORICAL APPENDECTOMY TONSILLECTOMY ADENOIDECTOMY, BILATERAL MYRINGOTOMY AND TUBES PROCEDURE: [place] TONSILLECTOMY & ADENOIDECTOMY <AGE 10 OTHER SURGICAL HISTORY Left PROCEDURE: [place] ORCHIECTOMY PARTIAL; COMMENT: as a child for undescended teste. Medical History Medical History Date Comments Migraines 05/20/2019 DX:Migraines Tobacco use 05/20/2019 DX:Tobacco use ADHD (attention deficit hype ractivity disorder) 05/20/2019 DX:ADHD (attention deficit hyperactivity disorder); COMMENT: Hx of Adderall use. Anxiety 05/03/2019 DX:Anxiety Depression 05/03/2019 DX:Depression Traumatic brain injury ([facility] V24, [facility] V28) 05/03/2019 DX:Traumatic brain injury ([facility]); COMMENT: [place]co myrick fell on his head [...] Date Smoking Tobacco: Former Smokeless Tobacco: Never Tobacco Cessation:Counseling Given: Not Answered Comments:2 yrs Alcohol Use Standard Drinks/Week Comments [...] Sign Reading Time Taken Comments Blood Pressure 118/84 10/13/2024 10:28 AM EDT Pulse 90 10/13/2024 10:28 AM EDT Temperature 36.3 ??C (97.4 ??F) 10/13/2024 10:28 AM E DT Respiratory Rate 18 10/13/2024 10:28 AM EDT Oxygen Saturation - - Inhaled Oxygen Concentration - - Weight 95.3 kg (210 lb) 10/13/2024 10:28 AM EDT Height 188 cm (6' 2 ) 06/24/2024 8:15 AM EST Body Mass Index 26.96 06/24/2024 8:15 AM EST Plan of Treatment [...] age to complete this topic Meningococcal B Vaccine Aged Out No l onger eligible based on patient's age to complete [...] Most Recently Relevant to Health Maintenance Insurance [facility] PUBLIC PLANS Care Teams Director Video Relationship Specialty Start Date End Date Michelle Gamez MD [address] [place] [id number] PCP - General Internal Medicine 03/03/22
--- OUTSIDE RECORDS SUMMARY | 2024-11-23 23:25 | XMS_ITS | Encounter Summary ---
Author Organization [facility] Address [address] [place] [address] Care Team Providers Care Electrician Marine Name Role Phone Community, Pcp Unavailable Unavailable Francesca Corley MD Primary Care Provider Unava ilable Pa Collins MD Primary Care Provider [phone] Michelle Figueroa MD Primary Care Prov ider Pa Collins MD Primary Care Provider [phone] Michelle Figueroa MD Primary Care Prov ider Allen Fuentes MD Unavailable [phone] Encounter Details Date Type Department Care Team Description 02/15/2020 International Trade Teacher Report Medical Records [address] [place] [address] Allen Fuentes MD [address] [place] [address] [place] [address] Social History Tobacco Use Types Packs/Day Years [...] on filedocumented in this encounter Care Teams Electrician Marine Relationship Specialty Start Date End Date Francesca Corley MD PCP - General 10/18/19 07/07/21 Pa Collins MD [address] [place] [address] PCP - General Internal Medicine 07/08/21 02/09/22 Michelle Figueroa MD [address] [place] [address] PCP - General Internal Medicine 02/10/22 02/13/22 Pa Collins MD [address] [place] [address] PCP - General Internal Medicine 02/14/22 03/02/22 Michelle Figueroa MD [address] [place] [address] PCP - General Internal Medicine 03/03/22 [facility], Pcp 03/17/19 05/24/23 Allen Fuentes MD [address] [place] [address] [place] [address] Specialist Cardiovascular Disease 01/14/23 documented as of this encounter
--- OUTSIDE RECORDS SUMMARY | 2024-11-23 23:25 | XMS_ITS | Encounter Summary ---
Author Organization [facility] Address [address] [place] [address] Care Team Providers Care Field Map Editor Name Role Phone Joy Gracia MD Primary Care Provide Unavailable [facility], Pcp Unavailable Unavailable Zeke Barnard MD Primary Care Provider Francesca Corley MD Primary Care Provider Unava ilable Pa Collins MD Primary Care Provider [phone] Michelle Figueroa MD Primary Care Prov ider Pa Collins MD Primary Care Provider [phone] Michelle Figueroa MD Primary Care Prov ider Allen Fuentes MD Unavailable [phone] Reason for Visit * Reason Onset Date Comments er follow up 09/13/2019 Encounter Details Date Type Department Care Team Description 09/13/2019 Telephone Adult [facility] - [address] [id number] Joy Gracia MD er follow up Social History Tobacco Use Types Packs/Day Years Used Date Smoking Tobacco: Former Smokeless Tobacco: Never Alcohol Use Standard Drinks/Week Comments Yes 0 (1 standard drink = 0.6 oz pur e alcohol) 2-3 drinks/day. Sex Assigned at Date Recorded Not on file Job Start Date Occupation Industry Not on file Not on file Not on file documented as of this encounter Miscellaneous Notes * Telephone Encounter - Audrey Ivan M.A. - 09/13/2019 2:28 PM EST Notes requested to [facility] * Telephone Encounter - Sunshine Paniagua - 09/13/2019 12:38 PM EST ER follow-up appointment booked YES 09/16 If ER or UC follow up, can be booked with APC or MD. If hospital admission follow up MUST be booked with a physician Appointment time: 10:30AM Provider visit is scheduled with[facility] patient [facility] at: [facility] Date of visit: 09/10/19 Was this only an ER/UC visit or was the patient admitted to the hospital? ER visit onlyER visit only If patient was admitted what was the date of discharge? N/A Reason/diagnosis for visit or stay: irregular heartbeat Was visit or stay related to an injury? NO If yes, what was the date of injury (DOI)? N/A If yes, was the injury due to N/A Tests performed: Lab: YES X-ray: NO EKG: YES Other tests. If yes, what?; N/A documented in this encounter Plan of Treatment Not on file documented as of this encounter Visit Diagnoses Not on filedocumented in this encounter Care Teams Field Map Editor Relationship Specialty Start Date End Date Joy Gracia MD PCP - General Internal Medicine 05/03/19 Zeke Barnard MD [address] [place] [address] PCP - General Internal Medicine 09/16/19 10/17/19 Francesca Corley MD [address] [place] [address] PCP - General 10/18/19 07/07/21 Pa Collins MD [address] [place] [address] PCP - General Internal Medicine 07/08/21 02/09/22 Michelle Figueroa MD [address] [place] [address] PCP - General Internal Medicine 02/10/22 02/13/22 Pa Collins MD [address] [place] [address] PCP - General Internal Medicine 02/14/22 03/02/22 Michelle Figueroa MD [address] [place] [address] PCP - General Internal Medicine 03/03/22 [facility], Pcp 03/17/19 05/24/23 Allen Fuentes MD [address] [place] [address] [place] [address] Specialist Cardiovascular Disease 01/14/23 documented as of this encounter
--- OUTSIDE RECORDS SUMMARY | 2024-11-23 23:25 | XMS_ITS | Encounter Summary ---
Author Organization [facility] Address [address] [place] [address] Care Team Providers Care Balance Wheel Facer Name Role Phone Community, Pcp Unavailable Unavailable Francesca Corley MD Primary Care Provider Unava ilable Pa Collins MD Primary Care Provider [phone] Michelle Figueroa MD Primary Care Prov ider Pa Collins MD Primary Care Provider [phone] Michelle Figueroa MD Primary Care Prov ider Allen Fuentes MD Unavailable [phone] Encounter Details Date Type Department Care Team Description 02/20/2020 Orders Only Medical Records [address] [place] [id number] Sandra Aguirre PA Social History Tobacco Use Types Packs/Day Years [...] on file documented as of this encounter Procedures Procedure Name Priority Date/Time Associated Diagnosis Comments OUTSIDE HOLTER MONITOR Routine 02/10/2020 documented in this encounter Results * OUTSIDE HOLTER MONITOR (02/10/2020) [facility] documented in this encounter Visit Diagnoses Not on filedocumented in this encounter Care Teams Balance Wheel Facer Relationship Specialty Start Date End Date Francesca Corley MD PCP - General 10/18/19 07/07/21 Pa Collins MD [address] [place] [address] PCP - General Internal Medicine 07/08/21 02/09/22 Michelle Figueroa MD [address] [place] [address] PCP - General Internal Medicine 02/10/22 02/13/22 Pa Collins MD [address] [place] [address] PCP - General Internal Medicine 02/14/22 03/02/22 Michelle Figueroa MD [address] [place] [address] PCP - General Internal Medicine 03/03/22 [facility], Pcp 03/17/19 05/24/23 Allen Fuentes MD [address] [place] [address] [place] [address] Specialist Cardiovascular Disease 01/14/23 documented as of this encounter
--- NOTE | 2024-11-23 23:27 | MHC.EDTECH ---
this tech assumed care of pt @2202
--- NOTE | 2024-11-23 23:44 | ED_ITS ---
HPI - General Adult General Chief complaint: Psychiatric Symptoms Stated complaint: depression Time Seen by Provider: 11/23/24 21:25 Source: patient, RN notes reviewed and old records reviewed Mode of arrival: EMS Limitations: no limitations History of Present Illness ED Provider: Meenakshi ESPINOZA narrative: 29-year-old male past medical history significant for PTSD, adjustment disorder, depression, schizophrenia presenting for evaluation of depression with suicidal ideation. Patient reports that he was going through a divorce leading to increased depression. He has been off of his medications including Lamictal and venlafaxine He reports drinking alcohol intermittently, approximately every other day. His last drink was about 2 hours prior to arrival and he reports having about 4 beers today He denies doing anything to harm himself but is having suicidal thoughts. He was seen by [facility] in the community and referred to the ER for further evaluation. He had a recent inpatient psychiatric hospitalization about a month and a half ago at this facility He denies any somatic complaints Related Data Previous Rx's ?Medication ?Instructions ?Recorded amitriptyline 50 mg tablet 100 mg (2 x 50 mg) PO BEDTIME #28 09/19/24 tabs hydroxyzine HCl 50 mg tablet 50 mg PO TID PRN anxiety #42 tabs 09/19/24 lamotrigine 100 mg tablet 150 mg (1.5 x 100 mg) PO DAILY #14 09/19/24 tabs lorazepam 1 mg tablet 1 mg PO BID PRN anxiety #14 tabs 09/19/24 olanzapine 20 mg tablet 20 mg PO BEDTIME #14 tabs 09/19/24 trazodone 50 mg tablet 50 mg PO BEDTIME MRX1 PRN Insomnia 09/19/24 #28 tabs venlafaxine 75 mg capsule,extended 75 mg PO DAILY #14 caps 09/19/24 release 24 hr Allergies Allergy/AdvReac Type Severity Reaction Status Date / Time aripiprazole Allergy Unknown Verified 11/23/24 21:44 Penicillins Allergy Hives Verified 11/23/24 21:44 sulfamethoxazole Allergy Unknown Verified 11/23/24 21:44 [From Bactrim] trimethoprim [From Bactrim] Allergy Unknown Verified 11/23/24 21:44 Review of Systems 2 Constitutional: Constitutional: Denies body ache(s), Denies chills, Denies fever(s) and Denies frequent falls Eyes: Eyes: Denies floaters ENT: Denies vertigo and Denies dizziness Cardiovascular: Cardiovascular: Denies chest pain and Denies dyspnea Respiratory: Respiratory: Denies cough and Denies dyspnea Gastrointestinal: Gastrointestinal: Denies abdominal pain Musculoskeletal: Musculoskeletal: Denies back pain Integumentary/Breasts: Skin/Breast: Denies rash Neurologic: Denies vertigo, Denies dizziness and Denies frequent falls Psychiatric: Psychiatric: Reports depression, Reports auditory hallucinations, Denies visual hallucinations, Denies homicidal ideation and Reports suicidal ideation [facility] Past Medical History Medical History (Updated 11/23/24 @ 23:48 by Nik Arrieta) Feeling suicidal Alcohol use disorder Elevated LFTs Routine medical exam TBI (traumatic brain injury) Seizures SVT (supraventricular tachycardia) Surgical History History of appendectomy Social History Social History (Updated 10/10/24 @ 13:08 by DE Stevens) Household Members: Other Household Members Other:: room mate Housing: House Do you presently have visiting nurse or other home services: No Alcohol intake: current Alcohol intake frequency: holidays/special occasions only Alcohol type: beer Patient Tobacco Use Status: Former Tobacco user Tobacco use type: Cigarette Cigarette Packs Per Day: 0 Cigarettes Per Day: 0 Years Smoked: 8 e-Cigarette/Vaping Use: Never Used Second Hand Smoke Exposure: No Substance Use Type: Marijuana Advance Directives: Yes Advance Directives on File: Yes Advance Directives Date on File: 08/29/24 Do you have a plan to hurt others: No Plan service: No Current occupational status: unemployed Sexual orientation: Bisexual Physical Exam ED Vital Signs: Vital Signs - 24 hr 11/23/24 21:42 11/24/24 06:19 Temperature 98.4 F 97.7 F Pulse Rate 99 80 Respiratory Rate 18 16 Blood Pressure 133/85 125/76 Pulse Oximetry 95 96 Oxygen Delivery Method Room Air Room Air BMI result Body Mass Index 26.1 Const General: healthy appearing, comfortable, no acute distress, alert and awake Nutritional Appearance: well nourished Orientation/consciousness: patient oriented x3 HENMT Head: Yes normocephalic and Yes atraumatic Eyes Eyelids: Yes eyelids normal Conjunctivae: conjunctivae normal Sclerae: sclerae normal Corneas: corneas normal Pupils: Equal, round and reactive pupils present EOM: EOMs intact bilaterally Neck Neck: Yes full ROM Resp Effort & Inspection: normal respiratory effort, able to speak in complete sentences and not labored Cardio Rate: regular rate Rhythm: regular rhythm GI Inspection: No distended Palpation (GI): Soft to palpation, not firm, nontender, no guarding and not rigid Auscultation: normoactive bowel sounds Skin General skin exam: no rashes or lesions noted and elasticity normal Neuro General: patient oriented x3 Cranial nerves: Yes CN's II-XII intact bilaterally, Yes Equal, round and reactive pupils present and Yes Bilaterally intact EOM present Cognition (Neuro): normal cognition Extrem Other: Moving all extremities well without any obvious deformities Course Course Course Narrative: Time: 13:16 Date: 11/24/24 Provider: Harvey Acuña MD Physician observation ended at 13:16. Patient to be admitted as inpatient to psychiatry. No acute events prior to hospitalization. Medications Administered Generic Name Dose Route Start Last Admin Trade Name Freq PRN Reason Stop Dose Admin Lamotrigine 150 mg 11/24/24 09:00 11/24/24 08:19 Lamotrigine 25 Mg Tablet PO 150 mg DAILY BRITTNY Administration Olanzapine 20 mg 11/23/24 22:15 11/23/24 22:44 Olanzapine 10 Mg Tablet PO 20 mg BEDTIME BRITTNY Administration Venlafaxine HCl 75 mg 11/24/24 09:00 11/24/24 08:19 Venlafaxine Hcl Er 75 Mg Cap.Er.24h PO 75 mg DAILY BRITTNY Administration Discontinued Medications Generic Name Dose Route Start Last Admin Trade Name Freq PRN Reason Stop Dose Admin Amitriptyline HCl 100 mg 11/23/24 22:16 11/23/24 22:41 Amitriptyline Hcl 50 Mg Tablet PO 11/23/24 22:17 100 mg ONCE ONE Administration Medical Decision Making Medical Decision Making [facility] Narrative: 29-year-old male with past medical history as above presents for evaluation of depression with suicidal ideation and medication noncompliance. He was already seen at the [place], he will be referred to the care team for psychiatric evaluation. He was medically cleared at this time. Differential Diagnosis Differential Diagnoses: The differential diagnosis associated with the presentation includes Depression Suicidal ideation Medication noncompliance Alcohol abuse Lab Data [facility] Lab Attestation statement: I reviewed the patient's lab results. No Leukocytosis or anemia. Normal platelet count. No electrolyte abnormalities warranting intervention. Alcohol level is 67 11/23/24 21:57 11/23/24 21:57 Labs: Lab Results 11/23/24 11/23/24 11/24/24 Range/Units 21:57 22:24 10:37 WBC 7.1 (4.8-10.8) X10*3/uL RBC 4.75 (4.60-5.80) X10*6/uL Hgb 14.9 (14.0-18.0) g/dl Hct 42.3 (42.0-52.0) % MCV 89.1 (80.0-98.0) fL MCH 31.4 (27.0-33.0) pg MCHC 35.2 (31.0-36.0) g/dl RDW 12.1 (11.0-16.0) % Plt Count 305 (160-400) X10*3/uL MPV 8.9 L (9.4-12.4) fL Immature Gran % (Auto) 0.3 (0.0-0.4) % Neut % (Auto) 59.0 (45-73) % Lymph % (Auto) 30.7 (20-40) % [place] % (Auto) 7.6 (2-11) % Eos % (Auto) 1.7 (0-4) % Baso % (Auto) 0.7 (0-2) % Lymph # (Auto) 2.2 (1.2-4.9) X10*3/uL [place] # (Auto) 0.5 (0.1-1.2) X10*3/uL Eos # (Auto) 0.1 (0.0-0.4) X10*3/uL Baso # (Auto) 0.1 (0.0-0.2) X10*3/uL Abs Immat Gran (auto) 0.02 (0.00-0.03) X10*3/uL Absolute Neuts (auto) 4.2 (2.0-8.3) x10*3/uL Absolute Nucleated RBC 0.000 (0.0-0.012) X10*3/uL Nucleated RBC % (auto) 0.0 (0.0-0.2) /100WBC Sodium 142 (135-145) mmol/L Potassium 3.9 (3.3-5.1) mmol/L Chloride 108 (96-108) mmol/L Carbon Dioxide 22 (22-29) mmol/L Anion Gap 16 (12-20) BUN 13 (9-16) mg/dL Creatinine 0.85 (0.5-1.4) mg/dL Estim Creat Clear Calc 142.3 Estimated GFR > 60 Random Glucose 98 (60-115) mg/dL Calcium 9.1 D (8.4-10.2) mg/dL Total Bilirubin 0.2 (0.0-1.0) mg/dL AST 39 H (5-37) U/L ALT 85 H (0-40) U/L Alkaline Phosphatase 71 (39-117) U/L Total Protein 7.0 (6.5-8.0) g/dL Albumin 4.4 (3.5-5.0) g/dL Urine Color Yellow Urine Appearance Clear Urine pH 5.5 (5.0-9.0) Ur Specific [place] 1.025 (1.005-1.025) Urine Protein Negative (Neg-Trace) mg/dL Urine Glucose (UA) Negative (Negative) mg/dL Urine Ketones Trace (Negative) mg/dL Urine Blood Negative (Negative) Urine Nitrite Negative (Negative) Ur Leukocyte Esterase Negative (Negative) Salicylates < 5.0 L (15-30) mg/dL Urine Opiates Screen Not Detected (Not Detect) Ur Buprenorphine Scrn Not Detected (Not Detect) ng/mL Ur Oxycodone Screen Not Detected (Not Detect) ng/mL Urine Methadone Screen Not Detected (Not Detect) ng/mL Urine Fentanyl Screen Not Detected (Not Detect) Acetaminophen < 3 (<30) mcg/mL Ur Barbiturates Screen Not Detected (Not Detect) Ur Phencyclidine Scrn Not Detected (Not Detect) Ur Amphetamines Screen Not Detected (Not Detect) U Benzodiazepines Scrn Not Detected (Not Detect) Urine Cocaine Screen Not Detected (Not Detect) U Marijuana (THC) Screen Not Detected (Not Detect) Ethyl Alcohol 67 mg/dL Discharge Plan Discharge Clinical Impression: Depression with suicidal ideation Patient Disposition: Admitted As Inpatient Interventions: [place]-Suicide Risk Severity Scale Last Done: 11/23/24 22:24
[2024-11-24 06:19] VITALS: BP 125/76; PULSE 80; RESP 16; TEMP 36.5; O2SAT 96
--- NOTE | 2024-11-24 07:25 | ECG_ITS ---
Test Reason : check qtc Blood Pressure : */* mmHG Vent. Rate : 71 BPM Atrial Rate : 71 BPM P-R Int : 150 ms QRS Dur : 100 ms QT Int : 368 ms P-R-T Axes : 58 71 16 degrees QTcB Int : 399 ms Normal sinus rhythm Normal ECG When compared with ECG of 29-Sep-2024 10:40, No significant change was found Referred By: Hakan Martin Electronically Signed By: MARCO ZAPIEN
[2024-11-24] MEDS: lamoTRIgine 25 MG TABLET 150 MG PO (08:19)
[2024-11-24] MEDS: Venlafaxine HCl ER 75 MG CAP.ER.24H PO (08:19)
[2024-11-24 10:58] LABS: Appearance Urine Clear; Color Urine Yellow; Glucose Urine UA Negative (Negative); Leukocyte Esterase Urine Negative (Negative); Nitrite Urine Negative (Negative); PH 5.5 (5.0-9.0); Specific Gravity - Urine 1.025 (1.005-1.025); Urine Blood Negative (Negative); Urine Ketones Trace mg/dL (Negative); Urine Protein Negative (Neg-Trace)
[2024-11-24 14:00] VITALS: BP 144/96; PULSE 98; RESP 16; TEMP 36.4; O2SAT 96
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
[2024-11-24 14:36] VITALS: BMI 27.0
[2024-11-24] MEDS: LORazepam 1 MG TABLET PO (15:15)
--- NOTE | 2024-11-24 16:37 | PC.ADMIT ---
Uli was admitted to on 11/24/24 at 13:55 from [facility] ED pod for the treatment of depression/SI. He signed a CV upon arrival to the unit. Skin/contraband check was completed by staff. He states he is currently going through a divorce and lost his job in August and because of these current stressors was having increased depression and SI. He denies having any medical problems. He reports drinking a few beers about every other day. He denies s/s of withdrawal at this time. Utox was negative for substances and BAL was 67. He was cooperative with admission process. During admission interview, he appeared flat and depressed and made minimal eye contact. He denies current suicidal and homicidal thoughts and intent. He denies visual hallucinations but reports AH of whispers . He reports his appetite and sleep have been so-so . He was placed on 15 minute checks for safety and CIWA q4h to monitor for ETOH withdrawal. He complained of anxiety and requested and was given ativan 1mg with good effect.
[2024-11-24 20:26] VITALS: BP 140/79; PULSE 107; RESP 16; TEMP 37.2; O2SAT 95
[2024-11-24] MEDS: OLANZapine 10 MG TABLET 20 MG PO (20:27)
[2024-11-24] MEDS: Amitriptyline HCl 50 MG TABLET 100 MG PO (20:27)
[2024-11-25 07:58] VITALS: BP 126/72; PULSE 78; RESP 16; TEMP 36.9; O2SAT 94
[2024-11-25] MEDS: lamoTRIgine 25 MG TABLET PO (08:37)
[2024-11-25] MEDS: Thiamine HCL 100 MG TABLET PO (08:37)
--- NOTE | 2024-11-25 08:57 | HO.PSYCHPN ---
Subjective Subjective Date of Service: 11/25/24 Reason For Visit: crisis Subjective Notes: Conditional Voluntary Interim History: Patient continues to report feeling depressed; denies any side effects from restarting medications. He reports sleeping well last night; per nursing, slept 8 hours. Patient reports he will try to attend groups today. denies SI/HI/VH/AH. Medication Compliance: Yes Side effects from medications: No Mental Status Exam Mental Status Exam Narrative: Pt is alert and oriented; behavior is cooperative and calm; dressed in casual attire; mood is described as depressed ; eye contact appropriate; Speech is normal rate, volume and not pressured; thought process is organized; Thought content is on tx; denies SI/HI/VH/AH. Diagnostics Vital Signs (24Hr): Vital Signs - 24 hr 11/24/24 14:00 11/24/24 20:26 11/25/24 07:58 Temperature 97.6 F 98.9 F 98.4 F Pulse Rate 98 107 H 78 Respiratory Rate 16 16 16 Blood Pressure 144/96 H 140/79 H 126/72 Pulse Oximetry 96 95 94 Oxygen Delivery Method Room Air Room Air Room Air BMI result Body Mass Index 27.0 Labs 11/23/24 21:57 11/25/24 08:22 Labs: Laboratory Results - last 48 hr 11/23/24 11/23/24 11/24/24 21:57 22:24 10:37 WBC 7.1 RBC 4.75 Hgb 14.9 Hct 42.3 MCV 89.1 MCH 31.4 MCHC 35.2 RDW 12.1 Plt Count 305 MPV 8.9 L Immature Gran % (Auto) 0.3 Neut % (Auto) 59.0 Lymph % (Auto) 30.7 [place] % (Auto) 7.6 Eos % (Auto) 1.7 Baso % (Auto) 0.7 Lymph # (Auto) 2.2 [place] # (Auto) 0.5 Eos # (Auto) 0.1 Baso # (Auto) 0.1 Abs Immat Gran (auto) 0.02 Absolute Neuts (auto) 4.2 Absolute Nucleated RBC 0.000 Nucleated RBC % (auto) 0.0 Sodium 142 Potassium 3.9 Chloride 108 Carbon Dioxide 22 Anion Gap 16 BUN 13 Creatinine 0.85 Estim Creat Clear Calc 142.3 Estimated GFR > 60 Random Glucose 98 Calcium 9.1 D Total Bilirubin 0.2 AST 39 H ALT 85 H Alkaline Phosphatase 71 Total Protein 7.0 Albumin 4.4 Urine Color Yellow Urine Appearance Clear Urine pH 5.5 Ur Specific [place] 1.025 Urine Protein Negative Urine Glucose (UA) Negative Urine Ketones Trace Urine Blood Negative Urine Nitrite Negative Ur Leukocyte Esterase Negative Salicylates < 5.0 L Urine Opiates Screen Not Detected Ur Buprenorphine Scrn Not Detected Ur Oxycodone Screen Not Detected Urine Methadone Screen Not Detected Urine Fentanyl Screen Not Detected Acetaminophen < 3 Ur Barbiturates Screen Not Detected Ur Phencyclidine Scrn Not Detected Ur Amphetamines Screen Not Detected U Benzodiazepines Scrn Not Detected Urine Cocaine Screen Not Detected U Marijuana (THC) Screen Not Detected Ethyl Alcohol 67 Medications Medications Current Medications Acetaminophen (Acetaminophen 325 Mg Tablet) 650 mg PO Q6H PRN PRN Reason: Headache/Pain, Scale 1-10 Al Hydroxide/Mg Hydroxide (Magnesium Hydrox/Alum Hydrox 30 Ml Oral.Susp) 30 ml PO Q6H PRN PRN Reason: Heartburn/Nausea Amitriptyline HCl (Amitriptyline Hcl 50 Mg Tablet) 100 mg PO BEDTIME [facility] Last Admin: 11/24/24 20:27 Dose: 100 mg Hydroxyzine HCl (Hydroxyzine Hcl 50 Mg Tablet) 50 mg PO TID PRN PRN Reason: anxiety Lamotrigine (Lamotrigine 25 Mg Tablet) 25 mg PO DAILY [facility] Last Admin: 11/25/24 08:37 Dose: 25 mg Lorazepam (Lorazepam 1 Mg Tablet) 1 mg PO BID PRN PRN Reason: anxiety Last Admin: 11/24/24 15:15 Dose: 1 mg Lorazepam (Lorazepam 1 Mg Tablet) 1 mg PO Q2H PRN PRN Reason: CIWA 8-11 Lorazepam (Lorazepam 1 Mg Tablet) 2 mg PO Q2H PRN PRN Reason: CIWA 12-15 Lorazepam (Lorazepam 1 Mg Tablet) 3 mg PO Q2H PRN PRN Reason: CIWA > 15, and call Magnesium Hydroxide (Milk Of Magnesia 30 Ml Oral.Susp) 30 ml PO DAILY PRN PRN Reason: Constipation Olanzapine (Olanzapine 10 Mg Tablet) 20 mg PO BEDTIME [facility] Last Admin: 11/24/24 20:27 Dose: 20 mg Thiamine HCl (Thiamine Hcl 100 Mg Tablet) 100 mg PO DAILY [facility] Last Admin: 11/25/24 08:37 Dose: 100 mg Trazodone HCl (Trazodone Hcl 50 Mg Tablet) 50 mg PO BEDTIME MRX1 PRN PRN Reason: Insomnia Allergies Allergies Allergy/AdvReac Type Severity Reaction Status Date / Time aripiprazole Allergy Unknown Verified 11/23/24 21:44 Penicillins Allergy Hives Verified 11/23/24 21:44 sulfamethoxazole Allergy Unknown Verified 11/23/24 21:44 [From Bactrim] trimethoprim [From Bactrim] Allergy Unknown Verified 11/23/24 21:44 Assessment & Plan Assessment & Plan (1) Schizophrenia, paranoid type: Status: Acute Code(s): F20.0 - Paranoid schizophrenia (2) PTSD (post-traumatic stress disorder): Status: Acute Code(s): F43.10 - Post-traumatic stress disorder, unspecified (3) Alcohol use disorder: Status: Acute Code(s): F10.90 - Alcohol use, unspecified, uncomplicated Plan Patient is a 29-year-old male with history of Schizoaffective d/o, PTSD and alcohol use disorder who due to suicidal ideation with plan to hang himself secondary to depression Plan: CV 15 minute safety checks Continue home medications Hold venlafaxine CIWA Obtain collateral Encourage groups Discharge planning 11/25: Patient continues to report feeling depressed; denies any side effects from restarting medications. He reports sleeping well last night; per nursing, slept 8 hours. Patient reports he will try to attend groups today. denies SI/HI/VH/AH. Continue current tx plan Patient educated on: diagnosis, medication risk/benefits and therapeutic strategies Reason for continued inpatient stay Substantial Risk for: med/psych decompensation Time Spent With Patient Time: Total time managing care of this patient today _20___ minutes.
[2024-11-25 09:24] LABS: Estimated Average Glucose 100 mg/dL; Hemoglobin A1C 132.8892 umol/L; Hemoglobin A1c % 5.1 % (<6.0); Total Hemoglobin (HGBA1C) 4104.1381 umol/L
[2024-11-25 09:34] LABS: Alanine Aminotransferase 76 U/L (0-40); Albumin Level 4.6 g/dL (3.5-5.0); Alkaline Phosphatase 76 U/L (39-117); Anion Gap 11 (12-20); Aspartate Amino Transferase 35 U/L (5-37); Bilirubin Total 0.5 mg/dL (0.0-1.0); Blood Urea Nitrogen 16 mg/dL (9-16); Calcium 9.9 mg/dL (8.4-10.2); Carbon Dioxide 29 mmol/L (22-29); Chloride 105 mmol/L (96-108); Cholesterol 239 mg/dL (<200); Creatinine Clr Calc Pharmacy 122.1; Estimated Glomerular Filt Rate > 60; Glucose Random 95 mg/dL (60-115); HDL Cholesterol 45 mg/dL (>40); LDL Cholesterol Calculated 157 mg/dL (<100); Potassium 4.1 mmol/L (3.3-5.1); Sodium 141 mmol/L (135-145); Total Protein 7.4 g/dL (6.5-8.0); Triglycerides 189 mg/dL (<150)
[2024-11-25] MEDS: hydrOXYzine HCL 50 MG TABLET PO (17:54)
[2024-11-25 20:40] VITALS: BP 131/88; PULSE 98; RESP 16; TEMP 36.9; O2SAT 94
[2024-11-25] MEDS: LORazepam 1 MG TABLET PO (21:08)
[2024-11-25] MEDS: Amitriptyline HCl 50 MG TABLET 100 MG PO (21:08)
[2024-11-25] MEDS: OLANZapine 10 MG TABLET 20 MG PO (21:08)
[2024-11-26 08:00] VITALS: BP 120/73; PULSE 74; RESP 14; TEMP 36.6; O2SAT 95
[2024-11-26] MEDS: Thiamine HCL 100 MG TABLET PO (08:55)
[2024-11-26] MEDS: lamoTRIgine 25 MG TABLET PO (08:55)
--- NOTE | 2024-11-26 13:47 | P.PNPSI_ITS ---
Subjective Subjective Date of Service: 11/26/24 Reason For Visit: crisis Interim History: Patient continues to report feeling depressed; denies any side effects from restarting medications. Understands it will take time to retitrate. He reports sleeping well last night; per nursing, slept 8 hours. CIWA has been negative. denies SI/HI/VH/AH. Review of Systems Constitutional: Denies body ache(s), Denies chills, Denies fever(s) and Denies frequent falls Eyes: Denies floaters Denies vertigo and Denies dizziness Cardiovascular: Denies chest pain and Denies dyspnea Respiratory: Denies cough and Denies dyspnea Gastrointestinal: Denies abdominal pain Musculoskeletal: Denies back pain Skin/Breast: Denies rash Denies vertigo, Denies dizziness and Denies frequent falls Psychiatric: Reports depression, Reports auditory hallucinations, Denies visual hallucinations, Denies homicidal ideation and Reports suicidal ideation Mental Status Exam Mental Status Exam Narrative: Pt is alert and oriented; behavior is cooperative and calm; dressed in casual attire; mood is described as depressed ; eye contact appropriate; Speech is normal rate, volume and not pressured; thought process is organized; Thought content is on tx; denies SI/HI/VH/AH. Diagnostics Vital Signs (24Hr): Vital Signs - 24 hr 11/25/24 20:40 11/26/24 08:00 Temperature 98.5 F 97.8 F Pulse Rate 98 74 Respiratory Rate 16 14 Blood Pressure 131/88 120/73 Pulse Oximetry 94 95 Oxygen Delivery Method Room Air Room Air BMI result Body Mass Index 27.0 Labs 11/23/24 21:57 11/25/24 08:22 Labs: Laboratory Results - last 48 hr 11/25/24 08:22 Sodium 141 Potassium 4.1 Chloride 105 Carbon Dioxide 29 Anion Gap 11 L BUN 16 Creatinine 0.99 Estim Creat Clear Calc 122.1 Estimated GFR > 60 Random Glucose 95 Estimat Average Glucose 100 Hemoglobin A1c % 5.1 Calcium 9.9 D Total Bilirubin 0.5 AST 35 ALT 76 H Alkaline Phosphatase 76 Total Protein 7.4 Albumin 4.6 Triglycerides 189 H Cholesterol 239 H LDL Cholesterol, Calc 157 H HDL Cholesterol 45 Medications Medications Current Medications Acetaminophen (Acetaminophen 325 Mg Tablet) 650 mg PO Q6H PRN PRN Reason: Headache/Pain, Scale 1-10 Al Hydroxide/Mg Hydroxide (Magnesium Hydrox/Alum Hydrox 30 Ml Oral.Susp) 30 ml PO Q6H PRN PRN Reason: Heartburn/Nausea Amitriptyline HCl (Amitriptyline Hcl 50 Mg Tablet) 100 mg PO BEDTIME [facility] Last Admin: 11/25/24 21:08 Dose: 100 mg Hydroxyzine HCl (Hydroxyzine Hcl 50 Mg Tablet) 50 mg PO TID PRN PRN Reason: anxiety Last Admin: 11/25/24 17:54 Dose: 50 mg Lamotrigine (Lamotrigine 25 Mg Tablet) 25 mg PO DAILY [facility] Last Admin: 11/26/24 08:55 Dose: 25 mg Lorazepam (Lorazepam 1 Mg Tablet) 1 mg PO BID PRN PRN Reason: anxiety Last Admin: 11/25/24 21:08 Dose: 1 mg Magnesium Hydroxide (Milk Of Magnesia 30 Ml Oral.Susp) 30 ml PO DAILY PRN PRN Reason: Constipation Olanzapine (Olanzapine 10 Mg Tablet) 20 mg PO BEDTIME [facility] Last Admin: 11/25/24 21:08 Dose: 20 mg Thiamine HCl (Thiamine Hcl 100 Mg Tablet) 100 mg PO DAILY [facility] Last Admin: 11/26/24 08:55 Dose: 100 mg Trazodone HCl (Trazodone Hcl 50 Mg Tablet) 50 mg PO BEDTIME MRX1 PRN PRN Reason: Insomnia Allergies Allergies Allergy/AdvReac Type Severity Reaction Status Date / Time aripiprazole Allergy Unknown Verified 11/23/24 21:44 Penicillins Allergy Hives Verified 11/23/24 21:44 sulfamethoxazole Allergy Unknown Verified 11/23/24 21:44 [From Bactrim] trimethoprim [From Bactrim] Allergy Unknown Verified 11/23/24 21:44 Assessment & Plan Assessment & Plan (1) Schizophrenia, paranoid type: Status: Acute Code(s): F20.0 - Paranoid schizophrenia (2) PTSD (post-traumatic stress disorder): Status: Acute Code(s): F43.10 - Post-traumatic stress disorder, unspecified (3) Alcohol use disorder: Status: Acute Code(s): F10.90 - Alcohol use, unspecified, uncomplicated Plan Patient is a 29-year-old male with history of Schizoaffective d/o, PTSD and alcohol use disorder who due to suicidal ideation with plan to hang himself secondary to depression Plan: CV 15 minute safety checks Continue home medications Hold venlafaxine CIWA Obtain collateral Encourage groups Discharge planning 11/25: Patient continues to report feeling depressed; denies any side effects from restarting medications. He reports sleeping well last night; per nursing, slept 8 hours. Patient reports he will try to attend groups today. denies SI/HI/VH/AH. Continue current tx plan 11/26: [facility]. continue current management and treatment plan and monitor response to restarting medications. Reason for continued inpatient stay Substantial Risk for: harm to self, inability to function and rapid decompensation Time Spent With Patient Time: Total time managing care of this patient today ____ minutes.
[2024-11-26] MEDS: LORazepam 1 MG TABLET PO ×2 (15:10→21:08)
[2024-11-26 19:50] VITALS: BP 135/88; PULSE 98; RESP 16; TEMP 37.1; O2SAT 98
[2024-11-26] MEDS: OLANZapine 10 MG TABLET 20 MG PO (21:08)
[2024-11-26] MEDS: Amitriptyline HCl 50 MG TABLET 100 MG PO (21:08)
[2024-11-27 07:32] VITALS: BP 134/78; PULSE 87; RESP 16; TEMP 37; O2SAT 92
[2024-11-27] MEDS: lamoTRIgine 25 MG TABLET PO (08:54)
[2024-11-27] MEDS: Thiamine HCL 100 MG TABLET PO (08:54)
--- NOTE | 2024-11-27 14:37 | HO.PSYCHPN ---
Subjective Subjective Date of Service: 11/27/24 Reason For Visit: crisis Interim History: Patient continues to report feeling depressed but hopeful. Adherent to medications intermittently visible on the unit. Denies any side effects from restarting medications. Understands it will take time to retitrate. He reports sleeping well last night; per nursing, slept 8 hours. Denies withdrawals. denies SI/HI/VH/AH. Review of Systems Constitutional: Denies body ache(s), Denies chills, Denies fever(s) and Denies frequent falls Eyes: Denies floaters Denies vertigo and Denies dizziness Cardiovascular: Denies chest pain and Denies dyspnea Respiratory: Denies cough and Denies dyspnea Gastrointestinal: Denies abdominal pain Musculoskeletal: Denies back pain Skin/Breast: Denies rash Denies vertigo, Denies dizziness and Denies frequent falls Psychiatric: Reports depression, Reports auditory hallucinations, Denies visual hallucinations, Denies homicidal ideation and Reports suicidal ideation Mental Status Exam Mental Status Exam Narrative: Pt is alert and oriented; behavior is cooperative and calm; dressed in casual attire; mood is described as depressed ; eye contact appropriate; Speech is normal rate, volume and not pressured; thought process is organized; Thought content is on tx; denies SI/HI/VH/AH. Diagnostics Vital Signs (24Hr): Vital Signs - 24 hr 11/26/24 19:50 11/27/24 07:32 Temperature 98.7 F 98.6 F Pulse Rate 98 87 Respiratory Rate 16 16 Blood Pressure 135/88 134/78 Pulse Oximetry 98 92 Oxygen Delivery Method Room Air Room Air BMI result Body Mass Index 27.0 Labs 11/23/24 21:57 11/25/24 08:22 Medications Medications Current Medications Acetaminophen (Acetaminophen 325 Mg Tablet) 650 mg PO Q6H PRN PRN Reason: Headache/Pain, Scale 1-10 Al Hydroxide/Mg Hydroxide (Magnesium Hydrox/Alum Hydrox 30 Ml Oral.Susp) 30 ml PO Q6H PRN PRN Reason: Heartburn/Nausea Amitriptyline HCl (Amitriptyline Hcl 50 Mg Tablet) 100 mg PO BEDTIME [facility] Last Admin: 11/26/24 21:08 Dose: 100 mg Hydroxyzine HCl (Hydroxyzine Hcl 50 Mg Tablet) 50 mg PO TID PRN PRN Reason: anxiety Last Admin: 11/25/24 17:54 Dose: 50 mg Lamotrigine (Lamotrigine 25 Mg Tablet) 25 mg PO DAILY [facility] Last Admin: 11/27/24 08:54 Dose: 25 mg Lorazepam (Lorazepam 1 Mg Tablet) 1 mg PO BID PRN PRN Reason: anxiety Last Admin: 11/26/24 21:08 Dose: 1 mg Magnesium Hydroxide (Milk Of Magnesia 30 Ml Oral.Susp) 30 ml PO DAILY PRN PRN Reason: Constipation Olanzapine (Olanzapine 10 Mg Tablet) 20 mg PO BEDTIME [facility] Last Admin: 11/26/24 21:08 Dose: 20 mg Thiamine HCl (Thiamine Hcl 100 Mg Tablet) 100 mg PO DAILY [facility] Last Admin: 11/27/24 08:54 Dose: 100 mg Trazodone HCl (Trazodone Hcl 50 Mg Tablet) 50 mg PO BEDTIME MRX1 PRN PRN Reason: Insomnia Allergies Allergies Allergy/AdvReac Type Severity Reaction Status Date / Time aripiprazole Allergy Unknown Verified 11/23/24 21:44 Penicillins Allergy Hives Verified 11/23/24 21:44 sulfamethoxazole Allergy Unknown Verified 11/23/24 21:44 [From Bactrim] trimethoprim [From Bactrim] Allergy Unknown Verified 11/23/24 21:44 Assessment & Plan Assessment & Plan (1) Schizophrenia, paranoid type: Status: Acute Code(s): F20.0 - Paranoid schizophrenia (2) PTSD (post-traumatic stress disorder): Status: Acute Code(s): F43.10 - Post-traumatic stress disorder, unspecified (3) Alcohol use disorder: Status: Acute Code(s): F10.90 - Alcohol use, unspecified, uncomplicated Plan Patient is a 29-year-old male with history of Schizoaffective d/o, PTSD and alcohol use disorder who due to suicidal ideation with plan to hang himself secondary to depression Plan: CV 15 minute safety checks Continue home medications Hold venlafaxine LES Obtain collateral Encourage groups Discharge planning 11/25: Patient continues to report feeling depressed; denies any side effects from restarting medications. He reports sleeping well last night; per nursing, slept 8 hours. Patient reports he will try to attend groups today. denies SI/HI/VH/AH. Continue current tx plan 11/26: [facility] SAL[facility]. continue current management and treatment plan and monitor response to restarting medications. 11/27: continue current management and treatment plan. Reason for continued inpatient stay Substantial Risk for: harm to self, inability to function and rapid decompensation Time Spent With Patient Time: Total time managing care of this patient today ____ minutes.
[2024-11-27] MEDS: hydrOXYzine HCL 50 MG TABLET PO (19:22)
[2024-11-27 20:00] VITALS: BP 132/92; PULSE 90; RESP 15; TEMP 36.4; O2SAT 95
[2024-11-27] MEDS: Amitriptyline HCl 50 MG TABLET 100 MG PO (21:18)
[2024-11-27] MEDS: OLANZapine 10 MG TABLET 20 MG PO (21:18)
[2024-11-27] MEDS: LORazepam 1 MG TABLET PO (21:22)
[2024-11-28 07:50] VITALS: BP 127/78; PULSE 84; RESP 16; TEMP 36.6; O2SAT 96
[2024-11-28] MEDS: lamoTRIgine 25 MG TABLET PO (08:30)
[2024-11-28] MEDS: Thiamine HCL 100 MG TABLET PO (08:30)
--- NOTE | 2024-11-28 10:26 | HO.PSYCHPN ---
Subjective Subjective Date of Service: 11/28/24 Reason For Visit: crisis Subjective Notes: Conditional Voluntary Interim History: Patient reports feeling a little better since admission; denies any side effects from restarting medications. denies SI/HI/VH/AH. Plan to discharge this week if continues to improve; pt aware. encouraged to attend groups. Medication Compliance: Yes Side effects from medications: No Attending Groups: Intermittent Mental Status Exam Mental Status Exam Narrative: Pt is alert and oriented; behavior is cooperative and calm; dressed in casual attire; mood is described as depressed ; eye contact appropriate; Speech is normal rate, volume and not pressured; thought process is organized; Thought content is on tx; denies SI/HI/VH/AH. Diagnostics Vital Signs (24Hr): Vital Signs - 24 hr 11/27/24 20:00 11/28/24 07:50 Temperature 97.6 F 97.8 F Pulse Rate 90 84 Respiratory Rate 15 16 Blood Pressure 132/92 H 127/78 Pulse Oximetry 95 96 Oxygen Delivery Method Room Air Room Air BMI result Body Mass Index 27.0 Labs 11/23/24 21:57 11/25/24 08:22 Medications Medications Current Medications Acetaminophen (Acetaminophen 325 Mg Tablet) 650 mg PO Q6H PRN PRN Reason: Headache/Pain, Scale 1-10 Al Hydroxide/Mg Hydroxide (Magnesium Hydrox/Alum Hydrox 30 Ml Oral.Susp) 30 ml PO Q6H PRN PRN Reason: Heartburn/Nausea Amitriptyline HCl (Amitriptyline Hcl 50 Mg Tablet) 100 mg PO BEDTIME [facility] Last Admin: 11/27/24 21:18 Dose: 100 mg Hydroxyzine HCl (Hydroxyzine Hcl 50 Mg Tablet) 50 mg PO TID PRN PRN Reason: anxiety Last Admin: 11/27/24 19:22 Dose: 50 mg Lamotrigine (Lamotrigine 25 Mg Tablet) 25 mg PO DAILY [facility] Last Admin: 11/28/24 08:30 Dose: 25 mg Lorazepam (Lorazepam 1 Mg Tablet) 1 mg PO BID PRN PRN Reason: anxiety Last Admin: 11/27/24 21:22 Dose: 1 mg Magnesium Hydroxide (Milk Of Magnesia 30 Ml Oral.Susp) 30 ml PO DAILY PRN PRN Reason: Constipation Olanzapine (Olanzapine 10 Mg Tablet) 20 mg PO BEDTIME [facility] Last Admin: 11/27/24 21:18 Dose: 20 mg Thiamine HCl (Thiamine Hcl 100 Mg Tablet) 100 mg PO DAILY [facility] Last Admin: 11/28/24 08:30 Dose: 100 mg Trazodone HCl (Trazodone Hcl 50 Mg Tablet) 50 mg PO BEDTIME MRX1 PRN PRN Reason: Insomnia Allergies Allergies Allergy/AdvReac Type Severity Reaction Status Date / Time aripiprazole Allergy Unknown Verified 11/23/24 21:44 Penicillins Allergy Hives Verified 11/23/24 21:44 sulfamethoxazole Allergy Unknown Verified 11/23/24 21:44 [From Bactrim] trimethoprim [From Bactrim] Allergy Unknown Verified 11/23/24 21:44 Assessment & Plan Assessment & Plan (1) Schizophrenia, paranoid type: Status: Acute Code(s): F20.0 - Paranoid schizophrenia (2) PTSD (post-traumatic stress disorder): Status: Acute Code(s): F43.10 - Post-traumatic stress disorder, unspecified (3) Alcohol use disorder: Status: Acute Code(s): F10.90 - Alcohol use, unspecified, uncomplicated Plan Patient is a 29-year-old male with history of Schizoaffective d/o, PTSD and alcohol use disorder who due to suicidal ideation with plan to hang himself secondary to depression Plan: CV 15 minute safety checks Continue home medications Hold venlafaxine CIWA Obtain collateral Encourage groups Discharge planning 11/25: Patient continues to report feeling depressed; denies any side effects from restarting medications. He reports sleeping well last night; per nursing, slept 8 hours. Patient reports he will try to attend groups today. denies SI/HI/VH/AH. Continue current tx plan 11/26: [facility]. continue current management and treatment plan and monitor response to restarting medications. 11/27: continue current management and treatment plan. : Patient reports feeling a little better since admission; denies any side effects from restarting medications. denies SI/HI/VH/AH. Plan to discharge this week if continues to improve; pt aware. encouraged to attend groups. Patient educated on: diagnosis, medication risk/benefits and therapeutic strategies Reason for continued inpatient stay Substantial Risk for: med/psych decompensation Time Spent With Patient Time: Total time managing care of this patient today _20___ minutes.
[2024-11-28 20:00] VITALS: BP 132/79; PULSE 96; RESP 16; TEMP 37.2; O2SAT 97
[2024-11-28] MEDS: OLANZapine 10 MG TABLET 20 MG PO (20:05)
[2024-11-28] MEDS: Amitriptyline HCl 50 MG TABLET 100 MG PO (20:05)
[2024-11-28] MEDS: LORazepam 1 MG TABLET PO (20:05)
[2024-11-29 07:44] VITALS: BP 127/78; PULSE 84; RESP 16; TEMP 36.7; O2SAT 94
[2024-11-29] MEDS: Thiamine HCL 100 MG TABLET PO (08:27)
[2024-11-29] MEDS: lamoTRIgine 25 MG TABLET PO (08:27)
--- NOTE | 2024-11-29 10:26 | HO.PSYCHPN ---
Subjective Subjective Date of Service: 11/29/24 Reason For Visit: crisis Subjective Notes: Conditional Voluntary Interim History: Patient reports feeling good today; he reports still some depression from grieving his divorce. denies SI/HI/VH/AH. Plan to discharge home tomorrow. Patient reports he plans on following up with his outpatient providers and being medication compliant. Medication Compliance: Yes Side effects from medications: No Attending Groups: Yes Mental Status Exam Mental Status Exam Narrative: Pt is alert and oriented; behavior is cooperative and calm; dressed in casual attire; mood is described as good ; eye contact appropriate; Speech is normal rate, volume and not pressured; thought process is organized; Thought content is on discharge; denies SI/HI/VH/AH. Diagnostics Vital Signs (24Hr): Vital Signs - 24 hr 11/28/24 20:00 11/29/24 07:44 Temperature 98.9 F 98.1 F Pulse Rate 96 84 Respiratory Rate 16 16 Blood Pressure 132/79 127/78 Pulse Oximetry 97 94 Oxygen Delivery Method Room Air Room Air BMI result Body Mass Index 27.0 Labs 11/23/24 21:57 11/25/24 08:22 Medications Medications Current Medications Acetaminophen (Acetaminophen 325 Mg Tablet) 650 mg PO Q6H PRN PRN Reason: Headache/Pain, Scale 1-10 Al Hydroxide/Mg Hydroxide (Magnesium Hydrox/Alum Hydrox 30 Ml Oral.Susp) 30 ml PO Q6H PRN PRN Reason: Heartburn/Nausea Amitriptyline HCl (Amitriptyline Hcl 50 Mg Tablet) 100 mg PO BEDTIME [facility] Last Admin: 11/28/24 20:05 Dose: 100 mg Hydroxyzine HCl (Hydroxyzine Hcl 50 Mg Tablet) 50 mg PO TID PRN PRN Reason: anxiety Last Admin: 11/27/24 19:22 Dose: 50 mg Lamotrigine (Lamotrigine 25 Mg Tablet) 25 mg PO DAILY [facility] Last Admin: 11/29/24 08:27 Dose: 25 mg Lorazepam (Lorazepam 1 Mg Tablet) 1 mg PO BID PRN PRN Reason: anxiety Last Admin: 11/28/24 20:05 Dose: 1 mg Magnesium Hydroxide (Milk Of Magnesia 30 Ml Oral.Susp) 30 ml PO DAILY PRN PRN Reason: Constipation Olanzapine (Olanzapine 10 Mg Tablet) 20 mg PO BEDTIME [facility] Last Admin: 11/28/24 20:05 Dose: 20 mg Thiamine HCl (Thiamine Hcl 100 Mg Tablet) 100 mg PO DAILY [facility] Last Admin: 11/29/24 08:27 Dose: 100 mg Trazodone HCl (Trazodone Hcl 50 Mg Tablet) 50 mg PO BEDTIME MRX1 PRN PRN Reason: Insomnia Allergies Allergies Allergy/AdvReac Type Severity Reaction Status Date / Time aripiprazole Allergy Unknown Verified 11/23/24 21:44 Penicillins Allergy Hives Verified 11/23/24 21:44 sulfamethoxazole Allergy Unknown Verified 11/23/24 21:44 [From Bactrim] trimethoprim [From Bactrim] Allergy Unknown Verified 11/23/24 21:44 Assessment & Plan Assessment & Plan (1) Schizophrenia, paranoid type: Status: Acute Code(s): F20.0 - Paranoid schizophrenia (2) PTSD (post-traumatic stress disorder): Status: Acute Code(s): F43.10 - Post-traumatic stress disorder, unspecified (3) Alcohol use disorder: Status: Acute Code(s): F10.90 - Alcohol use, unspecified, uncomplicated Plan Patient is a 29-year-old male with history of Schizoaffective d/o, PTSD and alcohol use disorder who due to suicidal ideation with plan to hang himself secondary to depression Plan: CV 15 minute safety checks Continue home medications Hold venlafaxine LES Obtain collateral Encourage groups Discharge planning 11/25: Patient continues to report feeling depressed; denies any side effects from restarting medications. He reports sleeping well last night; per nursing, slept 8 hours. Patient reports he will try to attend groups today. denies SI/HI/VH/AH. Continue current tx plan 11/26: [facility]. continue current management and treatment plan and monitor response to restarting medications. 11/27: continue current management and treatment plan. : Patient reports feeling a little better since admission; denies any side effects from restarting medications. denies SI/HI/VH/AH. Plan to discharge this week if continues to improve; pt aware. encouraged to attend groups. 11/29: Patient reports feeling good today; he reports still some depression from grieving his divorce. denies SI/HI/VH/AH. Plan to discharge home tomorrow. Patient reports he plans on following up with his outpatient providers and being medication compliant. Patient educated on: diagnosis, medication risk/benefits and therapeutic strategies Reason for continued inpatient stay Substantial Risk for: stable for discharge Time Spent With Patient Time: Total time managing care of this patient today _20___ minutes.
[2024-11-29] MEDS: Magnesium Hydrox/Alum Hydrox 30 ML ORAL.SUSP PO (13:38)
[2024-11-29 20:00] VITALS: BP 134/86; PULSE 98; RESP 16; TEMP 36.8; O2SAT 96
[2024-11-29] MEDS: OLANZapine 10 MG TABLET 20 MG PO (20:22)
[2024-11-29] MEDS: Amitriptyline HCl 50 MG TABLET 100 MG PO (20:23)
[2024-11-30 07:40] VITALS: BP 144/95; PULSE 84; RESP 14; TEMP 36.4; O2SAT 95
[2024-11-30] MEDS: Thiamine HCL 100 MG TABLET PO (08:28)
[2024-11-30] MEDS: lamoTRIgine 25 MG TABLET PO (08:28)
[2024-11-30] MEDS: hydrOXYzine HCL 50 MG TABLET PO (08:31)
--- NOTE | 2024-11-30 09:23 | P.DS_ITS ---
DS: Providers Provider Date of Service: 11/30/24 Date of admission: 11/24/24 12:33 Date of discharge: 11/30/24 Primary care physician: Unknown Physician Admitting clinician: Dee Dee Loaiza Attending physician on admission: Eris Flaherty Attending physician on discharge: Eris Flaherty Discharging clinician: Dee Dee Loaiza DS: Diagnosis Discharge Diagnosis (1) Schizophrenia, paranoid type: Status: Acute (2) PTSD (post-traumatic stress disorder): Status: Acute (3) Alcohol use disorder: Status: Acute DS: Medications Discharge Medications Home Medications: Previous Rx's ?Medication ?Instructions ?Recorded hydroxyzine HCl 50 mg tablet 50 mg PO TID PRN anxiety #42 tabs 09/19/24 lorazepam 1 mg tablet 1 mg PO BID PRN anxiety #14 tabs 09/19/24 amitriptyline 100 mg tablet 100 mg PO BEDTIME 30 days #30 tabs 11/29/24 lamotrigine 25 mg tablet 25 mg PO DAILY 7 days #7 tabs 11/29/24 olanzapine 20 mg tablet 20 mg PO BEDTIME 30 days #30 tabs 11/29/24 Mental Status Exam Mental Status Exam Narrative: Pt is alert and oriented; behavior is cooperative and calm; dressed in casual attire; mood is described as good ; eye contact appropriate; Speech is normal rate, volume and not pressured; thought process is organized; Thought content is on discharge; denies SI/HI/VH/AH. Data Data Completed and Pending Completed studies during hospitalization [Text1]: 11/23/24 11/23/24 11/24/24 21:57 22:24 10:37 WBC 7.1 RBC 4.75 Hgb 14.9 Hct 42.3 MCV 89.1 MCH 31.4 MCHC 35.2 RDW 12.1 Plt Count 305 MPV 8.9 L Immature Gran % (Auto) 0.3 Neut % (Auto) 59.0 Lymph % (Auto) 30.7 [place] % (Auto) 7.6 Eos % (Auto) 1.7 Baso % (Auto) 0.7 Lymph # (Auto) 2.2 [place] # (Auto) 0.5 Eos # (Auto) 0.1 Baso # (Auto) 0.1 Abs Immat Gran (auto) 0.02 Absolute Neuts (auto) 4.2 Absolute Nucleated RBC 0.000 Nucleated RBC % (auto) 0.0 Sodium 142 Potassium 3.9 Chloride 108 Carbon Dioxide 22 Anion Gap 16 BUN 13 Creatinine 0.85 Estim Creat Clear Calc 142.3 Estimated GFR > 60 Random Glucose 98 Estimat Average Glucose Hemoglobin A1c % Calcium 9.1 D Total Bilirubin 0.2 AST 39 H ALT 85 H Alkaline Phosphatase 71 Total Protein 7.0 Albumin 4.4 Triglycerides Cholesterol LDL Cholesterol, Calc HDL Cholesterol Urine Color Yellow Urine Appearance Clear Urine pH 5.5 Ur Specific [place] 1.025 Urine Protein Negative Urine Glucose (UA) Negative Urine Ketones Trace Urine Blood Negative Urine Nitrite Negative Ur Leukocyte Esterase Negative Salicylates < 5.0 L Urine Opiates Screen Not Detected Ur Buprenorphine Scrn Not Detected Ur Oxycodone Screen Not Detected Urine Methadone Screen Not Detected Urine Fentanyl Screen Not Detected Acetaminophen < 3 Ur Barbiturates Screen Not Detected Ur Phencyclidine Scrn Not Detected Ur Amphetamines Screen Not Detected U Benzodiazepines Scrn Not Detected Urine Cocaine Screen Not Detected U Marijuana (THC) Screen Not Detected Ethyl Alcohol 67 11/25/24 08:22 WBC RBC Hgb Hct MCV MCH MCHC RDW Plt Count MPV Immature Gran % (Auto) Neut % (Auto) Lymph % (Auto) [place] % (Auto) Eos % (Auto) Baso % (Auto) Lymph # (Auto) [place] # (Auto) Eos # (Auto) Baso # (Auto) Abs Immat Gran (auto) Absolute Neuts (auto) Absolute Nucleated RBC Nucleated RBC % (auto) Sodium 141 Potassium 4.1 Chloride 105 Carbon Dioxide 29 Anion Gap 11 L BUN 16 Creatinine 0.99 Estim Creat Clear Calc 122.1 Estimated GFR > 60 Random Glucose 95 Estimat Average Glucose 100 Hemoglobin A1c % 5.1 Calcium 9.9 D Total Bilirubin 0.5 AST 35 ALT 76 H Alkaline Phosphatase 76 Total Protein 7.4 Albumin 4.6 Triglycerides 189 H Cholesterol 239 H LDL Cholesterol, Calc 157 H HDL Cholesterol 45 Urine Color Urine Appearance Urine pH Ur Specific [place] Urine Protein Urine Glucose (UA) Urine Ketones Urine Blood Urine Nitrite Ur Leukocyte Esterase Salicylates Urine Opiates Screen Ur Buprenorphine Scrn Ur Oxycodone Screen Urine Methadone Screen Urine Fentanyl Screen Acetaminophen Ur Barbiturates Screen Ur Phencyclidine Scrn Ur Amphetamines Screen U Benzodiazepines Scrn Urine Cocaine Screen U Marijuana (THC) Screen Ethyl Alcohol DS: Summary Hospital Course Hospital Course: Patient is a 29-year-old male with history of Schizoaffective d/o, PTSD and alcohol use disorder who due to suicidal ideation with plan to hang himself secondary to depression. Per crisis report, patient requested in a set at home. He did suicidal thoughts with a plan to hang himself decreased depression. Patient reports his asking him for a divorce 2 months ago and not being able to see his son has been stressful. And also reports he has been consuming alcohol 3 times a week and stopped taking some of his psychiatric medications approximately a month ago. Patient reports he stopped lamotrigine, metoprolol, trazodone and Effexor. During admission assessment, patient presents alert and oriented x3. Calm and cooperative. Patient reports feeling depressed; patient stated, between not seeing my son, the divorce, and stopping meds, I felt suicidal. I stopped taking some of the medications because I felt like a zombie . Patient reports suicidal ideation with no plan. He reports auditory hallucinations of whispers. Denies HI/VH. Patient reports he would like to get stabilized again on my meds . Pt requesting to not restart on venlafaxine because he believes this is what caused him feel no emotions . Plan: CV 15 minute safety checks Continue home medications Hold venlafaxine CIWA Obtain collateral Encourage groups Discharge planning Patient continues to report feeling depressed; denies any side effects from restarting medications. He reports sleeping well last night; per nursing, slept 8 hours. Patient reports he will try to attend groups today. denies SI/HI/VH/AH. Continue current tx plan PR CIWA. continue current management and treatment plan and monitor response to restarting medications. continue current management and treatment plan. Patient reports feeling a little better since admission; denies any side effects from restarting medications. denies SI/HI/VH/AH. Plan to discharge this week if continues to improve; pt aware. encouraged to attend groups. Patient reports feeling good today; he reports still some depression from grieving his divorce. denies SI/HI/VH/AH. Plan to discharge home tomorrow. Patient reports he plans on following up with his outpatient providers and being medication compliant. Patient reports feeling good and ready for discharge. pt denies SI/HI/VH/AH. Patient plans on following up with his outpatient providers. Status at Discharge Cognitive/behavioral status at discharge: Patient has insight and demonstrates good judgment in terms of wanting to pursue treatment. Patient has a safety plan that includes presenting to the closest ER or calling 911 if feeling unsafe. Functional status at discharge: independent ambulation Overall status at discharge: patient is back to baseline Time Spent with Patient Time attestation: Total time managing care of this patient today _20___ minutes. Time spent: Less than 30 minutes Discharge Plan Discharge Anticipated Discharge Date/Time: 11/30/24 10:30 Patient Disposition: Home, Self-Care Discharge Diagnosis: Schizophrenia, PTSD, Alcohol use d/o Referrals: Penelope Isidro (Therapy) [Other] - 12/05/24 4:00 pm (IN OFFICE APPOINTMENT) Larissa Machado (Psychiatry) [Other] - 12/20/24 11:40 am (TELEHEALTH APPOINTMENT) [facility] [Provider Group] - 1 Week (11-29-24 [facility] was added to patients chart. Please call [phone] to schedule a follow up appt within 7-10 days of discharge. No release or PCP on file.) Discharge Medications: New lamotrigine 25 mg Tablet 25 mg PO DAILY 7 Days Qty: 7 3RF Continued amitriptyline 100 mg tablet 100 mg PO BEDTIME 30 Days Qty: 30 0RF olanzapine 20 mg tablet 20 mg PO BEDTIME 30 Days Qty: 30 0RF hydroxyzine HCl 50 mg Tablet 50 mg PO TID PRN (Reason: anxiety) Qty: 42 1RF lorazepam 1 mg Tablet 1 mg PO BID PRN (Reason: anxiety) Qty: 14 4RF Discontinued venlafaxine 75 mg Capsule,Extended Release 24hr 75 mg PO DAILY Qty: 14 1RF trazodone 50 mg Tablet 50 mg PO BEDTIME MRX1 PRN (Reason: Insomnia) Qty: 28 1RF lamotrigine 100 mg Tablet 150 mg PO DAILY Qty: 14 1RF Discharge Orders: Discharge Order (Routine); Ordered 11/30/24 Ordered By: Dee Dee Loaiza Diet: Regular diet Activity on Discharge: As tolerated Stand Alone Forms: Patient Portal Discharge page, Community Support Print Language: Salvadorean Care Plan Goals: Maintain mood and safe behaviors Take medications as prescribed Continue to pursue sobriety Practice coping skills Continue with outpatient providers and reach out to them as needed Health Concerns: Mood stability and behaviors Sobriety Plan of Treatment: Follow up with your PCP, psychiatric provider and other outpatient providers regarding above concerns Take medications as prescribed Assessment: Patient has insight and demonstrates good judgment in terms of wanting to pursue treatment. Patient has a safety plan that includes presenting to the closest ER or calling 911 if feeling unsafe. Discharge Date/Time: 11/30/24 10:50
== END 2024-11-30 10:50 | disposition home or self-care (01) | DRG 750 ==
LOC: HO.ED 23:48 → HO.PADLT16 11-24 12:50
PROVIDERS: Physician Assistant; Admitting Provider Registered Nurse; Emergency Provider Emergency Medicine; Responsible Provider Registered Nurse; Visit Provider Psychiatry & Neurology Psychiatry
DX: F20.0 Paranoid schizophrenia (principal); R45.851 Suicidal ideations; F43.10 Post-traumatic stress disorder, unspecified; Y90.3 Blood alcohol level of 60-79 mg/100 ml; Z63.5 Disruption of family by separation and divorce; F10.90 Alcohol use, unspecified, uncomplicated; Z87.891 Personal history of nicotine dependence; Z79.899 Other long term (current) drug therapy
CPT/HCPCS: 36415; 80053; 80061; 80143; 80179; 80307; 81003; 83036; 85025; 93005; 99285

== ENCOUNTER → 2024-11-24 07:25 | Outpatient (BNV) | payer OTHER, SELFPAY | PROVIDERS: Admitting Provider Registered Nurse; Emergency Provider Emergency Medicine; Responsible Provider Registered Nurse; Visit Provider Internal Medicine | DX: R41.82 Altered mental status, unspecified (principal) | CPT/HCPCS: 93010 ==

== ENCOUNTER → 2024-11-24 12:33 | Outpatient (BNV) | payer OTHER, SELFPAY | PROVIDERS: Admitting Provider Registered Nurse; Emergency Provider Emergency Medicine; Responsible Provider Registered Nurse; Visit Provider Registered Nurse | DX: F20.0 Paranoid schizophrenia (principal); F43.10 Post-traumatic stress disorder, unspecified; F10.90 Alcohol use, unspecified, uncomplicated | CPT/HCPCS: 90792; 99231; 99232 ==

== ENCOUNTER 2025-05-08 22:12 | Inpatient (IN) | payer OTHER, SELFPAY ==
[2025-05-08 22:19] VITALS: BP 137/83; PULSE 105; RESP 18; TEMP 36.4; O2SAT 95; BMI 27.8
[2025-05-08 22:36] LABS: Hematocrit 44.7 % (42.0-52.0); Hemoglobin 15.9 g/dl (14.0-18.0); Imm Gran Abs Auto 0.02 X10*3/uL (0.00-0.03); Imm Gran Pct Auto 0.2 % (0.0-0.4); Lymphocytes Absolute Auto 2.9 X10*3/uL (1.2-4.9); MANUAL DIFF FLAG NO; Mean Corpuscular HGB Conc 35.6 g/dl (31.0-36.0); Mean Corpuscular Hemoglobin 31.2 pg (27.0-33.0); Mean Corpuscular Volume 87.6 fL (80.0-98.0); NRBC Abs Auto 0.000 X10*3/uL (0.0-0.012); NRBC Pct Auto 0.0 /100WBC (0.0-0.2); Platelet Count 332 X10*3/uL (160-400); Red Blood Count 5.10 X10*6/uL (4.60-5.80); White Blood Count 9.1 X10*3/uL (4.8-10.8)
[2025-05-08 22:54] LABS: Acetaminophen LAB < 3 mcg/mL (<30); Salicylate < 5.0 mg/dL (15-30)
[2025-05-08 22:56] LABS: Alanine Aminotransferase 85 U/L (0-40); Albumin Level 4.7 g/dL (3.5-5.0); Alkaline Phosphatase 66 U/L (39-117); Anion Gap 14 (12-20); Aspartate Amino Transferase 40 U/L (5-37); Blood Urea Nitrogen 12 mg/dL (9-16); Calcium 9.3 mg/dL (8.4-10.2); Carbon Dioxide 24 mmol/L (22-29); Chloride 108 mmol/L (96-108); Creatinine Clr Calc Pharmacy 107.9; Estimated Glomerular Filt Rate > 60; Potassium 3.7 mmol/L (3.3-5.1); Sodium 142 mmol/L (135-145); Total Protein 7.1 g/dL (6.5-8.0)
--- NOTE | 2025-05-08 23:00 | PC.NURSE ---
Pt comes from triage with complaints of SI/AH/VH. States that since starting new medications- oxcarbazpine he has notice he has been feeling more depressed, having SI thoughts of hanging self or overdosing on pills, and has been seeing shadows and hearing whispers. PT is a/ox4, calm/cooperative NAD, denies any cardiac/Resp/musculoskeletal/GI/ issues or concerns. Denies ETOH or Substance use. Ambulates with a steady gait, skin pwd and intact. Pt changed over in family room with security and electronic test technicianRosalba. Belongings secured and list completed by senior erp consultant Rosalba. RX bottles in belongings- med list verified. Safety precautions in place- 15 minutes checks initiated. Provider at bedside.
--- NOTE | 2025-05-09 01:15 | ED_ITS ---
HPI - Psych General Chief Complaint: Psychiatric Symptoms Stated Complaint: SI Time Seen by Provider: 05/08/25 22:44 Source: patient Mode of arrival: ambulatory Limitations: no limitations History of Present Illness ED Provider: Dr. Charlene Mccullough HPI Narrative: Patient comes to the emergency room complaining of hallucinations, suicidal thoughts. Patient states that he started a new medication a proximally 1 week ago. Patient states that the thought of hurting himself is frequent, includes hanging or taking pills. Patient reports auditory hallucinations. Per patient's nurse, he also reported visual hallucinations. Related Data Home Medications ?Medication ?Instructions ?Recorded ?Confirmed hydroxyzine pamoate 50 mg capsule 50 mg PO TID PRN anx iety 05/08/25 05/08/25 oxcarbazepine 150 mg tablet 150 mg PO BID depressive d isorder 05/08/25 05/08/25 Previous Rx's ?Medication ?Instructions ?Recorded amitriptyline 100 mg tablet 100 mg PO BEDTIME 30 days #30 tabs 11/29/24 olanzapine 20 mg tablet 20 mg PO BEDTIME 30 days #30 tabs 11/29/24 Allergies Allergy/AdvReac Type Severity Reaction Status Date / Time aripiprazole Allergy Unknown Verified 05/08/25 22:23 Penicillins Allergy Hives Verified 05/08/25 22:23 sulfamethoxazole (From Allergy Unknown Verified 05/08/25 22:23 Bactrim) trimethoprim (From Bactrim) Allergy Unknown Verified 05/08/25 22:23 Review of Systems 2 Review of Systems: Constitutional : No Weight loss, No Fever, No Chills, No Night Sweats, No Fatigue, No Malaise ENT/Mouth : No Hearing loss, No Ear Pain, No Nasal Congestion, No Sinus Pain, No Hoarseness, No sore throat, No Rhinorrhea, No Swallowing Difficulty Eyes: No Eye Pain, No Swelling, No Redness, No Foreign Body, No Discharge, No Vision Changes Cardiovascular : No Chest Pain, No SOB, No Dyspnea on Exertion, No Orthopnea, No Edema, No Palpitations Respiratory : No Cough, No Sputum, No Wheezing, No Smoke Exposure, No Dyspnea Gastrointestinal : No Nausea, No Vomiting, No Diarrhea, No Constipation, No abdominal Pain, No Hematochezia, No Melena Genitourinary : no irregular bleeding, No Dysuria, No Urinary Frequency, No Hematuria, No Urinary Incontinence, No Urgency, No Flank Pain, No Urinary Flow Changes, No Hesitancy Musculoskeletal : No joint pain, No Myalgias, No Joint Swelling Skin : No Skin Lesions, No rash Neuro : No Weakness, No Numbness, No Paresthesias, No Loss of Consciousness, No Dizziness, No Headache Psych : No Anxiety/Panic, complaining of visual and auditory hallucinations, complaining of SI, no HI Heme/Lymph: No Bruising, No Bleeding,No Lymphadenopathy Endocrine : No Polyuria, No Polydipsia, No Temperature Intolerance [facility] Past Medical History Medical History Depression with suicidal ideation Alcohol use disorder Feeling suicidal Elevated LFTs Routine medical exam TBI (traumatic brain injury) Seizures SVT (supraventricular tachycardia) Surgical History History of appendectomy Social History Social History (Updated 10/10/24 @ 13:08 by DE Stevens) Household Members: Other Household Members Other:: roommate Housing: House Do you presently have visiting nurse or other home services: No Alcohol intake: current Alcohol intake frequency: former alcohol drinker Alcohol type: beer Patient Tobacco Use Status: Former Tobacco user Tobacco use type: Cigarette Cigarette Packs Per Day: 0 Cigarettes Per Day: 0 Years Smoked: 8 Smoked in Last 30 Days: No e-Cigarette/Vaping Use: Never Used Second Hand Smoke Exposure: No Use of substances other than those prescribed or required for medical reasons: No Substance Use Type: Marijuana Advance Directives: Yes Advance Directives on File: Yes Advance Directives Date on File: 08/29/24 service: No Current occupational status: unemployed Sexual orientation: Bisexual Physical Exam 2 Exam: Exam: Appearance: Alert. Oriented X3. No acute distress. Eyes: Pupils equal, round and reactive to light. ENT: Pharynx normal. Neck: Normal inspection. Neck supple. No lymph nodes noted. No crepitus CVS: Normal heart rate and rhythm. Pulses normal. Normal S1 and S2 Respiratory: No respiratory distress. Breath sounds normal. No Wheezing. No rales Abdomen: Soft and nontender. No rigidity. No distention. Skin: Skin warm and dry. Normal skin color. Normal skin turgor. Extremities: No lower extremity edema. No Lacerations. No Rash Neuro: Oriented X 3. No motor deficit. No sensory deficit. Moving all extremities. No slurred speech. CN 2 through 12 grossly intact Psych: calm, cooperative, anxious, redirectable Vital Signs: Vital Signs: Last Vital Signs Temp 98.4 F 05/09/25 11:36 Pulse 86 05/09/25 11:36 Resp 12 05/09/25 11:36 BP 120/78 05/09/25 11:36 Pulse Ox 98 05/09/25 11:36 O2 Del Method Room Air 05/09/25 11:36 BMI result Body Mass Index 27.8 Course Course Course Narrative: Time: 07:19 Date: 05/09/25 Provider: Ava Arreola, DO Patient in physician observation for psychiatric evaluation.? No acute events reported overnight. No current complaints. VS stable.? Pending CARE team evaluation. Will continue to monitor. Reevaluation(s) Reevaluation #1: physician observation ended admitted inpatient 05/09/25 JOSE 113pm Medications Administered Generic Name Dose Route Start Last Admin Trade Name Marika PRN Reason Stop Dose Admin Amitriptyline HCl 100 mg 05/09/25 02:00 05/09/25 03:05 Amitriptyline Hcl 50 Mg Tablet PO 100 mg BEDTIME BRITTNY Administration Olanzapine 20 mg 05/09/25 02:00 05/09/25 02:47 Olanzapine 10 Mg Tablet PO 20 mg BEDTIME BRITTNY Administration Oxcarbazepine 150 mg 05/09/25 02:00 05/09/25 09:48 Oxcarbazepine 150 Mg Tablet PO 150 mg BID BRITTNY Administration Medical Decision Making Medical Decision Making [facility] Narrative: My interpretation of labs: No significant abnormality in patient's hematology or chemistry, at baseline and LFTs Differential Diagnosis Differential Diagnoses: The differential diagnosis associated with the presentation includes Admission/Observation Consideration of admission/observation: Escalation of care including admission/observation considered (Patient waiting for the care team for evaluation and treatment) Consult Healthcare Provider Management of the patient was discussed with: Hospitalist Lab Data [facility] Lab Attestation statement: I reviewed the patient's lab results. 05/08/25 22:29 05/08/25 22:29 Labs: Lab Results 05/08/25 05/09/25 05/09/25 Range/Units 22:29 09:38 09:58 WBC 9.1 (4.8-10.8) X10*3/uL RBC 5.10 (4.60-5.80) X10*6/uL Hgb 15.9 (14.0-18.0) g/dl Hct 44.7 (42.0-52.0) % MCV 87.6 (80.0-98.0) fL MCH 31.2 (27.0-33.0) pg MCHC 35.6 (31.0-36.0) g/dl RDW 11.8 (11.0-16.0) % Plt Count 332 (160-400) X10*3/uL MPV 9.0 L (9.4-12.4) fL Immature Gran % (Auto) 0.2 (0.0-0.4) % Neut % (Auto) 57.0 (45-73) % Lymph % (Auto) 32.1 (20-40) % [place] % (Auto) 7.6 (2-11) % Eos % (Auto) 2.1 (0-4) % Baso % (Auto) 1.0 (0-2) % Lymph # (Auto) 2.9 (1.2-4.9) X10*3/uL [place] # (Auto) 0.7 (0.1-1.2) X10*3/uL Eos # (Auto) 0.2 (0.0-0.4) X10*3/uL Baso # (Auto) 0.1 (0.0-0.2) X10*3/uL Abs Immat Gran (auto) 0.02 (0.00-0.03) X10*3/uL Absolute Neuts (auto) 5.2 (2.0-8.3) x10*3/uL Absolute Nucleated RBC 0.000 (0.0-0.012) X10*3/uL Nucleated RBC % (auto) 0.0 (0.0-0.2) /100WBC Sodium 142 (135-145) mmol/L Potassium 3.7 (3.3-5.1) mmol/L Chloride 108 (96-108) mmol/L Carbon Dioxide 24 (22-29) mmol/L Anion Gap 14 (12-20) BUN 12 (9-16) mg/dL Creatinine 1.12 (0.5-1.4) mg/dL Estim Creat Clear Calc 107.9 Estimated GFR > 60 Random Glucose 109 (60-115) mg/dL Calcium 9.3 D (8.4-10.2) mg/dL Total Bilirubin 0.2 (0.0-1.0) mg/dL AST 40 H (5-37) U/L ALT 85 H (0-40) U/L Alkaline Phosphatase 66 (39-117) U/L Total Protein 7.1 (6.5-8.0) g/dL Albumin 4.7 (3.5-5.0) g/dL Urine Color Yellow Urine Appearance Clear Urine pH 6.0 (5.0-9.0) Ur Specific [place] 1.020 (1.005-1.025) Urine Protein Negative (Neg-Trace) mg/dL Urine Glucose (UA) Negative (Negative) mg/dL Urine Ketones Trace (Negative) mg/dL Urine Blood Negative (Negative) Urine Nitrite Negative (Negative) Ur Leukocyte Esterase Trace H (Negative) Urine RBC 0-2 (0-2) /HPF Urine WBC 0-5 (0-5) /HPF Ur Squamous Epith Cells 0-2 (0-2) /HPF Urine Bacteria None Seen (None Seen) Hyaline Casts 0-2 (0-2) /LPF Salicylates < 5.0 L (15-30) mg/dL Urine Opiates Screen Not Detected (Not Detect) Ur Buprenorphine Scrn Not Detected (Not Detect) ng/mL Ur Oxycodone Screen Not Detected (Not Detect) ng/mL Urine Methadone Screen Not Detected (Not Detect) ng/mL Urine Fentanyl Screen Not Detected (Not Detect) Acetaminophen < 3 (<30) mcg/mL Ur Barbiturates Screen Not Detected (Not Detect) Ur Phencyclidine Scrn Not Detected (Not Detect) Ur Amphetamines Screen Not Detected (Not Detect) U Benzodiazepines Scrn Not Detected (Not Detect) Urine Cocaine Screen Not Detected (Not Detect) U Marijuana (THC) Screen Not Detected (Not Detect) Ethyl Alcohol < 10 mg/dL Critical Care Time Critical Care Time Critical Care Time: Yes Total Critical Care Time: 35 Attestation: I have personally provided critical care time. Time includes review of lab data, radiology results, discussion with consultants, and monitoring for potential decompensation. Intervention performed as documented. Discharge Plan Discharge Clinical Impression: Schizophrenia, paranoid type Patient Disposition: Admitted As Inpatient [facility] Last Done: 05/08/25 22:58 Print Language: Mauritanian
--- NOTE | 2025-05-09 02:49 | PC.NURSE ---
Pt medicated as per mar with available medication. Awaiting response/delivery from housekeeper and laundry assistant for amitriptyline. 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
--- OUTSIDE RECORDS SUMMARY | 2025-05-09 05:42 | XMS_ITS | Clinical Summary ---
Author Organization [facility] Address [address] [place] [address] Care Team Providers Care Cold Storage Superintendent Name Role Phone Joy Gracia MD Primary [...] (1 - Tdap) 2012 Influenza Vaccine (#1) 2025 Pneumococcal Vaccine Aged Out No long er eligible based on patient's age to complete this topic RSV Ped < 20 months Aged Out No longe r eligible based on patient's age to complete this topic Care Teams Cold Storage Superintendent Relationship Specialty Start Date End Date Joy Gracia MD [address] [place] [id number] PCP - General Internal Medicine 03/30/19
--- OUTSIDE RECORDS SUMMARY | 2025-05-09 05:42 | XMS_ITS | Clinical Summary ---
Author Organization [address] Address [address] [place] [phone] Phone Care Team Providers Care Fire And Safety Helper Name Role Phone Michelle Gamez MD Primary [...] of palpitations. Paroxysmal SVT (supraventricular tachycardia) ([facility] [place] V24) 09/16/2019 ADHD (attention deficit hyperactivity disorder) 05/20/2019 Overview (05/10/2024): Hx of Adderall use. Migraines 05/20/2019 Anxiety 05/03/2019 Depression 05/03/2019 Traumatic brain injury ([facility] V24, [facility] V28 ) 05/03/2019 Overview (05/10/2024): Checo myrick fell on his head at age 2, right frontal lobe injury. Chronic BH issues. Follows with Dr. Bertrand Immunizations Immunization Administration Dates Next Due Td Tetanus diptheria (Tdvax) 7yo and older 09/16 Tdap Tetanus diptheria acell ular pertussis (Boostrix; Adacel) 7yo and older 01/07/2023 Surgical History Surgery Date Site/Laterality Comments APPENDECTOMY PROCEDURE: HISTORICAL APPENDECTOMY TONSILLECTOMY ADENOIDECTOMY, BILATERAL MYRINGOTOMY AND TUBES PROCEDURE: [place] TONSILLECTOMY & ADENOIDECTOMY <AGE 12 OTHER SURGICAL HISTORY Left PROCEDURE: [place] ORCHIECTOMY PARTIAL; COMMENT: as a child for undescended teste. Medical History Medical History Date Comments Migraines 05/20/2019 DX:Migraines Tobacco use 05/20/2019 DX:Tobacco use ADHD (attention deficit hype ractivity disorder) 05/20/2019 DX:ADHD (attention deficit hyperactivity disorder); COMMENT: Hx of Adderall use. Anxiety 05/03/2019 DX:Anxiety Depression 05/03/2019 DX:Depression Traumatic brain injury ([facility]/ [facility] V24, [facility] V28) 05/03/2019 DX:Traumatic brain injury (H [...] 90 10/13/2024 10:28 AM EDT Temperature 36.3 C (97.4 F) 10/13/2024 10:28 AM EDT Respiratory Rate 18 10/13/2024 10:28 AM EDT Oxygen Saturation - - Inhaled Oxygen Concentration - - Weight 95.3 kg (210 lb) 10/13/2024 10:28 AM EDT Height 188 cm (6' 2 ) 06/24/2024 8:15 AM EST Body Mass Index 26.96 06/24/2024 8:15 AM EST Plan of Treatment Health Maintenance Due Date Last Done Comments HPV Vaccines (1 - 3-dose SCD M series) 2020 Social Influencers of Health Screening 07/12/2022 Depression Screening 08/03/2024 10/20/2023 COVID-19 Vaccine (2024-2 6 season) 2025 04/13/2021, 03/23/2021 Cholesterol Screening (Lipid Panel) 01/08/2028 01/07/2023 DTaP,Tdap,and Td Vaccines (3 - Td or Tdap) 01/07/2033 01/07/2023, 09/16/2019 RSV Immunization Adult Patients (1 - 1-dose 75+ series) 2068 HIB Vaccines Aged Out No longer eligi ble based on patient's age to complete this topic HIV Screening Discontinued Hepatitis A Vaccines Aged Out No long [...] 5 Years) and At-Risk Patients (6 to 49 Years) Aged Out No longer eligible based [...] Health Maintenance Results * Depression Screening (10/20/2023) [facility] Depression Screening Abstracted us Historical Provider MD HEALTH MAINTENANCE Final Result * (ABNORMAL) Lipid panel (01/07/2023) [facility] LDL/HDL Ratio 6(A) 0 - 4 Triglycerides 195(A) 0 - 150 mg/dL Cholesterol 238(A) 0 - 200 mg/dL HDL 42 >=40 mg/dL LDL Cholesterol 157(A) 0 - 100 mg/dL Blood Venous blood specimen / Unknown us Historical Provider LAB BLOOD ORDERABLES Svetlana l Result from Last 3 Months or Most Recently Relevant to Health Maintenance Insurance [facility] [employer] Care Teams Fire And Safety Helper Relationship Specialty Start Date End Date Michelle Gamez MD [address] [place] [phone] PCP - General Internal Medicine 03/03/22
--- OUTSIDE RECORDS SUMMARY | 2025-05-09 05:42 | XMS_ITS ---
Author Name CRISP Organization Unknown Encounters Encounter Type Encounter Reason Primary Diagnosis Location Date Ambulatory [facility] ([facility]) 05/04/2025 Care Team Organization Name Specialty Phone Email Start Date End [facility] 05/04/2025 [facility] 05/04/2025
--- OUTSIDE RECORDS SUMMARY | 2025-05-09 05:42 | XMS_ITS | Data Portability ---
Author Organization [facility] [employer] Address [address] [place] [address] Care Team Providers Care Endless Bed Drum Sander Name Role Phone SHAMAR MANZO Referring Provider [phone] KODI CARLSON Referring Provider PIERRE QUINTERO Primary Care Provider [facility] Primary Care Provider [facility] OTHER Assessment Encounter Date Assessment Date [...] continue to consider, as needed, using our [facility] website and/or signing up for [facility] e-mail portal. Followup in 11 months, or [...] because of possible side effects from venlafaxine XR r apid heart rate. Previously he had [...] 2021 working with a new psychiatrist at [facility] with additional diagnosis of schizoaffective disorder [...] disorder, working with a new psychiatrist at [facility]. -- September 08, 2022 only one [...] a migraine preventative. He is satisfied with hweq-hnp-vwdneki Advil 400 mg or naproxen 440 mg [...] treatment would be the same. PLAN Uli Christiansoner August 12, 2023 CONTINUE, for migraine prevention: [...] disorder, working with a new psychiatrist at [facility]. --October 31, 2024 continuing good benefit of [...] anymore as I am not managing any medications a mitriptyline was the only medication that [...] a migraine preventative. He is satisfied with llsd-wil-lxgyevr Advil 400 mg or naproxen 440 mg for the headache breakthrough once a week. We decide to stay away from prescription migraine breakthrough medication. >>>>>>>>>>>>ua 2021: He wonders whether head injury with [...] with me as needed as detailed above. [email or web address] Not available 10/31/2024 13:26:19 Plan of Treatment Reminders Order Date Submit Date Provider Last Modified By Organization Details Last Modified Time Details Appointments None recorded. Lab None recorded. Referral None recorded. Procedures None recorded. Surgeries None recorded. Imaging None recorded. Medication Orders amitriptyli ne 50 mg tablet 2024 025 [facility] #[id number], [address] [place] [address], [id number], 5 13:11:41 amitriptyli ne 75 mg tablet 2023 024 lucille [facility] #[id number], [address] [place] [address], [id number], 4 15:55:27 amitriptyli ne 75 mg tablet 2022 023 [id number], [address] [place] [address], [id number], 3 14:32:38 amitriptyli ne 75 mg tablet 2021 022 [facility] Not available 2 12:38:35 Patient TargetsNo targets recorded. Patient Instructions Encounter Date Encounter Id Patient Instructions Last Modified By Organization Details Last Modified Time 06/24/2021 [id number] PREVIOUS MEDICAT ION Melatonin helped sleep when he was on second shift, stopped when he went to [facility], May 2018 Klonopin 3 times a [...] because of possible side effects from venlafaxine XR r apid heart rate. Previously he had [...] management lucille Not available 09/08/2022 14:50:29 08/12/2023 [id number] PREVIOUS MEDICAT ION -- early 2021 Anxiety and anxiety attacks a bit better with venlafaxine XR 37.5 mg, Then discontinued December 2021 with eventual Zyprexa/fluoxetine for schizoaffective disorder depression and anxiety discussed September 2022 follow-up Melatonin helped sleep when he was on second shift, stopped when he went to [facility], May 2018 Klonopin 3 times a [...] because of possible side effects from venlafaxine XR r apid heart rate. Previously he had [...] medication management lucille Not available 08/12/2023 15:23:01 10/31/2024 [id number] PREVIOUS MEDICAT ION -- early 2021 Anxiety and anxiety attacks a bit better with venlafaxine XR 37.5 mg, Then discontinued December 2021 with eventual Zyprexa/fluoxetine for schizoaffective disorder depression and anxiety discussed September 2022 follow-up Melatonin helped sleep when he was on second shift, stopped when he went to [facility], May 2018 Klonopin 3 times a [...] because of possible side effects from venlafaxine XR r apid heart rate. Previously he had [...] 10/31/2024 DATA REVIEW completed Jarrod Bertrand MD [address] [place] [address] [place], [phone], [facility]ly [facility] 10/31/2024 13:05:45 08/12/2023 DATA REVIEW completed Jarrod Bertrand MD [address] [place] [address] [place], [phone], Formerly [facility] 08/12/2023 15:23:01 09/08/2022 DATA REVIEW completed Jarrod Bertrand MD [address] [place] [address] [place], [phone], Formerly [facility] 09/08/2022 14:19:34 09/25/2021 DATA REVIEW completed Jarrod Bertrand MD [address] [place] [address] [place], [phone], [facility]ly [facility] 09/25/2021 12:25:51 06/24/2021 DATA REVIEW completed Jarrod Bertrand MD [address] [place] [address] [place], [phone], Formerly [facility] 06/24/2021 13:07:55 Imaging Results None recorded. [...] Diagnosis SNOMED-CT Code Diagnosis ICD10 Code Diagnosis IMO Codes Diagnosis Note [id number] Jarrod Bertrand MD [facility] [address] [place] [address] [place] [phone] 06/24/2021 12:48:13 06/24/2021 13:35:20 [id number] Jarrod Bertrand MD [facility] [address] [place] [address] [place] [phone] 09/25/2021 11:51:12 09/25/2021 19:44:29 Migraine without aura [id number] G43.009 [id number] Jarrod Bertrand MD [facility] [address] [place] [address] MABEL MARTÍNEZ Minoo ARTEAGAATAALO MARTINEZ [phone] 09/08/2022 14:08:28 09/08/2022 17:09:23 Migraine without aura [id number] G43.009 [id number] Jarrod Bertrand MD [facility] [address] [place] [address] MABEL ROGERS ATAALO MARTINEZ [phone] 08/12/2023 15:16:35 08/12/2023 16:11:58 Migraine without aura [id number] G43.009 [id number] Jarrod Bertrand MD [facility] [address] [place] [address] MABEL ROGERS ATAALO MARTINEZ [id number] 10/31/2024 12:24:12 10/31/2024 16:52:16 Migraine without aura [id number] G43.009 Health Concerns Section Related Observation LastModified by Organization Detai ls LastModified Time None Recorded Concern Status LastModified by Organization Details LastModified Time None Recorded Advance Directives Directive None Recorded Payers Insurance Date Sequence Insurance Name Policy Number Policy Whitmore Covered Member ID Whitmore Member ID Guarantor Name 11/07/2024 1 [facility] PUBLIC PLANS [facility] - [place] (HMO) [id number] Uli Rowan [id number] Uli Rowan 06/24/2021 1 [place] [facility] Uli Rowan [id number] Uli Rowan 10/31/2024 1 [facility] [id number] Uli Rowan [id number] Uli Monika Rowan 06/20/2021 1 [facility] Uli Rowan [id number] Uli Monika Rowan 06/24/2021 1 [facility] ([facility] RESIDENT ONLY) Uli Rowan [id number] Uli Rowan 06/24/2021 1 [facility] (O) Uli Rowan [id number] Uli Rowan 06/20/[address] [facility] [id number] Uli Rowan [id number] Uli Rowan Notes Date Note Type Note Provider Name and Address Organization Details Recorded Time 06/24/2021 text/html Follow up of headache. There has also been whole body shaking and shutdown that has been diagnosed as pseudoseizure by [facility] neurology in approximately [phone]. Past history includes head injury including skull [...] a week to 2-3 times per week. [place] headaches continue to last about 2 hours going away with ibuprofen or Excedrin if they are stronger. 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 He thinks these happen maybe [...] remembers this portion, however. Jarrod Bertrand MD [address] [place] [address], [phone], Formerly [facility] 09/25/2021 12:27:03 09/25/2021 text/html Follow up of headache. There has also been whole body shaking and shutdown that has been diagnosed as pseudoseizure by [facility] neurology in approximately [phone]. Past history includes head injury including skull [...] not tried the naratriptan. He continues using ybxd-vqf-uvcbxbr analgesics for some of his headaches. Interim [...] a week to 2-3 times per week. [place] headaches continue to last about 2 hours going away with ibuprofen or Excedrin if they are stronger. Longer headaches can last up to 2 days t his was every 2 or 3 weeks. He does not say how often that is happening now.He has had occasional jerking in his neck and also some jerking of one of the other arm. 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 Sometimes it doesn t go away and then it s there for the rest of the [...] has no side effects. It helps anxiety a bit. He has stayed on it for a while, then gone off when his mood is better, then more recently gone back on it for anxiety reasons. He has noticed no change in his headache pattern with venlafaxine XR. Headaches , however, have been p retty good. He has been getting about 1 headache a week. It generally last 2 hours if it goes away with Aleve or if it is stronger, a migraine, with Excedrin. Sometimes it doesn t go away and then it stays around all day. He thought about trying sumatriptan but decided against it when he read all the side effects. We did not talk about a work supervisor statement clerks who has caused stress in the past. 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 He thinks these happen maybe [...] this portion, however. Jarrod Bertrand MD [address] [place] [address] [place], [phone], Formerly [facility] 09/25/2021 12:54:32 09/08/2022 text/html Follow up of headache. There has also been whole body shaking and shutdown that has been diagnosed as pseudoseizure by [facility] neurology in approximately [phone]. Past history includes head injury including skull [...] symptoms worsened and he was admitted to [facility] inpatient psychiatric unit. He was very anxious there and so was referred to [facility] where psychiatry made a diagnosis of [...] best guess is that this is true. September 25, 2021 follow-up history: Since June [...] not tried the naratriptan. He continues using mcho-sqc-guyogtc analgesics for some of his headaches. history is reviewed from the 2020 when [...] a week to 2-3 times per week. [place] headaches continue to last about 2 hours going away with ibuprofen or Excedrin if they are stronger. Longer headaches can last up to 2 days t his was every 2 or 3 weeks. He does not say how often that is happening now.He has had occasional jerking in his neck and also some jerking of one of the other arm. 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 Sometimes it doesn t go away and then it s there for the rest of the [...] has no side effects. It helps anxiety a bit. He has stayed on it for a while, then gone off when his mood is better, then more recently gone back on it for anxiety reasons. He has noticed no change in his headache pattern with venlafaxine XR. Headaches , however, have been p retty good. He has been getting about 1 headache a week. It generally last 2 hours if it goes away with Aleve or if it is stronger, a migraine, with Excedrin. Sometimes it doesn t go away and then it stays around all day. He thought about trying sumatriptan but decided against it when he read all the side effects. We did not talk about a work supervisor statement clerks who has caused stress in the past. 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 He thinks these happen maybe [...] remembers this portion, however. Jarrod Bertrand MD [address] [place] [address], [phone], [facility] 09/08/2022 14:50:43 08/12/2023 text/html Follow up of headache. There has also been whole body shaking and shutdown that has been diagnosed as pseudoseizure by [facility] neurology in approximately [phone]. 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 He has previously been under the care of neuropsychologist Dr. Kate Briceño. He is not accompanied by his mother. August 12, 2023Since September 08, 2022 neurology follow-up encounter, his headaches have remained at just one mild headache every week. The headaches improved from three headaches per week and 2021, roughly in correlation p er his memory w ith worsening psychiatric symptoms, hospitalization and [...] He understands. He takes naproxen 440 mg aeqe-pub-chvmsgz or ibuprofen 4 mg ysjy-oqh-hdhzkvl for his weekly mild headache breakthrough and this works sufficiently for him. Other than psychiatry medication changes, there have been no other medication changes over the past 11 months. There have been no new or changing medical issues. September 08, 2022Since September 25, 2021 neurology follow-up encounter, just under 1 year ago, his headaches have improved from three headaches per week to just one mild headache every week. This has been the situation for many months. Early in 2021 his psychiatric symptoms worsened and he was admitted to [facility] inpatient psychiatric unit. He was very anxious there and so was referred to [facility] where psychiatry made a diagnosis of [...] best guess is that this is true. September 25, 2021 follow-up history: Since June [...] not tried the naratriptan. He continues using hjym-wby-mfxnsov analgesics for some of his headaches. history is reviewed from the 2020 when [...] a week to 2-3 times per week. [place] headaches continue to last about 2 hours going away with ibuprofen or Excedrin if they are stronger. Longer headaches can last up to 2 days t his was every 2 or 3 weeks. He does not say how often that is happening now.He has had occasional jerking in his neck and also some jerking of one of the other arm. 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 Sometimes it doesn t go away and then it s there for the rest of the [...] has no side effects. It helps anxiety a bit. He has stayed on it for a while, then gone off when his mood is better, then more recently gone back on it for anxiety reasons. He has noticed no change in his headache pattern with venlafaxine XR. Headaches , however, have been p retty good. He has been getting about 1 headache a week. It generally last 2 hours if it goes away with Aleve or if it is stronger, a migraine, with Excedrin. Sometimes it doesn t go away and then it stays around all day. He thought about trying sumatriptan but decided against it when he read all the side effects. We did not talk about a work supervisor statement clerks who has caused stress in the past. 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 He thinks these happen maybe [...] remembers this portion, however. Jarrod Bertrand MD [address] [place] [address], [phone], [facility] 08/12/2023 15:59:31 10/31/2024 text/html Follow up of headache. There has also been whole body shaking and shutdown that has been diagnosed as pseudoseizure by [facility] neurology in approximately [phone]. 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 He has previously been under the care of neuropsychologist Dr. Kate Briceño. He is not accompanied by his mother. >>>>>>>>>>>>October 31, 2024Since August 12, 2023 Neurology follow-up encounter, his headaches have stayed about the same, One or two headaches per week going [...] new or changing medications or medical issues. August 12, 2023Since September 08, 2022 neurology follow-up encounter, his headaches have remained at just one mild headache every week. The headaches improved from three headaches per week and 2021, roughly in correlation p er his memory w ith worsening psychiatric symptoms, hospitalization and [...] He understands. He takes naproxen 440 mg rspb-pod-bsdsujq or ibuprofen 4 mg bgwn-ckj-dlynbia for his weekly mild headache breakthrough and this works sufficiently for him. Other than psychiatry medication changes, there have been no other medication changes over the past 11 months. There have been no new or changing medical issues. September 08, 2022Since September 25, 2021 neurology follow-up encounter, just under 1 year ago, his headaches have improved from three headaches per week to just one mild headache every week. This has been the situation for many months. Early in 2021 his psychiatric symptoms worsened and he was admitted to [facility] inpatient psychiatric unit. He was very anxious there and so was referred to [facility] where psychiatry made a diagnosis of [...] best guess is that this is true. September 25, 2021 follow-up history: Since June [...] not tried the naratriptan. He continues using fknq-zli-kdyjcmm analgesics for some of his headaches. history is reviewed from the 2020 when [...] a week to 2-3 times per week. [place] headaches continue to last about 2 hours going away with ibuprofen or Excedrin if they are stronger. Longer headaches can last up to 2 days t his was every 2 or 3 weeks. He does not say how often that is happening now.He has had occasional jerking in his neck and also some jerking of one of the other arm. 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 Sometimes it doesn t go away and then it s there for the rest of the [...] has no side effects. It helps anxiety a bit. He has stayed on it for a while, then gone off when his mood is better, then more recently gone back on it for anxiety reasons. He has noticed no change in his headache pattern with venlafaxine XR. Headaches , however, have been p retty good. He has been getting about 1 headache a week. It generally last 2 hours if it goes away with Aleve or if it is stronger, a migraine, with Excedrin. Sometimes it doesn t go away and then it stays around all day. He thought about trying sumatriptan but decided against it when he read all the side effects. We did not talk about a work supervisor statement clerks who has caused stress in the past. 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 He thinks these happen maybe [...] this portion, however. Jarrod Bertrand MD [address] [place] [address] [place], [phone], [facility]ly [facility] 10/31/2024 13:26:33
--- NOTE | 2025-05-09 07:18 | PC.NURSE ---
Assumed care, report received. Pt is currently sleeping. safety is maintained.
[2025-05-09 08:45] VITALS: RESP 17
[2025-05-09 10:13] LABS: Appearance Urine Clear; Glucose Urine UA Negative (Negative); PH 6.0 (5.0-9.0); Specific Gravity - Urine 1.020 (1.005-1.025); UMIC TRIGGER UA YES
[2025-05-09 10:28] LABS: Cannabinoid Screen Urine Not Detected (Not Detect)
--- NOTE | 2025-05-09 10:33 | ECG_ITS ---
Test Reason : CHECK POLONGED QT Blood Pressure : */* mmHG Vent. Rate : 83 BPM Atrial Rate : 83 BPM P-R Int : 144 ms QRS Dur : 100 ms QT Int : 362 ms P-R-T Axes : 51 83 23 degrees QTcB Int : 425 ms Normal sinus rhythm Normal ECG When compared with ECG of 24-Nov-2024 08:17, No significant change was found Referred By: Ava Arreola Electronically Signed By: CHELO HOGAN MD
[2025-05-09 11:36] VITALS: BP 120/78; PULSE 86; RESP 12; TEMP 36.9; O2SAT 98
[2025-05-09 14:11] VITALS: BP 137/99; PULSE 101; RESP 16; TEMP 37.1; O2SAT 95
[2025-05-09 14:14] VITALS: BMI 27.6
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
[2025-05-09 20:00] VITALS: BP 130/86; PULSE 99; RESP 16; TEMP 36.7; O2SAT 93
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
[2025-05-10 08:00] VITALS: BP 118/86; PULSE 73; RESP 16; TEMP 36.6; O2SAT 96
[2025-05-10 08:23] LABS: Hemoglobin A1C 139.7735 umol/L; Total Hemoglobin (HGBA1C) 4121.8659 umol/L
[2025-05-10 08:34] LABS: Cholesterol 218 mg/dL (<200); HDL Cholesterol 35 mg/dL (>40); Magnesium 2.1 mg/dL (1.6-2.6); Triglycerides 242 mg/dL (<150)
[2025-05-10 08:52] LABS: Free T4 (Free Thyroxine) 0.97 ng/dL (0.71-1.85); Thyroid Stimulating Hormone 1.21 uIU/mL (0.32-4.0)
[2025-05-10 09:03] LABS: Folate 7.9 ng/mL (> or = 4.0); Vitamin B12 486 pg/mL (200-900)
--- NOTE | 2025-05-10 12:03 | HO.PSYCHPN ---
Subjective Subjective Date of Service: 05/10/25 Reason For Visit: Paranoid Schizophrenia PTSD alcohol use disorder Subjective Notes: Conditional Voluntary Healthcare Proxy: No Guardianship: No Medical Problems Affecting Mental Status: No Interim History: Reports night terrors and ongoing psychotic symptoms with medication compliance. Discussed trial of Prazosin and adding Risperdal to regime which he is in agreement with. Believes trileptal has been the cause of side effects, also recent divorce, needing to sell the family home and were the precipitant to SI with plans to overdose of hang himself. Medication Compliance: Yes Side effects from medications: Yes (trileptal) Attending Groups: Intermittent Review of Systems Acute medical concerns: No Medical Review of Systems: unchanged Review of Systems Review of Systems denies Mental Status Exam Mental Status Exam Patient Appearance: Fatigued and Appropriate Patient Orientation: Person, Place, Time and Situation Level of Consciousness: Alert Patient Behavior: Talkative Mood Description: Depressed Affect Description: Flat Patient Cognition Impaired: No Ability to Follow Directions: Good Speech Pattern: Spontaneous Speech Memory Description: Intact Hallucinations: Auditory Perceptual Disturbances: Depersonalization and Derealization Thought Process: Rumination Thought Content: positive for Circumstantial, positive for Perseveration and positive for Suicidal Ideation Depressive Symptoms: Increased Anxiety and Thoughts of /Suicide Judgement: Fair Diagnostics Vital Signs (24Hr): Vital Signs - 24 hr 05/09/25 14:11 05/09/25 20:00 05/10/25 08:00 Temperature 98.8 F 98.1 F 97.9 F Pulse Rate 101 H 99 73 Respiratory Rate 16 16 16 Blood Pressure 137/99 H 130/86 118/86 Pulse Oximetry 95 93 96 Oxygen Delivery Method Room Air Room Air Room Air BMI result Body Mass Index 27.6 Labs 05/08/25 22:29 05/08/25 22:29 Labs: Laboratory Results - last 48 hr 05/08/25 05/09/25 05/09/25 22:29 09:38 09:58 WBC 9.1 RBC 5.10 Hgb 15.9 Hct 44.7 MCV 87.6 MCH 31.2 MCHC 35.6 RDW 11.8 Plt Count 332 MPV 9.0 L Immature Gran % (Auto) 0.2 Neut % (Auto) 57.0 Lymph % (Auto) 32.1 [place] % (Auto) 7.6 Eos % (Auto) 2.1 Baso % (Auto) 1.0 Lymph # (Auto) 2.9 [place] # (Auto) 0.7 Eos # (Auto) 0.2 Baso # (Auto) 0.1 Abs Immat Gran (auto) 0.02 Absolute Neuts (auto) 5.2 Absolute Nucleated RBC 0.000 Nucleated RBC % (auto) 0.0 Sodium 142 Potassium 3.7 Chloride 108 Carbon Dioxide 24 Anion Gap 14 BUN 12 Creatinine 1.12 Estim Creat Clear Calc 107.9 Estimated GFR > 60 Random Glucose 109 Estimat Average Glucose Hemoglobin A1c % Calcium 9.3 D Magnesium Total Bilirubin 0.2 AST 40 H ALT 85 H Alkaline Phosphatase 66 Total Protein 7.1 Albumin 4.7 Triglycerides Cholesterol LDL Cholesterol, Calc HDL Cholesterol Vitamin B12 Folate TSH Free T4 Urine Color Yellow Urine Appearance Clear Urine pH 6.0 Ur Specific [place] 1.020 Urine Protein Negative Urine Glucose (UA) Negative Urine Ketones Trace Urine Blood Negative Urine Nitrite Negative Ur Leukocyte Esterase Trace H Urine RBC 0-2 Urine WBC 0-5 Ur Squamous Epith Cells 0-2 Urine Bacteria None Seen Hyaline Casts 0-2 Salicylates < 5.0 L Urine Opiates Screen Not Detected Ur Buprenorphine Scrn Not Detected Ur Oxycodone Screen Not Detected Urine Methadone Screen Not Detected Urine Fentanyl Screen Not Detected Acetaminophen < 3 Ur Barbiturates Screen Not Detected Ur Phencyclidine Scrn Not Detected Ur Amphetamines Screen Not Detected U Benzodiazepines Scrn Not Detected Urine Cocaine Screen Not Detected U Marijuana (THC) Screen Not Detected Ethyl Alcohol < 10 05/10/25 07:53 WBC RBC Hgb Hct MCV MCH MCHC RDW Plt Count MPV Immature Gran % (Auto) Neut % (Auto) Lymph % (Auto) [place] % (Auto) Eos % (Auto) Baso % (Auto) Lymph # (Auto) [place] # (Auto) Eos # (Auto) Baso # (Auto) Abs Immat Gran (auto) Absolute Neuts (auto) Absolute Nucleated RBC Nucleated RBC % (auto) Sodium Potassium Chloride Carbon Dioxide Anion Gap BUN Creatinine Estim Creat Clear Calc Estimated GFR Random Glucose Estimat Average Glucose 105 Hemoglobin A1c % 5.3 Calcium Magnesium 2.1 Total Bilirubin AST ALT Alkaline Phosphatase Total Protein Albumin Triglycerides 242 H Cholesterol 218 H LDL Cholesterol, Calc 135 H HDL Cholesterol 35 L Vitamin B12 486 Folate 7.9 TSH 1.21 Free T4 0.97 Urine Color Urine Appearance Urine pH Ur Specific [place] Urine Protein Urine Glucose (UA) Urine Ketones Urine Blood Urine Nitrite Ur Leukocyte Esterase Urine RBC Urine WBC Ur Squamous Epith Cells Urine Bacteria Hyaline Casts Salicylates Urine Opiates Screen Ur Buprenorphine Scrn Ur Oxycodone Screen Urine Methadone Screen Urine Fentanyl Screen Acetaminophen Ur Barbiturates Screen Ur Phencyclidine Scrn Ur Amphetamines Screen U Benzodiazepines Scrn Urine Cocaine Screen U Marijuana (THC) Screen Ethyl Alcohol Medications Medications Current Medications Acetaminophen (Acetaminophen 325 Mg Tablet) 650 mg PO Q6H PRN PRN Reason: Headache/Pain, Scale 1-10 Al Hydroxide/Mg Hydroxide (Magnesium Hydrox/Alum Hydrox 30 Ml Oral.Susp) 30 ml PO Q6H PRN PRN Reason: Heartburn/Nausea Amitriptyline HCl (Amitriptyline Hcl 50 Mg Tablet) 100 mg PO BEDTIME BRITTNY Last Admin: 05/09/25 20:03 Dose: 100 mg Hydroxyzine HCl (Hydroxyzine Hcl 50 Mg Tablet) 50 mg PO TID PRN PRN Reason: Anxiety Last Admin: 05/09/25 20:03 Dose: 50 mg Magnesium Hydroxide (Milk Of Magnesia 30 Ml Oral.Susp) 30 ml PO DAILY PRN PRN Reason: Constipation Nicotine Polacrilex (Nicotine Polacrilex 2 Mg Gum) 4 mg BUCCAL Q2H PRN PRN Reason: Nicotine Cravings Olanzapine (Olanzapine 10 Mg Tablet) 20 mg PO BEDTIME BRITTNY Last Admin: 05/09/25 20:03 Dose: 20 mg Olanzapine (Olanzapine 5 Mg Tablet) 5 mg PO Q4H PRN PRN Reason: agitation Oxcarbazepine (Oxcarbazepine 300 Mg Tablet) 300 mg PO BID BRITTNY Last Admin: 05/10/25 08:12 Dose: 300 mg Prazosin HCl (Prazosin Hcl 1 Mg Capsule) 1 mg PO BEDTIME BRITTNY; Protocol Risperidone (Risperidone 1 Mg Tablet) 1 mg PO BID BRITTNY Trazodone HCl (Trazodone Hcl 50 Mg Tablet) 50 mg PO BEDTIME MRX1 PRN PRN Reason: Insomnia Allergies Allergies Allergy/AdvReac Type Severity Reaction Status Date / Time aripiprazole Allergy Unknown Verified 05/08/25 22:23 Penicillins Allergy Hives Verified 05/08/25 22:23 sulfamethoxazole (From Allergy Unknown Verified 05/08/25 22:23 Bactrim) trimethoprim (From Bactrim) Allergy Unknown Verified 05/08/25 22:23 Assessment & Plan Assessment & Plan (1) Schizoaffective disorder, depressive type: Status: Acute Code(s): F25.1 - Schizoaffective disorder, depressive type (2) High cholesterol: Status: Acute Code(s): E78.00 - Pure hypercholesterolemia, unspecified (3) PTSD (post-traumatic stress disorder): Status: Acute Code(s): F43.10 - Post-traumatic stress disorder, unspecified (4) TBI (traumatic brain injury): Status: Acute Code(s): S06.9X9A - Unspecified intracranial injury with loss of consciousness of unspecified duration, initial encounter Plan HPI: patient is a 29 y.o , Nauruan speaking male with hx of schizoaffective, depressive type, PTSD, TBI, HLD, who self[place]presented [place] [facility] with a complaint of suicidal thoughts with a plan to hang self or overdose on medications, frequent thoughts of self-harm, and AVH. Patient reports he was started on new medications appropriately for a week. Since started the new medication-Trileptal patient has noticed the above symptoms. Discussed with patient regarding medication plan. Explained to patient that there has a lot of factors contributing to his suicidal thoughts, depression, and hallucinations. We doubt about the Trileptal causing the above symptoms. Discussed with patient the other options for schizoaffective depressive type. Patient was heard about lithium and advise when he was admitted last time on M3. However, patient choose to have Trileptal increased up to total of 300 twice a day from 150. Patient agrees if it is not helpful, he will try lithium. Education given to patient regarding indication, side effects and labs to look for before and during treatment if start on lithium. Patient is receptive to the plan. Formulation/clinical reasoning: Just gone through divorce, now living alone, not able to afford to pay for the mortgage, has not paid for a peer of time. Mom also have stroke recently, decrease in sleep and appetite for about a week, increased depression and anxiety, Experience psychotic symptoms, SI with plan to overdose on meds cuts. Experienced nightmare nightmare. Given the above information, patient will be benefit in restrictive environment for his own safety, medication management, and refer patient back to outpatient psychiatric services for aftercare. Hospital course: Increase Trileptal from 150 b.i.d. to 300 b.i.d. Continue with Zyprexa 20 mg at bedtime. PRNs twice a day available for severe agitation. Amitriptyline 100 mg at bedtime for depression. We will check level. 05/10/25: Prazosin 1 mg hs for night terrors Add Risperdal 1 mg bid as pt continues to experience perceptual alterations. Plan Patient on 15 minute checks for safety. Admitted to . CV. Work with treatment team to do collateral Seen by Hospitalist on 05/09/25. Utox and BAL negative. Slightly elevated on ALT/AST. . EKG NSR. Reason for continued inpatient stay Substantial Risk for: rapid decompensation Time Spent With Patient Time: Total time managing care of this patient today ____ minutes.
[2025-05-10 20:00] VITALS: BP 132/81; PULSE 92; RESP 16; TEMP 37.2; O2SAT 98
[2025-05-10 20:11] VITALS: BP 132/81
[2025-05-11 08:00] VITALS: BP 132/80; PULSE 84; RESP 16; TEMP 36.6; O2SAT 96
--- NOTE | 2025-05-11 12:45 | HO.PSYCHPN ---
Subjective Subjective Date of Service: 05/11/25 Reason For Visit: Paranoid Schizophrenia PTSD alcohol use disorder Subjective Notes: Conditional Voluntary Healthcare Proxy: No Guardianship: No Medical Problems Affecting Mental Status: No Interim History: Pt more visable in milieu today. Reports no night terrors last night-will keep Prazosin at this time. Slept 8 hours. Discussed trileptal-felt that lamictal was more helpful and asks for a change. Will begin taper of Trileptal and begin Lamictal 25 mg HS. By history, pt reports 150 Lamictal mg was helpful. Reports constipation-colace ordered, dulcolax prn as well. Medication Compliance: Yes Side effects from medications: Yes Attending Groups: Intermittent Review of Systems Acute medical concerns: Yes as noted Medical Review of Systems: unchanged Review of Systems Review of Systems constipation Mental Status Exam Mental Status Exam Patient Appearance: Appropriate Patient Orientation: Person, Place, Time and Situation Level of Consciousness: Alert Patient Behavior: Talkative Mood Description: Depressed Affect Description: Flat Patient Cognition Impaired: No Ability to Follow Directions: Good Speech Pattern: Spontaneous Speech Memory Description: Intact Hallucinations: Auditory Perceptual Disturbances: Depersonalization and Derealization Thought Process: Rumination Thought Content: positive for Circumstantial, positive for Perseveration and positive for Suicidal Ideation (denies) Depressive Symptoms: Increased Anxiety and Thoughts of /Suicide (denies) Judgement: Good Diagnostics Vital Signs (24Hr): Vital Signs - 24 hr 05/10/25 20:00 05/10/25 20:11 05/11/25 08:00 Temperature 98.9 F 97.9 F Pulse Rate 92 84 Respiratory Rate 16 16 Blood Pressure 132/81 132/81 132/80 Pulse Oximetry 98 96 Oxygen Delivery Method Room Air Room Air BMI result Body Mass Index 27.6 Labs 05/08/25 22:29 05/08/25 22:29 Labs: Laboratory Results - last 48 hr 05/10/25 07:53 Estimat Average Glucose 105 Hemoglobin A1c % 5.3 Magnesium 2.1 Triglycerides 242 H Cholesterol 218 H LDL Cholesterol, Calc 135 H HDL Cholesterol 35 L Vitamin B12 486 Folate 7.9 TSH 1.21 Free T4 0.97 Medications Medications Current Medications Acetaminophen (Acetaminophen 325 Mg Tablet) 650 mg PO Q6H PRN PRN Reason: Headache/Pain, Scale 1-10 Al Hydroxide/Mg Hydroxide (Magnesium Hydrox/Alum Hydrox 30 Ml Oral.Susp) 30 ml PO Q6H PRN PRN Reason: Heartburn/Nausea Amitriptyline HCl (Amitriptyline Hcl 50 Mg Tablet) 100 mg PO BEDTIME BRITTNY Last Admin: 05/10/25 20:10 Dose: 100 mg Hydroxyzine HCl (Hydroxyzine Hcl 50 Mg Tablet) 50 mg PO TID PRN PRN Reason: Anxiety Last Admin: 05/11/25 11:57 Dose: 50 mg Magnesium Hydroxide (Milk Of Magnesia 30 Ml Oral.Susp) 30 ml PO DAILY PRN PRN Reason: Constipation Nicotine Polacrilex (Nicotine Polacrilex 2 Mg Gum) 4 mg BUCCAL Q2H PRN PRN Reason: Nicotine Cravings Olanzapine (Olanzapine 10 Mg Tablet) 20 mg PO BEDTIME BRITTNY Last Admin: 05/10/25 20:11 Dose: 20 mg Olanzapine (Olanzapine 5 Mg Tablet) 5 mg PO Q4H PRN PRN Reason: agitation Last Admin: 05/10/25 14:35 Dose: 5 mg Oxcarbazepine (Oxcarbazepine 300 Mg Tablet) 300 mg PO BID BRITTNY Last Admin: 05/11/25 08:18 Dose: 300 mg Prazosin HCl (Prazosin Hcl 1 Mg Capsule) 1 mg PO BEDTIME BRITTNY; Protocol Last Admin: 05/10/25 20:11 Dose: 1 mg Risperidone (Risperidone 1 Mg Tablet) 1 mg PO BID BRITTNY Last Admin: 05/11/25 08:18 Dose: 1 mg Trazodone HCl (Trazodone Hcl 50 Mg Tablet) 50 mg PO BEDTIME MRX1 PRN PRN Reason: Insomnia Allergies Allergies Allergy/AdvReac Type Severity Reaction Status Date / Time aripiprazole Allergy Unknown Verified 05/08/25 22:23 Penicillins Allergy Hives Verified 05/08/25 22:23 sulfamethoxazole (From Allergy Unknown Verified 05/08/25 22:23 Bactrim) trimethoprim (From Bactrim) Allergy Unknown Verified 05/08/25 22:23 Assessment & Plan Assessment & Plan (1) Schizoaffective disorder, depressive type: Status: Acute Code(s): F25.1 - Schizoaffective disorder, depressive type (2) High cholesterol: Status: Acute Code(s): E78.00 - Pure hypercholesterolemia, unspecified (3) PTSD (post-traumatic stress disorder): Status: Acute Code(s): F43.10 - Post-traumatic stress disorder, unspecified (4) TBI (traumatic brain injury): Status: Acute Code(s): S06.9X9A - Unspecified intracranial injury with loss of consciousness of unspecified duration, initial encounter Plan HPI: patient is a 29 y.o , Peruvian speaking male with hx of schizoaffective, depressive type, PTSD, TBI, HLD, who self[place]present[place] [facility] with a complaint of suicidal thoughts with a plan to hang self or overdose on medications, frequent thoughts of self-harm, and AVH. Patient reports he was started on new medications appropriately for a week. Since started the new medication-Trileptal patient has noticed the above symptoms. Discussed with patient regarding medication plan. Explained to patient that there has a lot of factors contributing to his suicidal thoughts, depression, and hallucinations. We doubt about the Trileptal causing the above symptoms. Discussed with patient the other options for schizoaffective depressive type. Patient was heard about lithium and advise when he was admitted last time on M3. However, patient choose to have Trileptal increased up to total of 300 twice a day from 150. Patient agrees if it is not helpful, he will try lithium. Education given to patient regarding indication, side effects and labs to look for before and during treatment if start on lithium. Patient is receptive to the plan. Formulation/clinical reasoning: Just gone through divorce, now living alone, not able to afford to pay for the mortgage, has not paid for a peer of time. Mom also have stroke recently, decrease in sleep and appetite for about a week, increased depression and anxiety, Experience psychotic symptoms, SI with plan to overdose on meds cuts. Experienced nightmare nightmare. Given the above information, patient will be benefit in restrictive environment for his own safety, medication management, and refer patient back to outpatient psychiatric services for aftercare. Hospital course: Increase Trileptal from 150 b.i.d. to 300 b.i.d. Continue with Zyprexa 20 mg at bedtime. PRNs twice a day available for severe agitation. Amitriptyline 100 mg at bedtime for depression. We will check level. 05/11/25 Trileptal taper Lamictal 25 mg HS Colace 100 mg bid Dulculox prn Plan Patient on 15 minute checks for safety. Admitted to M5. CV. Work with treatment team to do collateral Seen by Hospitalist on 05/09/25. Utox and BAL negative. Slightly elevated on ALT/AST. . EKG NSR. Reason for continued inpatient stay Substantial Risk for: rapid decompensation Time Spent With Patient Time: Total time managing care of this patient today ____ minutes.
[2025-05-11 20:29] VITALS: BP 130/75
[2025-05-11 20:34] VITALS: BP 130/75; PULSE 99; RESP 16; TEMP 37; O2SAT 95
[2025-05-12 08:00] VITALS: BP 160/83; PULSE 80; RESP 16; TEMP 36; O2SAT 96
--- NOTE | 2025-05-12 09:53 | P.PNPSI_ITS ---
Subjective Subjective Date of Service: 05/12/25 Reason For Visit: Paranoid Schizophrenia PTSD alcohol use disorder Subjective Notes: Conditional Voluntary Healthcare Proxy: No Guardianship: No Medical Problems Affecting Mental Status: No Interim History: Reports poor sleep last evening. Discussed changing lamictal to daytime which he agrees with. Reports 4-5 hours total with ONESIMO. Reports the unit was loud and doors were always opening so the environment was poorly conducive to rest. Discussed low dose Mirtazapine, we will trial 7.5 mg this evening. Denies SI,HI,AH, VH. Affirms depression, however, activity in milieu is keeping pt more isolated today as it is loud and difficult to manage at times. Medication Compliance: Yes Side effects from medications: No Attending Groups: Intermittent Review of Systems Acute medical concerns: No Medical Review of Systems: unchanged Review of Systems Review of Systems poor sleep last evening Mental Status Exam Mental Status Exam Patient Appearance: Appropriate Patient Orientation: Person, Place, Time and Situation Level of Consciousness: Alert Patient Behavior: Talkative Mood Description: Depressed Affect Description: Flat Patient Cognition Impaired: No Ability to Follow Directions: Good Speech Pattern: Spontaneous Speech Memory Description: Intact Hallucinations: Auditory Perceptual Disturbances: Depersonalization and Derealization Thought Process: Rumination Thought Content: positive for Circumstantial, positive for Perseveration and positive for Suicidal Ideation (denies) Depressive Symptoms: Increased Anxiety and Thoughts of /Suicide (denies) Judgement: Good Diagnostics Vital Signs (24Hr): Vital Signs - 24 hr 05/11/25 20:29 05/11/25 20:34 05/12/25 08:00 Temperature 98.6 F 96.8 F Pulse Rate 99 80 Respiratory Rate 16 16 Blood Pressure 130/75 130/75 160/83 H Pulse Oximetry 95 96 Oxygen Delivery Method Room Air Room Air BMI result Body Mass Index 27.6 Labs 05/08/25 22:29 05/08/25 22:29 Medications Medications Current Medications Acetaminophen (Acetaminophen 325 Mg Tablet) 650 mg PO Q6H PRN PRN Reason: Headache/Pain, Scale 1-10 Al Hydroxide/Mg Hydroxide (Magnesium Hydrox/Alum Hydrox 30 Ml Oral.Susp) 30 ml PO Q6H PRN PRN Reason: Heartburn/Nausea Amitriptyline HCl (Amitriptyline Hcl 50 Mg Tablet) 100 mg PO BEDTIME BRITTNY Last Admin: 05/11/25 20:27 Dose: 100 mg Bisacodyl (Bisacodyl 5 Mg Tablet.Dr) 10 mg PO BEDTIME PRN PRN Reason: Constipation Docusate Sodium (Docusate Sodium 100 Mg Capsule) 100 mg PO BID [facility] Last Admin: 05/12/25 08:54 Dose: 100 mg Hydroxyzine HCl (Hydroxyzine Hcl 50 Mg Tablet) 50 mg PO TID PRN PRN Reason: Anxiety Last Admin: 05/11/25 11:57 Dose: 50 mg Lamotrigine (Lamotrigine 25 Mg Tablet) 25 mg PO BEDTIME BRITTNY Last Admin: 05/11/25 20:28 Dose: 25 mg Magnesium Hydroxide (Milk Of Magnesia 30 Ml Oral.Susp) 30 ml PO DAILY PRN PRN Reason: Constipation Nicotine Polacrilex (Nicotine Polacrilex 2 Mg Gum) 4 mg BUCCAL Q2H PRN PRN Reason: Nicotine Cravings Olanzapine (Olanzapine 10 Mg Tablet) 20 mg PO BEDTIME BRITTNY Last Admin: 05/11/25 20:28 Dose: 20 mg Olanzapine (Olanzapine 5 Mg Tablet) 5 mg PO Q4H PRN PRN Reason: agitation Last Admin: 05/10/25 14:35 Dose: 5 mg Oxcarbazepine (Oxcarbazepine 150 Mg Tablet) 150 mg PO BID [facility] Stop: 05/13/25 21:00 Last Admin: 05/12/25 08:54 Dose: 150 mg Oxcarbazepine (Oxcarbazepine 150 Mg Tablet) 150 mg PO DAILY [facility] Stop: 05/16/25 10:00 Prazosin HCl (Prazosin Hcl 1 Mg Capsule) 1 mg PO BEDTIME [facility]; Protocol Last Admin: 05/11/25 20:29 Dose: 1 mg Risperidone (Risperidone 1 Mg Tablet) 1 mg PO BID [facility] Last Admin: 05/12/25 08:54 Dose: 1 mg Trazodone HCl (Trazodone Hcl 50 Mg Tablet) 50 mg PO BEDTIME MRX1 PRN PRN Reason: Insomnia Allergies Allergies Allergy/AdvReac Type Severity Reaction Status Date / Time aripiprazole Allergy Unknown Verified 05/08/25 22:23 Penicillins Allergy Hives Verified 05/08/25 22:23 sulfamethoxazole (From Allergy Unknown Verified 05/08/25 22:23 Bactrim) trimethoprim (From Bactrim) Allergy Unknown Verified 05/08/25 22:23 Assessment & Plan Assessment & Plan (1) Schizoaffective disorder, depressive type: Status: Acute Code(s): F25.1 - Schizoaffective disorder, depressive type (2) High cholesterol: Status: Acute Code(s): E78.00 - Pure hypercholesterolemia, unspecified (3) PTSD (post-traumatic stress disorder): Status: Acute Code(s): F43.10 - Post-traumatic stress disorder, unspecified (4) TBI (traumatic brain injury): Status: Acute Code(s): S06.9X9A - Unspecified intracranial injury with loss of consciousness of unspecified duration, initial encounter Plan HPI: patient is a 29 y.o , Latvian speaking male with hx of schizoaffective, depressive type, PTSD, TBI, HLD, who self-presented to [facility] with a complaint of suicidal thoughts with a plan to hang self or overdose on medications, frequent thoughts of self-harm, and AVH. Patient reports he was started on new medications appropriately for a week. Since started the new medication-Trileptal patient has noticed the above symptoms. Discussed with patient regarding medication plan. Explained to patient that there has a lot of factors contributing to his suicidal thoughts, depression, and hallucinations. We doubt about the Trileptal causing the above symptoms. Discussed with patient the other options for schizoaffective depressive type. Patient was heard about lithium and advise when he was admitted last time on M3. However, patient choose to have Trileptal increased up to total of 300 twice a day from 150. Patient agrees if it is not helpful, he will try lithium. Education given to patient regarding indication, side effects and labs to look for before and during treatment if start on lithium. Patient is receptive to the plan. Formulation/clinical reasoning: Just gone through divorce, now living alone, not able to afford to pay for the mortgage, has not paid for a peer of time. Mom also have stroke recently, decrease in sleep and appetite for about a week, increased depression and anxiety, Experience psychotic symptoms, SI with plan to overdose on meds cuts. Experienced nightmare nightmare. Given the above information, patient will be benefit in restrictive environment for his own safety, medication management, and refer patient back to outpatient psychiatric services for aftercare. Hospital course: Increase Trileptal from 150 b.i.d. to 300 b.i.d. Continue with Zyprexa 20 mg at bedtime. PRNs twice a day available for severe agitation. Amitriptyline 100 mg at bedtime for depression. We will check level. 05/11/25 Trileptal taper Lamictal 25 mg HS Colace 100 mg bid Dulculox prn 05/12: Change Lamictal to a.m. dosing Mirtazapine 7.5 mg HS trial to assist with sleep. Plan Patient on 15 minute checks for safety. Admitted to . CV. Work with treatment team to do collateral Seen by Hospitalist on 05/09/25. Utox and BAL negative. Slightly elevated on ALT/AST. . EKG NSR. Reason for continued inpatient stay Substantial Risk for: rapid decompensation Time Spent With Patient Time: Total time managing care of this patient today ____ minutes.
[2025-05-12 20:00] VITALS: BP 132/87; PULSE 103; RESP 18; TEMP 36.9; O2SAT 95
[2025-05-12 20:32] VITALS: BP 132/87
[2025-05-13 08:00] VITALS: BP 136/84; PULSE 90; RESP 18; TEMP 37.3; O2SAT 96
--- NOTE | 2025-05-13 11:19 | HO.PSYCHPN ---
Subjective Subjective Date of Service: 05/13/25 Reason For Visit: Paranoid Schizophrenia PTSD alcohol use disorder Interim History: Met with patient; discussed with team; reviewed chart Patient reports no SI. He says Remeron helped with sleep; says it's makes him tired during the day but will continue since wants the sleep no AVH since starting on Risperal; production underwriter agreed to move Risperdal to bedtime to avoid daytime sedation. Discussed medication options since Remeron is helping with sleep and Risperdal helping with AVH, does he still needs Zyprexa. Patient says he has been taking it for years and is hesitant to make any other changes, regardless of increased risks of being on 2 antipsychotics Mental Status Exam Mental Status Exam Narrative: Pt is alert and oriented; behavior is cooperative, more social; patient is not in distress; dressed in casual attire, unkempt, large earrings; mood is described as little better and affect congruent; eye contact appropriate; Speech is a little slowed but normal volume and prosody; some psychomotor retardation present; thought process is organized and goal directed; Thought content is on tx; otherwise pertinent to relevant topics and without any delusional content, paranoid ideations or grandiosity; denies any SI/HI. Denies AVH and there is no evidence of perceptual disturbance. Patients insight and judgment improving Diagnostics Vital Signs (24Hr): Vital Signs - 24 hr 05/12/25 20:00 05/12/25 20:32 05/13/25 08:00 Temperature 98.5 F 99.1 F Pulse Rate 103 H 90 Respiratory Rate 18 18 Blood Pressure 132/87 132/87 136/84 Pulse Oximetry 95 96 Oxygen Delivery Method Room Air Room Air BMI result Body Mass Index 27.6 Labs 05/08/25 22:29 05/08/25 22:29 Medications Medications Current Medications Acetaminophen (Acetaminophen 325 Mg Tablet) 650 mg PO Q6H PRN PRN Reason: Headache/Pain, Scale 1-10 Al Hydroxide/Mg Hydroxide (Magnesium Hydrox/Alum Hydrox 30 Ml Oral.Susp) 30 ml PO Q6H PRN PRN Reason: Heartburn/Nausea Amitriptyline HCl (Amitriptyline Hcl 50 Mg Tablet) 100 mg PO BEDTIME [facility] Last Admin: 05/12/25 20:33 Dose: 100 mg Bisacodyl (Bisacodyl 5 Mg Tablet.Dr) 10 mg PO BEDTIME PRN PRN Reason: Constipation Docusate Sodium (Docusate Sodium 100 Mg Capsule) 100 mg PO BID [facility] Last Admin: 05/13/25 09:42 Dose: 100 mg Hydroxyzine HCl (Hydroxyzine Hcl 50 Mg Tablet) 50 mg PO TID PRN PRN Reason: Anxiety Last Admin: 05/12/25 21:43 Dose: 50 mg Lamotrigine (Lamotrigine 25 Mg Tablet) 25 mg PO DAILY [facility] Last Admin: 05/13/25 09:42 Dose: 25 mg Magnesium Hydroxide (Milk Of Magnesia 30 Ml Oral.Susp) 30 ml PO DAILY PRN PRN Reason: Constipation Mirtazapine (Mirtazapine 7.5 Mg Tablet) 7.5 mg PO BEDTIME [facility] Last Admin: 05/12/25 20:32 Dose: 7.5 mg Nicotine Polacrilex (Nicotine Polacrilex 2 Mg Gum) 4 mg BUCCAL Q2H PRN PRN Reason: Nicotine Cravings Olanzapine (Olanzapine 10 Mg Tablet) 20 mg PO BEDTIME [facility] Last Admin: 05/12/25 20:32 Dose: 20 mg Olanzapine (Olanzapine 5 Mg Tablet) 5 mg PO Q4H PRN PRN Reason: agitation Last Admin: 05/10/25 14:35 Dose: 5 mg Oxcarbazepine (Oxcarbazepine 150 Mg Tablet) 150 mg PO BID [facility] Stop: 05/13/25 21:00 Last Admin: 05/13/25 09:42 Dose: 150 mg Oxcarbazepine (Oxcarbazepine 150 Mg Tablet) 150 mg PO DAILY [facility] Stop: 05/16/25 10:00 Prazosin HCl (Prazosin Hcl 1 Mg Capsule) 1 mg PO BEDTIME [facility]; Protocol Last Admin: 05/12/25 20:32 Dose: 1 mg Risperidone (Risperidone 1 Mg Tablet) 1 mg PO BID [facility] Last Admin: 05/13/25 09:42 Dose: 1 mg Trazodone HCl (Trazodone Hcl 50 Mg Tablet) 50 mg PO BEDTIME MRX1 PRN PRN Reason: Insomnia Allergies Allergies Allergy/AdvReac Type Severity Reaction Status Date / Time aripiprazole Allergy Unknown Verified 05/08/25 22:23 Penicillins Allergy Hives Verified 05/08/25 22:23 sulfamethoxazole (From Allergy Unknown Verified 05/08/25 22:23 Bactrim) trimethoprim (From Bactrim) Allergy Unknown Verified 05/08/25 22:23 Assessment & Plan Assessment & Plan (1) Schizoaffective disorder, depressive type: Status: Acute Code(s): F25.1 - Schizoaffective disorder, depressive type (2) High cholesterol: Status: Acute Code(s): E78.00 - Pure hypercholesterolemia, unspecified (3) PTSD (post-traumatic stress disorder): Status: Acute Code(s): F43.10 - Post-traumatic stress disorder, unspecified (4) TBI (traumatic brain injury): Status: Acute Code(s): S06.9X9A - Unspecified intracranial injury with loss of consciousness of unspecified duration, initial encounter Plan HPI: patient is a 29 y.o , Syrian speaking male with hx of schizoaffective, depressive type, PTSD, TBI, HLD, who self-presented to [facility] with a complaint of suicidal thoughts with a plan to hang self or overdose on medications, frequent thoughts of self-harm, and AVH. Patient reports he was started on new medications appropriately for a week. Since started the new medication-Trileptal patient has noticed the above symptoms. Discussed with patient regarding medication plan. Explained to patient that there has a lot of factors contributing to his suicidal thoughts, depression, and hallucinations. We doubt about the Trileptal causing the above symptoms. Discussed with patient the other options for schizoaffective depressive type. Patient was heard about lithium and advise when he was admitted last time on M3. However, patient choose to have Trileptal increased up to total of 300 twice a day from 150. Patient agrees if it is not helpful, he will try lithium. Education given to patient regarding indication, side effects and labs to look for before and during treatment if start on lithium. Patient is receptive to the plan. Formulation/clinical reasoning: Just gone through divorce, now living alone, not able to afford to pay for the mortgage, has not paid for a peer of time. Mom also have stroke recently, decrease in sleep and appetite for about a week, increased depression and anxiety, Experience psychotic symptoms, SI with plan to overdose on meds cuts. Experienced nightmare nightmare. Given the above information, patient will be benefit in restrictive environment for his own safety, medication management, and refer patient back to outpatient psychiatric services for aftercare. Hospital course: Increase Trileptal from 150 b.i.d. to 300 b.i.d. Continue with Zyprexa 20 mg at bedtime. PRNs twice a day available for severe agitation. Amitriptyline 100 mg at bedtime for depression. We will check level. 05/11/25 Trileptal taper Lamictal 25 mg HS Colace 100 mg bid Dulculox prn 05/12: Change Lamictal to a.m. dosing Mirtazapine 7.5 mg HS trial to assist with sleep. 05/13 Patient reports no SI. He says Remeron helped with sleep; says it's makes him tired during the day but will continue since wants the sleep no AVH since starting on Risperal; production underwriter agreed to move Risperdal to bedtime to avoid daytime sedation. Discussed medication options since Remeron is helping with sleep and Risperdal helping with AVH, does he still needs Zyprexa. Patient says he has been taking it for years and is hesitant to make any other changes, regardless of increased risks of being on 2 antipsychotics -continue current treatment plan Plan Patient on 15 minute checks for safety. Admitted to M5. CV. Work with treatment team to do collateral Seen by Hospitalist on 05/09/25. Utox and BAL negative. Slightly elevated on ALT/AST. . EKG NSR. Patient educated on: diagnosis and medication risk/benefits Informed Consent: understands Reason for continued inpatient stay Substantial Risk for: rapid decompensation Time Spent With Patient Time: Total time managing care of this patient today ____ minutes.
[2025-05-13 20:00] VITALS: BP 144/89; PULSE 95; RESP 18; TEMP 36.2; O2SAT 96
[2025-05-14 08:00] VITALS: BP 132/74; PULSE 83; RESP 18; TEMP 36.6; O2SAT 93
--- NOTE | 2025-05-14 16:13 | P.PNPSI_ITS ---
Subjective Subjective Date of Service: 05/14/25 Reason For Visit: Paranoid Schizophrenia PTSD alcohol use disorder Interim History: Met with patient; discussed with team Patient reports that he is feeling better. Remains without any SI or AVH. Feels that medications are helpful. He also says he is feeling less drugged by medication and more clear minded. Mental Status Exam Mental Status Exam Narrative: Pt is alert and oriented; behavior is cooperative, more social, calm and friendly on approach; patient is not in distress; dressed in casual attire, unkempt, large earrings; mood is described as better and affect congruent, noticeably brighter; eye contact appropriate; Speech is a little slowed but normal volume and prosody; some psychomotor retardation present; thought process is organized and goal directed; Thought content is on tx; otherwise pertinent to relevant topics and without any delusional content, paranoid ideations or grandiosity; denies any SI/HI. Denies AVH and there is no evidence of perceptual disturbance. Patients insight and judgment fair Diagnostics Vital Signs (24Hr): Vital Signs - 24 hr 05/13/25 20:00 05/14/25 08:00 Temperature 97.1 F 97.8 F Pulse Rate 95 83 Respiratory Rate 18 18 Blood Pressure 144/89 H 132/74 Pulse Oximetry 96 93 Oxygen Delivery Method Room Air Room Air BMI result Body Mass Index 27.6 Labs 05/08/25 22:29 05/08/25 22:29 Medications Medications Current Medications Acetaminophen (Acetaminophen 325 Mg Tablet) 650 mg PO Q6H PRN PRN Reason: Headache/Pain, Scale 1-10 Al Hydroxide/Mg Hydroxide (Magnesium Hydrox/Alum Hydrox 30 Ml Oral.Susp) 30 ml PO Q6H PRN PRN Reason: Heartburn/Nausea Amitriptyline HCl (Amitriptyline Hcl 50 Mg Tablet) 100 mg PO BEDTIME [facility] Last Admin: 05/13/25 20:15 Dose: 100 mg Bisacodyl (Bisacodyl 5 Mg Tablet.Dr) 10 mg PO BEDTIME PRN PRN Reason: Constipation Docusate Sodium (Docusate Sodium 100 Mg Capsule) 100 mg PO BID [facility] Last Admin: 05/14/25 10:08 Dose: 100 mg Hydroxyzine HCl (Hydroxyzine Hcl 50 Mg Tablet) 50 mg PO TID PRN PRN Reason: Anxiety Last Admin: 05/12/25 21:43 Dose: 50 mg Lamotrigine (Lamotrigine 25 Mg Tablet) 25 mg PO DAILY [facility] Last Admin: 05/14/25 10:08 Dose: 25 mg Magnesium Hydroxide (Milk Of Magnesia 30 Ml Oral.Susp) 30 ml PO DAILY PRN PRN Reason: Constipation Mirtazapine (Mirtazapine 7.5 Mg Tablet) 7.5 mg PO BEDTIME [facility] Last Admin: 05/13/25 20:16 Dose: 7.5 mg Nicotine Polacrilex (Nicotine Polacrilex 2 Mg Gum) 4 mg BUCCAL Q2H PRN PRN Reason: Nicotine Cravings Olanzapine (Olanzapine 10 Mg Tablet) 20 mg PO BEDTIME [facility] Last Admin: 05/13/25 20:15 Dose: 20 mg Olanzapine (Olanzapine 5 Mg Tablet) 5 mg PO Q4H PRN PRN Reason: agitation Last Admin: 05/13/25 17:57 Dose: 5 mg Oxcarbazepine (Oxcarbazepine 150 Mg Tablet) 150 mg PO DAILY [facility] Stop: 05/16/25 10:00 Last Admin: 05/14/25 10:08 Dose: 150 mg Prazosin HCl (Prazosin Hcl 1 Mg Capsule) 1 mg PO BEDTIME [facility]; Protocol Last Admin: 05/13/25 20:15 Dose: 1 mg Risperidone (Risperidone 2 Mg Tablet) 2 mg PO BEDTIME [facility] Last Admin: 05/13/25 20:16 Dose: 2 mg Trazodone HCl (Trazodone Hcl 50 Mg Tablet) 50 mg PO BEDTIME MRX1 PRN PRN Reason: Insomnia Allergies Allergies Allergy/AdvReac Type Severity Reaction Status Date / Time aripiprazole Allergy Unknown Verified 05/08/25 22:23 Penicillins Allergy Hives Verified 05/08/25 22:23 sulfamethoxazole (From Allergy Unknown Verified 05/08/25 22:23 Bactrim) trimethoprim (From Bactrim) Allergy Unknown Verified 05/08/25 22:23 Assessment & Plan Assessment & Plan (1) Schizoaffective disorder, depressive type: Status: Acute Code(s): F25.1 - Schizoaffective disorder, depressive type (2) High cholesterol: Status: Acute Code(s): E78.00 - Pure hypercholesterolemia, unspecified (3) PTSD (post-traumatic stress disorder): Status: Acute Code(s): F43.10 - Post-traumatic stress disorder, unspecified (4) TBI (traumatic brain injury): Status: Acute Code(s): S06.9X9A - Unspecified intracranial injury with loss of consciousness of unspecified duration, initial encounter Plan HPI: patient is a 29 y.o , Serbian speaking male with hx of schizoaffective, depressive type, PTSD, TBI, HLD, who self-presented to [facility] with a complaint of suicidal thoughts with a plan to hang self or overdose on medications, frequent thoughts of self-harm, and AVH. Patient reports he was started on new medications appropriately for a week. Since started the new medication-Trileptal patient has noticed the above symptoms. Discussed with patient regarding medication plan. Explained to patient that there has a lot of factors contributing to his suicidal thoughts, depression, and hallucinations. We doubt about the Trileptal causing the above symptoms. Discussed with patient the other options for schizoaffective depressive type. Patient was heard about lithium and advise when he was admitted last time on M3. However, patient choose to have Trileptal increased up to total of 300 twice a day from 150. Patient agrees if it is not helpful, he will try lithium. Education given to patient regarding indication, side effects and labs to look for before and during treatment if start on lithium. Patient is receptive to the plan. Formulation/clinical reasoning: Just gone through divorce, now living alone, not able to afford to pay for the mortgage, has not paid for a peer of time. Mom also have stroke recently, decrease in sleep and appetite for about a week, increased depression and anxiety, Experience psychotic symptoms, SI with plan to overdose on meds cuts. Experienced nightmare nightmare. Given the above information, patient will be benefit in restrictive environment for his own safety, medication management, and refer patient back to outpatient psychiatric services for aftercare. Hospital course: Increase Trileptal from 150 b.i.d. to 300 b.i.d. Continue with Zyprexa 20 mg at bedtime. PRNs twice a day available for severe agitation. Amitriptyline 100 mg at bedtime for depression. We will check level. 05/11/25 Trileptal taper Lamictal 25 mg HS Colace 100 mg bid Dulculox prn 05/12: Change Lamictal to a.m. dosing Mirtazapine 7.5 mg HS trial to assist with sleep. 05/13 Patient reports no SI. He says Remeron helped with sleep; says it's makes him tired during the day but will continue since wants the sleep no AVH since starting on Risperal; public relations writer agreed to move Risperdal to bedtime to avoid daytime sedation. Discussed medication options since Remeron is helping with sleep and Risperdal helping with AVH, does he still needs Zyprexa. Patient says he has been taking it for years and is hesitant to make any other changes, regardless of increased risks of being on 2 antipsychotics -continue current treatment plan atient reports that he is feeling better. Remains without any SI or AVH. Feels that medications are helpful. He also says he is feeling less drugged by medication and more clear minded. Plan Patient on 15 minute checks for safety. Admitted to M5. CV. Work with treatment team to do collateral Seen by Hospitalist on 05/09/25. Utox and BAL negative. Slightly elevated on ALT/AST. . EKG NSR. Patient educated on: diagnosis and medication risk/benefits Informed Consent: understands Reason for continued inpatient stay Substantial Risk for: rapid decompensation Time Spent With Patient Time: Total time managing care of this patient today ____ minutes.
[2025-05-14 20:00] VITALS: BP 136/87; PULSE 97; RESP 18; TEMP 36.6; O2SAT 96
[2025-05-14 21:14] VITALS: BP 136/87
[2025-05-15 00:19] LABS: Amitriptyline, Serum 49 mcg/L; Nortriptyline, Serum 40 mcg/L
[2025-05-15] MEDS: Magnesium Hydrox/Alum Hydrox 30 ML ORAL.SUSP PO (02:22)
[2025-05-15 08:20] VITALS: BP 109/58; PULSE 79; RESP 19; TEMP 36.4; O2SAT 96
--- NOTE | 2025-05-15 12:54 | HO.PSYCHPN ---
Subjective Subjective Date of Service: 05/15/25 Reason For Visit: Paranoid Schizophrenia PTSD alcohol use disorder Interim History: Met with patient; discussed with team Patient reports that he remains doing well, mood much improved. Discussed medication regimen and whether not he wants to see if he can lower the dose of Zyprexa however patient prefers to keep it the same for now Mental Status Exam Mental Status Exam Narrative: Pt is alert and oriented; behavior is cooperative, social, calm and friendly on approach; patient is not in distress; dressed in casual attire, unkempt, are hoop earrings; mood is described as good and affect congruent, noticeably brighter; eye contact appropriate; Speech is a little slowed but normal volume and prosody; some psychomotor retardation present; thought process is organized and goal directed; Thought content is on tx; otherwise pertinent to relevant topics and without any delusional content, paranoid ideations or grandiosity; denies any SI/HI. Denies AVH and there is no evidence of perceptual disturbance. Patients insight and judgment fair Diagnostics Vital Signs (24Hr): Vital Signs - 24 hr 05/14/25 20:00 05/14/25 21:14 05/15/25 08:20 Temperature 97.9 F 97.5 F Pulse Rate 97 79 Respiratory Rate 18 19 Blood Pressure 136/87 136/87 109/58 L Pulse Oximetry 96 96 Oxygen Delivery Method Room Air Room Air BMI result Body Mass Index 27.6 Labs 05/08/25 22:29 05/08/25 22:29 Labs: Laboratory Results - last 48 hr 05/10/25 07:53 Amitriptyline 49 Amitriptyline&Nortrip 89 L Nortriptyline 40 Medications Medications Current Medications Acetaminophen (Acetaminophen 325 Mg Tablet) 650 mg PO Q6H PRN PRN Reason: Headache/Pain, Scale 1-10 Al Hydroxide/Mg Hydroxide (Magnesium Hydrox/Alum Hydrox 30 Ml Oral.Susp) 30 ml PO Q6H PRN PRN Reason: Heartburn/Nausea Last Admin: 05/15/25 02:22 Dose: 30 ml Amitriptyline HCl (Amitriptyline Hcl 50 Mg Tablet) 100 mg PO BEDTIME [facility] Last Admin: 05/14/25 21:12 Dose: 100 mg Bisacodyl (Bisacodyl 5 Mg Tablet.Dr) 10 mg PO BEDTIME PRN PRN Reason: Constipation Docusate Sodium (Docusate Sodium 100 Mg Capsule) 100 mg PO BID [facility] Last Admin: 05/15/25 08:38 Dose: 100 mg Hydroxyzine HCl (Hydroxyzine Hcl 50 Mg Tablet) 50 mg PO TID PRN PRN Reason: Anxiety Last Admin: 05/12/25 21:43 Dose: 50 mg Lamotrigine (Lamotrigine 25 Mg Tablet) 25 mg PO DAILY [facility] Last Admin: 05/15/25 08:38 Dose: 25 mg Magnesium Hydroxide (Milk Of Magnesia 30 Ml Oral.Susp) 30 ml PO DAILY PRN PRN Reason: Constipation Mirtazapine (Mirtazapine 7.5 Mg Tablet) 7.5 mg PO BEDTIME [facility] Last Admin: 05/14/25 21:12 Dose: 7.5 mg Nicotine Polacrilex (Nicotine Polacrilex 2 Mg Gum) 4 mg BUCCAL Q2H PRN PRN Reason: Nicotine Cravings Olanzapine (Olanzapine 10 Mg Tablet) 20 mg PO BEDTIME [facility] Last Admin: 05/14/25 21:12 Dose: 20 mg Olanzapine (Olanzapine 5 Mg Tablet) 5 mg PO Q4H PRN PRN Reason: agitation Last Admin: 05/14/25 17:56 Dose: 5 mg Oxcarbazepine (Oxcarbazepine 150 Mg Tablet) 150 mg PO DAILY [facility] Stop: 05/16/25 10:00 Last Admin: 05/15/25 08:38 Dose: 150 mg Prazosin HCl (Prazosin Hcl 1 Mg Capsule) 1 mg PO BEDTIME [facility]; Protocol Last Admin: 05/14/25 21:14 Dose: 1 mg Risperidone (Risperidone 2 Mg Tablet) 2 mg PO BEDTIME [facility] Last Admin: 05/14/25 21:12 Dose: 2 mg Trazodone HCl (Trazodone Hcl 50 Mg Tablet) 50 mg PO BEDTIME MRX1 PRN PRN Reason: Insomnia Allergies Allergies Allergy/AdvReac Type Severity Reaction Status Date / Time aripiprazole Allergy Unknown Verified 05/08/25 22:23 Penicillins Allergy Hives Verified 05/08/25 22:23 sulfamethoxazole (From Allergy Unknown Verified 05/08/25 22:23 Bactrim) trimethoprim (From Bactrim) Allergy Unknown Verified 05/08/25 22:23 Assessment & Plan Assessment & Plan (1) Schizoaffective disorder, depressive type: Status: Acute Code(s): F25.1 - Schizoaffective disorder, depressive type (2) High cholesterol: Status: Acute Code(s): E78.00 - Pure hypercholesterolemia, unspecified (3) PTSD (post-traumatic stress disorder): Status: Acute Code(s): F43.10 - Post-traumatic stress disorder, unspecified (4) TBI (traumatic brain injury): Status: Acute Code(s): S06.9X9A - Unspecified intracranial injury with loss of consciousness of unspecified duration, initial encounter Plan HPI: patient is a 29 y.o , Slovak speaking male with hx of schizoaffective, depressive type, PTSD, TBI, HLD, who self-presented to [facility] ED with a complaint of suicidal thoughts with a plan to hang self or overdose on medications, frequent thoughts of self-harm, and AVH. Patient reports he was started on new medications appropriately for a week. Since started the new medication-Trileptal patient has noticed the above symptoms. Discussed with patient regarding medication plan. Explained to patient that there has a lot of factors contributing to his suicidal thoughts, depression, and hallucinations. We doubt about the Trileptal causing the above symptoms. Discussed with patient the other options for schizoaffective depressive type. Patient was heard about lithium and advise when he was admitted last time on M3. However, patient choose to have Trileptal increased up to total of 300 twice a day from 150. Patient agrees if it is not helpful, he will try lithium. Education given to patient regarding indication, side effects and labs to look for before and during treatment if start on lithium. Patient is receptive to the plan. Formulation/clinical reasoning: Just gone through divorce, now living alone, not able to afford to pay for the mortgage, has not paid for a peer of time. Mom also have stroke recently, decrease in sleep and appetite for about a week, increased depression and anxiety, Experience psychotic symptoms, SI with plan to overdose on meds cuts. Experienced nightmare nightmare. Given the above information, patient will be benefit in restrictive environment for his own safety, medication management, and refer patient back to outpatient psychiatric services for aftercare. Hospital course: Increase Trileptal from 150 b.i.d. to 300 b.i.d. Continue with Zyprexa 20 mg at bedtime. PRNs twice a day available for severe agitation. Amitriptyline 100 mg at bedtime for depression. We will check level. 05/11/25 Trileptal taper Lamictal 25 mg HS Colace 100 mg bid Dulculox prn 05/12: Change Lamictal to a.m. dosing Mirtazapine 7.5 mg HS trial to assist with sleep. 05/13 Patient reports no SI. He says Remeron helped with sleep; says it's makes him tired during the day but will continue since wants the sleep no AVH since starting on Risperal; investigative writer agreed to move Risperdal to bedtime to avoid daytime sedation. Discussed medication options since Remeron is helping with sleep and Risperdal helping with AVH, does he still needs Zyprexa. Patient says he has been taking it for years and is hesitant to make any other changes, regardless of increased risks of being on 2 antipsychotics -continue current treatment plan atient reports that he is feeling better. Remains without any SI or AVH. Feels that medications are helpful. He also says he is feeling less drugged by medication and more clear minded. 05/15 patient remains feeling stable, better mood, no SI/AVH. Discussed medications and wants to leave it as they are including Zyprexa he has been on for quite some time Plan Patient on 15 minute checks for safety. Admitted to M5. CV. Work with treatment team to do collateral Seen by Hospitalist on 05/09/25. Utox and BAL negative. Slightly elevated on ALT/AST. . EKG NSR. Patient educated on: diagnosis and medication risk/benefits Informed Consent: understands Reason for continued inpatient stay Substantial Risk for: stable for discharge Time Spent With Patient Time: Total time managing care of this patient today ____ minutes.
[2025-05-15 20:00] VITALS: BP 121/84; PULSE 94; RESP 16; TEMP 37.4; O2SAT 98
[2025-05-16 07:54] VITALS: BP 153/86; PULSE 85; TEMP 36.3; O2SAT 96
--- NOTE | 2025-05-16 11:37 | P.DS_ITS ---
DS: Providers Provider Date of admission: 05/09/25 12:26 Primary care physician: Unknown Physician DS: Diagnosis Discharge Diagnosis (1) Schizoaffective disorder, depressive type: Status: Acute (2) High cholesterol: Status: Acute (3) PTSD (post-traumatic stress disorder): Status: Acute (4) TBI (traumatic brain injury): Status: Acute DS: Medications Discharge Medications Home Medications: Previous Rx's ?Medication ?Instructions ?Recorded amitriptyline 50 mg tablet 100 mg (2 x 50 mg) PO BEDTI ME #14 05/16/25 tabs docusate sodium 100 mg capsule 100 mg PO BID #14 caps 05/16/25 hydroxyzine HCl 50 mg tablet 50 mg PO TID PRN Anxiety #21 tabs 05/16/25 lamotrigine 25 mg tablet 25 mg PO DAILY #7 tabs 05/16 mirtazapine 7.5 mg tablet 7.5 mg PO BEDTIME #7 tabs olanzapine 10 mg tablet 20 mg (2 x 10 mg) PO BEDTIME #7 05/16/25 tabs prazosin 1 mg capsule 1 mg PO BEDTIME #7 caps 05/03 11/25 risperidone 2 mg tablet 2 mg PO BEDTIME #7 tabs 05/03 11/25 Data Data Completed and Pending Completed studies during hospitalization [Text1]: 05/10/25 07:53 Estimat Average Glucose 105 Hemoglobin A1c % 5.3 Magnesium 2.1 Triglycerides 242 H Cholesterol 218 H LDL Cholesterol, Calc 135 H HDL Cholesterol 35 L Vitamin B12 486 Folate 7.9 TSH 1.21 Free T4 0.97 Amitriptyline 49 Amitriptyline&Nortrip 89 L Nortriptyline 40 DS: Summary Time Spent with Patient Time attestation: Total time managing care of this patient today ____ minutes. Discharge Plan Discharge Anticipated Discharge Date/Time: 05/16/25 11:00 Patient Disposition: Home, Self-Care Discharge Diagnosis: Schizoaffective Disorder, Depressed TBI PTSD HLD Referrals: [facility]: Penelope Isidro (therapist) [Other] - 05/17/25 1:00 pm Referral Note: Hospital discharge appointment with therapist Appointment is in office at [facility] in [facility]: Larissa Machado (psychiatry) [Other] - 05/23/25 9:00 am Referral Note: Hospital discharge appointment Appointment is by tele-health Physician,Unknown J [Primary Care Provider, Medical] - 1 Week Referral Note: Pt to follow up with PCP after discharge. Discharge Medications: New prazosin 1 mg Capsule 1 mg PO BEDTIME Qty: 7 0RF Protocol: Hold for SBP< HOLD for SBP < : 90 olanzapine 10 mg Tablet 20 mg PO BEDTIME Qty: 7 0RF hydroxyzine HCl 50 mg Tablet 50 mg PO TID PRN (Reason: Anxiety) Qty: 21 0RF amitriptyline 50 mg Tablet 100 mg PO BEDTIME Qty: 14 0RF lamotrigine 25 mg Tablet 25 mg PO DAILY Qty: 7 0RF risperidone 2 mg Tablet 2 mg PO BEDTIME Qty: 7 0RF docusate sodium 100 mg Capsule 100 mg PO BID Qty: 14 0RF mirtazapine 7.5 mg Tablet 7.5 mg PO BEDTIME Qty: 7 0RF Discontinued amitriptyline 100 mg tablet 100 mg PO BEDTIME 30 Days Qty: 30 0RF olanzapine 20 mg tablet 20 mg PO BEDTIME 30 Days Qty: 30 0RF oxcarbazepine 150 mg tablet 150 mg PO BID hydroxyzine pamoate 50 mg capsule 50 mg PO TID PRN (Reason: anxiety) Discharge Orders: Discharge Order (Routine); Ordered 05/16/25 Ordered By: Danisha Lambert Diet: Advance to usual diet Activity on Discharge: As tolerated Stand Alone Forms: Patient Portal Discharge page, Community Support Print Language: Icelandic Care Plan Goals: Mood and Behavioral Stabilization Health Concerns: Mood and Behavioral Stabilization Plan of Treatment: Attend scheduled appointments Take medications as directed Discharge Date/Time: 05/16/25 11:20
== END 2025-05-16 11:20 | disposition home or self-care (01) | DRG 750 ==
LOC: HO.ED 05-09 12:35 → HO.PM5 05-09 13:15
PROVIDERS: Admitting Provider Clinical Nurse Specialist Psychiatric/Mental Health, Adult; Emergency Provider Emergency Medicine; Visit Provider Clinical Nurse Specialist Psychiatric/Mental Health, Adult
DX: F25.1 Schizoaffective disorder, depressive type (principal); R45.851 Suicidal ideations; F43.10 Post-traumatic stress disorder, unspecified; E78.00 Pure hypercholesterolemia, unspecified; Z87.820 Personal history of traumatic brain injury; Z87.891 Personal history of nicotine dependence; Z79.899 Other long term (current) drug therapy
CPT/HCPCS: 36415; 80053; 80061; 80143; 80179; 80307; 80335; 81001; 81003; 82607; 82746; 83036; 83735; 84439; 84443; 85025; 93005; 99285; S9485

== ENCOUNTER → 2025-05-09 10:33 | Outpatient (BNV) | payer OTHER, SELFPAY | PROVIDERS: Emergency Provider Emergency Medicine; Visit Provider Internal Medicine Cardiovascular Disease | DX: Z13.6 Encounter for screening for cardiovascular disorders (principal) | CPT/HCPCS: 93010 ==

== ENCOUNTER → 2025-05-09 12:26 | Outpatient (BNV) | payer OTHER, SELFPAY | PROVIDERS: Admitting Provider Clinical Nurse Specialist Psychiatric/Mental Health, Adult; Emergency Provider Emergency Medicine; Visit Provider Nurse Practitioner Psychiatric/Mental Health | DX: F25.1 Schizoaffective disorder, depressive type (principal); E78.00 Pure hypercholesterolemia, unspecified; F43.10 Post-traumatic stress disorder, unspecified; S06.9X9A Unspecified intracranial injury with loss of consciousness of unspecified duration, initial encounter | CPT/HCPCS: 90792 ==

== ENCOUNTER → 2025-05-09 12:26 | Outpatient (BNV) | payer OTHER, SELFPAY | PROVIDERS: Admitting Provider Clinical Nurse Specialist Psychiatric/Mental Health, Adult; Emergency Provider Emergency Medicine; Visit Provider Nurse Practitioner Family | DX: R79.89 Other specified abnormal findings of blood chemistry (principal) | CPT/HCPCS: 99221 ==

== ENCOUNTER 2025-07-21 04:22 | Emergency (ER) | payer OTHER, SELFPAY ==
[2025-07-21 04:28] VITALS: BP 126/84; BP 137/85; PULSE 100; PULSE 99; RESP 15; O2SAT 100; BMI 27.5
[2025-07-21 04:30] VITALS: BP 137/85; PULSE 95; RESP 19; TEMP 37; O2SAT 93
--- OUTSIDE RECORDS SUMMARY | 2025-07-21 06:12 | XMS_ITS | Data Portability ---
Author Organization [facility], [employer] Address [address] [place] [address] Care Team Providers Care Registered Dietitian Name Role Phone SHAMAR MANZO Referring Provider [phone] KODI CARLSON Referring Provider PIERRE QUINTERO Primary Care Provider [facility] Primary Care Provider [facility] OTHER Assessment Encounter Date Assessment Date [...] continue to consider, as needed, using our [employer] website and/or signing up for [facility]ji e-mail portal. Followup in 11 months, or [...] 2021 working with a new psychiatrist at [facility] with additional diagnosis of schizoaffective disorder context [...] disorder, working with a new psychiatrist at [facility]. -- September 08, 2022 only one mild [...] a migraine preventative. He is satisfied with wydb-uho-viyhgxc Advil 400 mg or naproxen 440 mg [...] disorder, working with a new psychiatrist at [facility]. --October 31, 2024 continuing good benefit of [...] a migraine preventative. He is satisfied with jpas-jsq-ftizakz Advil 400 mg or naproxen 440 mg [...] amitriptyli ne 50 mg tablet 2024 025 [facility]/Pharmacy #[id number], [address] [place] [address], [id number], 5 13:11:41 amitriptyli ne 75 mg tablet 2023 024 lucille [facility]/Pharmacy #[id number], [address] [place] [address], [id number], 4 15:55:27 amitriptyli ne 75 mg tablet 2022 023 [facility]armacy #[id number], [address] [place] [address], [id number], 3 14:32:38 amitriptyli ne 75 mg tablet 2021 022 [facility] Not available 2 12:38:35 Patient TargetsNo targets recorded. Patient Instructions Encounter Date Encounter Id Patient Instructions Last Modified By Organization Details Last Modified Time 06/24/2021 [id number] PREVIOUS MEDICAT ION Melatonin helped sleep when he was on second shift, stopped when he went to [facility], May 2018 Klonopin 3 times a [...] management lucille Not available 09/08/2022 14:50:29 08/12/2023 [id number] PREVIOUS MEDICAT ION -- early 2021 Anxiety and anxiety attacks a bit better with venlafaxine XR 37.5 mg, Then discontinued December 2021 with eventual Zyprexa/fluoxetine for schizoaffective disorder depression and anxiety discussed September 2022 follow-up Melatonin helped sleep when he was on second shift, stopped when he went to [facility], May 2018 Klonopin 3 times a [...] management lucille Not available 08/12/2023 15:23:01 10/31/2024 [id number] PREVIOUS MEDICAT ION -- early 2021 Anxiety and anxiety attacks a bit better with venlafaxine XR 37.5 mg, Then discontinued December 2021 with eventual Zyprexa/fluoxetine for schizoaffective disorder depression and anxiety discussed September 2022 follow-up Melatonin helped sleep when he was on second shift, stopped when he went to [facility], May 2018 Klonopin 3 times a [...] 10/31/2024 DATA REVIEW completed Jarrod Bertrand MD [address] [place] [address] [place], [phone], Formerly [facility] 10/31/2024 13:05:45 08/12/2023 DATA REVIEW completed Jarrod Bertrand MD [address] [place] [address] [place], [phone], Formerly [facility] 08/12/2023 15:23:01 09/08/2022 DATA REVIEW completed Jarrod Bertrand MD [address] [place] [address] [place], [phone], Formerly [facility] 09/08/2022 14:19:34 09/25/2021 DATA REVIEW completed Jarrod Bertrand MD [address] [place] [address] [place], [phone], [facility]ly [facility] 09/25/2021 12:25:51 06/24/2021 DATA REVIEW completed Jarrod Bertrand MD [address] [place] [address] [place], [phone], Formerly [facility] 06/24/2021 13:07:55 Imaging Results None recorded. Procedure [...] Codes Diagnosis Note [id number] Jarrod Bertrand MD [facility] [address] [place] [address] [place] [phone] 06/24/2021 12:48:13 06/24/2021 13:35:20 [id number] Jarrod Bertrand MD [facility] [address] [place] [address] [place] [phone] 09/25/2021 11:51:12 09/25/2021 19:44:29 Migraine without aura [id number] G43.009 [id number] Jarrod Bertrand MD [facility] [address] [place] [address] MABEL MARTÍNEZ Minoo ARTEAGAATAALO MARTINEZ [id number] 09/08/2022 14:08:28 09/08/2022 17:09:23 Migraine without aura [id number] G43.009 [id number] Jarrod Bertrand MD [facility] [address] [place] [address] MABEL ROGERS ATAALO MARTINEZ [id number] 08/12/2023 15:16:35 08/12/2023 16:11:58 Migraine without aura [id number] G43.009 [id number] Jarrod Bertrand MD [facility] [address] [place] [address] MABEL ROGERS ATAALO MARTINEZ [id number] 10/31/2024 12:24:12 10/31/2024 16:52:16 Migraine without aura [id number] G43.009 Health Concerns Section Related Observation LastModified by Organization Detai ls LastModified Time None Recorded Concern Status LastModified by Organization Details LastModified Time None Recorded Advance Directives Directive None Recorded Payers Insurance Date Sequence Insurance Name Policy Number Policy Whitmore Covered Member ID Whitmore Member ID Guarantor Name 11/07/2024 1 [facility] PUBLIC PLANS [facility] - [place] [employer] (HMO) [id number] Uli Rowan [id number] Uli Rowan 06/24/2021 1 [place] [facility] Uli Rowan [id number] Uli Rowan 10/31/2024 1 [facility] [id number] Uli Rowan [id number] Uli Monika Rowan 06/20/2021 1 [facility] Uli Rowan [id number] Uli Monika Rowan 06/24/2021 1 [facility] OPEN ACCESS (CT RESIDENT ONLY) Uli Rowan [id number] Uli Rowan 06/24/2021 1 [facility] (O) Uli Rowan [id number] Uli Rowan 06/20/2021 1 [facility] [id number] Uli Rowan [id number] Uli Rowan Notes Date Note Type Note Provider Name and Address Organization Details Recorded Time 06/24/2021 text/html Follow up of headache. There has also been whole body shaking and shutdown that has been diagnosed as pseudoseizure by [facility] neurology in approximately [phone]. Past history includes head injury including skull [...] a week to 2-3 times per week. [place] headaches continue to last about 2 hours [...] These have been diagnosed as pseudoseizure by [facility] neurology. He thinks these happen maybe [...] remembers this portion, however. Jarrod Bertrand MD [address] [place] [address], [phone], Formerly [facility] 09/25/2021 12:27:03 09/25/2021 text/html Follow up of headache. There has also been whole body shaking and shutdown that has been diagnosed as pseudoseizure by [facility] neurology in approximately 2776-7146. Past history includes head injury including skull [...] not tried the naratriptan. He continues using fjat-wuq-xgonxgc analgesics for some of his headaches. Interim [...] a week to 2-3 times per week. 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 He thinks these happen maybe [...] remembers this portion, however. Jarrod Bertrand MD [address] [place] [address] [place], [phone], Formerly [facility] 09/25/2021 12:54:32 09/08/2022 text/html Follow up of headache. There has also been whole body shaking and shutdown that has been diagnosed as pseudoseizure by [facility] neurology in approximately 0460-7302. Past history includes head injury including skull [...] symptoms worsened and he was admitted to [facility] inpatient psychiatric unit. He was very anxious there and so was referred to [facility] where psychiatry made a diagnosis of schizoaffective [...] not tried the naratriptan. He continues using vvuo-fcb-xwpamvp analgesics for some of his headaches. history [...] a week to 2-3 times per week. 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 He thinks these happen maybe [...] remembers this portion, however. Jarrod Bertrand MD [address] [place] [address], [phone], [facility] 09/08/2022 14:50:43 08/12/2023 text/html Follow up of headache. There has also been whole body shaking and shutdown that has been diagnosed as pseudoseizure by [facility] neurology in approximately 7522-6080. Past history includes head injury including skull [...] He understands. He takes naproxen 440 mg hfep-sjv-jscvdvj or ibuprofen 4 mg tgof-kgx-yvpbphz for his weekly mild headache breakthrough and [...] symptoms worsened and he was admitted to [facility] inpatient psychiatric unit. He was very anxious there and so was referred to [facility] where psychiatry made a diagnosis of schizoaffective [...] not tried the naratriptan. He continues using jtbe-pjx-zdeozur analgesics for some of his headaches. history [...] a week to 2-3 times per week. 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 He thinks these happen maybe [...] remembers this portion, however. Jarrod Bertrand MD [address] [place] [address], [phone], [facility] 08/12/2023 15:59:31 10/31/2024 text/html Follow up of headache. There has also been whole body shaking and shutdown that has been diagnosed as pseudoseizure by [facility] neurology in approximately 4061-9207. Past history includes head injury including skull [...] He understands. He takes naproxen 440 mg zqii-oij-qhjjeon or ibuprofen 4 mg ygep-crq-ncvrgjh for his weekly mild headache breakthrough and [...] symptoms worsened and he was admitted to [facility] inpatient psychiatric unit. He was very anxious there and so was referred to [facility] where psychiatry made a diagnosis of schizoaffective [...] not tried the naratriptan. He continues using ctpi-jjh-wumzpud analgesics for some of his headaches. history [...] a week to 2-3 times per week. 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 He thinks these happen maybe [...] remembers this portion, however. Jarrod Bertrand MD [address] [place] [address] [place], [phone], Formerly [facility] 10/31/2024 13:26:33
--- OUTSIDE RECORDS SUMMARY | 2025-07-21 06:12 | XMS_ITS | Clinical Summary ---
Author Organization [address] Address [address] [place] [phone] Phone Care Team Providers Care Dehydrogenation Operator Head Name Role Phone Michelle Gamez MD Primary [...] TONSILLECTOMY ADENOIDECTOMY, BILATERAL MYRINGOTOMY AND TUBES PROCEDURE: AR TONSILLECTOMY & ADENOIDECTOMY <AGE 10 OTHER SURGICAL HISTORY Left PROCEDURE: AR ORCHIECTOMY PARTIAL; COMMENT: as a child for undescended teste. Medical History Medical History Date Comments Migraines 05/20/2019 DX:Migraines Tobacco use 05/20/2019 DX:Tobacco use ADHD (attention deficit hype ractivity disorder) 05/20/2019 DX:ADHD (attention deficit hyperactivity disorder); COMMENT: Hx of Adderall use. Anxiety 05/03/2019 DX:Anxiety Depression 05/03/2019 DX:Depression Traumatic brain injury ([facility]/ HCC V24, CMS/HCC V28) 05/03/2019 DX:Traumatic brain injury (H [facility]); [...] Health Maintenance Due Date Last Done Comments Drug Screen 1993 Non-Opioid Controlled Substance Agreement 1993 HPV Vaccines (1 - 3-dose SCD M series) 2020 Social Influencers of Health Screening 07/12/2022 Depression Screening 08/03/2024 10/20/2023 COVID-19 Vaccine (3 - 2024-2 6 season) 2025 04/13/2021, 03/23/2021 Cholesterol Screening [...] Maintenance Results * Depression Screening (10/20/2023) Pathologist [facility] Depression Screening Abstracted us Historical Provider MD HEALTH MAINTENANCE Final Result * (ABNORMAL) Lipid panel (01/07/2023) Pathologist [facility] LDL/HDL Ratio 6(A) 0 - 4 Triglycerides 195(A) 0 - 150 mg/dL Cholesterol 238(A) 0 - 200 mg/dL HDL 42 >=40 mg/dL LDL Cholesterol 157(A) 0 - 100 mg/dL Blood Venous blood specimen / Unknown us Historical Provider LAB BLOOD ORDERABLES Svetlana l Result from Last 3 Months or Most Recently Relevant to Health Maintenance Insurance [facility] PLANS Care Teams Dehydrogenation Operator Head Relationship Specialty Start Date End Date Michelle Gamez MD [address] [place] [phone] PCP - General Internal Medicine 03/03/22
--- OUTSIDE RECORDS SUMMARY | 2025-07-21 06:12 | XMS_ITS | Clinical Summary ---
Author Organization [facility] Prior to 12/31/[address] [place] [address] Care Team Providers Care Venetian Blind Machine Operator Name Role Phone Joy Gracia MD [...] age to complete this topic Care Teams Venetian Blind Machine Operator Relationship Specialty Start Date End Date Joy Gracia MD [address] [place] [phone] PCP - General Internal Medicine 03/30/19
[2025-07-21 06:17] VITALS: BP 119/77; PULSE 85; RESP 18; TEMP 37; O2SAT 94
[2025-07-21 06:38] LABS: MANUAL DIFF FLAG NO
[2025-07-21 06:39] LABS: Hematocrit 41.4 % (42.0-52.0); Hemoglobin 14.4 g/dl (14.0-18.0); Imm Gran Abs Auto 0.04 X10*3/uL (0.00-0.03); Imm Gran Pct Auto 0.4 % (0.0-0.4); Lymphocytes Absolute Auto 2.2 X10*3/uL (1.2-4.9); Mean Corpuscular HGB Conc 34.8 g/dl (31.0-36.0); Mean Corpuscular Hemoglobin 30.5 pg (27.0-33.0); Mean Corpuscular Volume 87.7 fL (80.0-98.0); NRBC Abs Auto 0.000 X10*3/uL (0.0-0.012); NRBC Pct Auto 0.0 /100WBC (0.0-0.2); Platelet Count 325 X10*3/uL (160-400); Red Blood Count 4.72 X10*6/uL (4.60-5.80); White Blood Count 9.3 X10*3/uL (4.8-10.8)
--- NOTE | 2025-07-21 06:57 | ED.GENADULT ---
HPI - General Adult General Chief complaint: General Medical Stated complaint: MED REACTION Time Seen by Provider: 07/21/25 06:18 Source: patient and EMS Mode of arrival: EMS Limitations: no limitations History of Present Illness ED Provider: HPI narrative: History of Present Illness 29-year-old female with a history of schizoaffective disorder (treated as bipolar) started lithium 300 mg daily approximately three weeks ago. She reports prior unsuccessful trials of multiple mood stabilizers before starting lithium. About one hour prior to arrival, she took one dose of Aleve (naproxen) and subsequently read online about potential interactions between NSAIDs and lithium, prompting presentation for evaluation. She reports nausea and a burning sensation in her abdomen but denies vomiting, fever, chills, or lower abdominal pain. No alcohol or illicit drug use. Review of Systems Constitutional: Denies fever or chills. Gastrointestinal: Positive for nausea and burning abdominal discomfort; denies vomiting or lower abdominal pain. All other systems not specifically reviewed in the transcript are undocumented. Related Data Previous Rx's ?Medication ?Instructions ?Recorded amitriptyline 50 mg tablet 100 mg (2 x 50 mg) PO BEDTIME #14 05/16/25 tabs docusate sodium 100 mg capsule 100 mg PO BID #14 caps 05/16/25 hydroxyzine HCl 50 mg tablet 50 mg PO TID PRN Anxiety #21 tabs 05/16/25 lamotrigine 25 mg tablet 25 mg PO DAILY #7 tabs 05/16/25 mirtazapine 7.5 mg tablet 7.5 mg PO BEDTIME #7 tabs 05/16/25 olanzapine 20 mg tablet 20 mg PO BEDTIME #7 tabs 05/16/25 prazosin 1 mg capsule 1 mg PO BEDTIME #7 caps 05/16/25 risperidone 2 mg tablet 2 mg PO BEDTIME #7 tabs 05/16/25 Allergies Allergy/AdvReac Type Severity Reaction Status Date / Time aripiprazole Allergy Unknown Verified 07/21/25 04:29 Penicillins Allergy Hives Verified 07/21/25 04:29 sulfamethoxazole (From Allergy Unknown Verified 07/21/25 04:29 Bactrim) trimethoprim (From Bactrim) Allergy Unknown Verified 07/21/25 04:29 Review of Systems Constitutional: Constitutional: Reports as per HPI [facility] Past Medical History Medical History (Updated 07/29/25 @ 00:01 by Elsa Gonzales) PTSD (post-traumatic stress disorder) Elevated LFTs Depression with suicidal ideation Alcohol use disorder Feeling suicidal Routine medical exam TBI (traumatic brain injury) Seizures SVT (supraventricular tachycardia) Surgical History History of appendectomy Social History Social History (Updated 10/10/24 @ 13:08 by Emma Hernandez Edmundo) Household Members: None Household Members Other:: roommate Housing: House Do you presently have visiting nurse or other home services: No Alcohol intake: never Patient Tobacco Use Status: Former Tobacco user Tobacco use type: Cigarette Cigarette Packs Per Day: 0 Cigarettes Per Day: 0 Years Smoked: 4 Smoked in Last 30 Days: No e-Cigarette/Vaping Use: Never Used Second Hand Smoke Exposure: No Use of substances other than those prescribed or required for medical reasons: No Substance Use Type: Marijuana Advance Directives: Yes Advance Directives on File: Yes Advance Directives Date on File: 08/29/24 Do you have a plan to hurt others: No Plan service: No Current occupational status: unemployed Sexual orientation: Straight/Heterosexual Physical Exam ED Exam Exam: ?General: ??looks age appropriate ?PERRLA, EOMI, MMM, Neck: Supple, no LAD ?CV: RRR, no obvious murmurs appreciated ?Resp: ?No wheezing rales rhonchi no stridor moving air well Abd: ?Bowel sounds are present, no tenderness no rebound no rigidity MSK: FROM, strength 5/5 all extremities Skin: Warm, dry, intact, ?Neuro: ?Alert and oriented x3, moving upper and lower extremities symmetrically, no obvious facial asymmetry noted, cranial nerves 2-12 intact Slightly anxious affect no SI or HI Vital Signs: Vital Signs - 24 hr 07/21/25 04:28 07/21/25 04:30 07/21/25 06:17 Temperature 98.6 F 98.6 F Pulse Rate 99 95 85 Respiratory Rate 15 19 18 Blood Pressure 137/85 137/85 119/77 Pulse Oximetry 100 93 94 Oxygen Delivery Method Room Air Room Air BMI result Body Mass Index 27.5 Medical Decision Making Medical Decision Making MDM Narrative: 6:58 AM 07/21/2025 (Dr. Chente Storey): Discussed the patient?s recent initiation of lithium therapy and NSAID exposure. Physician reviewed recent laboratory work (to assess kidney function) and planned to provide medication for abdominal discomfort. Patient was advised to avoid NSAIDs, including Aleve, while on lithium and may use Tylenol for pain as needed, if renal function is unremarkable, we will caution regarding lithium and NSAIDs at the same time, he is on therapeutic dose of lithium but will check lithium level as he did take NSAIDs 1. Lomita therapy ? patient concern about NSAID interaction 2. Dyspepsia/abdominal discomfort with nausea Differential Diagnosis Differential Diagnoses: The differential diagnosis associated with the presentation includes NSAID-induced gastritis/gastropathy: The patient's symptoms of nausea and burning epigastric discomfort occurring approximately one hour after naproxen ingestion are highly consistent with acute NSAID-induced gastric mucosal injury. NSAIDs cause damage to the gastric epithelium within hours of ingestion through both direct topical irritation and systemic REEDER-1 inhibition, which reduces protective prostaglandins. This diagnosis is supported by the temporal relationship and characteristic burning quality of her pain.[1-2] Lomita-related gastrointestinal side effects: Transient nausea and general discomfort commonly appear during the first few days to weeks of lithium therapy and may persist throughout treatment. Given that she started lithium approximately three weeks ago, her symptoms could represent common lithium-associated gastrointestinal effects, which include nausea, gastritis, and abdominal pain. However, the temporal correlation with naproxen makes NSAID gastropathy more likely.[3-7] Early lithium toxicity from NSAID-lithium interaction: While less likely after a single NSAID dose, NSAIDs (including naproxen) decrease renal blood flow and lithium clearance, potentially elevating serum lithium concentrations. Gastrointestinal manifestations of lithium toxicity include nausea, vomiting, diarrhea, and bloating. However, significant lithium elevation typically requires several days of NSAID therapy, and a single dose is unlikely to cause toxicity this rapidly.[3-8] Functional dyspepsia or gastroesophageal reflux disease: Dyspepsia with epigastric burning and nausea has multiple etiologies including GERD, functional dyspepsia, and peptic ulcer disease. The patient may have underlying dyspeptic symptoms that were exacerbated or unmasked by the NSAID exposure.[2][9-10] Anxiety-related somatic symptoms: The patient's significant concern about drug interactions (prompting ED presentation after online research) suggests heightened anxiety, which can manifest as or amplify gastrointestinal symptoms including nausea and abdominal discomfort. Admission/Observation Consideration of admission/observation: Escalation of care including admission/observation considered Lab Data 07/21/25 06:35 07/21/25 06:35 Labs: Lab Results 07/21/25 07/21/25 Range/Units 06:35 07:35 WBC 9.3 (4.8-10.8) X10*3/uL RBC 4.72 (4.60-5.80) X10*6/uL Hgb 14.4 (14.0-18.0) g/dl Hct 41.4 L (42.0-52.0) % MCV 87.7 (80.0-98.0) fL MCH 30.5 (27.0-33.0) pg MCHC 34.8 (31.0-36.0) g/dl RDW 11.9 (11.0-16.0) % Plt Count 325 (160-400) X10*3/uL MPV 9.0 L (9.4-12.4) fL Immature Gran % (Auto) 0.4 (0.0-0.4) % Neut % (Auto) 64.6 (45-73) % Lymph % (Auto) 23.6 (20-40) % [place] % (Auto) 8.8 (2-11) % Eos % (Auto) 1.8 (0-4) % Baso % (Auto) 0.8 (0-2) % Lymph # (Auto) 2.2 (1.2-4.9) X10*3/uL [place] # (Auto) 0.8 (0.1-1.2) X10*3/uL Eos # (Auto) 0.2 (0.0-0.4) X10*3/uL Baso # (Auto) 0.1 (0.0-0.2) X10*3/uL Abs Immat Gran (auto) 0.04 H (0.00-0.03) X10*3/uL Absolute Neuts (auto) 6.0 (2.0-8.3) x10*3/uL Absolute Nucleated RBC 0.000 (0.0-0.012) X10*3/uL Nucleated RBC % (auto) 0.0 (0.0-0.2) /100WBC Sodium 140 (135-145) mmol/L Potassium 3.9 (3.3-5.1) mmol/L Chloride 106 (96-108) mmol/L Carbon Dioxide 25 (22-29) mmol/L Anion Gap 13 (12-20) BUN 12 (9-16) mg/dL Creatinine 0.93 (0.5-1.4) mg/dL Estim Creat Clear Calc 133.8 Estimated GFR > 60 Random Glucose 96 (60-115) mg/dL Calcium 9.2 (8.4-10.2) mg/dL Total Bilirubin 0.2 (0.0-1.0) mg/dL Direct Bilirubin < 0.2 (0.0-0.5) mg/dL AST 30 (5-37) U/L ALT 70 H (0-40) U/L Alkaline Phosphatase 61 (39-117) U/L Total Protein 6.7 (6.5-8.0) g/dL Albumin 4.5 (3.5-5.0) g/dL [place] 0.14 L (0.60-1.20) mmol/L Discharge Plan Discharge Clinical Impression: Lomita use Patient Disposition: Home, Self-Care Additional Instructions: If you are concerned do not take lithium and a leave at the same time as it can raise her lithium levels your lithium level is actually quite low the rest of the workup has been reassuring you can take Tylenol for your symptoms of headaches etc. and discuss with the your with him prescriber what medications you can take for additional pain Prescriptions: No Action prazosin 1 mg Capsule 1 mg PO BEDTIME Qty: 7 0RF Protocol: Hold for SBP< HOLD for SBP < : 90 hydroxyzine HCl 50 mg Tablet 50 mg PO TID PRN (Reason: Anxiety) Qty: 21 0RF amitriptyline 50 mg Tablet 100 mg PO BEDTIME Qty: 14 0RF lamotrigine 25 mg Tablet 25 mg PO DAILY Qty: 7 0RF risperidone 2 mg Tablet 2 mg PO BEDTIME Qty: 7 0RF docusate sodium 100 mg Capsule 100 mg PO BID Qty: 14 0RF mirtazapine 7.5 mg Tablet 7.5 mg PO BEDTIME Qty: 7 0RF olanzapine 20 mg tablet 20 mg PO BEDTIME Qty: 7 0RF Interventions: ED Discharge Assessment Last Done: 07/21/25 08:34 Discharge Date/Time: 07/21/25 08:34 Print Language: Yakut
[2025-07-21 06:59] LABS: Alanine Aminotransferase 70 U/L (0-40); Albumin Level 4.5 g/dL (3.5-5.0); Alkaline Phosphatase 61 U/L (39-117); Anion Gap 13 (12-20); Aspartate Amino Transferase 30 U/L (5-37); Blood Urea Nitrogen 12 mg/dL (9-16); Calcium 9.2 mg/dL (8.4-10.2); Carbon Dioxide 25 mmol/L (22-29); Chloride 106 mmol/L (96-108); Creatinine Clr Calc Pharmacy 133.8; Estimated Glomerular Filt Rate > 60; Potassium 3.9 mmol/L (3.3-5.1); Sodium 140 mmol/L (135-145); Total Protein 6.7 g/dL (6.5-8.0)
[2025-07-21 07:57] LABS: Lithium 0.14 mmol/L (0.60-1.20)
[2025-07-21 08:31] VITALS: BP 141/90; PULSE 75; RESP 18; TEMP 37.1; O2SAT 98
[2025-07-21 08:34] VITALS: BP 141/90; PULSE 75; RESP 18; TEMP 37.1; O2SAT 98
== END 2025-07-21 08:34 | disposition home or self-care (01) ==
PROVIDERS: Emergency Provider Emergency Medicine
DX: R11.0 Nausea (principal); T39.395A Adverse effect of other nonsteroidal anti-inflammatory drugs [NSAID], initial encounter; Y92.89 Other specified places as the place of occurrence of the external cause; Z87.820 Personal history of traumatic brain injury; Z86.79 Personal history of other diseases of the circulatory system; Z79.899 Other long term (current) drug therapy
CPT/HCPCS: 36415; 80048; 80076; 80178; 85025; 99283; 99284